=== PATIENT | male | born 1945 | race Caucasian/White ===

== ENCOUNTER 2018-09-12 10:39 | Emergency (ER) | payer MEDICARE, OTHER, SELFPAY ==
[2018-09-12 10:40] VITALS: BP 161/94; PULSE 96; RESP 18; TEMP 36.6; O2SAT 98; BMI 32.3
--- NOTE | 2018-09-12 11:14 | ED.VIS.GEN ---
History of Present Illness Chief Complaint: Lower Extremity Injury Informant: Patient, Significant Other Onset: Days - Atraumatic medial right ankle pain, swelling and redness that started September 09. Context: Sudden Onset Timing: Continuous Quality: Pain Location: Medial right ankle Current Severity: Mild Maximum Severity: Severe Worsened by: Movement, weightbearing and touch Relieved by: Nothing Associated Symptoms: No associated symptoms Narrative: Patient is an elderly male with history of hypertension who presents with atraumatic medial right ankle pain with swelling and redness that was first noted Saturday. He denies history of gout or pseudogout. He denies fever, chills or night sweats. Patient denies history of peripheral arterial disease or symptoms of claudication. Prior similar symptoms: No Recent Illness/Hospitalization: No - Past Medical History (1) History of hypertension Status: Acute Past Medical History - Allergies and Home Meds Allergies/Adverse Reactions: Allergies Penicillins Allergy (Verified 09/12/18 10:42) Rash Primary Care Physician: [facility] ,Out of [Primary Care Provider] - Prior records reviewed: Yes Surgical History: noncontributory Lives: Spouse/ Significant Other Smoking Status: Never smoker Alcohol: Rare Review of Systems General: Denies: Chills, Fever, Malaise, Sweats, Weight loss Gastrointestinal: Denies: Nausea, Vomiting Genitourinary: Denies: Dysuria, Hematuria, Frequency Musculoskeletal: Reports: Swelling, Extremity Pain. Denies: Myalgias, Arthralgias, Neck pain, Back pain Skin: Reports: Rash. Denies: Abscess, Abrasions, Wounds Endocrine: Denies: Polyuria, Polydipsia Hematologic: Denies: Easy bruising, Easy bleeding Physical Exam Vital Signs/Narrative: Vital Signs Temp Pulse Resp BP Pulse Ox 09/12/18 10:40 98 F 96 18 161/94 H 98 Inital Vital Signs reviewed: Yes General: Well nourished, Well developed, Obese, No Acute Distress Head: Normocephalic, Atraumatic Eyes: Perrl, EOMI. Negative for: Pale conjunctiva, Scleral icterus, - ENT: Moist mucous membranes, No rhinorrhea, TM's clear Neck: Supple, Nontender, No lymphadenopathy, No JVD, - Cardiovascular: Regular rate, Regular rhythm, No murmurs Respiratory: No distress Back: Nontender, Normal Inspection Extremities: No edema, Tenderness, - - Swelling of the foot and especially medial ankle. DP pulses palpable. Difficult to palpate PT pulse because of tenderness and swelling. There is no lymphangitis there is no popliteal or inguinal lymphadenopathy. There is no joint effusion. Able to plantar and dorsiflex without pain.. Negative for: Nontender Diagnostic/Tx/Re-eval Chest X-Ray - ED: Read by ED Physician, Read by Radiologist, - - Three-view x-ray was obtained which reveals a calcaneal spur. There is no acute findings noted. Impressions Ankle X-Ray 09/12/18 11:26 IMPRESSION: Calcaneal spur. Electronically Signed: Gadiel Metzmyranda, at 11:45 EDT , Service support , 09/12/18 11:26 Ankle min 3 Views [RAD] Stat Laboratory Results 09/12/18 09/12/18 11:05 11:05 WBC 11.2 H RBC 4.80 Hgb 15.2 Hct 43.3 MCV 90.2 MCH 31.7 MCHC 35.1 RDW 13.5 RDW Differential 44.4 H Plt Count 180 MPV 11.3 Immature Gran % (Auto) 0.500 Neut % (Auto) 61.3 Lymph % (Auto) 23.6 Bryan % (Auto) 10.0 Eos % (Auto) 4.1 Baso % (Auto) 0.5 Absolute Neuts (auto) 6.9 Absolute Lymphs (auto) 2.64 Total Counted Not Reportable ESR 10 Sodium 140 Potassium 4.2 Chloride 103 Carbon Dioxide 27.0 Anion Gap 10 BUN 20 H Creatinine 1.13 Estim Creat Clear Calc 62.81 Est GFR (MDRD) Af Amer 82 Est GFR (MDRD) Non-Af 68 BUN/Creatinine Ratio 17.7 Glucose 133 H Calcium 9.2 C-React Prot Ext Range 13.90 H - Medical Decision Making With atraumatic pain erythema warmth concern for infection. Doubt pyogenic or crystal induced arthritis since there is no effusion and abnormalities noted medially. Area of tenderness is over the deltoid ligament. With no history of trauma doubt sprain. X-rays were obtained to determine if there is a foreign body or any abnormality of the osseous structure to suggest infection i.e. osteomyelitis. With erythema approximately 5 cm in diameter fullness tenderness this may represent inflammatory infectious process. Since white count is slightly elevated and inflammatory markers are elevated will treat with clindamycin because of penicillin allergy and placed on NSAID. ED Disposition - Plan for ED Patient: Disposition: Home or Assisted Living Diagnosis: Acute right ankle pain Instructions: ED Acute Pain [facility] Prescriptions: Clindamycin HCl 300 mg PO 4X/DAY #28 cap Ibuprofen 600 mg PO 4X/DAY #20 tab Referrals: [facility] Doctor,Out of [Primary Care Provider] - 3-5 Days Additional Instructions: The exact cause of your pain and symptoms is unknown. Because your white count is elevated with warmth and redness to the inner side of your ankle you were placed on antibiotics. He also placed on anti-inflammatory medication to help with discomfort and inflammation.
[2018-09-12 11:16] LABS: Erythrocyte Sedimentation Rate 10 mm/hr (0-20)
[2018-09-12 11:19] LABS: Absolute Lymphocyte Count 2.64 X10^3/ul (0.83-4.51); Absolute Neutrophil Count 6.9 X10^3/uL (2.0-7.7); Basophil# 0.06 X10^3/uL; Basophil% 0.5 % (0-1); Eosinophil# 0.46 X10^3/uL; Eosinophils% 4.1 % (0-5); Hematocrit 43.3 % (40-54); Hemoglobin 15.2 g/dl (13.0-16.5); Lymphocyte # 2.64 X10^3/ul (4.0); Lymphocyte % 23.6 % (19-41); Mean Corp Hgb Conc 35.1 g/gl (32-36); Mean Corpuscular Hgb 31.7 pg (27.0-32.0); Mean Corpuscular Volume 90.2 fL (80-94); Mean Platelet Vol. 11.3 fl (6.2-12.0); Monocyte# 1.12 X10^3/uL; Neutrophil # 6.85 X10^3/uL (2.7-7.7); Neutrophil % 61.3 % (47-70); Platelet Count 180 K/mm3 (150-450); RBC Distribution Width CV 13.5 % (11.6-14.6); RBC Distribution Width SD 44.4 fl (35.1-43.9); White Blood Count 11.2 K/mm3 (4.4-11.0)
[2018-09-12] MEDS: Ketorolac 15 MG/ML Vial IV (11:20)
[2018-09-12 11:22] LABS: POSITIVE COUNT NO; POSITIVE DIFFERENTIAL NO; POSITIVE MORPHOLOGY NO
--- NOTE | 2018-09-12 11:26 | RAD_ITS ---
STUDY: X-RAY - RIGHT ANKLE REASON FOR EXAM: Male, 72 years old. Pain. No known injury. TECHNIQUE: 3 view(s) of the ankle. COMPARISON: None. FINDINGS: Normal visualized distal tibia and fibula. Normal medial and lateral malleoli. Normal tibiotalar articulation and ankle mortise. A spur is seen at the insertion of the Achilles tendon. The visualized subtalar, talonavicular, calcaneocuboid and tarsal articulations are normal. The soft tissue structures are unremarkable. RAD/Ankle min 3 Views IMPRESSION: Calcaneal spur. Electronically Signed: Gadiel Schilling, at 11:45 EDT , Service support ,
[2018-09-12 12:27] LABS: Anion Gap 10 (5-15); BUN 20 mg/dL (7-18); BUN/Creat Ratio 17.7 RATIO (10-20); Calcium,Total 9.2 mg/dL (8.5-10.1); Chloride 103 mmol/L (98-107); Creatinine, Serum 1.13 mg/dL (0.70-1.30); EST Glomerular Filtration Rate 68 mL/min (>60); Est Glom Filt Rate - Afr Amer 82 mL/min (>60); Estimated Creatinine Clearance 62.81 ml/min; Glucose 133 mg/dL (74-106); Potassium 4.2 mmol/L (3.5-5.1); Sodium Level 140 mmol/L (136-145)
[2018-09-12 12:31] VITALS: BP 157/78; PULSE 73; RESP 16; TEMP 36.8; O2SAT 93
[2018-09-12] MEDS: Clindamycin HCl 150 MG Capsule 300 MG PO (14:46)
[2018-09-12] MEDS: Ibuprofen 600 MG Tablet PO (14:46)
== END 2018-09-12 14:49 | disposition home or self-care (01) ==
PROVIDERS: Emergency Provider Emergency Medicine
DX: M25.571 Pain in right ankle and joints of right foot (principal); M77.31 Calcaneal spur, right foot; I10 Essential (primary) hypertension; Z79.82 Long term (current) use of aspirin; Z79.899 Other long term (current) drug therapy; Z88.0 Allergy status to penicillin
CPT/HCPCS: 73610; 80048; 85025; 85652; 86140; 96374; 99284; A4216

== ENCOUNTER 2021-12-08 11:44 | Emergency (ER) | payer MEDICARE, SELFPAY ==
[2021-12-08 11:46] VITALS: BP 144/71; PULSE 80; RESP 14; TEMP 36.6; O2SAT 97; BMI 30.1
--- NOTE | 2021-12-08 12:16 | RAD_ITS ---
STUDY: X-RAY - LEFT HUMERUS REASON FOR EXAM: Male, 76 years old. Injury/Pain TECHNIQUE: 3 view(s) of the humerus. COMPARISON: None. FINDINGS: Normal visualized humerus. There is no demonstrated fracture or osseous destructive process. There is no demonstrated soft tissue abnormality. RAD/Humerus min 2 Views IMPRESSION: Normal x-ray examination of the humerus. Electronically Signed: Gadiel Schilling MD at 12:33 EDT ,
--- NOTE | 2021-12-08 12:25 | EDS_ITS ---
HPI History of Present Illness Chief Complaint: Upper Extremity Injury Informant: patient Narrative Narrative: Patient is a 76-year-old male with history of hypertension presenting with left shoulder pain after moving boxes. Patient states he was moving heavy boxes and he thinks he was reaching out with his arm and externally rotating when all of a sudden he had pain in his arm. This was about 2 hours prior to arrival. Has no associated numbness or tingling. Pain is over the lateral aspect of his mid upper arm. It is worse when he tries to flex his arm. Better when he relaxes it or does not move it. No other pain or injuries. [facility] Medical History GERD (gastroesophageal reflux disease) Hypertension Kidney stones Home Medications amlodipine 5 mg tablet 5 mg PO DAILY 09/12/18 [History Last Taken Unknown] aspirin 81 mg chewable tablet 81 mg PO DAILY@0800 09/12/18 [History Last Taken Unknown] atorvastatin 20 mg tablet 20 mg PO DAILY 09/12/18 [History Last Taken Unknown] cholecalciferol (vitamin D3) 125 mcg (5,000 unit) tablet 5,000 unit PO DAILY 09/12/18 [History Last Taken Unknown] clindamycin HCl 300 mg capsule 300 mg PO 4X/DAY #28 caps 09/12/18 [Rx Last Taken Unknown] coenzyme Q10 100 mg capsule (Co Q-10) 100 mg PO DAILY 09/12/18 [History Last Taken Unknown] esomeprazole magnesium 20 mg capsule,delayed release (Nexium) 20 mg PO DAILY 09/12/18 [History Last Taken Unknown] ibuprofen 600 mg tablet 600 mg PO 4X/DAY #20 tabs 09/12/18 [Rx Last Taken Un known] losartan 50 mg-hydrochlorothiazide 12.5 mg tablet 2 ea PO DAILY 09/12/18 [History Last Taken Unknown] magnesium oxide 400 mg PO DAILY 09/12/18 [History Last Taken Unknown] malic acid (bulk) 222 mg PO DAILY 09/12/18 [History Last Taken Unknown] omega-3 fatty acids-fish oil 684 mg-1,200 mg capsule,delayed release (One-Per-Day Emma-3) 1 ea PO DAILY 09/12/18 [History Last Taken Unknown] vitamin B complex 1 ea PO DAILY 09/12/18 [History Last Taken Unknown] Allergy/AdvReac Type Severity Reaction Status Date / Time Penicillins Allergy Rash Verified 09/12/18 10:42 Surgical History History of carotid endarterectomy History of laminectomy Social History Smoking Status: Never smoker ROS ROS ED Constitutional Constitutional ED: Denies chills or fever(s) Eyes Eyes: Denies change in vision ENT ENT ED: Denies rhinorrhea or sore throat Cardiovascular Cardiovascular: Denies chest pain Respiratory/Chest Respiratory/Chest: Denies cough Gastrointestinal Gastrointestinal: Denies nausea or vomiting Musculoskeletal Musculoskeletal: Reports other Details: left upper arm pain ; Denies back pain Integumentary Denies Abrasions or rash Neurologic Neurologic: Denies paresthesias or weakness Hematologic/Lymphatic Hematologic/Lymphatic: Denies easy bleeding or easy bruising EXAM Physical Exam Const Vital Signs: 12/08/21 11:46 Temperature 97.8 F Temperature Source Temporal Pulse Rate 80 Respiratory Rate 14 Blood Pressure 144/71 H Blood Pressure Mean 95 Pulse Ox 97 Oxygen Delivery Method Room Air Positive well nourished and well developed General Appearance ED: well developed and NAD HEENT Reports moist mucous membranes Eyes PERRL and EOMs intact bilaterally Neck full ROM and supple General: Negative for tenderness Chest Wall inspection of chest normal and palpation of chest normal Resp normal respiratory effort and clear to auscultation bilaterally Cardio regular rate, regular rhythm and no murmurs Extremity full ROM Extremity Narrative: Preserved range of motion with passive movement. Patient has pain with attempts to flex his left elbow. Normal shoulder with no deformity. Patient does have a bulge of muscle of the lateral mid humerus consistent with a muscle tear. Pain does worsen when he tries extend the elbow and abduct the shoulder and better with flexion of the elbow. Normal movement of the forearm, wrist and fingers. Neuro oriented x3, moves all extremities, no focal motor deficits and no sensory deficits noted Skin Lesions: no lesions Rashes: no rashes MDM MDM MDM Narrative Medical decision making narrative: Patient is a 76-year-old male presenting with sudden onset of pain and swelling of his left upper arm. Physical exam consistent with left tricep tendon rupture. Patient declined pain medication in the ER. We will continue ice and take [id number] ibuprofen at home as needed. Given referral for orthopedics. He is neurovascular intact no other injuries. X-ray obtained interpreted by myself as well as radiology does not show any acute fracture. Clinically do not suspect a dislocation. Patient discharged home in stable condition. Declines a sling for comfort. Discharge Plan Triage Chief Complaint: Upper Extremity Injury ED Provider: Haily Walsh Dx/Rx/DC Orders Clinical Impression: Triceps tendon rupture, Arm pain, left Instructions: ED Muscle Strain, Extremity Prescriptions: No Action atorvastatin 20 MG tablet 20 mg PO DAILY amlodipine 5 MG tablet 5 mg PO DAILY aspirin 81 MG Tab.Chew 81 mg PO DAILY@0800 vitamin B complex 1 EACH tablet 1 ea PO DAILY losartan-hydrochlorothiazide 1 EACH tablet 2 ea PO DAILY malic acid (bulk) 500 GM Powder 222 mg PO DAILY esomeprazole magnesium [Nexium] 20 MG capsule 20 mg PO DAILY coenzyme Q10 [Co Q-10] 100 MG capsule 100 mg PO DAILY omega-3 fatty acids-fish oil [One-Per-Day Emma-3] 1 EACH Capsule. 1 ea PO DAILY cholecalciferol (vitamin D3) 5,000 UNIT tablet 5,000 unit PO DAILY magnesium oxide 400 MG capsule 400 mg PO DAILY clindamycin HCl 300 MG capsule 300 mg PO 4X/DAY Qty: 28 0RF ibuprofen 600 MG tablet 600 mg PO 4X/DAY Qty: 20 0RF Primary Care Provider: Care Physician,No Primary Referrals: Adrian Carrillo DO [Med Staff - Active Staff] - 3-5 Days Care Physician,No Primary [Primary Care Provider] - Activity Restrictions/Additional Instructions: Alternate ibuprofen and Tylenol for pain control. Is okay to continue moving the arm. I suspect you have at least a partial rupture of one of the muscles in your arm, likely the tricep. Please follow-up with orthopedics within the next week. Disposition Disposition: Home, Self Care
== END 2021-12-08 12:53 | disposition home or self-care (01) ==
PROVIDERS: Emergency Provider Emergency Medicine; Visit Provider Emergency Medicine
DX: S46.312A Strain of muscle, fascia and tendon of triceps, left arm, initial encounter (principal); X58.XXXA Exposure to other specified factors, initial encounter
CPT/HCPCS: 73060; 99282

== ENCOUNTER 2022-11-13 22:59 | Emergency (ER) | payer OTHER, SELFPAY ==
[2022-11-13 23:01] VITALS: BP 169/68; PULSE 84; RESP 16; TEMP 36.7; O2SAT 97; BMI 30.8
[2022-11-13 23:09] VITALS: BMI 30.8
[2022-11-13 23:10] VITALS: BP 147/82; PULSE 79; RESP 16; O2SAT 95
--- NOTE | 2022-11-13 23:22 | CT_ITS ---
We are attempting to reach an attending provider to discuss findings. An addendum with communication details will be sent when the communication is complete. STUDY: CTA HEAD AND NECK WITH AND WITHOUT CONTRAST REASON FOR EXAM: Male, 77 years old. TIA RADIATION DOSAGE (If Supplied By Facility): CTDIvol = ( 27.01 ) mGy, DLP = ( 1568.51 ) mGycm TECHNIQUE: CT angiography was performed with a multi-detector CT scanner. Data acquisition was obtained from the skull base through the vertex following intravenous administration of IV 100mL Isovue-370. MIP images were reconstructed from the axial data set. Post-processing of the angiographic images was performed, with multiplanar reformation and 3D reconstruction. Individualized dose optimization techniques were used for this CT. COMPARISON: No relevant priors. FINDINGS: Patient right petrous carotid artery. Occluded left cavernous carotid artery partially reconstituted supraclinoid portion with patent left side and one likely supplied by the posterior communicating artery.. Normal right common carotid artery which is partially calcified without stenosis. Normal right A1 segments of the anterior cerebral artery. There is a visualized left A1 which is lesser in caliber than the right. Normal intact anterior communicating artery (ACOM). Normal bilateral A2 segments of the anterior cerebral arteries. Normal right M1 and M2 segments of the middle cerebral arteries, with a normal M1 bifurcation. This is noting a somewhat diminutive appearance of the vessels on the right. Normal left M1 and M2 segments of the middle cerebral arteries, with a normal M1 bifurcation. Normal right posterior communicating artery (PCOM). Normal left posterior communicating artery (PCOM). Normal bilateral vertebral arteries. Normal basilar artery with a normal basilar bifurcation. The visualized bilateral superior cerebellar (SCA) arteries are normal. Normal bilateral P1, P2 and visualized P3 segments of the posterior cerebral arteries. There is no demonstrated aneurysm of the mo[place] of [place]. On the noncontrasted portion of this study there is visualized mild atrophy. There is visualized subtle low-attenuation within the periventricular white matter suggesting prior small vessel ischemic change. There is subtle low attenuation within the left-sided external capsule ingesting age indeterminate ischemic change.. There is no visualized midline shift, or hemorrhage. AORTIC ARCH: There is partial calcification of the visualized aorta. There is a common takeoff of the left common carotid from the innominate. There is calcification of the takeoff of the right side subclavian with moderate plaque formation. There is partial calcification of the take off of the left subclavian without stenosis. RIGHT CAROTID ARTERIES: Within the distal right common carotid artery there is a visualized focus of soft plaque or mural thrombus and a strand-like takeoff of the external carotid artery and the superficial branch of the right external carotid artery. There is moderate narrowing of the visualized external carotid artery. At the level of this mural thrombus there is focal narrowing of the vessel of at least 50%. There is mild distention at the level of the bifurcation. The right-sided internal carotid artery is otherwise patent. Peripheral soft plaque or mural thrombus suggested at the level of the right internal carotid artery which appears to at least partially extend along the right internal carotid artery without visualized appearance of a double lumen. The vessel remains patent to the petrous.. Normal visualized cervical portion of the right internal carotid artery. There is moderate atherosclerotic plaque formation of the origin of the right external carotid artery with an estimated stenosis of 50-69% stenosis. LEFT CAROTID ARTERIES: There is also a suggestion of narrowing of the left side of the common carotid artery possible small focus of mural thrombus surrounding the left common carotid artery and/or soft plaque. There is also narrowing of the left-sided external carotid artery at its takeoff but not to the degree as on the right side. There is visualized occlusion of the left internal carotid artery at the level of the bifurcation. There is also a filling defect within the left side internal jugular vein at the level of the jugular foramen. The left internal carotid artery is occluded at the left carotid bulb. Occluded left internal carotid (ICA) artery. Occluded left internal carotid artery. Patient origin of the left external carotid artery (ECA). VERTEBRAL ARTERIES: Normal bilateral vertebral arteries. The visualized dental cavities in the right mandibular molars. There is visualized degenerative change within the cervical spine. There is visualized sphenoid sinus mucosal thickening mild ethmoid and maxillary sinus mucosal thickening. CT/CTA Head AND Neck W/ Contrast IMPRESSION: Abnormal study. 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 Although slightly diminutive, The left MCA is patent. . There is a subtle focus of low attenuation within the left-sided basal ganglia external capsule which may represent evidence of recent or age indeterminate ischemic change. Recommend consideration for follow-up MRI. On both sides of the common carotid arteries there is visualized soft plaque or mural thrombus suggesting age indeterminate, dissection with mural thrombus extending along the confines of the common carotid arteries. There is at least 50% narrowing of the distal right carotid artery proximal to the bifurcation and a narrowed appearance of the right external carotid artery. The right internal carotid artery appears to be patent without hemodynamic stenosis. There is a small focus of filling defect within the left distal internal jugular vein suggesting a small thrombus just proximal to the left jugular foramen. Atherosclerotic disease of the aorta. Anatomic common takeoff of the bilateral carotid arteries from the innominate. Electronically Signed: Silvana Castro MD at 0:53 EDT ,
--- NOTE | 2022-11-13 23:22 | EKG12_ITS ---
Test Reason : NEURO Blood Pressure : / mmHG Vent. Rate : 076 BPM Atrial Rate : 076 BPM P-R Int : 212 ms QRS Dur : 084 ms QT Int : 402 ms P-R-T Axes : 066 016 031 degrees QTc Int : 452 ms Sinus rhythm with 1st degree A-V block Otherwise normal ECG Confirmed by RAMESH SAVAGE, SHANNON ([id number]), editor & co founder SIMON RIGGS ([id number]) on 11/19/2022 9:12:45 AM Referred By: Confirmed By:TAMIA CHANDLER MD
--- NOTE | 2022-11-13 23:22 | RAD_ITS ---
STUDY: X-RAY CHEST REASON FOR EXAM: Male, 77 years old. TIA TECHNIQUE: 2 AP portable views of the chest. COMPARISON: None. FINDINGS: The lungs are clear and expanded. There is no demonstrated pleural abnormality. Normal size heart. Normal mediastinum and rachelle. Normal visualized pulmonary arteries. There is atherosclerotic calcification of the aortic arch with tortuosity. There are diffuse degenerative changes of the visualized thoracic spine. Normal visualized ribs, clavicles, and shoulders. There is no demonstrated abnormality of the visualized soft tissue structures of the upper abdomen. RAD/Chest 1 View (Portable) IMPRESSION: . No demonstrated acute cardiopulmonary process. Electronically Signed: Silvana Castro MD at 23:44 EDT ,
[2022-11-13 23:30] VITALS: BP 129/77
[2022-11-13 23:34] LABS: Absolute Neutrophil Count 5.9 X10^3/uL (2.0-7.7); Basophil# 0.11 X10^3/uL; Basophil% 0.9 % (0-1); Eosinophil# 0.41 X10^3/uL; Eosinophils% 3.5 % (0-5); Hemoglobin 14.3 g/dL (13.0-16.5); Lymphocyte % 33.8 % (19-41); Mean Corpuscular Hgb 31.3 pg (27.0-32.0); Mean Corpuscular Volume 91.9 fL (80-94); Mean Platelet Vol. 11.6 fl (6.2-12.0); Monocyte# 1.36 X10^3/uL; Monocyte% 11.5 % (0-10); NRBC Flagged by Analyzer 0 % (0-5); Neutrophil # 5.93 X10^3/uL (2.7-7.7); Platelet Count 213 K/mm3 (150-450); RBC Distribution Width SD 43.6 fl (35.1-43.9); Red Blood Count 4.57 M/mm3 (4.6-6.2); White Blood Count 11.8 K/mm3 (4.4-11.0)
[2022-11-13 23:52] VITALS: PULSE 81; O2SAT 96
[2022-11-13] MEDS: 0.9% Normal Saline 1,000 ML 999 ML IV (23:52)
[2022-11-13 23:59] LABS: Anion Gap 7 (5-15); BUN 39 mg/dL (7-18); BUN/Creat Ratio 19.3 RATIO (10-20); Calcium,Total 9.2 mg/dL (8.5-10.1); Chloride 103 mmol/L (98-107); Creatinine, Serum 2.02 mg/dL (0.70-1.30); EST Glomerular Filtration Rate 34 mL/min (>60); Est Glom Filt Rate - Afr Amer 42 mL/min (>60); Estimated Creatinine Clearance 32.63 ml/min; Glucose 125 mg/dL (74-106); Potassium 3.5 mmol/L (3.5-5.1); Sodium Level 135 mmol/L (136-145)
[2022-11-14] VITALS (17 sets, daily range): BP systolic 129–155; BP diastolic 69–119; PULSE 69–87; RESP 12–22; TEMP 36.8; O2SAT 72–98
--- NOTE | 2022-11-14 00:32 | EDS_ITS ---
HPI History of Present Illness Chief Complaint: Neuro S/Sx Informant: patient, family and EMS Narrative Narrative: Patient is a 77-year-old male with past medical history of hypertension hyperlipidemia [id number] diabetes and previous carotid endarterec gillian bilaterally performed in 2009 in 2014. According to daughter patient was watching TV around 1015 this evening when she went out and he had slurred speech with facial droop and difficulty reading. She states that symptoms lasted for approximately 5 minutes and then resolve spontaneously. A few minutes later however they returned and were similar nature and lasted for another 5 to 10 minutes and then spontaneously resolved. With concern patient was having acute stroke EMS was called. EMS reports they arrived patient was awake and alert without any symptoms and blood sugar was normal. However with concern for TIA he was brought in for evaluation [facility] Medical History (Updated 11/14/22 @ 00:[address] Jyoti Herrera MD) Carotid disease, bilateral Diabetes GERD (gastroesophageal reflux disease) Hyperlipidemia Hypertension Kidney stones Home Medications amlodipine 5 mg tablet 10 mg PO DAILY 09/12/18 [History Last Taken Unknown] aspirin 81 mg chewable tablet 81 mg PO DAILY@0800 09/12/18 [History Last Taken Unknown] atorvastatin 20 mg tablet 80 mg PO DAILY 09/12/18 [History Last Taken Unknown] cholecalciferol (vitamin D3) 125 mcg (5,000 unit) tablet 5,000 unit PO DAILY 09/12/18 [History Last Taken Unknown] coenzyme Q10 100 mg capsule (Co Q-10) 100 mg PO DAILY 09/12/18 [History Last Taken Unknown] esomeprazole magnesium 20 mg capsule,delayed release (Nexium) 20 mg PO DAILY 09/12/18 [History Last Taken Unknown] losartan 50 mg-hydrochlorothiazide 12.5 mg tablet 2 ea PO DAILY 09/12/18 [History Last Taken Unknown] magnesium oxide 400 mg PO DAILY 09/12/18 [History Last Taken Unknown] malic acid (bulk) 222 mg PO DAILY 09/12/18 [History Last Taken Unknown] omega-3 fatty acids-fish oil 684 mg-1,200 mg capsule,delayed release (One-Per-Day [place]-3) 1 ea PO DAILY 09/12/18 [History Last Taken Unknown] vitamin B complex 1 ea PO DAILY 09/12/18 [History Last Taken Unknown] hydrochlorothiazide 25 mg tablet 25 mg PO QODAY 11/13/22 [History Last Taken Unknown] metformin 500 mg tablet 500 mg PO BID 11/13/22 [History Last Taken Unknown] Allergy/AdvReac Type Severity Reaction Status Date / Time Penicillins Allergy Rash Verified 09/12/18 10:42 Family History (Updated 11/14/22 @ 00:[address] Jyoti Herrera MD) Mother Ovarian cancer Father Cerebral hemorrhage following injury Grandfather CAD (coronary artery disease) Myocardial infarction Heart disease Lung cancer Grandmother Hypertension Surgical History (Updated 11/14/22 @ 00:[address] Jyoti Herrera MD) History of carotid endarterectomy History of laminectomy Social History (Updated 11/14/22 @ 00:[address] Jyoti Herrera MD) household members: family Smoking Status: Former smoker how long ago did patient quit smoking: Smoked age [age], smoked up to 1 ppd in service x 4 years. alcohol intake: never substance use type: does not use ROS ROS ED Constitutional Constitutional ED: Denies chills or fever(s) Eyes Eyes: Denies change in vision ENT ENT ED: Denies sore throat Cardiovascular Cardiovascular: Denies chest pain, palpitations or racing heartbeat Respiratory/Chest Respiratory/Chest: Denies cough or dyspnea Gastrointestinal Gastrointestinal: Denies abdominal pain, diarrhea, nausea or vomiting Genitourinary Genitourinary ED: Denies dysuria Musculoskeletal Musculoskeletal: Denies myalgias Integumentary Denies rash Neurologic Neurologic: Denies headache(s) Hematologic/Lymphatic Hematologic/Lymphatic: Denies easy bleeding or easy bruising EXAM Physical Exam Const Vital Signs: 11/13/22 23:01 11/13/22 23:10 11/14/22 00:44 Temperature 98.1 F 98.2 F Temperature Source Oral Temporal Pulse Rate 84 79 72 Respiratory Rate 16 16 22 H Blood Pressure 169/68 H 147/82 H 129/77 H Blood Pressure Mean 101 103 94 Pulse Ox 97 95 72 Oxygen Delivery Method Room Air Room Air Room Air 11/13/22 23:30 11/13/22 23:52 11/14/22 00:00 Temperature Temperature Source Pulse Rate 81 72 Respiratory Rate 13 Blood Pressure 129/77 H Blood Pressure Mean 91 Pulse Ox 96 97 Oxygen Delivery Method 11/14/22 00:10 11/14/22 00:20 11/14/22 00:30 Temperature Temperature Source Pulse Rate 74 74 72 Respiratory Rate 16 18 21 H Blood Pressure Blood Pressure Mean Pulse Ox 96 97 95 Oxygen Delivery Method 11/14/22 00:40 Temperature Temperature Source Pulse Rate 72 Respiratory Rate 20 H Blood Pressure 129/77 H Blood Pressure Mean 94 Pulse Ox 97 Oxygen Delivery Method Positive well nourished and well developed General Appearance ED: well developed HEENT HEENT Narrative: Normocephalic atraumatic Eyes PERRL and EOMs intact bilaterally Neck supple Neck Narrative: No nuchal rigidity or meningeal signs noted Resp normal respiratory effort and clear to auscultation bilaterally Cardio regular rate and regular rhythm Rate: other Other Details: Radial pulses are plus 2 out of 4 bilaterally are equal and symmetric GI normal to inspection, nondistended, normoactive bowel sounds, non-tender, non- distended and no masses GI Narrative: No voluntary guarding or rigidity no pulsatile mass or fluid wave Auscultation: normoactive bowel sounds Palpation: soft Extremity normal to inspection Neuro oriented x3 and CN's II-XII intact bilaterally Neuro Narrative: Cranial nerves II through XII are grossly intact there are no focal neurologic deficits. No pronator drift no dysmetria no truncal ataxia. NIH stroke scale score of 0 Sensorium / Orientation: alert Psych mental status grossly normal Skin no rashes or lesions noted MDM MDM MDM Narrative Medical decision making narrative: Patient presented to the ER awake and alert with NIH stroke scale score of 0. However with daughter reporting he had slurred speech facial droop and difficulty with word finding that his symptoms do fit stroke/TIA. He also has multiple risk factors for it. Therefore a stroke work-up was performed. EKG was sinus rhythm chest x-ray revealed no acute findings and blood work revealed no clinically significant changes. His CTA however showed changes to his carotids which indicated patient was high risk for a stuttering stroke. The case was discussed with medicine on-call and they feel that based on the severity of his carotid obstructions with questionable dissection he would be better served at a higher level of care. Secondary to this the case was discussed with medicine Dr. Reyes at [facility]. He agrees to accept the patient at this time. However he does recommend that other facilities to be checked into as there is a long wait for bed assignment. Therefore [facility] and all the [facility] facilities were contacted and there are no beds available. Therefore we contacted [facility] once again informing them of this and they recommend ER to ER admission. Therefore patient will be transferred to the ER so he can receive further work-up by the specialist at the [facility]. This plan of care was discussed with patient and family and both are agreeable to it. Patient has remained awake and alert with stroke scale score of 0 for his entire ER stay. History & Record Review Discussion w/independent historian: EMS personnel, Patient and Family Lab Data Attestation: I reviewed the patient's lab results. Labs: Laboratory Results - last 24 hr 11/13/22 11/13/22 23:03 23:28 WBC 11.8 H RBC 4.57 L Hgb 14.3 Hct 42.0 MCV 91.9 MCH 31.3 MCHC 34.0 RDW Std Deviation 43.6 RDW Coeff of Aracely 13.0 Plt Count 213 MPV 11.6 Immature Gran % (Auto) 0.300 Neut % (Auto) 50.0 Lymph % (Auto) 33.8 [place] % (Auto) 11.5 H Eos % (Auto) 3.5 Baso % (Auto) 0.9 Absolute Neuts (auto) 5.9 Absolute Lymphs (auto) 4.00 Nucleated RBC % 0 PT 12.9 INR 1.0 APTT 29.1 Sodium 135 L Potassium 3.5 Chloride 103 Carbon Dioxide 25.0 Anion Gap 7 BUN 39 H Creatinine 2.02 H Estim Creat Clear Calc 32.63 Est GFR (MDRD) Af Amer 42 L Est GFR (MDRD) Non-Af 34 L BUN/Creatinine Ratio 19.3 Glucose 125 H Calcium 9.2 Magnesium 2.0 Radiography Diagnostic Testing: Clinical Impression(s) from Imaging Studies Chest X-Ray 11/13/22 23:22 IMPRESSION: . No demonstrated acute cardiopulmonary process. Electronically Signed: Silvana Castro MD at 23:44 EDT , Head/Neck CTA 11/13/22 23:22 IMPRESSION: Abnormal study. 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 Although slightly diminutive, The left MCA is patent. . There is a subtle focus of low attenuation within the left-sided basal ganglia external capsule which may represent evidence of recent or age indeterminate ischemic change. Recommend consideration for follow-up MRI. On both sides of the common carotid arteries there is visualized soft plaque or mural thrombus suggesting age indeterminate, dissection with mural thrombus extending along the confines of the common carotid arteries. There is at least 50% narrowing of the distal right carotid artery proximal to the bifurcation and a narrowed appearance of the right external carotid artery. The right internal carotid artery appears to be patent without hemodynamic stenosis. There is a small focus of filling defect within the left distal internal jugular vein suggesting a small thrombus just proximal to the left jugular foramen. Atherosclerotic disease of the aorta. Anatomic common takeoff of the bilateral carotid arteries from the innominate. Electronically Signed: Silvana Castro MD at 0:53 EDT Reading Location ID and State: [facility] / [place] Tel , Service support , ADDENDUM: 11/14/22 0101 IMPRESSION: Abnormal study. 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 Although slightly diminutive, The left MCA is patent. . There is a subtle focus of low attenuation within the left-sided basal ganglia external capsule which may represent evidence of recent or age indeterminate ischemic change. Recommend consideration for follow-up MRI. On both sides of the common carotid arteries there is visualized soft plaque or mural thrombus suggesting age indeterminate, dissection with mural thrombus extending along the confines of the common carotid arteries. There is at least 50% narrowing of the distal right carotid artery proximal to the bifurcation and a narrowed appearance of the right external carotid artery. The right internal carotid artery appears to be patent without hemodynamic stenosis. There is a small focus of filling defect within the left distal internal jugular vein suggesting a small thrombus just proximal to the left jugular foramen. Atherosclerotic disease of the aorta. Anatomic common takeoff of the bilateral carotid arteries from the innominate. N.B. : The above Results were Read Back by Silvana aCstro MD to Didi Karimi DO, and understanding confirmed on 11/14/2022 00:54:06 (ET). Electronically Signed: Silvana Castro MD at 0:53 EDT , Chest x-ray as interpreted by the emergency medicine physician reveals no acute infiltrate pneumothorax or pleural effusion Management Discussion w/another healthcare provider: Hospitalist and Accuracy Expert Discharge Plan Triage Chief Complaint: Neuro S/Sx ED Provider: Chito Karimi Dx/Rx/DC Orders Clinical Impression: TIA (transient ischemic attack), Hyperlipidemia, Hypertension Primary Care Provider: Kaushal Saldivar Disposition Disposition: Acute Care Hospital Discharge Location: [facility]
[2022-11-14 00:34] LABS: Prothrombin Time (Protime)PT. 12.9 SECONDS (11.7-14.9)
[2022-11-14 00:35] LABS: Partial Thromboplast Time 29.1 Seconds (24.1-36.2)
--- NOTE | 2022-11-14 00:44 | HP.PCM.HOS_ITS ---
HPI - General General Date of Admission: 11/14/22 Date of Service: 11/14/22 Chief Complaint: Expressive aphasia, transient. HPI Narrative The patient is a 77 y/o M w/ PMHx: Carotid disease s/p BL CEA, GERD, HTN, HLD, Diabetes mellitus type II, Former tobacco use who presents to the [facility] ED on 11/14/22 with history of onset at ~ 10:15 pm the evening prior episode of expressive aphasia, nonsense words, inability to express himself and daughter concerned he could not see the TV however given his aphasia unclear if he could just no express alone which lasted ~ 5 minutes and then resolved however quickly again recurred lasting again ~ 5 minutes and resolving but given these events prompted ED evaluation. Patient does report taking a daily aspirin and did so on day of presentation. In the ED upon initial evaluation NIH stroke scale of 0 and upon repeat evaluation per hospitalist remained as such. In the included T98.1, heart rate 84, BP initially 169/60 with most recent repeat 129/77, respiratory rate 16, 97% on room air, CBC with WBC 11.8, hemoglobin 14.3, platelet 213 without marked shift, unremarkable coags, BMP with sodium 135, BUN/creatinine 39/2.02, glucose 125, chest x-ray with no acute cardiopulmonary finding, EKG was sinus rhythm with nonspecific findings with no acute evidence of ischemia, CTA head and neck is just obtained and awaiting radiology read upon requested evaluation of patient. In the ED patient ministered 1 L normal saline. [facility] Medical History (Updated 11/14/22 @ 00:[address] Jyoti Herrera MD) Carotid disease, bilateral Diabetes GERD (gastroesophageal reflux disease) Hyperlipidemia Hypertension Kidney stones Home Medications amlodipine 5 mg tablet 10 mg PO DAILY 09/12/18 [History Last Taken Unknown] aspirin 81 mg chewable tablet 81 mg PO DAILY@0800 09/12/18 [History Last Taken Unknown] atorvastatin 20 mg tablet 80 mg PO DAILY 09/12/18 [History Last Taken Unknown] cholecalciferol (vitamin D3) 125 mcg (5,000 unit) tablet 5,000 unit PO DAILY 09/12/18 [History Last Taken Unknown] coenzyme Q10 100 mg capsule (Co Q-10) 100 mg PO DAILY 09/12/18 [History Last Taken Unknown] esomeprazole magnesium 20 mg capsule,delayed release (Nexium) 20 mg PO DAILY 09/12/18 [History Last Taken Unknown] losartan 50 mg-hydrochlorothiazide 12.5 mg tablet 2 ea PO DAILY 09/12/18 [History Last Taken Unknown] magnesium oxide 400 mg PO DAILY 09/12/18 [History Last Taken Unknown] malic acid (bulk) 222 mg PO DAILY 09/12/18 [History Last Taken Unknown] omega-3 fatty acids-fish oil 684 mg-1,200 mg capsule,delayed release (One-Per-Day [place]-3) 1 ea PO DAILY 09/12/18 [History Last Taken Unknown] vitamin B complex 1 ea PO DAILY 09/12/18 [History Last Taken Unknown] hydrochlorothiazide 25 mg tablet 25 mg PO QODAY 11/13/22 [History Last Taken Unknown] metformin 500 mg tablet 500 mg PO BID 11/13/22 [History Last Taken Unknown] Allergy/AdvReac Type Severity Reaction Status Date / Time Penicillins Allergy Rash Verified 09/12/18 10:42 Family History (Updated 11/14/22 @ 00:[address] Jyoti Herrera MD) Mother Ovarian cancer Father Cerebral hemorrhage following injury Grandfather CAD (coronary artery disease) Myocardial infarction Heart disease Lung cancer Grandmother Hypertension Surgical History (Updated 11/14/22 @ 00:[address] Jyoti Herrera MD) History of carotid endarterectomy History of laminectomy Social History (Updated 11/14/22 @ 00:[address] Jyoti Herrera MD) household members: family Smoking Status: Former smoker how long ago did patient quit smoking: Smoked age [age], smoked up to 1 ppd in service x 4 years. alcohol intake: never substance use type: does not use ROS ROS Narrative Admission Review of Systems: CONSTITUTIONAL: No weight loss, fever, chills, + weakness or fatigue. HEENT: + Reported difficulty with seeing the TV but again this was during an episode of expressive aphasia thus unclear if true vision loss occurred. Eyes: No double vision or yellow sclerae. Ears, Nose, Throat: No hearing loss, sneezing, congestion, runny nose or sore throat. SKIN: No rash or itching, lesions, wounds. CARDIOVASCULAR: No chest pain, chest pressure or chest discomfort, palpitations, edema, orthopnea, syncopal events. RESPIRATORY: No shortness of breath, cough or sputum, wheezing, hemoptysis. GASTROINTESTINAL: No anorexia, nausea, vomiting or diarrhea, abdominal pain, melena, BRBPR. GENITOURINARY: No dysuria, frequency, urgency or retention. NEUROLOGICAL: + Expressive aphasia. No headache, dizziness, syncope, paralysis, ataxia, numbness or tingling in the extremities, focal weakness, change in bowel or bladder control, seizure. MUSCULOSKELETAL: No muscle, back pain, joint pain or stiffness. HEMATOLOGIC: No anemia, bleeding or bruising. LYMPHATICS: No enlarged nodes. No history of splenectomy. PSYCHIATRIC: No history of depression or anxiety. ENDOCRINOLOGIC: No reports of sweating, cold or heat intolerance. No polyuria or polydipsia. ALLERGIES: No history of asthma, hives, eczema or rhinitis. Vital Signs Vital Signs Vital Signs: 11/13/22 23:01 11/13/22 23:10 Temperature 98.1 F Temperature Source Oral Pulse Rate 84 79 Respiratory Rate 16 16 Blood Pressure 169/68 H 147/82 H Blood Pressure Mean 101 103 Pulse Ox 97 95 Oxygen Delivery Method Room Air Room Air Weight Weight: 214 lb 15.211 oz Body Mass Index (BMI) 30.8 Physical Exam Narrative Physical Examination: General: Awake, alert, oriented x 3 and cooperative, seated upright in the ED bed in no apparent distress. Skin: Normal color, normal turgor, no icterus, no cyanosis. HEENT: AT/NC, EOMI, PERRLA, MMM, no carotid bruits or JVD noted. Lungs: CTA bilaterally, moderate effort, mild decrease BL bases, no rales, ronchi or wheezing. Heart: Regular rate and rhythm; no gallop, rub audible. Abdomen: Soft, NTTP, ND, normal BS, no HSM. Extremities: No cyanosis, clubbing, or edema. Neurological: Patient awake, alert, oriented as noted, cognitive function intact; pupils equally reactive to light and accommodation, cranial nerves grossly normal, moving all 4 extremities, no focal deficits, strength preserved, finger-nose and [id number] appropriate, Babinski unremarkable, no evidence of any expressive aphasia. Psychiatric: Affect appears normal, no acute evidence of depressive or anxiety feelings. Results Lab / Micro Data 11/13/22 23:03 11/13/22 23:03 Labs: Laboratory Results - last 24 hr 11/13/22 23:03: WBC 11.8 H, RBC 4.57 L, Hgb 14.3, Hct 42.0, MCV 91.9, MCH 31.3, MCHC 34.0, RDW Std Deviation 43.6, RDW Coeff of Aracely 13.0, Plt Count 213, MPV 11.6, Immature Gran % (Auto) 0.300, Neut % (Auto) 50.0, Lymph % (Auto) 33.8, [place] % (Auto) 11.5 H, Eos % (Auto) 3.5, Baso % (Auto) 0.9, Absolute Neuts (auto) 5.9, Absolute Lymphs (auto) 4.00, Nucleated RBC % 0, PT 12.9, INR 1.0, APTT 29.1, Sodium 135 L, Potassium 3.5, Chloride 103, Carbon Dioxide 25.0, Anion Gap 7, BUN 39 H, Creatinine 2.02 H, Estim Creat Clear Calc 32.63, Est GFR (MDRD) Af Amer 42 L, Est GFR (MDRD) Non-Af 34 L, BUN/Creatinine Ratio 19.3, Glucose 125 H, Calcium 9.2 Radiology Impression Chest X-Ray 11/13/22 23:22 IMPRESSION: . No demonstrated acute cardiopulmonary process. Electronically Signed: Silvana Castro MD at 23:44 EDT Reading Location ID and State: [facility] / [place] Tel , Service support , Assessment & Plan Assessment/Plan (1) TIA (transient ischemic attack): PLAN: Plan The patient is a 77 y/o M w/ PMHx: Carotid disease s/p BL CEA, GERD, HTN, HLD, Diabetes mellitus type II, Former tobacco use who presents to the [facility] ED on 11/14/22 with history of onset at ~ 10:15 pm the evening prior episode of expressive aphasia, nonsense words, inability to express himself and daughter concerned he could not see the TV however given his aphasia unclear if he could just no express alone which lasted ~ 5 minutes and then resolved however quickly again recurred lasting again ~ 5 minutes and resolving but given these events prompted ED evaluation. #1. Expressive aphasia concerning for TIA/stuttering CVA: If the CTA head and neck are not marked appearing with need for tertiary facility/patient appropriate for [facility], will admit to PCU, will obtain MRI Brain, ECHO, PT/OT/Speech/Nutrition evaluation per protocol. Will allow permissive HTN, maintain on asa/add plavix, continue already in place high-dose statin w/ AM FLP, fall precautions. Mag, TSH, FLP, HgbA1c requested. Maintain on fall and aspiration precautions. Once work-up obtained low threshold to obtain Neurology consultation. #2. Acute kidney injury versus advancing CKD unclear stage: Admission BUN/Cr 39/2.02, prior baseline creatinine noted to be 1.13 but this was 09/12/2018 thus certainly could have altered function since then. Will hydrate, hold nephrotoxic medications and repeat chemistry in AM. If no improvement would plan FeNa and renal US assessment. #3. Diabetes mellitus type II: Hold oral home regimen, hemoglobin A1c requested as noted above, nutrition consulted for education and teaching, ADA diet, accu checks w/ ISS. #4. Carotid disease: Status post bilateral CEA, will continue aspirin, Plavix addition as noted, statin therapy, temporary permissive hypertension is noted. #5. Hypertension: We will maintain permissive hypertension's given presentation, parent agents per stroke protocol. #6. Hyperlipidemia: Continue home statin regimen. AM FLP. #7. GERD: We will have as needed Mylanta if necessary and continue home PPI. #8. Former tobacco use: Encourage continued tobacco cessation. #9. DVT prophylaxis: Lovenox. Charges/Coding Visit Charges Inpatient E&M: 71797 Init Hosp L3
--- NOTE | 2022-11-14 01:37 | ED.RN ---
[facility] called for transfer at this time
--- NOTE | 2022-11-14 01:51 | ED.RN ---
[facility] accepted wit listed at this time
--- NOTE | 2022-11-14 01:52 | ED.RN ---
[facility] called no beds, pt would need to be wait listed
--- NOTE | 2022-11-14 01:58 | ED.RN ---
[facility] called all hospitals are on wait list at this time
[2022-11-14] MEDS: Aspirin 325 MG Tablet PO (02:44)
[2022-11-14] MEDS: Clopidogrel Bisulfate 75 MG Tablet PO (02:44)
== END 2022-11-14 04:33 | disposition short-term general hospital (02) ==
LOC: ED 11-14 01:19 → PCU 11-14 02:51
PROVIDERS: Family Medicine; Emergency Provider Emergency Medicine; PCP Family Medicine; Visit Provider Emergency Medicine
DX: G45.9 Transient cerebral ischemic attack, unspecified (principal); E11.9 Type 2 diabetes mellitus without complications; I10 Essential (primary) hypertension; E78.5 Hyperlipidemia, unspecified; Z79.82 Long term (current) use of aspirin; Z79.84 Long term (current) use of oral hypoglycemic drugs; Z79.899 Other long term (current) drug therapy; Z87.891 Personal history of nicotine dependence; Z82.3 Family history of stroke
CPT/HCPCS: 70496; 70498; 71045; 80048; 83735; 85025; 85610; 85730; 93005; 96360; 99285; J7030; Q9967

== ENCOUNTER → 2023-04-09 | Outpatient (CLI) | payer MEDICARE, OTHER, SELFPAY ==
--- NOTE | 2023-04-09 13:31 | MRI_ITS ---
STUDY: MRI LUMBAR SPINE WITHOUT CONTRAST REASON FOR EXAM: Male, 77 years old. RADICULOPATHY TECHNIQUE: Standardized fat and water weighted pulse sequences were obtained in the sagittal and axial planes. COMPARISON: None FINDINGS: T12-L1: Normal endplates. Normal disc height, hydration and morphology. Normal bilateral facet joints. Normal central canal and bilateral lateral recesses. Normal bilateral intervertebral neural foramina. Normal lumbar lordosis. There is no substantial scoliosis. Normal conus medullaris that terminates at T12-L1 L1-2: Normal endplates. Normal disc height, desiccation and normal morphology. Normal bilateral facet joints. Normal central canal and bilateral lateral recesses. Normal bilateral intervertebral neural foramina. L2-3: Postop change status post bilateral laminectomy . Anterior endplate spurring.. Normal disc height, desiccation mild annular bulge. Minor facet arthropathy. Normal central canal and bilateral lateral recesses. Moderate bilateral neural foraminal encroachment exaggerated by shortened pedicles L3-4: Status post bilateral laminectomy. Anterior endplate spurring.. Normal disc height, desiccation and minimal annular bulge.. Normal bilateral facet joints. Normal central canal and bilateral lateral recesses. Moderate bilateral neural foraminal encroachment exaggerated by shortened pedicles MRI/Spine Lumbar (Routine) IMPRESSION: No evidence for acute fracture or other significant bony pathology. Status post bilateral laminectomy at L2-3 and L3-4. Multilevel spinal stenosis secondary to bulging annulus facet arthropathy and shortened pedicles Electronically Signed: Kaushal Gibbs MD at 22:31 EST ,
== END | disposition home or self-care (01) ==
PROVIDERS: PCP Family Medicine
DX: M48.062 Spinal stenosis, lumbar region with neurogenic claudication (principal); M54.16 Radiculopathy, lumbar region
CPT/HCPCS: 72148

== ENCOUNTER → 2023-04-24 | Outpatient (CLI) | payer MEDICARE, OTHER, SELFPAY ==
--- NOTE | 2023-04-24 11:20 | RAD_ITS ---
STUDY: X-RAY - LUMBAR SPINE REASON FOR EXAM: Male, 77 years old. Neurogenic claudication. TECHNIQUE: 5 view(s) of the lumbar spine were obtained. COMPARISON: None FINDINGS: Osteopenia. Normal lumbar lordosis. No substantial scoliosis. Normal alignment of the vertebral bodies. Diffuse lower thoracic and lumbosacral facet sclerosis. Diffuse intervertebral disc space narrowing with osteophyte formation most marked in the lower lumbar spine. Vascular calcification. RAD/L/S Spine Min 4 Views IMPRESSION: Osteopenia with diffuse moderate lower thoracic and lumbosacral spondylosis. Electronically Signed: Cornelius Yates MD at 15:51 EST ,
--- OUTSIDE RECORDS SUMMARY | 2023-04-24 11:39 | XMS RPT_ITS | CCD ---
Author Name Unknown Address [address] [place] [address] Organization [facility] Care Team Providers Care Supervisor Wet Room Name Role Phone Sarah Krishnamurthy DO Unavailable [phone] Isabelle Carrion MD Primary Care Provider ISABELLE CARRION Referring Unavailable ISABELLE CARRION Primary Care Unavailable ISABELLE CARRION Referring Unavailable ISABELLE CARRION Primary Care Unavailable ISABELLE CARRION Referring Unavailable ISABELLE CARRION Primary Care Unavailable Sarah Krishnamurthy DO Unavailable Isabelle Carrion MD Primary Care Provider SARAH CLAY DO Attending Unavailable REYNA CARRION Primary Care Unavailable SARAH CLAY DO Attending Unavailable REYNA CARRION Primary Care Unavailable DHARA FIGUEROA, SENTHIL Attending Jessee FIGUEROA, SENTHIL Referring REYNA Tay Primary Care Unavailable Sarah Krishnamurthy DO Unavailable [phone] BERNA MARION Referring Unava ilREYAN Naylor Primary Care Unavailable MICHELLE RODRIGUEZ Attending Unavailable ABDIAS DECKER Attending Unavailable SYSTEM, PROVIDER NOT IN Referring UnavailREYNA Garrison Primary Care Unavailable CONSULT, NEUROLOGY-STROKE ALERT Consulting Unavailable Reyna Carrion MD Primary Care Provider [phone] Unavailable Primary Care Provider Unavailabl e Isabelle Carrion Primary Care Provider SWAPNIL ARNETT Attending Unavailable ISABELLE CARRION Primary Care Unavailable ROSS LIM Attending Unavailable ISABELLE CARRION Primary Care Unavailable ISABELLE CARRION Referring Unavailable ISABELLE CARRION Primary Care Unavailable ISABELLE CARRION Attending Unavailable ISABELLE CARRION Primary Care Unavailable ISABELLE CARRION Attending Unavailable Allergies Allergy Classification Reported Allergen(s) Allergy Type Date of Onset Reaction(s) Facility (3 sources) Penicillins; Translations: [PENICILLINS] Drug Intolerance [facility] Work Phone: (14 sources) Penicillins Drug Intolerance 9 [facility] Work Phone: (1 source) Penicillins Propensity to adverse reactions to drug 3 [facility] (1 source) Benzathine penicillin - chemical Propensity to adverse reactions 3 [facility] Medications Current Medications Medication Drug Class(es) Dates Sig (Normalized) Sig (Original) amLODIPine 10 mg oral tablet (18 sources) Dihydropyridine Calcium Channel Susan Start: 11-30-2021 take 1 tablet by mouth once daily amLODIPine 10 MG tablet Take 1 tablet by mouth daily. 0 11/30/2021 Active Completed/Discontinued Medications Medication Drug Class(es) Dates Sig (Normalized) Sig (Original) esomeprazole 40 mg delayed release oral capsule (16 sources) Proton Pump Inhibitor Start: 03-05-2017 take 1 capsule by mouth once daily esomeprazole (NEXIUM) 40 mg capsule Take 1 capsule by mouth once daily. 90 capsule 3 03/05/2017 Active Problems Active Problems Problem Classification Problem Date Documented Date Episodic/Chronic Anxiety disorders (16 sources) Posttraumatic stress disorder; Translations: [Post-traumatic stress disorder, unspecified] 06-05-2018 Chronic Blindness and vision defects (2 sources) Other visual disturbances; Translations: [Other visual disturbances] Onset: 11-14-2022 Episodic Cardiac dysrhythmias (4 sources) Multiple premature ventricular complexes; Translations: [Ventricular premature depolarization] Onset: 11-14-2022 11-26-2022 Chronic Chronic kidney disease (1 source) Chronic kidney disease stage 3A ; Translations: [Chronic renal failure (CRF), stage 3a (HCC)] 11-26-2022 Chronic Diabetes mellitus with complications (1 source) Diabetes mellitus; Translations: [Type 2 diabetes mellitus with hyperglycemia] Onset: 11-14-2022 11-14-2022 Chronic Diabetes mellitus without complication (20 sources) Type 2 diabetes mellitus; Translations: [Type 2 diabetes mellitus without complications] Onset: 02-02-2021 02-02-2021 Chronic Disorders of lipid metabolism (18 sources) Hyperlipidemia; Translations: [Other hyperlipidemia] Onset: 03-04-2015 10-17-2017 Chronic Esophageal disorders (16 sources) Gastroesophageal reflux disease; Translations: [Gastro-esophageal reflux disease without esophagitis] Onset: 03-04-2015 03-04-2015 Chronic Essential hypertension (18 sources) Essential hypertension; Translations: [Essential (primary) hypertension] Onset: 03-04-2015 10-17-2017 Chronic Occlusion or stenosis of precerebral arteries (20 sources) Carotid artery stenosis; Translations: [Occlusion and stenosis of unspecified carotid artery] Onset: 04-28-2019 04-28-2019 Chronic Osteoarthritis (4 sources) Osteoarthritis of right hip joint; Translations: [Unilateral primary osteoarthritis, right hip] Onset: 11-30-2021 Chronic Other aftercare (1 source) Post-discharge follow-up; Translations: [Encounter for follow-up examination after completed treatment for conditions other than malignant neoplasm] 02-06-2023 Episodic Other aftercare (1 source) Patient encounter status; Translations: [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 (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) use of antithrombotics/antipl atelets] 02-06-2023 Episodic Other and ill-defined heart disease (2 sources) Other ill-defined heart diseases; Translations: [Other ill-defined heart diseases] Onset: 11-14-2022 Chronic Other and unspecified benign neoplasm (15 sources) Tubular adenoma of colon; Translations: [Benign neoplasm of colon, unspecified] 10-21-2018 Episodic Other nervous system disorders (1 source) Paresthesia of right lower limb; Translations: [Paresthesia of skin] Episodic Other nervous system disorders (2 sources) Unspecified speech disturbances; Translations: [Unspecified speech disturbances] Onset: 11-14-2022 Episodic Other nutritional; endocrine; and metabolic disorders (4 sources) Obese class I; Translations: [Obesity, unspecified] Onset: 11-26-2022 11-26-2022 Chronic Other skin disorders (2 sources) Folliculitis; Translations: [Follicular disorder, unspecified] 11-26-2022 Episodic Spondylosis; intervertebral disc disorders; other back problems (16 sources) Degeneration of lumbar intervertebral disc; Translations: [Other intervertebral disc degeneration, lumbar region] 10-17-2017 Chronic Spondylosis; intervertebral disc disorders; other back problems (3 sources) Spinal stenosis of lumbar region; Translations: [Spinal stenosis, lumbar region with neurogenic claudication] Onset: 04-02-2023 04-02-2023 Episodic Transient cerebral ischemia (4 sources) Transient cerebral ischemia; Translations: [Transient cerebral ischemic attack, unspecified] Onset: 11-14-2022 11-26-2022 Chronic Past or Other Problems Problem Classification Problem Date Documented Da te Episodic/Chronic Other acquired deformities (15 sources) Spondylolisthesi s; Translations: [Spondylolisthes is, site unspecified] Onset: 03-04-2015 03-04-2015 Episodic Results Test Name Value Interpretation Reference Range Facil ity Vital Signs Date Time Vital Sign Value Performing Clinician Faci lity 04-02-2023 13:09-0500 Body height 177.8 cm Swapnil Arnett MD Work Phone: [facility] [place] [employer] 04-02-2023 13:09-0500 Body mass index (BMI) [Ratio] 32.14 kg/m2 Swapnil Arnett MD Work Phone: [facility] [place] [employer] 04-02-2023 13:09-0500 Body weight 101.61 kg Swapnil Arnett MD Work Phone: [facility] [place] [employer] 04-02-2023 13:09-0500 Diastolic blood pressure 66 mm[Hg] Swapnil Arnett MD Work Phone: [facility] [place] [employer] 04-02-2023 13:09-0500 Heart rate 83 /min Swapnil Arnett MD Work Phone: [facility] [place] [employer] 04-02-2023 13:09-0500 Systolic blood pressure 113 mm[Hg] Swapnil Arnett MD Work Phone: [facility] [place] [employer] 01-09-2023 09:57-0400 Body height 177.8 cm Michelle Rodriguez APRN-SOAP MAKER Work Phone: [facility] 01-09-2023 09:57-0400 Body mass index (BMI) [Ratio] 31.78 kg/m2 Michelle Rodriguez OPHTHALMIC MEDICAL TECHNOLOGIST-SOAP MAKER Work Phone: [facility] 01-09-2023 09:57-0400 Body temperature 98.6 [degF] Michelle Rodriguez OPHTHALMIC MEDICAL TECHNOLOGIST-SOAP MAKER Work Phone: [facility] 01-09-2023 09:57-0400 Body weight 100.47 kg Michelle Izquierdor OPHTHALMIC MEDICAL TECHNOLOGIST-SOAP MAKER Work Phone: [facility] 01-09-2023 09:57-0400 Diastolic blood pressure 73 mm[Hg] Michellebo Izquierdor OPHTHALMIC MEDICAL TECHNOLOGIST-SOAP MAKER Work Phone: [facility] 01-09-2023 09:57-0400 Heart rate 82 /min Michelle Izquierdor OPHTHALMIC MEDICAL TECHNOLOGIST-SOAP MAKER Work Phone: [facility] 01-09-2023 09:57-0400 Respiratory rate 14 /min Michelle Izquierdor OPHTHALMIC MEDICAL TECHNOLOGIST-SOAP MAKER Work Phone: [facility] 01-09-2023 09:57-0400 SaO2% (BldA) [Mass fraction] 97 % Michelle Rodriguez OPHTHALMIC MEDICAL TECHNOLOGIST-SOAP MAKER Work Phone: [facility] 01-09-2023 09:57-0400 Systolic blood pressure 158 mm[Hg] Michelle Izquierdoshmuel OPHTHALMIC MEDICAL TECHNOLOGIST-SOAP MAKER Work Phone: [facility] 11-26-2022 10:04-0400 Diastolic blood pressure 66 mm[Hg] Isabelle Carrion MD Work Phone: [facility] 11-26-2022 10:04-0400 Systolic blood pressure 116 mm[Hg] Isabelle Carrion MD Work Phone: [facility] 11-26-2022 08:00-0400 Body height 177.8 cm Isabelle Carrion MD Work Phone: [facility] 11-26-2022 08:00-0400 Body weight 96.16 kg Isabelle Carrion MD Work Phone: [facility] 11-26-2022 08:00-0400 Heart rate 75 /min Isabelle Carrion MD Work Phone: [facility] 11-26-2022 08:00-0400 SaO2% (BldA) [Mass fraction] 97 % Isabelle Carrion MD Work Phone: [facility] 06-04-2022 08:58-0500 Body height 177.8 cm Isabelle Carrion MD Work Phone: [facility] 06-04-2022 08:58-0500 Body weight 96.62 kg Isabelle Carrion MD Work Phone: [facility] 06-04-2022 08:58-0500 Diastolic blood pressure 67 mm[Hg] Isabelle Carrion MD Work Phone: [facility] 06-04-2022 08:58-0500 Heart rate 70 /min Isabelle Carrion MD Work Phone: [facility] 06-04-2022 08:58-0500 SaO2% (BldA) [Mass fraction] 96 % Isabelle Carrion MD Work Phone: [facility] 06-04-2022 08:58-0500 Systolic blood pressure 136 mm[Hg] Isabelle Carrion MD Work Phone: [facility] 11-30-2021 08:10-0400 Body height 177.8 cm Isabelle Carrion MD Work Phone: [facility] 11-30-2021 08:10-0400 Body weight 98.43 kg Isabelle Carrion MD Work Phone: [facility] 11-30-2021 08:10-0400 Diastolic blood pressure 74 mm[Hg] Isabelle Carrion MD Work Phone: [facility] 11-30-2021 08:10-0400 Heart rate 79 /min Isabelle Carrion MD Work Phone: [facility] 11-30-2021 08:10-0400 Systolic blood pressure 142 mm[Hg] Isabelle Carrion MD Work Phone: [facility] Encounters Encounter Date Encounter Type Care Provider Facility Start: 04-02-2023 End: 04-02-2023 ambulatory SWAPNIL ARNETT [facility] Start: 04-02-2023 End: 04-02-2023 Office outpatient new 45 minutes Swapnil Arnett MD Work Phone: [facility] Procedures Date Procedure Procedure Detail Performing Clinician Start: 11-30-2021 Radex hips bilateral with pelvis minimum 5 views Isabelle Carrion MD Work Phone: Start: 11-30-2021 Adult depression scr eening assessment Isabelle Carrion MD Work Phone: Start: 07-04-2021 Colonoscopy Isabelle hall MD Work Phone: Start: 12-02-2018 Adult depression scr eening assessment Isabelle Carrion MD Work Phone: Start: 07-03-2018 Colonoscopy Isabelle hall MD Work Phone: Plan of Treatment Date Care Activity Detail Author Start: 10-18-2027 DTaP/Tdap/Td Vaccines (2 - Td or Tdap) DTaP/Tdap/Td Vaccines (2 - Td or Tdap) [facility] Start: 10-18-2027 Tetanus vaccination TETANUS [facility] Start: 10-18-2027 Urine microalbumin profile DTAP,TDAP,TD (2 - Td or Tdap) [facility] Start: 07-04-2026 Colonoscopy COLONOSCOPY [facility] Start: 07-04-2026 COLORECTAL CANCER SCREENING COLORECTAL CANCER SCREENING [facility] Start: 11-27-2023 ANNUAL PCP TEAM CHRONIC DISEASE VISIT ANNUAL PCP TEAM CHRONIC DISEASE VISIT [facility] Start: 11-27-2023 BP CONTROLLED (<130/80) BP CONTROLLED (<130/80) [facility] in Start: 11-15-2023 Lipid panel LIPIDS [facility] Start: 07-04-2023 Colonoscopy COLONOSCOPY [facility] Start: 07-04-2023 COLORECTAL CANCER SCREENING COLORECTAL CANCER SCREENING [facility] Start: 06-04-2023 ANNUAL PCP TEAM CHRONIC DISEASE VISIT ANNUAL PCP TEAM CHRONIC DISEASE VISIT [facility] Start: 05-28-2023 Hepatitis C antibody, confirmatory test DILATED RETINAL EXAM [facility] Start: 05-25-2023 Hepatitis B screening URINE ALBUMIN:CREATININE RATIO [facility] Start: 05-17-2023 Hemoglobin A1c measurement HBA1C TEST [facility] Start: 05-17-2023 Hemoglobin A1c/Hemoglobin.total in Blood HBA1C [facility] Start: 04-16-2023 End: 04-02-2024 MR Lumbar spine WO contrast MR lumbar spine wo contrast Imaging Routine Lumbar stenosis with neurogenic claudication Expected: 04/16/2023, Expires: 04/02/2024 [facility] Work Phone: Immunizations Immunization Date Immunization Notes Care Provider Fa cility 10-17-2017 tetanus toxoid, redu diana diphtheria toxoid, and acellular pertussis vaccine, adsorbed Isabelle Carrion MD Work Phone: [facility] Payers Date Payer Category Payer Unknown [id number] 2013 Private Health Insurance [facility] AARP SUPPLEMENT [id number] 2013-Present [phone] [address] [place] [address] Indemnity [id number] 2013 Unknown [id number] 2012 Medicare MEDICARE MEDICAR E A AND B [id number] 2012-Present [phone] [address] [address] [place] [address] Medicare [id number] 2012 Medicare [id number] 2008 Medicare [id number] 2008 Private Health Insurance [id number] 1945 Unknown [id number] 1945 Unknown [id number] 1945 Unknown [id number] 1945 Unknown [id number] 1945 Unknown [id number] Social History Date Type Detail Facility Start: 11-30-2021 [facility] End: 04-08-1967 History of tobacco use Current smoker [facility] Start: 02-02-2021 End: 11-26-2022 Alcohol intake Current non-drinker of alcohol (finding) [facility] Start: 10-17-2017 History SDOH Alcohol Comment rare [facility] Start: 10-21-2018 End: 11-30-2021 Tobacco Comment in 20's [facility] Start: 1945 Sex Assigned At Not on file C [facility] End: 04-08-1967 History of tobacco use Cigarette Smoker [facility] Start: 11-30-2021 End: 01-09-2023 Cigarettes smoked current (pack per day) - Reported 1 [facility] Work Phone: Start: 11-30-2021 End: 04-02-2023 Tobacco use and exposure Smokeless tobacco non-user [facility] Start: 1945 Sex Assigned At Male C [facility] Start: 11-20-2021 End: 12-21-2021 Exposure to SARS-CoV-2 (event) Not sure [facility] Start: 06-04-2022 End: 01-09-2023 Tobacco use panel [facility] Work Phone: Adult Depression Screening Assessment 0 [facility] Work Phone: Start: 01-09-2023 End: 04-02-2023 Tobacco smoking status NHIS Never smoked tobacco [facility] Start: 01-09-2023 Alcohol intake Lifetime non-d kirk (finding) [facility] Tobacco smoking stat us NHIS Tobacco smoking consumption unknown [facility] Start: 04-02-2023 Alcohol intake Ex-drinker (finding) [facility] Clinical Notes 03-04-2015 to 04-02-2023 Swapnil Arnett MD - 04/02/2023 1:15 PM ESTTelephone Encounter - Manasa Dick MA - 02/26/2023 9:35 AM ESTTelephone Encounter - Manasa Dick MA - 02/26/2023 9:35 AM EST Note Date & Type Note Facility 04-02-2023 History of Present illness Narrative NEUROSURGERY CONSULT NOTE Patient Name: Chadwick Crenshaw Patient : 1945 PCP: Isabelle Carrion History of Present Ilness: 77 y.o. presents with low back pain and right hip pain. States he has difficulty ambulating due to these symptoms. States he could not walk the distance of his football scan. He states he gets cramping in his legs and they fatigue easily. His gait is unsteady. He has difficulty standing up straight. He denies difficulty using his hands other than pain in his wrists. Denies neck pain. He had a TIA earlier this year. He was put on plavix for this in November. He discontinued the plavix on his own as he was developing pains in his arms after starting it. He states he did not have these pains before starting plavix. He had the TIA secondary to carotid stenosis. He has had previous surgery for this. He states his left carotid is 100% blocked and the other is 70% blocked. Chief Complaint Patient presents with New Patient Patient had a laminectomy in 2014. He is experiencing back and right leg pain, especially when standing. Past Medical History: Past Medical History: Diagnosis Date Diabetes 1.5, managed as type 2 (HCC) Hypertension Past Surgical History: History reviewed. No pertinent surgical history. Home Medications: Prior to Admission medications Medication Sig Start Date End Date Taking? Authorizing Provider amLODIPine-atorvastatin (Caduet) 10-10 MG tablet Take 1 tablet by mouth daily. Yes Historical Provider, atorvastatin (Lipitor) 80 MG tablet Take 80 mg by mouth daily. Yes Historical Provider, b complex vitamins capsule Take 1 capsule by mouth daily. Yes Historical Provider, cholecalciferol (Vitamin D-3) 1.25 MG (72863 UT) capsule Take 50,000 Units by mouth 1 (one) time per week. Yes Historical Provider, clopidogrel (Plavix) 75 MG tablet Take by mouth daily. Yes Historical Provider, hydroCHLOROthiazide (HYDRODiuril) 25 MG tablet Take 25 mg by mouth daily. Yes Historical Provider, magnesium oxide (Mag-Ox) 400 mg tablet 400 mg daily. Yes Historical Provider, metFORMIN (Glucophage) 500 MG tablet Take by mouth. Yes Historical Provider, omega-3 acid ethyl esters (Lovaza) 1 g capsule Take 1 g by mouth 2 times daily. Yes Historical Provider, omeprazole (PriLOSEC) [address] capsule Take 20 mg by mouth every morning (before breakfast). Do not crush or chew. Yes Historical Provider, Allergies: Penicillin g benzathine Social History: TOBACCO: reports that he has never smoked. He has never used smokeless tobacco. ETOH: reports that he does not currently use alcohol. RECREATIONAL DRUG USE: Social History Substance and Sexual Activity Drug Use Never Family History: No family history on file. Review of Systems Constitutional: Negative for chills and fever. HENT: Negative for congestion, rhinorrhea and sore throat. Eyes: Negative for photophobia and visual disturbance. Respiratory: Negative for cough and shortness of breath. Cardiovascular: Negative for chest pain and palpitations. Gastrointestinal: Negative for abdominal pain, nausea and vomiting. Genitourinary: Negative for decreased urine volume and difficulty urinating. Musculoskeletal: Positive for back pain and gait problem. Negative for neck pain. Skin: Negative for rash and wound. Neurological: Positive for weakness and numbness. Negative for dizziness, seizures, speech difficulty and headaches. Psychiatric/Behavioral: Negative for behavioral problems and confusion. Physical Examination: Vitals: 04/02/23 1309 BP: 113/66 Pulse: 83 Physical Exam Vitals reviewed. Constitutional: Appearance: Normal appearance. HENT: Head: Normocephalic and atraumatic. Nose: Nose normal. Mouth/Throat: Pharynx: Oropharynx is clear. Eyes: Extraocular Movements: Extraocular movements intact. Conjunctiva/sclera: Conjunctivae normal. Cardiovascular: Rate and Rhythm: Normal rate and regular rhythm. Pulses: Normal pulses. Pulmonary: Effort: Pulmonary effort is normal. No respiratory distress. Abdominal: General: There is no distension. Palpations: Abdomen is soft. Tenderness: There is no abdominal tenderness. Musculoskeletal: General: No tenderness. Normal range of motion. Cervical back: Normal range of motion and neck supple. No rigidity. Skin: General: Skin is warm and dry. Neurological: Mental Status: He is alert and oriented to person, place, and time. Cranial Nerves: No cranial nerve deficit. Sensory: No sensory deficit. Motor: Weakness present. Gait: Gait abnormal. Deep Tendon Reflexes: Reflexes abnormal. Comments: DTRs absent in BUE and BLE Unable to walk on toes and heels Strength 3/5 in bilateral ankle plantar and dorsiflexion Psychiatric: Mood and Affect: Mood normal. Behavior: Behavior normal. Neurologic Exam Mental Status Oriented to person, place, and time. Gait Unsteady, kyphotic in thoracolumbar spine Results Labs: Last 24hrs No results found for this or any previous visit (from the past 24 hour(s)). Radiology Personal review: No imaging ASSESSMENT / PLAN : He is having severe low back pain with radiculopathy claudication and weakness in his legs with difficulty ambulating even very short distances. He had a TIA earlier this year. He has history of bilateral carotid endarterectomies and is noted per the patient to have complete occlusion of 1 carotid and high-grade stenosis of the other. He was placed on aspirin and Plavix but chose to stop his Plavix on his own. I have encouraged him to see his physician or call his physician JEROD because he is at risk to have a stroke. He understands this. He feels he was not tolerating the Plavix. I have suggested to him that this medication could be changed to a different anticoagulant. With respect to his lumbar spine we discussed potential treatment options including conservative versus surgical options. He has undergone a surgery performed by me many years ago. He likely has considerable neural compression. He may have some component of peripheral vascular disease contributing to his leg symptoms as well. I recommend MRI of his lumbar spine as well as x-rays. He will then follow-up for further discussion of his treatment options. He does understand signs and symptoms that would suggest deterioration. He understands all of the above Diagnosis Plan 1. Lumbar stenosis with neurogenic claudication MR lumbar spine wo contrast XR lumbar spine 4-5 view documented in this encounter [facility] 03-13-2023 Note HNO ID: [id number] Author: Ross Lim MD Service: ? Author Type: Physician Type: Progress Notes Filed: 03/13/2023 9:34 AM Note Text: Cardiology consultation at the request of Dr Carrion. A copy of this consultation note will be provided to the requesting physician by way of shared Medical record or letter to requesting physician via [place] mail. Chief Complaint: Patient presents with: Consult: Premature Ventricular Contraction History of Present Illness: Umberto Crenshaw is a 77 year old male with history of essential hypertension, carotid artery disease s/p left endarterectomy in 2014 and right carotid endarterectomy in 2015, TIA has come to reestablish with a piping design specialist for PVCs. Patient was admitted to [facility] in November 2022 with homonymous hemianopia suspicious for TIA. Follow-up with his primary care physician who noticed PVC on his EKG and asked him to see a piping design specialist. He denies chest pain, shortness of breath, orthopnea, cough, edema, palpitations, PND, lightheadedness or syncope. PAST MEDICAL HISTORY Diagnosis Date Calcium nephrolithiasis Carotid arterial disease (HCC) stenosis - endarterectomy RAND L DDD (degenerative disc disease), lumbar GERD (gastroesophageal reflux disease) 03/04/2015 HTN (hypertension) Hyperlipidemia 03/04/2015 PTSD (post-traumatic stress disorder) [place] managing Spondylolisthesis 03/04/2015 TIA (transient ischemic attack) 11/13/2022 Tubular adenoma of colon 2018 PAST SURGICAL HISTORY Procedure Laterality Date CAROTID ENDARTERECTOMY Left 2014 Dr. Mcgarry CAROTID ENDARTERECTOMY Right 10/25/2015 Dr. Bonilla COLONOSCOPY 2011 2016, 2018 MILD SPINE DECOMPRESSION 03/11/2015 L2-L5, Dr. Arnett PAST SURGICAL HISTORY OF ~2010 Left Carotid Endarterectomy FAMILY HISTORY Problem Relation Age of Onset Cancer Mother Uterine Colon Cancer Mother Cancer Maternal Grandfather Lung Heart Paternal Grandfather Social History Tobacco Use Smoking status: Former Packs/day: 1.00 Years: 5.00 Additional pack years: 0.00 Total pack years: 5.00 Types: Cigarettes Quit date: 04/08/1967 Years since quittin.9 Smokeless tobacco: Never Tobacco comments: in Vaping Use Vaping Use: Never used Substance Use Topics Alcohol use: No Comment: rare Drug use: No Current Outpatient Medications Medication Sig clopidogrel (PLAVIX) 75 mg tablet Take 1 tablet by mouth once daily. mupirocin (BACTROBAN) 2 % ointment Apply to affected area three times daily. metFORMIN (GLUCOPHAGE) 500 mg tablet Take 1 tablet by mouth twice daily with meals. atorvastatin (LIPITOR) 80 mg tablet Take 1 tablet by mouth daily at bedtime. For cholesterol. amLODIPine (NORVASC) 10 mg tablet Take 1 tablet by mouth once daily. hydroCHLOROthiazide (HYDRODIURIL, ESIDRIX) 25 mg tablet Take 1 tablet by mouth once daily. losartan (COZAAR) 100 mg tablet TAKE 1 TABLET BY MOUTH EVERY DAY cholecalciferol (VITAMIN D3) 5,000 unit tab Take 5,000 Units by mouth once daily. vitamin B complex (B COMPLEX-100 ORAL) Take by mouth. [id number]-[id number] oil-vit D3 [phone] co-dx-pm-unit cap Take by mouth. esomeprazole (NEXIUM) 40 mg capsule Take 1 capsule by mouth once daily. (Patient taking differently: Take 20 mg by mouth once daily.) MAGNESIUM ORAL Take 400 mg by mouth once daily. MALIC ACID ORAL Take 222 mg by mouth once daily. coenzyme Q10 (COENZYME Q-10) 100 mg cap capsule Take 100 mg by mouth once daily. aspirin 81 mg chewable tablet Take 81 mg by mouth. sildenafil, antihypertensive, (REVATIO) 20 mg tablet Take as directed No current facility-administered medications for this visit. ALLERGIES Allergen Reactions Penicillins Rash Review of Systems: General: No weight loss, malaise, fevers, chills, or night sweats HEENT: Negative for epistaxis Neck: Negative for pain and significant neck swelling Respiratory: Negative for cough, shortness of breath at rest or on exertion, wheezing Cardiac: Negative history of chest pain on exertion, dyspnea on exertion, orthopnea, paroxysmal nocturnal dyspnea, lower extremity edema, presyncope, syncope, or palpitations Gastrointestinal: Negative history of abdominal pain, nausea, vomiting, constipation, diarrhea, melena, or hematochezia Urinary: Negative history of dysuria, hematuria, or frequency Peripheral vascular: No claudication Musculoskeletal: Negative for joint aches/pain, neck pain, or back pain Neurologic: Negative history of dizziness/lightheadedness, vertigo, numbness/tingling of hands or feet Hematologic: Negative for easy bruising or easy bleeding. Endocrine: Negative history of obesity Skin: Negative history of rash and itching Other: The rest of the review of systems is unremarkable and negative or non-contributory Physical Examination: BP 138/76 Pulse 85 Ht 177.8 cm (5' 10 ) Wt 102.1 kg (225 lb) SpO2 96% BMI 32.28 kg/m? BMI 32.28 kg/(m2) G (more content not included)... [facility] 02-26-2023 Telephone encounter Note Called and spoke with the patient and scheduled him an appointment with Dr. Arnett on 04/02/23 at 1:15 pm. Patient verbalized an understanding to the appointment date, time and location. [facility] 02-26-2023 Miscellaneous Notes Called and spoke with the patient and scheduled him an appointment with Dr. Arnett on 04/02/23 at 1:15 pm. Patient verbalized an understanding to the appointment date, time and location. Name of Caller: Chadwick Contact Reason for Appointment: Pt states he would like to get a ppt he had a procedure done in 2015 he states. Office Name: Neurosurgery documented in this encounter [facility] 02-25-2023 Note Name of Caller: Chadwick Contact Reason for Appointment: Pt states he would like to get a ppt he had a procedure done in 2014 he states. Office Name: Neurosurgery [facility] 02-25-2023 Telephone encounter Note Name of Caller: Chadwick Contact Reason for Appointment: Pt states he would like to get a ppt he had a procedure done in 2014 he states. Office Name: Neurosurgery [facility] 01-09-2023 History of Present illness Narrative [facility] Department of Neurology Section of Cerebrovascular Disease and Neurocritical Care Hospital Follow Up IDENTIFYING PATIENT INFORMATION: Umberto Crenshaw MR# [id number] 01/09/2023 CHIEF COMPLAINT: Follow up after hospitalization HISTORY OF PRESENT ILLNESS: The patient Umberto Crenshaw is a 77 y.o. male has a past medical history of Essential hypertension, benign and Hyperlipidemia. severe carotid stenosis s/p b/l CEA (L 2014, R 2015), lumbar spine laminectomy (2014). Umberto Crenshaw for follow-up after recent hospitalization. For details, please refer to the CDU summary 11/15/22. In summary, the patient presented to [facility] as an OSH transfer after CTA revealed concern for carotid obstruction and possible dissection. Presented with transient R homonymous hemianopia and aphasia. Per chart review, on 11/13 at approximately 10:00 p.m., patient began experiencing dysarthria and blurry vision. EMS called. By the time pt entered ambulance, symptoms beginning to resolve. Symptoms lasted approximately 15 minutes. A CTH was performed, notable for carotid occlusion and possible dissection. Pt transferred to [facility] for further workup and surgical evaluation. Repeat CT head and MRI obtained. 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 Patient was diagnosed with a TIA in the setting of carotid atherosclerosis. Plan was to complete 21 days of DAPT and ASA 81mg monotherapy thereafter. Discharged on atorvastatin 80mg daily for secondary stroke risk reduction. PAST MEDICALHISTORY: Past Medical History: Diagnosis Date Essential hypertension, benign Hyperlipidemia PAST SURGICAL HISTORY: No past surgical history on file. CURRENT MEDICATIONS: Current Outpatient Medications Medication Sig Dispense Refill amLODIPine 10 MG tablet Take 1 tablet by mouth daily. amLODIPine 5 MG tablet Take 2 tablets by mouth daily. aspirin 81 MG Chew Tab chewable tablet Chew 1 tablet daily. aspirin 81 MG Chew Tab chewable tablet Chew 1 tablet daily. 30 tablet 0 Atorvastatin 40 MG tablet Take 2 tablets by mouth daily. atorvastatin 80 MG tablet Take 1 tablet by mouth. cholecalciferol 50 MCG (2000 UT) capsule Take 5,000 Units by mouth daily. Clopidogrel 75 MG tablet Take for 21 days with baby aspirin then stop plavix and continue baby aspirin 81 mg daily. 21 tablet 0 esomeprazole 20 MG Pack Take 1 packet by mouth every morning before breakfast. HYDROCHLOROTHIAZIDE PO Take 25 mg by mouth daily. losartan 100 MG tablet Take 1 tablet by mouth daily. losartan-hydrochlorothiazide 50-12.5 MG tablet Take 1 tablet by mouth daily. magnesium oxide 400 MG tablet Take 1 tablet by mouth daily. metFORMIN 500 MG tablet Take 1 tablet by mouth 2 times daily with meals. metFORMIN 500 MG tablet Take 1 tablet by mouth 2 times daily. No current facility-administered medications for this visit. ALLERGIES: Allergies Allergen Reactions Penicillins Rash SOCIAL HISTORY: Social History Tobacco Use Smoking status: Never Smokeless tobacco: Never Psycho-Social History: He reports that he has never smoked. He has never used smokeless tobacco. No history on file for alcohol use and drug use. FAMILY HISTORY: No family history of early strokes PAIN ASSESSMENT (Patient reports Pain): none FALL ASSESSMENT: none MEDICATION COMPLIANCE: Takes medication as prescribed without missed doses RECENT HOSPITALIZATION: none HOME HEALTH NEEDS: none FUNCTIONAL ASSESSMENT (Able to perform all ADLs): Performs all ADL's independently REVIEW OF SYSTEMS: No history of fever, chills, sweats, weight loss, fatigue, vision loss, double vision,visual scintillations, blurring, hearing loss, tinnitus, voice change, speech problems, chest pain, dyspnea, palpitations, cough, swallowing difficulties, nausea, vomiting, diarrhea, constipation, hematuria, dysuria, frequency, joint pain, joint swelling, rash, easy bruising, bleeding, memory loss, dizzy, LOC, focal motor weakness, sensory loss, numbness, tingling, twitches, seizures, balance problems, gait problems, coordination difficulties, depression, fatigue, or insomnia. Positive Review of Systems: tremors PHYSICAL EXAM: Vitals: 01/09/23 0957 BP: 158/73 Pulse: 82 Resp: 14 Temp: 98.6 degrees F (37 degrees C) TempSrc: Temporal SpO2: 97% Weight: 100.5 kg (221 lb 8 oz) Height: 1.778 m (5' 10 ) Neurological examination: General: The patient appears nutritionally appropriate, well-groomed, and appears comfortable in no acute distress. Mental Status: The patient s mental status was normal including orientation, memory, attention span, concentration, and fund of knowledge. Language was intact. Cranial nerves: Visual briones full, pupils were equal and reactive to light, and extra-ocular motion was intact. Face motion and sensation were symmetric. Hearing was symmetric to bilateral finger rub. Palate was symmetric. Bilateral shoulder shrug was intact. Tongue was midline with normal movement. There was no dysarthria. Motor: Normal strength and tone in all four extremities. No pronator drift. Bilateral fast finger movements were symmetric. Sensation: Intact light touch bilaterally, no extinction. Coordination: Slight bilateral upper extremity tremor at rest Gait: Gait was narrow-based and steady. NIH STROKE SCALE 1a. Level of consciousness: 0 1b. Level of consciousness questions: 0 1c. Level of consciousness commands: 0 2. Best Gaze: 0 3. Visual: 0 4. Facial Palsy: 0 5a. Motor left arm: 0 5b. Motor right arm: 0 6a. Motor left le 6b. Motor right le 7. Limb Ataxia: 0 8. Sensory: 0 9. Best Language: 0 10. Dysarthria: 0 11. Extinction and Inattention: 0 TOTAL: 0 Modified [facility]: 0 DATA: HgBA1c: Lab Results Component Value Date HGBA1C 6.9 (H) 11/14/2022 Lipid panel: Lab Results Component Value Date CHOLESTEROL 128 11/14/2022 TRIG 93 11/14/2022 HDL 43 11/14/2022 LDLCALC 66 11/14/2022 RADIOLOGY REVIEW: I have reviewed radiology image(s) and report(s) of: ECHOCARDIOGRAM Left Ventricle: Chamber size is normal. Normal wall thickness. Normal global systolic function. Regional wall motion is normal. Ejection fraction is normal (65 - 70%). Diastolic function is consistent with impaired relaxation (grade I). Right Ventricle: Chamber size is normal. Systolic function is normal. Left Atrium: Chamber size is normal. Aortic Valve: Trileaflet valve. Leaflet calcification. Cusp sclerosis visualized. Leaflet mobility is normal. No regurgitation. No stenosis. Mean gradient: 4 mmHg. Dimensionless Index by VTI: 0.75. Valve area continuity VMAX: 3.13 cm2. Mitral Valve: Normal appearing leaflets. Leaflet mobility is normal. No regurgitation. No valve stenosis. Tricuspid Valve: Normal leaflets. Leaflet mobility is normal. Trace regurgitation. No stenosis. Poor tricuspid regurgitation jet may not accurately reflect right ventricular systolic pressure. Pericardium: Appears normal. No pericardial effusion. ASSESSMENT: The patient is a 77 y.o. male with a history of has a past medical history of Essential hypertension, benign and Hyperlipidemia. who presents to outpatient stroke clinic for follow-up after recent hospitalization. Patient in clinic today to discuss mechanism, etiology, pharmacological management, and ongoing stroke prevention. Status post hospitalization on 11/14/22 for transient R homonymous hemianopia and aphasia likely representing a TIA in the setting of LICA occlusion. Reviewed pertinent medication related to stroke prevention. Patient was discharged on 21 days of DAPT (ASA and plavix) and ASA monotherapy thereafter. Currently taking ASA 81mg daily lifelong without missed doses. Neurological examination is nonfocal. NIHS 0, mRS 0. Evidence of bilateral upper extremity fine resting tremor (present prior to stroke). Discussed risk factors associated with atherosclerosis. Blood pressure elevated in clinic (158/73). SBP at home 130-140's. Will continue to check and record blood pressures and discuss with PCP if blood pressures are consistently elevated >140s. Patient attending [facility] twice a week to help combat sedentary lifestyle. Last Hgba1c 6.9. Plan to follow up with PCP for surveillance and management for goal Hgba1c <7. Discussed natural history, prognosis, and treatment of stroke as well as recovery issues. For secondary stroke prevention, the patient should continue daily anti-platelet medication and vascular risk factor modification. Addressed the following issues: Essential HTN goal SBP <140 in setting of stroke. PLAN: ? Anti-platelet medication: continue ASA 81mg daily ? Physical therapy/Speech therapy/Rehabilitation ? To reduce the risk of future ischemic stroke, the patient needs continued vascular risk factor modification. The following are the recommended guidelines*: ? LDL Goal: < 70 mg/dL ? Smoking Cessation ? Diabetes management: Goal <7 ? Blood pressure control: should achieve <140/80 mmHg. BP management should aim to achieve long term care administrator control in a reasonable amount of time, taking into consideration the individual patient's requirements and characteristics. ? Weight Management: Goal for BMI is 18.5-24.9 kg/m2. ? Alcohol: No more than 2 drinks/day for men or 1 drink/day for non- women. ? Promote lifestyle modification: weight control, physical activity, moderation of alcohol intake, moderate sodium intake. ? Follow-up with Neurovascular [facility] ADDITIONAL RECOMMENDATIONS: Will defer any further evaluation that may be warranted to patients primary care physician. Thank you for allowing me to participate in the care of Umberto Crenshaw. If you have any questions or concerns please contact me. CAROLINA Lara 01/09/2023 10:13 AM I spent about 30 minutes today with patient, reviewing history, and hospital records, MRs, CTs, labs, examining patient, discussing impressions, answering questions and charting. *References: (1) Teagan et al, Stroke 2011, 42:227-276; (2) Long et al, Stroke 2006, 2571-2469; (3) Anthony et al, Stroke 2006; 37: 577-617; (4) ChoPadmini reagan. MARIA DEL ROSARIO 2003, [phone]; (5) Long, et al, Circulation 2001, 103-163; (6) Medina et al, Stroke 1999, 7628-0730;(7) ATP III. See also http:///nhlbi.nih.gov/guidelines/c holesterol/index.htm documented in this encounter [facility] 11-26-2022 Miscellaneous Notes I assume the two that were sent today in office visit to [facility] [employer]. Which medications need re-sent? Mariam Begum APRN.CNP Pts medications need to go to [facility] documented in this encounter [facility] 11-26-2022 Note HNO ID: [id number] Author: Isabelle Carrion MD Service: ? Author Type: Physician Type: Progress Notes Filed: 11/26/2022 10:06 AM Note Text: CHIEF COMPLAINT Patient presents with: F/U 6 Month HISTORY OF PRESENT ILLNESS Umberto Crenshaw is a 77 year old male who presents here today for 6 month follow up. I last saw this patient on 06/04/2022. - Today, patient is feeling well. - Patient states that he has a wound on his toe, first noticed about 3 weeks ago. - Recently seen in the ED on 11/13/2022 and 11/14/2022 - Was endorsing blurred vision - Daughter notes that his speech was garbled - Sight and speech was improved by the time ambulance services arrived. - Under CAT scan, MRI and chest xray. - Currently on Aspirin 81 and was started on Plavix - Has not followed with piping design specialist since 2018. - Recently seen by vascular on 08/29/2022 Hypertension - Currently managed on amlodipine 10 mg tablet once daily, hydrochlorothiazide 25 mg tablet once daily and losartan 100 mg tablet. - Systolic blood pressure elevated upon arrival to office at 145, improved on repeat at 116. - States that systolic blood pressure is usually 135-140 Diabetes - Currently managed on Metformin 500 mg tablet BID with meals - A1C is 6.9% as of 11/14/2022 - Monitors BG at home, states that his sugars have been doing well. Health Maintenance Due for Abdominal Aortic Aneurysm Screening Due for BP Controlled (<130/80) Due for Advanced Directive Discussion Labs reviewed. Past medical history, appointments, medications, allergies reviewed. REVIEW OF SYSTEMS General: Feels well, no weight changes, fevers or chills. HEENT: No sinus congestion, earache, sore throat. Cardiac: No chest pain, palpitations Resp: No cough, wheeze, shortness of breath GI: No reflux symptoms, food intolerance, bowel changes. : No urinary frequency, dysuria. MS: No pain or joint complaints. Skin: +folliculitis of the toe PAST MEDICAL HISTORY PAST MEDICAL HISTORY Diagnosis Date Calcium nephrolithiasis Carotid arterial disease (HCC) stenosis - endarterectomy RAND L DDD (degenerative disc disease), lumbar GERD (gastroesophageal reflux disease) 03/04/2015 HTN (hypertension) Hyperlipidemia 03/04/2015 PTSD (post-traumatic stress disorder) [place] Spondylolisthesis 03/04/2015 Tubular adenoma of colon 2018 PHYSICAL EXAMINATION BP 145/65 Pulse 75 Ht 177.8 cm (5' 10 ) Wt 96.2 kg (212 lb) SpO2 97% BMI 30.42 kg/m? Repeat BP: 116/66 General: Alert, well developed, well nourished, no distress, pleasant and cooperative. Obese. Heart: Regular rate and rhythm. Normal S1 and S2. No murmurs, rubs, or gallops. Lungs: Clear to auscultation bilaterally. No respiratory distress. No wheezes, rales, or rhonchi. Abdomen: Soft, non-tender, no distention. Extremities: Feet/ankles without edema, posterior tibial pulses full and symmetrical. Skin: pubic area just R of midline about 1 cm area of erythema. Data Reviewed 11/14/2022 Reconciled Outside Data WBC Count 3.73 - 10.10 K/uL 9.90 RBC Count 4.38 - 5.83 M/uL 4.61 Hemoglobin 13.4 - 16.8 g/dL 14.4 Hematocrit 39.6 - 48.8 % 41.3 Mean Cell Volume 79.0 - 94.5 fL 89.6 Mean Cell Hgb 26.1 - 33.3 pg 31.2 Mean Cell Hgb Conc 31.9 - 36.5 g/dL 34.9 RBC Distribution 10.9 - 14.3 % 12.9 Platelet Count 146 - 337 K/uL 202 Mean Platelet Volume 8.7 - 12.3 fL 10.9 DIFF STATUS Electronic Differential Segs + Bands Auto % 50.2 Immature Grans % % 0.3 Lymphocyte % Auto % 34.3 Monocyte % Auto % 10.1 Eosinophil % Auto % 4.0 Basophil % Auto % 1.1 Nucleated RBC <=0.2 /100 WBC 0.0 Segs + Bands,Absolute Auto 1.57 - 6.19 K/uL 4.96 Immature Grans Absolute <=0.07 K/uL <0.04 Abs Lymph Auto 0.83 - 3.57 K/uL 3.40 Abs [place] Auto 0.24 - 0.93 K/uL 1.00 High Abs Eos Auto 0.00 - 0.48 K/uL 0.40 Abs Baso Auto 0.00 - 0.09 K/uL 0.11 High Cholesterol <200 mg/dL 128 Comment: [<200 mg/dL: Desirable] [200-239 mg/dL: Borderline High] [>239 mg/dL: High] Triglycerides <150 mg/dL 93 Comment: [<150 mg/dL: Desirable] [150-199 mg/dL: Borderline] [200-499 mg/dL: High] [>500 mg/dL: Very High] HDL Cholesterol >=40 mg/dL 43 Comment: [<40 mg/dL: Low (High Risk)] [>59 mg/dL: High (Low Risk)] Calculated LDL Cholesterol 0 - 99 mg/dL 66 Comment: [<100 mg/dL: Optimal] [100-129 mg/dL: Near Optimal] [130-159 mg/dL: Borderline High] [160-189 mg/dL: High] [>189 mg/dL: Very High] Total Cholesterol/HDL Ratio <4.5 3.0 Non HDL Cholesterol <130 mg/dL 85 Hemoglobin A1C HPLC 4.7 - 5.6 % 6.9 High Estimated Average Glucose mg/dL 151 Albumin 3.5 - 5.0 g/dL 4.4 Bilirubin Direct <0.3 mg/dL 0.1 Bilirubin Total <1.5 mg/dL 0.6 ALP 32 - 126 U/L 66 ALT 10 - 52 U/L 28 AST 10 - 39 U/L 41 High Total Protein 6.4 - 8.3 g/dL 7.6 11/22/2022 External Imaging- CT Scan Impression: Abnormal Study. (more content not included)... [facility] 11-26-2022 History of Present illness Narrative CHIEF COMPLAINT Patient presents with: F/U 6 Month HISTORY OF PRESENT ILLNESS Umberto Crenshaw is a 77 year old male who presents here today for 6 month follow up. I last saw this patient on 06/04/2022. - Today, patient is feeling well. - Patient states that he has a wound on his toe, first noticed about 3 weeks ago. - Recently seen in the ED on 11/13/2022 and 11/14/2022 - Was endorsing blurred vision - Daughter notes that his speech was garbled - Sight and speech was improved by the time ambulance services arrived. - Under CAT scan, MRI and chest xray. - Currently on Aspirin 81 and was started on Plavix - Has not followed with piping design specialist since 2018. - Recently seen by vascular on 08/29/2022 Hypertension - Currently managed on amlodipine 10 mg tablet once daily, hydrochlorothiazide 25 mg tablet once daily and losartan 100 mg tablet. - Systolic blood pressure elevated upon arrival to office at 145, improved on repeat at 116. - States that systolic blood pressure is usually 135-140 Diabetes - Currently managed on Metformin 500 mg tablet BID with meals - A1C is 6.9% as of 11/14/2022 - Monitors BG at home, states that his sugars have been doing well. Health Maintenance Due for Abdominal Aortic Aneurysm Screening Due for BP Controlled (<130/80) Due for Advanced Directive Discussion Labs reviewed. Past medical history, appointments, medications, allergies reviewed. REVIEW OF SYSTEMS General: Feels well, no weight changes, fevers or chills. HEENT: No sinus congestion, earache, sore throat. Cardiac: No chest pain, palpitations Resp: No cough, wheeze, shortness of breath GI: No reflux symptoms, food intolerance, bowel changes. : No urinary frequency, dysuria. MS: No pain or joint complaints. Skin: +folliculitis of the toe PAST MEDICAL HISTORY PAST MEDICAL HISTORY Diagnosis Date Calcium nephrolithiasis Carotid arterial disease (HCC) stenosis - endarterectomy R& L DDD (degenerative disc disease), lumbar GERD (gastroesophageal reflux disease) 03/04/2015 HTN (hypertension) Hyperlipidemia 03/04/2015 PTSD (post-traumatic stress disorder) [place] managing Spondylolisthesis 03/04/2015 Tubular adenoma of colon 2018 PHYSICAL EXAMINATION BP 145/65 Pulse 75 Ht 177.8 cm (5' 10 ) Wt 96.2 kg (212 lb) SpO2 97% BMI 30.42 kg/m Repeat BP: 116/66 General: Alert, well developed, well nourished, no distress, pleasant and cooperative. Obese. Heart: Regular rate and rhythm. Normal S1 and S2. No murmurs, rubs, or gallops. Lungs: Clear to auscultation bilaterally. No respiratory distress. No wheezes, rales, or rhonchi. Abdomen: Soft, non-tender, no distention. Extremities: Feet/ankles without edema, posterior tibial pulses full and symmetrical. Skin: pubic area just R of midline about 1 cm area of erythema. Data Reviewed 11/14/2022 Reconciled Outside Data WBC Count 3.73 - 10.10 K/uL 9.90 RBC Count 4.38 - 5.83 M/uL 4.61 Hemoglobin 13.4 - 16.8 g/dL 14.4 Hematocrit 39.6 - 48.8 % 41.3 Mean Cell Volume 79.0 - 94.5 fL 89.6 Mean Cell Hgb 26.1 - 33.3 pg 31.2 Mean Cell Hgb Conc 31.9 - 36.5 g/dL 34.9 RBC Distribution 10.9 - 14.3 % 12.9 Platelet Count 146 - 337 K/uL 202 Mean Platelet Volume 8.7 - 12.3 fL 10.9 DIFF STATUS Electronic Differential Segs + Bands Auto % 50.2 Immature Grans % % 0.3 Lymphocyte % Auto % 34.3 Monocyte % Auto % 10.1 Eosinophil % Auto % 4.0 Basophil % Auto % 1.1 Nucleated RBC <=0.2 /100 WBC 0.0 Segs + Bands,Absolute Auto 1.57 - 6.19 K/uL 4.96 Immature Grans Absolute <=0.07 K/uL <0.04 Abs Lymph Auto 0.83 - 3.57 K/uL 3.40 Abs [place] Auto 0.24 - 0.93 K/uL 1.00 High Abs Eos Auto 0.00 - 0.48 K/uL 0.40 Abs Baso Auto 0.00 - 0.09 K/uL 0.11 High Cholesterol <200 mg/dL 128 Comment: [<200 mg/dL: Desirable] [200-239 mg/dL: Borderline High] [>239 mg/dL: High] Triglycerides <150 mg/dL 93 Comment: [<150 mg/dL: Desirable] [150-199 mg/dL: Borderline] [200-499 mg/dL: High] [>500 mg/dL: Very High] HDL Cholesterol >=40 mg/dL 43 Comment: [<40 mg/dL: Low (High Risk)] [>59 mg/dL: High (Low Risk)] Calculated LDL Cholesterol 0 - 99 mg/dL 66 Comment: [<100 mg/dL: Optimal] [100-129 mg/dL: Near Optimal] [130-159 mg/dL: Borderline High] [160-189 mg/dL: High] [>189 mg/dL: Very High] Total Cholesterol/HDL Ratio <4.5 3.0 Non HDL Cholesterol <130 mg/dL 85 Hemoglobin A1C HPLC 4.7 - 5.6 % 6.9 High Estimated Average Glucose mg/dL 151 Albumin 3.5 - 5.0 g/dL 4.4 Bilirubin Direct <0.3 mg/dL 0.1 Bilirubin Total <1.5 mg/dL 0.6 ALP 32 - 126 U/L 66 ALT 10 - 52 U/L 28 AST 10 - 39 U/L 41 High Total Protein 6.4 - 8.3 g/dL 7.6 11/22/2022 External Imaging- CT Scan Impression: Abnormal Study. 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 Although slightly diminutive, the left MCA is patent. There is a subtle focus of low attenuation within the left sided basal ganglia external capsule which may represent evidence of recent or age indeterminate ischemic change. Recommend consideration for follow up MRI. On both sides of the common carotid arteries there is a visualized soft plaque or mural thrombus suggesting age indeterminate, dissection with mural thrombus extending along the confines of the common carotid arteries. There is at least 50% narrowing of the distal right carotid artery proximal to the bifurcation and a narrowed appearance of the right external carotid. Assessment/Plan (E11.9) Type 2 diabetes mellitus well controlled (HCC) (primary encounter diagnosis) Comment: Adequately controlled. A1C is 6.9% as of 11/14/2022. Plan: Continue current regimen. Continue to monitor BG at home. (I10) Essential hypertension Comment: Systolic blood pressure elevated upon arrival to office, improved on repeat. Plan: Continue current regimen Continue to monitor blood pressure at home. (G45.9) TIA (transient ischemic attack) (I65.22) Stenosis of left carotid artery (I49.3) PVC (premature ventricular contraction) Comment: Recently seen in the ED on 11/13/2022 and 11/14/2022. PVC present upon physical examination. Has not been following with piping design specialist since 2018. Recently seen by vascular on 08/29/2022, recommend follow up. Plan: ECG COMPLETE for record, CONSULT TO CARDIOLOGY CONSULT TO VASCULAR SURGERY, Continue Aspirin 81 and clopidogrel (PLAVIX) 75 mg tablet daily. EKG shows occ PCV (N18.31) Chronic renal failure (CRF), stage 3a (HCC) Comment: Stable. Per labs obtained on 05/25/2022 Albumin/creatinine ratio is within normal limits. Plan: Continue to monitor (L73.9) Folliculitis Comment: pubic area. Plan: Start mupirocin (BACTROBAN) 2 % ointment (E66.9) Obesity, Class I, BMI 30-34.9 Comment: Patient is currently 212 lb with a BMI of 30.42 kg/m^2 Plan: Continue to monitor Encouraged healthy diet and regular exercise Requested Prescriptions Signed Prescriptions Disp Refills clopidogrel (PLAVIX) 75 mg tablet 90 tablet 3 Sig: Take 1 tablet by mouth once daily. mupirocin (BACTROBAN) 2 % ointment 15 g 0 Sig: Apply to affected area three times daily. RTO: 6 months Scribe Attestation: By signing my name below, IWil, attest that this documentation has been prepared under the direction and in the presence of Reyna Carrion M.D. Electronically Signed: Juanita Sosa. November 26, 2022 8:02 AM Provider Attestation: Isabelle Palacios MD, personally performed the services described in this documentation. All medical record entries made by the scribe were at my direction and in my presence. I have reviewed the chart and discharge instructions (if applicable), and agree that the record reflects my personal performance and is accurate and complete. Electronically Signed: Isabelle Carrion MD November 26, 2022 10:02 AM documented in this encounter [facility] 11-16-2022 Miscellaneous Notes Received 11/16/2022 from [facility] . Placed in provider's inbox for review. Route to [place] for scanning documented in this encounter [facility] 11-15-2022 Miscellaneous Notes Received Duplex scan, veins, Extremity; unilat/limited study from [facility]. Placed in provider's inbox for review. Route to [place] scanning. documented in this encounter [facility] 11-15-2022 Miscellaneous Notes Received 11/14/2022 from [facility]. Placed in provider's inbox for review. 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 TIA Discharge location: [facility]. documented in this encounter [facility] 11-15-2022 Miscellaneous Notes Received 11/14/2022 from [facility]. Placed in provider's inbox for review. Route to [place] for scanning documented in this encounter [facility] 11-13-2022 Note Patient Outreach (IN [facility]) UMBERTO CRENSHAW ([id number]) 1945 M Date Time Provider Department 11/13/22 ISABELLE CARRION During your visit today, we recorded the following information about you: Allergies As of Date: 11/13/2022 Noted Allergy Reaction PENICILLINS 01/20/2009 2 - Rash Date Reviewed: 06/04/2022 Reviewed by: Chao Jones - Fully Assessed Primary Visit Diagnosis:Other hyperlipidemia [E78.49] Other Visit Diagnosis:Type 2 diabetes mellitus well controlled (HCC) [E11.9] Order(s):BASIC METABOLIC PNL [SQBMP] Order #: [id number] FUTURE HGB A1C [JGCLD2N] Order #: [id number] FUTURE CBC [SQCBC] Order #: [id number] FUTURE LIPID PANEL BASIC [SQLIPB] Order #: [id number] FUTURE Prescriptions as of 11/13/2022 - metFORMIN (GLUCOPHAGE) 500 mg tablet Take 1 tablet by mouth twice daily with meals. - atorvastatin (LIPITOR) 80 mg tablet Take 1 tablet by mouth daily at bedtime. For cholesterol. - amLODIPine (NORVASC) 10 mg tablet Take 1 tablet by mouth once daily. - aspirin 81 mg chewable tablet Take 81 mg by mouth. - hydroCHLOROthiazide (HYDRODIURIL, ESIDRIX) 25 mg tablet Take 1 tablet by mouth once daily. - losartan (COZAAR) 100 mg tablet TAKE 1 TABLET BY MOUTH EVERY DAY - cholecalciferol (VITAMIN D3) 5,000 unit tab Take 5,000 Units by mouth once daily. - vitamin B complex (B COMPLEX-100 ORAL) Take by mouth. - db-9-qvl-epa-fish oil-vit D3 [phone] gc-vo-ta-unit cap Take by mouth. - sildenafil, antihypertensive, (REVATIO) 20 mg tablet Take as directed - esomeprazole (NEXIUM) 40 mg capsule Take 1 capsule by mouth once daily. - MAGNESIUM ORAL Take 400 mg by mouth once daily. - MALIC ACID ORAL Take 222 mg by mouth once daily. - coenzyme Q10 (COENZYME Q-10) 100 mg cap capsule Take 100 mg by mouth once daily. Problem List As Of Date 11/13/2022 Noted Resolved Essential hypertension [I10] 03/04/2015 Carotid arterial disease (HCC) [I77.9] 03/04/2015 04/28/2019 Spondylolisthesis [M43.10] 03/04/2015 GERD (gastroesophageal reflux disease) [K21.9] 03/04/2015 Other hyperlipidemia [E78.49] 03/04/2015 DDD (degenerative disc disease), lumbar [M51.36] PTSD (post-traumatic stress disorder) [F43.10] Tubular adenoma of colon [D12.6] Carotid artery stenosis [I65.29] 04/28/2019 Type 2 diabetes mellitus well controlled ([facility]) *02/02/2021 Encounter Status:Closed by MARIAM BEGUM on 11/13/22 [facility] 08-03-2022 Note Chief Complaint New patient - prev pt of Dr. Bonilla, here for an evaluation of carotid stenosis. states his last carotid duplex was 12/2018. History of Present Illness Patient presents to the office for continued evaluation for carotid artery stenosis, was last seen by Dr. Bonilla in 2018. Had a right Carotid endarterectomy in 2016 with him. Pt has a left carotid endarterectomy, not at [facility] and he cannot remember when that was. Pt has a Occluded left Carotid. Pt stopped following up after his in 2019 as she scheduled all his appointments, is now trying to get back to all his specialists., Patient has a history of TIA prior to endarterectomy. We discussed the natural history of carotid artery stenosis after intervention. We also discussed the signs/symptoms of CVA/TIA - paresis, paresthesias, amaurosis fugax, confusion, dysphasia, etc. We also discussed the importance of seeking immediate medical attention if the patient were to develop any of the symptoms discussed. Patient denies any symptoms consistent with CVA/TIA. Pt is a former smoker Carotid duplex from 2019 was reviewed: Occluded left carotid, 60-79% restenosis of the right, velocities are closer to 60%. Pt has a history of neurogenic claudication and sciatica, but still manages to exercise 2 days per week. Review of Systems Constitutional: NO fever, night sweats, significant weight change (increase or decrease), or exercise intolerance. Eyes: NO visual disturbances or vision changes. Ears/Nose/Throat: NO difficulty hearing, ear pain, frequent nosebleeds, sore throat, difficulty talking,or difficulty swallowing. Cardiac: NO Chest pain, palpitations, or shortness of breath with exertion. Respiratory: NO cough, wheezing, or shortness of breath. Gastrointestinal: No abdominal pain, vomiting, abnormal appetite, or diarrhea. Genitourinary NO incontinence, difficulty urinating, or hematuria. Musculoskeletal: NO arthralgia, myalgia, leg pain, or peripheral edema. Neurologic: NO loss of consciousness, weakness, dizziness, or headaches. POSITIVE: Numbness and sciatica pain lower legs Endocrine: positiveDiabetes Hematologic/Lymphatic: NO bruising or excessive bleeding Skin: Negative Wounds Vascular: Negative Claudication, NegativeRest Pain, Negative Ulceration, Negative Edema, Negative Varicose Veins Physical Exam Vitals & Measurements Systolic Blood Pressure: 164 mmHg High (08/03/22:02:00) Diastolic Blood Pressure: 78 mmHg (08/03/22:02:00) Temperature Oral (F): 97.6 degF (08/03/22:02:00) SpO2: 96 % (08/03/22:02:00) Peripheral Pulse Rate: 74 bpm (08/03/22:02:00) Mean Arterial Pressure: 107 mmHg (08/03/22:02:00) Height/Length Measured: 178 cm (08/03/22:02:00) Weight Measured: 101 kg (08/03/22::) Body Mass Index Measured: 31.88 kg/m2 (08/03/22:02:00) Weight Measured - lbs2: 223 lb (08/03/22:02:00) Height/Length Measured - in2: 70 in (08/03/22:02:) Body Mass Index Measured English2: 31.99 kg/m2 (08/03/22:02:00) BSA: 2.23 m2 (08/03/22:02:00) Ht/Wt Measurement Refused by Patient?2: No (08/03/22:02:00) Depression Screening Scores Initial Depression Screen Score: 0 (08/03/22 09:02:00) Fall Risk Assessment Is the patient ambulatory (mobile): Yes (08/03/22 09:02:00) Have you had a fall within the past: No (08/03/22:02:00) Have you had 2 or more falls in the past: No (08/03/22:02:00) Psychiatric: Appropriate mood and affect. Good judgement and insight. Constitutional: Awake, alert and oriented. No acute distress. Well developed, hydrated and nourished. Appears stated age. Neurological: The patient is awake, alert and oriented to person, place, and time with normal speech. Head: The head is normocephalic and atraumatic without tenderness, without facial droop Neck: The neck is supple without adenopathy. Trachea is midline. Positive Surgical scars Bilaterally well healed Respiratory: The chest wall is symmetric and without deformity. Nonlabored breathing Abdominal: Abdomen is soft and non-tender without distention Extremities: Upper and lower extremities are atraumatic in appearance without tenderness or deformity. No swelling or erythema. Skin: Skin in warm, dry and intact without rashes or lesions. Vascular: +2 pulses throughout, No edema or varicosities noted. Patient Instructions Schedule a carotid duplex and office follow up Assessment/Plan This Visit Diagnosis 1. Carotid stenosis, right I65.21 Ordered: AMB Ancillary Order - Carotid, 08/03/2022, Order For Future Visit AMB Office/Outpt New Pt Mod MDM / 45-59 min [id number], 08/03/2022 09:15:00 EDT, Carotid stenosis, right / Left carotid artery occlusion 2. Left carotid artery occlusion I65.22 Ordered: AMB Ancillary Order - Carotid, 08/03/2022, Order For Future Visit AMB Office/Outpt New Pt Mod MDM / 45-59 min [id number], 08/03/2022 09:15:00 EDT, Carotid stenosis, right / Left carotid artery occlusion Schedule a flores (more content not included)... [facility] 06-04-2022 Note HNO ID: [id number] Author: Isabelle Carrion MD Service: ? Author Type: Physician Type: Progress Notes Filed: 06/04/2022 10:58 AM Note Text: CHIEF COMPLAINT No chief complaint on file. HISTORY OF PRESENT ILLNESS Umberto Crenshaw is a 76 year old male who presents here today for 6 month follow-up management. I last saw this patient on 11/30/21. Past Surgeries: Patient had surgery for clogged right and left carotid arteries in 2018. Patient has not met with his piping design specialist since 2018. Hypertension: Patient has been adhering to treatment medication. Tobacco: Patient is currently not smoking tobacco. Health Maintenance Abdominal Aortic Aneurysm Screening Dilated Retinal Exam BP Controlled Influenza Shot Advance Directive Discussion Depression Assessment Labs reviewed. Past medical history, appointments, medications, allergies reviewed. REVIEW OF SYSTEMS General: Feels well, no fever, no chills, +obese. HEENT: No sinus congestion, earache, sore throat. Cardiac: No chest pain, palpitations. Resp: No cough, wheeze, shortness of breath GI: No reflux symptoms, food intolerance, bowel changes. : No urinary frequency, dysuria. MS: No pain or joint complaints. PAST MEDICAL HISTORY PAST MEDICAL HISTORY Diagnosis Date Calcium nephrolithiasis Carotid arterial disease (HCC) stenosis - endarterectomy RAND L DDD (degenerative disc disease), lumbar GERD (gastroesophageal reflux disease) 03/04/2015 HTN (hypertension) Hyperlipidemia 03/04/2015 PTSD (post-traumatic stress disorder) [place] managing Spondylolisthesis 03/04/2015 Tubular adenoma of colon 2018 PHYSICAL EXAMINATION Ht 177.8 cm (5' 10 ) BMI 30.13 kg/m? General: Alert, well developed, well nourished, no distress, pleasant and cooperative. Obese. Heart: Regular rate and rhythm. Normal S1 and S2. Patient has a heart murmur. Lungs: Clear to auscultation bilaterally. No respiratory distress. No wheezes, rales, or rhonchi. Abdomen: Soft, non-tender, no distention. Extremities: Feet/ankles without edema, posterior tibial pulses full and symmetrical. Data Reviewed Latest Reference Range AND Units 11/20/21 10:15 Sodium 136 - 144 mmol/L 138 Potassium 3.7 - 5.1 mmol/L 4.1 Chloride 97 - 105 mmol/L 102 CO2 22 - 30 mmol/L 26 BUN 9 - 24 mg/dL 22 Creatinine 0.73 - 1.22 mg/dL 1.30 (H) Glucose 74 - 99 mg/dL 102 (H) Calcium 8.5 - 10.2 mg/dL 10.1 Anion Gap 9 - 18 mmol/L 10 eGFR >=60 mL/min/1.73m? 58 (L) Cholesterol, Total <200 mg/dL 121 Triglyceride <150 mg/dL 100 Fasting Time hrs 10 HDL Cholesterol >39 mg/dL 54 LDL Cholesterol <100 mg/dL 47 VLDL Cholesterol <30 mg/dL 20 TC:HDL Ratio <5.10 2.24 LDL:HDL Ratio <2.54 0.87 Non HDL Cholesterol <130 mg/dL 67 Hemoglobin A1C 4.3 - 5.6 % 6.9 (H) Estimated Average Glucose mg/dL 151 WBC 3.70 - 11.00 k/uL 10.01 RBC 4.20 - 6.00 m/uL 4.53 Hemoglobin 13.0 - 17.0 g/dL 14.0 Hematocrit 39.0 - 51.0 % 40.5 Platelet Count 150 - 400 k/uL 192 MCV 80.0 - 100.0 fL 89.4 MCH 26.0 - 34.0 pg 30.9 MCHC 30.5 - 36.0 g/dL 34.6 MPV 9.0 - 12.7 fL 11.4 RDW-CV 11.5 - 15.0 % 12.8 Absolute nRBC <0.01 k/uL <0.01 (H): Data is abnormally high (L): Data is abnormally low Assessment/Plan (E11.9) Type 2 diabetes mellitus well controlled (HCC) (primary encounter diagnosis) Comment: Patient is adhering to current treatment. Plan: Continue metformin 500mg tablets twice a day (I10) Essential hypertension Comment: Patient is adhering to current treatment. Patient had heart murmur during physical. Plan: Continue current medication treatment. (I65.21) Stenosis of right carotid artery Comment: Patient has not seen his piping design specialist since 2018. Plan: CONSULT TO VASCULAR SURGERY Requested Prescriptions No prescriptions requested or ordered in this encounter RTO: 6 months Scribe Attestation: By signing my name below, IMohan, attest that this documentation has been prepared under the direction and in the presence of Reyna Carrion M.D. Electronically Signed: Juanita Christina. June 04, 2022 9:16 AM Provider Attestation: I, Isabelle Carrion MD, personally performed the services described in this documentation. All medical record entries made by the scribe were at my direction and in my presence. I have reviewed the chart and discharge instructions (if applicable) and agree that the record reflects my personal performance and is accurate and complete. Electronically Signed: Isabelle Carrion MD June 04, 2022 10:58 AM [facility] 06-04-2022 History of Present illness Narrative CHIEF COMPLAINT No chief complaint on file. HISTORY OF PRESENT ILLNESS Umberto Crenshaw is a 76 year old male who presents here today for 6 month follow-up management. I last saw this patient on 11/30/21. Past Surgeries: Patient had surgery for clogged right and left carotid arteries in 2018. Patient has not met with his piping design specialist since 2018. Hypertension: Patient has been adhering to treatment medication. Tobacco: Patient is currently not smoking tobacco. Health Maintenance Abdominal Aortic Aneurysm Screening Dilated Retinal Exam BP Controlled Influenza Shot Advance Directive Discussion Depression Assessment Labs reviewed. Past medical history, appointments, medications, allergies reviewed. REVIEW OF SYSTEMS General: Feels well, no fever, no chills, +obese. HEENT: No sinus congestion, earache, sore throat. Cardiac: No chest pain, palpitations. Resp: No cough, wheeze, shortness of breath GI: No reflux symptoms, food intolerance, bowel changes. : No urinary frequency, dysuria. MS: No pain or joint complaints. PAST MEDICAL HISTORY PAST MEDICAL HISTORY Diagnosis Date Calcium nephrolithiasis Carotid arterial disease (HCC) stenosis - endarterectomy R& L DDD (degenerative disc disease), lumbar GERD (gastroesophageal reflux disease) 03/04/2015 HTN (hypertension) Hyperlipidemia 03/04/2015 PTSD (post-traumatic stress disorder) [place] managing Spondylolisthesis 03/04/2015 Tubular adenoma of colon 2018 PHYSICAL EXAMINATION Ht 177.8 cm (5' 10 ) BMI 30.13 kg/m General: Alert, well developed, well nourished, no distress, pleasant and cooperative. Obese. Heart: Regular rate and rhythm. Normal S1 and S2. Patient has a heart murmur. Lungs: Clear to auscultation bilaterally. No respiratory distress. No wheezes, rales, or rhonchi. Abdomen: Soft, non-tender, no distention. Extremities: Feet/ankles without edema, posterior tibial pulses full and symmetrical. Data Reviewed Latest Reference Range & Units 11/20/21 10:15 Sodium 136 - 144 mmol/L 138 Potassium 3.7 - 5.1 mmol/L 4.1 Chloride 97 - 105 mmol/L 102 CO2 22 - 30 mmol/L 26 BUN 9 - 24 mg/dL 22 Creatinine 0.73 - 1.22 mg/dL 1.30 (H) Glucose 74 - 99 mg/dL 102 (H) Calcium 8.5 - 10.2 mg/dL 10.1 Anion Gap 9 - 18 mmol/L 10 eGFR >=60 mL/min/1.73m 58 (L) Cholesterol, Total <200 mg/dL 121 Triglyceride <150 mg/dL 100 Fasting Time hrs 10 HDL Cholesterol >39 mg/dL 54 LDL Cholesterol <100 mg/dL 47 VLDL Cholesterol <30 mg/dL 20 TC:HDL Ratio <5.10 2.24 LDL:HDL Ratio <2.54 0.87 Non HDL Cholesterol <130 mg/dL 67 Hemoglobin A1C 4.3 - 5.6 % 6.9 (H) Estimated Average Glucose mg/dL 151 WBC 3.70 - 11.00 k/uL 10.01 RBC 4.20 - 6.00 m/uL 4.53 Hemoglobin 13.0 - 17.0 g/dL 14.0 Hematocrit 39.0 - 51.0 % 40.5 Platelet Count 150 - 400 k/uL 192 MCV 80.0 - 100.0 fL 89.4 MCH 26.0 - 34.0 pg 30.9 MCHC 30.5 - 36.0 g/dL 34.6 MPV 9.0 - 12.7 fL 11.4 RDW-CV 11.5 - 15.0 % 12.8 Absolute nRBC <0.01 k/uL <0.01 (H): Data is abnormally high (L): Data is abnormally low Assessment/Plan (E11.9) Type 2 diabetes mellitus well controlled (HCC) (primary encounter diagnosis) Comment: Patient is adhering to current treatment. Plan: Continue metformin 500mg tablets twice a day (I10) Essential hypertension Comment: Patient is adhering to current treatment. Patient had heart murmur during physical. Plan: Continue current medication treatment. (I65.21) Stenosis of right carotid artery Comment: Patient has not seen his piping design specialist since 2018. Plan: CONSULT TO VASCULAR SURGERY Requested Prescriptions No prescriptions requested or ordered in this encounter RTO: 6 months Scribe Attestation: By signing my name below, Mohan Palacios, attest that this documentation has been prepared under the direction and in the presence of Reyna Carrion M.D. Electronically Signed: Juanita Christina. June 04, 2022 9:16 AM Provider Attestation: Isabelle Palacios MD, personally performed the services described in this documentation. All medical record entries made by the scribe were at my direction and in my presence. I have reviewed the chart and discharge instructions (if applicable) and agree that the record reflects my personal performance and is accurate and complete. Electronically Signed: Isabelle Carrion MD June 04, 2022 10:58 AM documented in this encounter [facility] 05-22-2022 Note Patient Outreach (IN TMMN) FLOWERUMBERTO Klein ([id number]) 1945 M Date Time Provider Department 05/22/22 ISABELLE CARRION During your visit today, we recorded the following information about you: Allergies As of Date: 05/22/2022 Noted Allergy Reaction PENICILLINS 01/20/2009 2 - Rash Date Reviewed: 01/03/2022 Reviewed by: Reyes Andersen MD - Fully Assessed Visit Diagnosis:Type 2 diabetes mellitus well controlled (HCC) [E11.9] Order(s):ALBUMIN/CREAT RATIO RND UR [SQUACR] Order #: [id number] FUTURE SCHEDULE LAB TESTING [[id number]] Order #: [id number] FUTURE HGB A1C [[id number]] Order #: [id number] FUTURE Prescriptions as of 05/25/2022 - metFORMIN (GLUCOPHAGE) 500 mg tablet Take 1 tablet by mouth twice daily with meals. - atorvastatin (LIPITOR) 80 mg tablet Take 1 tablet by mouth daily at bedtime. For cholesterol. - amLODIPine (NORVASC) 10 mg tablet Take 1 tablet by mouth once daily. - aspirin 81 mg chewable tablet Take 81 mg by mouth. - hydroCHLOROthiazide (HYDRODIURIL, ESIDRIX) 25 mg tablet Take 1 tablet by mouth once daily. - losartan (COZAAR) 100 mg tablet TAKE 1 TABLET BY MOUTH EVERY DAY - cholecalciferol (VITAMIN D3) 5,000 unit tab Take 5,000 Units by mouth once daily. - vitamin B complex (B COMPLEX-100 ORAL) Take by mouth. - jf-7-tql-epa-fish oil-vit D3 [phone] lw-cs-uk-unit cap Take by mouth. - sildenafil, antihypertensive, (REVATIO) 20 mg tablet Take as directed - esomeprazole (NEXIUM) 40 mg capsule Take 1 capsule by mouth once daily. - MAGNESIUM ORAL Take 400 mg by mouth once daily. - MALIC ACID ORAL Take 222 mg by mouth once daily. - coenzyme Q10 (COENZYME Q-10) 100 mg cap capsule Take 100 mg by mouth once daily. Problem List As Of Date 05/22/2022 Noted Resolved Essential hypertension [I10] 03/04/2015 Carotid arterial disease (HCC) [I77.9] 03/04/2015 04/28/2019 Spondylolisthesis [M43.10] 03/04/2015 GERD (gastroesophageal reflux disease) [K21.9] 03/04/2015 Other hyperlipidemia [E78.49] 03/04/2015 DDD (degenerative disc disease), lumbar [M51.36] PTSD (post-traumatic stress disorder) [F43.10] Tubular adenoma of colon [D12.6] Carotid artery stenosis [I65.29] 04/28/2019 Type 2 diabetes mellitus well controlled (HCC) *02/02/2021 Encounter Status:Closed by SwagsyLISA on 05/25/22 [facility] 05-02-2022 Note Patient Outreach (SHELLEY RICHARDS) UMBERTO CRENSHAW ([id number]) 1945 M Date Time Provider Department 05/02/22 ISABELLE CARRION During your visit today, we recorded the following information about you: Adriana Gomez LPN 05/18/2022 3:51 PM Signed Care Gap Reviewed: HBA1C Outreach Outcome/Action: Revinatehart message sent Voicemail left for patient. Adriana Gomez LPN Allergies As of Date: 05/02/2022 Noted Allergy Reaction PENICILLINS 01/20/2009 2 - Rash Date Reviewed: 01/03/2022 Reviewed by: Reyes Andersen MD - Fully Assessed Reason for Visit: PHMA/Care Gap Outreach [4205] Cmt: Follow up for diabetes and blood pressure Prescriptions as of 05/18/2022 - metFORMIN (GLUCOPHAGE) 500 mg tablet Take 1 tablet by mouth twice daily with meals. - atorvastatin (LIPITOR) 80 mg tablet Take 1 tablet by mouth daily at bedtime. For cholesterol. - amLODIPine (NORVASC) 10 mg tablet Take 1 tablet by mouth once daily. - aspirin 81 mg chewable tablet Take 81 mg by mouth. - hydroCHLOROthiazide (HYDRODIURIL, ESIDRIX) 25 mg tablet Take 1 tablet by mouth once daily. - losartan (COZAAR) 100 mg tablet TAKE 1 TABLET BY MOUTH EVERY DAY - cholecalciferol (VITAMIN D3) 5,000 unit tab Take 5,000 Units by mouth once daily. - vitamin B complex (B COMPLEX-100 ORAL) Take by mouth. - sn-5-rtr-epa-fish oil-vit D3 [phone] ua-pp-qr-unit cap Take by mouth. - sildenafil, antihypertensive, (REVATIO) 20 mg tablet Take as directed - esomeprazole (NEXIUM) 40 mg capsule Take 1 capsule by mouth once daily. - MAGNESIUM ORAL Take 400 mg by mouth once daily. - MALIC ACID ORAL Take 222 mg by mouth once daily. - coenzyme Q10 (COENZYME Q-10) 100 mg cap capsule Take 100 mg by mouth once daily. Problem List As Of Date 05/02/2022 Noted Resolved Essential hypertension [I10] 03/04/2015 Carotid arterial disease (HCC) [I77.9] 03/04/2015 04/28/2019 Spondylolisthesis [M43.10] 03/04/2015 GERD (gastroesophageal reflux disease) [K21.9] 03/04/2015 Other hyperlipidemia [E78.49] 03/04/2015 DDD (degenerative disc disease), lumbar [M51.36] PTSD (post-traumatic stress disorder) [F43.10] Tubular adenoma of colon [D12.6] Carotid artery stenosis [I65.29] 04/28/2019 Type 2 diabetes mellitus well controlled (HCC) *02/02/2021 Encounter Status:Closed by ADRIANA GOMEZ on 05/18/22 [facility] 05-02-2022 Note HNO ID: [id number] Author: Adriana Gomez LPN Service: ? Author Type: LICENSED NURSE Type: Progress Notes Filed: 05/18/2022 3:51 PM Note Text: Care Gap Reviewed: HBA1C Outreach Outcome/Action: MyChart message sent Voicemail left for patient. Adriana Gomez LPN [facility] 12-21-2021 Miscellaneous Notes Patient here for appointment to be seen for his left tricep injury. Patient is scheduled for an appointment tomorrow for left tricep injury but in patient's chart he was referred by Dr. Carrion for his hip. Is he being seen for his tricep or his hip? Left message for patient to call office. documented in this encounter [facility] 12-01-2021 Miscellaneous Notes 1st attempt, sent MC message as patient has not yet read message from doctor. Ortho consult placed. Please help schedule Isabelle Carrion MD documented in this encounter [facility] 11-30-2021 Note HNO ID: [id number] Author: RT Alfredo(R) Service: Radiology Author Type: Technologist Type: Progress Notes Filed: 11/30/2021 10:17 AM Note Text: Radiology Service Progress Note PATIENT NAME: Umberto Crenshaw DATE OF SERVICE: November 30, 2021 TIME: 10:17 AM PATIENT IDENTITY VERIFICATION COMPLETED USING TWO (2) IDENTIFIERS: Name and Date of confirmed by patient verbally. FALL SCREENING: Has the patient had 2 falls in the last year or 1 fall with injury or currently using an Ambulatory Assistive Device (Walker, Cane, Wheelchair, Crutches, etc.)? No PATIENT GENDER DATA: Male PATIENT RELEVANT IMPLANT DATA REVIEWED: Not Applicable RADIOLOGY DEPARTMENT: General X-ray: Exam(s) Completed: Pelvis X-Ray: Pelvis with Hip Bilateral and Wt. Bearing PERIPHERAL IV DATA: Not applicable SIGNED BY: RT Alfredo(R) November 30, 2021 10:17 AM [facility] 11-30-2021 History of Present illness Narrative Radiology Service Progress Note PATIENT NAME: Umberto Crenshaw DATE OF SERVICE: November 30, 2021 TIME: 10:17 AM PATIENT IDENTITY VERIFICATION COMPLETED USING TWO (2) IDENTIFIERS: Name and Date of confirmed by patient verbally. FALL SCREENING: Has the patient had 2 falls in the last year or 1 fall with injury or currently using an Ambulatory Assistive Device (Walker, Cane, Wheelchair, Crutches, etc.)? No PATIENT GENDER DATA: Male PATIENT RELEVANT IMPLANT DATA REVIEWED: Not Applicable RADIOLOGY DEPARTMENT: General X-ray: Exam(s) Completed: Pelvis X-Ray: Pelvis with Hip Bilateral and Wt. Bearing PERIPHERAL IV DATA: Not applicable SIGNED BY: RT Alfredo(Shmuel) November 30, 2021 10:17 AM documented in this encounter [facility] 11-30-2021 History of Present illness Narrative CHIEF COMPLAINT Patient presents with: Physical HISTORY OF PRESENT ILLNESS Umberto Crenshaw is a 76 year old male who presents here today for follow up management of multiple medical issues. I last saw this patient on 01/23/21. Diabetes Mellitus Patient is managed on metformin He does not know what his chart says that his average sugar is 151 because his at home readings are not near that. Patient never gets a high reading. Hypertension Patient is managed on HCTZ and Cozaar adherent to current regimen without side effects from medication. No current symptoms. Leg Pain Patient has been having bone pain in his lower leg. Patient his also having significant hip pain. His hip does not hurt when he is riding his bike but hurts when walking Health Maintenance Due for abdominal aortic aneurysm screen Due for COVID-19 vaccine Due for Pneumovax. Due for dilated retinal exam. Due for diabetic foot exam. Due for Shingrix series Due for depression screening. Due for advance directive discussion. Labs reviewed. Past medical history, appointments, medications, allergies reviewed. REVIEW OF SYSTEMS Pertinent positives/ negatives: General: Feels well, no fever, no chills, +obesity. HEENT: No sinus congestion, earache, sore throat. Cardiac: No chest pain, palpitations +elevated BP Resp: No cough, wheeze, shortness of breath GI: No reflux symptoms, food intolerance, bowel changes. : No urinary frequency, dysuria. MS: +leg pain +hip pain PAST MEDICAL HISTORY PAST MEDICAL HISTORY Diagnosis Date Calcium nephrolithiasis Carotid arterial disease (HCC) stenosis - endarterectomy R& L DDD (degenerative disc disease), lumbar GERD (gastroesophageal reflux disease) 03/04/2015 HTN (hypertension) Hyperlipidemia 03/04/2015 PTSD (post-traumatic stress disorder) [place] managing Spondylolisthesis 03/04/2015 Tubular adenoma of colon 2018 PHYSICAL EXAMINATION BP 142/74 Pulse 79 Ht 177.8 cm (5' 10 ) Wt 98.4 kg (217 lb) BMI 31.14 kg/m Repeat BP: 130/60 General: Alert, well developed, well nourished, no distress, pleasant and cooperative. Obese. Heart: Regular rate and rhythm. Normal S1 and S2. No murmurs, rubs, or gallops. Lungs: Clear to auscultation bilaterally. No respiratory distress. No wheezes, rales, or rhonchi. Abdomen: Soft, non-tender, no distention. Extremities: Feet/ankles without edema, posterior tibial pulses full and symmetrical. Feet:Shoes and socks removed, Are you having foot pain no, normal distal pulses, and sensitive to 10 gm monofilament, calluses Data Reviewed Latest Reference Range & Units 01/25/21 11:10 11/20/21 10:15 Sodium 136 - 144 mmol/L 139 138 Potassium 3.7 - 5.1 mmol/L 4.0 4.1 Chloride 97 - 105 mmol/L 102 102 CO2 22 - 30 mmol/L 24 26 BUN 9 - 24 mg/dL 19 22 Creatinine 0.73 - 1.22 mg/dL 1.16 1.30 (H) Glucose 74 - 99 mg/dL 111 (H) 102 (H) Protein, Total 6.3 - 8.0 g/dL 6.8 Calcium 8.5 - 10.2 mg/dL 9.6 10.1 Albumin 3.9 - 4.9 g/dL 4.3 Bilirubin, Total 0.2 - 1.3 mg/dL 0.5 Alkaline Phosphatase 38 - 113 U/L 63 ALT 10 - 54 U/L 28 AST 14 - 40 U/L 38 Anion Gap 9 - 18 mmol/L 13 10 eGFR- >60 eGFR-All Other Races . >60 eGFR >=60 mL/min/1.73m 58 (L) Cholesterol, Total <200 mg/dL 143 121 Triglyceride <150 mg/dL 79 100 Fasting Time hrs 12 10 HDL Cholesterol >39 mg/dL 58 54 LDL Cholesterol <100 mg/dL 69 47 VLDL Cholesterol <30 mg/dL 16 20 TC:HDL Ratio <5.10 2.47 2.24 LDL:HDL Ratio <2.54 1.19 0.87 Non HDL Cholesterol <130 mg/dL 85 67 Hematocrit 39.0 - 51.0 % 40.5 Hemoglobin A1C 4.3 - 5.6 % 6.3 (H) 6.9 (H) Estimated Average Glucose mg/dL 134 151 WBC 3.70 - 11.00 k/uL 10.01 RBC 4.20 - 6.00 m/uL 4.53 Hemoglobin 13.0 - 17.0 g/dL 14.0 Platelet Count 150 - 400 k/uL 192 MCV 80.0 - 100.0 fL 89.4 MCH 26.0 - 34.0 pg 30.9 MCHC 30.5 - 36.0 g/dL 34.6 MPV 9.0 - 12.7 fL 11.4 RDW-CV 11.5 - 15.0 % 12.8 Absolute nRBC <0.01 k/uL <0.01 (H): Data is abnormally high (L): Data is abnormally low Assessment/Plan (E11.9) Type 2 diabetes mellitus well controlled (HCC) (primary encounter diagnosis) Comment: Discrepancy of at home sugars and chart sugars Plan: continue to monitor closely (F43.10) PTSD (post-traumatic stress disorder) Comment: well controlled Plan: continue on current regimen (I10) Essential hypertension (I65.21) Stenosis of right carotid artery Comment: blood pressure elevated on arrival and improved on repeat Plan: continue on current regimen (E78.49) Other hyperlipidemia Comment: well controlled Plan: continue on current regimen (K21.9) Gastroesophageal reflux disease without esophagitis Comment: well controlled Plan: continue on current regimen (R20.2) Paresthesia of right leg (M16.11) Primary osteoarthritis of right hip (M51.36) DDD (degenerative disc disease), lumbar Comment: leg numbness likely due to nerve issues. Plan: XR HIP BILATERAL 5V PEL/AP/LAT EACH HIP Requested Prescriptions Signed Prescriptions Disp Refills metFORMIN (GLUCOPHAGE) 500 mg tablet Sig: Take 1 tablet by mouth twice daily with meals. atorvastatin (LIPITOR) 80 mg tablet Sig: Take 1 tablet by mouth daily at bedtime. For cholesterol. amLODIPine (NORVASC) 10 mg tablet Sig: Take 1 tablet by mouth once daily. RTO: 6 months Scribe Attestation: By signing my name below, ICarol, attest that this documentation has been prepared under the direction and in the presence of Reyna Carrion M.D. Electronically Signed: Juanita Francis. November 30, 2021 7:46 AM Provider Attestation: IIsabelle MD, personally performed the services described in this documentation. All medical record entries made by the scribe were at my direction and in my presence. I have reviewed the chart and discharge instructions (if applicable) and agree that the record reflects my personal performance and is accurate and complete. Electronically Signed: Isabelle Carrion MD November 30, 2021 10:33 AM documented in this encounter [facility] 10-25-2021 History of Present illness Narrative Pt scheduled. Care Gap Reviewed: Follow-up appointment Phone call placed to patient. Pt identified by name and : YES, via phone Outreach Outcome/Action: Spoke to patient or caregiver: Patient will return the call or ask for return call If patient deferred or declined to schedule appointment, please indicate the reason(s): Other Chao Jones Spoke with pt, he would like a follow up appt scheduled with PCP for next month . Please assist with scheduling. documented in this encounter [facility] 07-24-2021 Miscellaneous Notes Received 08/23/2021 from [facility]. Placed in provider's inbox for review. Route to [place] for scanning EGD 07/04/2021 Diagnosis Hiatal Hernia with reflux esophagitis rule out walsh's esophagus Rule out winsome esophagitis Multiple 5 mm to 8 mm gastric polyps removed Gastric and duodenal erosions Gi soft diet small meals Take omeprazole 40 mg bid Colonoscopy Total colonoscopy up the the cecum negative for neoplasm small 5 mm polyp proximal ascending colon removed Diverticulosis involving the sigmoid and descending colon Inflamed internal hemorrhoids Metamucil or Citrucel. Repeat in three years Biopsy results A. Duodenum Duodenal mucosa with no significant histopathologic change no evidence of celiac disease is noted B Stomach Mild chronic inatvie gastritis h pylori is negative C.. Gastric polys Benign fundic gland polyps D. Esophagus squamogastric mucosa with chronic inflammation no metaplasia identified E. Ascending colon polyp Polypoid fragments of colonic mucosa with no significant histopathologic change Dr Richelle Martinez . documented in this encounter [facility] documented as of this encounter (statuses as of 07/24/2021) [facility] History of Past illness Narrative* Problem Noted Date Resolved Date Carotid arterial disease 03/04/2015 020 documented as of this encounter (statuses as of 10/25/2021) [facility] History of Past illness Narrative* Problem Noted Date Resolved Date Carotid arterial disease 03/04/2015 020 documented as of this encounter (statuses as of 11/30/2021) [facility] History of Past illness Narrative* Problem Noted Date Resolved Date Carotid arterial disease 03/04/2015 020 documented as of this encounter (statuses as of 12/01/2021) [facility] History of Past illness Narrative* Problem Noted Date Resolved Date Carotid arterial disease 03/04/2015 020 documented as of this encounter (statuses as of 12/01/2021) [facility] History of Past illness Narrative* Problem Noted Date Resolved Date Carotid arterial disease 03/04/2015 020 documented as of this encounter (statuses as of 12/21/2021) [address] History of Past illness Narrative* Problem Noted Date Resolved Date Carotid arterial disease 03/04/2015 020 documented as of this encounter (statuses as of 05/25/2022) [address] History of Past illness Narrative* Problem Noted Date Resolved Date Carotid arterial disease 03/04/2015 020 documented as of this encounter (statuses as of 06/04/2022) [address] History of Past illness Narrative* Problem Noted Date Diagnosed Date Resolved Date Carotid arterial disease 03/04/2015 documented as of this encounter (statuses as of 11/14/2022) [address] History of Past illness Narrative* Problem Noted Date Diagnosed Date Resolved Date Carotid arterial disease 03/04/2015 documented as of this encounter (statuses as of 11/15/2022) [address] History of Past illness Narrative* Problem Noted Date Diagnosed Date Resolved Date Carotid arterial disease 03/04/2015 documented as of this encounter (statuses as of 11/17/2022) [address] History of Past illness Narrative* Problem Noted Date Diagnosed Date Resolved Date Carotid arterial disease 03/04/2015 documented as of this encounter (statuses as of 11/26/2022) [address] History of Past illness Narrative* Problem Noted Date Diagnosed Date Resolved Date Carotid arterial disease 03/04/2015 documented as of this encounter (statuses as of 11/27/2022) [facility] Type 2 diabetes mellitus well controlled (HCC)- Primary PTSD (post-traumatic stress disorder) Posttraumatic stress disorder Essential hypertension Unspecified essential hypertension Stenosis of right carotid artery Occlusion and stenosis of carotid artery without mention of cerebral infarction DDD (degenerative disc disease), lumbar Degeneration of lumbar or lumbosacral intervertebral disc Other hyperlipidemia Gastroesophageal reflux disease without esophagitis Esophageal reflux Paresthesia of right leg Disturbance of skin sensation Primary osteoarthritis of right hip Primary localized osteoarthrosis, pelvic region and thigh [facility] Primary osteoarthritis of right hip Primary localized osteoarthrosis, pelvic region and thigh [facility] Diagnosis Osteoarthritis of right hip, unspecified osteoarthritis type- Primary documented in this encounter [facility] note* Diagnosis Type 2 diabetes mellitus well controlled (HCC) documented in this encounter [facility] note* Diagnosis Type 2 diabetes mellitus well controlled (HCC)- Primary Essential hypertension Unspecified essential hypertension Stenosis of right carotid artery Occlusion and stenosis of carotid artery without mention of cerebral infarction documented in this encounter [facility] note* Diagnosis Other hyperlipidemia- Primary Type 2 diabetes mellitus well controlled (HCC) [facility]* Diagnosis Type 2 diabetes mellitus well controlled (HCC)- Primary Essential hypertension Unspecified essential hypertension TIA (transient ischemic attack) Unspecified transient cerebral ischemia Stenosis of left carotid artery Occlusion and stenosis of carotid artery without mention of cerebral infarction PVC (premature ventricular contraction) Other premature beats Chronic renal failure (CRF), stage 3a (HCC) Folliculitis Other specified disease of hair and hair follicles Obesity, Class I, BMI 30-34.9 Obesity, unspecified [facility]* Diagnosis TIA (transient ischemic attack) Unspecified transient cerebral ischemia Stenosis of left carotid artery Occlusion and stenosis of carotid artery without mention of cerebral infarction Folliculitis Other specified disease of hair and hair follicles documented in this encounter 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 [facility] Diagnosis Lumbar stenosis with neurogenic claudication- Primary documented in this encounter [facility] for referral (narrative)* Diagnostic Procedure Only (Routine) - Closed Specialty Diagnoses / Procedures Referred By Contac t Referred To Contact XR IMAGING Diagnoses Primary osteoarthritis of right hip Procedures XR HIP BILATERAL 5V PEL/AP/LAT EACH HIP RADEX HIPS BILATERAL WITH PELVIS MINIMUM 5 VIEWS Isabelle Carrion MD [address] [place] [address] Xr Imaging Referral ID Status Reason Start Date Expiration Date V isits Requested Visits Authorized [id number] Closed Auto-Generate d Referral 11/30/2021 12/30/2022 1 1 [facility] for referral (narrative)* Diagnostic Procedure Only (Routine) - Closed Specialty Diagnoses / Procedures Referred By Contac t Referred To Contact XR IMAGING Diagnoses Primary osteoarthritis of right hip Procedures XR HIP BILATERAL 5V PEL/AP/LAT EACH HIP RADEX HIPS BILATERAL WITH PELVIS MINIMUM 5 VIEWS Isabelle Carrion MD [address] [place] [address] Xr Imaging Referral ID Status Reason Start Date Expiration Date V isits Requested Visits Authorized [id number] Closed Auto-Generate d Referral 11/30/2021 12/30/2022 1 1 [facility] for visit Narrative* Diagnostic Procedure Only (Routine) - Closed Specialty Diagnoses / Procedures Referred By Contac t Referred To Contact XR IMAGING Diagnoses Primary osteoarthritis of right hip Procedures XR HIP BILATERAL 5V PEL/AP/LAT EACH HIP RADEX HIPS BILATERAL WITH PELVIS MINIMUM 5 VIEWS Isabelle Carrion MD [address] [place] [address] Xr Imaging Referral ID Status Reason Start Date Expiration Date V isits Requested Visits Authorized [id number] Closed Auto-Generate d Referral 11/30/2021 12/30/2022 1 1 [facility] Summary Purpose Family History No Family History Records FoundNo Family History Records FoundNo Family History Records FoundNo Family History Records FoundNo Family History Records FoundNo Family History Records FoundNo Family History Records Found Advance Directives No Advanced Directives Records FoundDocuments on File Type Date Recorded Patient Legal Internship Expl anation Advance Directive(s) 01/11/2017 10:03 AM Reason for Referral Specialty Diagnoses / Procedures Referred By Contac t Referred To Contact Orthopedics Diagnoses Osteoarthritis of right hip, unspecified osteoarthritis type Procedures CONSULT TO ORTHOPAEDICS OFFICE/OUTPATIENT [facility] 60-74 MINUTES Isabelle Carrion MD [address] [place] [address] Referral ID Status Reason Start Date Expiration Date Visits Requested Visits Authorized [id number] Authorized PCP Requested Referral 12/01/2021 12/01/2022 1 1 Specialty Diagnoses / Procedures Referred By Contac t Referred To Contact Vascular Surgery Diagnoses Stenosis of right carotid artery Procedures CONSULT TO VASCULAR SURGERY Isabelle Carrion MD [address] [place] [address] Cameron Bonillaand Nay [address] [place] [id number] Referral ID Status Reason Start Date Expiration Date Visits Requested Visits Authorized [id number] Ref Not Required PCP Requested Referral 06/04/2022 06/04/2023 1 1 Specialty Diagnoses / Procedures Referred By Contac t Referred To Contact Cardiology Diagnoses PVC (premature ventricular contraction) Procedures CONSULT TO CARDIOLOGY OFFICE/OUTPATIENT [facility] 60-74 MINUTES Isabelle Carrion MD [address] [place] [address] Referral ID Status Reason Start Date Expiration Date Visits Requested Visits Authorized [id number] Authorized PCP Requested Referral 11/26/2022 11/26/2023 1 1 Specialty Diagnoses / Procedures Referred By Contac t Referred [facility] Diagnoses PVC (premature ventricular contraction) Procedures ECG COMPLETE ECG ROUTINE ECG W/LEAST 12 LDS W/I&R Isabelle Carrion MD [address] [place] [address] [facility] [address] [place] [id number] Referral ID Status Reason Start Date Expiration Date Visits Requested Visits Authorized [id number] Pending Review Auto-Generat ed Referral 11/26/2022 11/26/2023 1 1 Specialty Diagnoses / Procedures Referred By Contac t Referred To Contact Vascular Surgery Diagnoses TIA (transient ischemic attack) Stenosis of left carotid artery Procedures CONSULT TO VASCULAR SURGERY OFFICE/OUTPATIENT [facility] 60-74 MINUTES Isabelle Carrion MD [address] [place] [address] Referral ID Status Reason Start Date Expiration Date Visits Requested Visits Authorized [id number] Authorized PCP Requested Referral 11/26/2022 11/26/2023 1 1 Specialty Diagnoses / Procedures Referred By Contac t Referred To Contact Radiology Diagnoses Lumbar stenosis with neurogenic claudication Procedures MR lumbar spine wo contrast Bety Parra PA-C [address] [place] [address] Referral ID Status Reason Start Date Expiration Date V isits Requested Visits Authorized [id number] Pending Review 04/02/2023 04/01/2024 1 1 Additional Source Comments (unrecognized sect ion and content) No Status Records FoundNo Status Records FoundNo Status Records FoundNo Status Records FoundNo Status Records FoundNo Status Records FoundNo Status Records Found INFORMATION SOURCE (unrecogn ized section and content) DATE CREATED AUTHOR AUTHOR'S ORGANIZ ATION 05/27/2022 [facility] DATE CREATED AUTHOR AUTHOR'S ORGANIZ ATION 08/09/2022 [facility] DATE CREATED AUTHOR AUTHOR'S ORGANIZ ATION 08/14/2022 [facility] DATE CREATED AUTHOR AUTHOR'S ORGANIZ ATION 01/14/2023 [facility] DATE CREATED AUTHOR AUTHOR'S ORGANIZ ATION 04/04/2023 [facility] DATE CREATED AUTHOR AUTHOR'S ORGANIZ ATION 04/13/2023 [facility] Source Comments (unrecognize d section and content) In the event this informatio n is protected by the Federal Confidentiality of Alcohol and Drug Abuse Patient Records regulations: The Federal rules restrict any use of the information to criminally investigate or prosecute any alcohol or drug abuse [facility] event this information is protected by the Federal Confidentiality of Alcohol and Drug Abuse Patient Records regulations: The Federal rules restrict any use of the information to criminally investigate or prosecute any alcohol or drug abuse [facility] the event this information is protected by the Federal Confidentiality of Alcohol and Drug Abuse Patient Records regulations: The Federal rules restrict any use of the information to criminally investigate or prosecute any alcohol or drug abuse patient.[facility] the event this information is protected by the Federal Confidentiality of Alcohol and Drug Abuse Patient Records regulations: The Federal rules restrict any use of the information to criminally investigate or prosecute any alcohol or drug abuse patient.[facility] the event this information is protected by the Federal Confidentiality of Alcohol and Drug Abuse Patient Records regulations: The Federal rules restrict any use of the information to criminally investigate or prosecute any alcohol or drug abuse patient.[facility] the event this information is protected by the Federal Confidentiality of Alcohol and Drug Abuse Patient Records regulations: The Federal rules restrict any use of the information to criminally investigate or prosecute any alcohol or drug abuse patient.[facility] the event this information is protected by the Federal Confidentiality of Alcohol and Drug Abuse Patient Records regulations: The Federal rules restrict any use of the information to criminally investigate or prosecute any alcohol or drug abuse patient.[facility]bleIn the event this information is protected by the Federal Confidentiality of Alcohol and Drug Abuse Patient Records regulations: The Federal rules restrict any use of the information to criminally investigate or prosecute any alcohol or drug abuse patient.[facility] PrebleIn the event this information is protected by the Federal Confidentiality of Alcohol and Drug Abuse Patient Records regulations: The Federal rules restrict any use of the information to criminally investigate or prosecute any alcohol or drug abuse patient.[facility]bleIn the event this information is protected by the Federal Confidentiality of Alcohol and Drug Abuse Patient Records regulations: The Federal rules restrict any use of the information to criminally investigate or prosecute any alcohol or drug abuse patient.[facility]bleIn the event this information is protected by the Federal Confidentiality of Alcohol and Drug Abuse Patient Records regulations: The Federal rules restrict any use of the information to criminally investigate or prosecute any alcohol or drug abuse patient.[facility]bleIn the event this information is protected by the Federal Confidentiality of Alcohol and Drug Abuse Patient Records regulations: The Federal rules restrict any use of the information to criminally investigate or prosecute any alcohol or drug abuse patient.[facility]bleIn the event this information is protected by the Federal Confidentiality of Alcohol and Drug Abuse Patient Records regulations: The Federal rules restrict any use of the information to criminally investigate or prosecute any alcohol or drug abuse patient.[facility]bleIn the event this information is protected by the Federal Confidentiality of Alcohol and Drug Abuse Patient Records regulations: The Federal rules restrict any use of the information to criminally investigate or prosecute any alcohol or drug abuse patient.[facility]bleIn the event this information is protected by the Federal Confidentiality of Alcohol and Drug Abuse Patient Records regulations: The Federal rules restrict any use of the information to criminally investigate or prosecute any alcohol or drug abuse patient.[facility] Reason for Visit (unrecogniz ed section and content) Reason Comments Physical Reason Comments Chart prep Reason Comments 6 Month Exam Reason Comments Received Outside Medical Records [facility] CTA Head and Neck w/ Contrast 11/13/2022 Reason Comments Received Outside Medical Records [facility] Emergency Department Summary 11/14/2022 Slurred speech,, facial droop difficulty reading Reason Comments Received Outside Medical Records [facility] 11/14/22 Reason Comments Received Outside Medical Records [facility] Department of Emergency Medicine 11/14/2022 Possible Carotid obstruction or dissection Reason Comments F/U 6 Month Reason Comments Medication Problem Reason Comments Follow-up Stroke Specialty Diagnoses / Procedures Referred By Carito klein Referred To Contact Neurology Diagnoses Difficulty with speech Berna Marion, OPHTHALMIC MEDICAL TECHNOLOGIST-SOAP MAKER [address] [place] [address] Referral ID Status Reason Start Date Expiration Date V isits Requested Visits Authorized [id number] New Request 11/14/2022 12/09/2023 1 1 Reason Onset Date Comments Appointment Request 02/25/2023 Reason Comments New Patient Patient had a luis ctomy in 2014. He is experiencing back and right leg pain, especially when standing. Care Teams (unrecognized sec tion and content) Supervisor Wet Room Relationship Specialty Start Date End Date Isabelle Carrion MD [address] [place], [place] [id number] PCP - General Family Practice 02/02/21 Sarah Krishnamurthy, DO Primary Staff Physician Cardiology 06/24/18 Supervisor Wet Room Relationship Specialty Start Date End Date Isabelle Carrion MD [address] [place], [place] [phone] PCP - General Family Practice 02/02/21 Sarah Krishnamurthy DO Primary Staff Physician Cardiology 06/24/18 Supervisor Wet Room Relationship Specialty Start Date End Date Isabelle Carrion MD [address] [place], [place] [phone] PCP - General Family Practice 02/02/21 Sarah Krishnamurthy DO Primary Staff Physician Cardiology 06/24/18 Supervisor Wet Room Relationship Specialty Start Date End Date Isabelle Carrion MD [address] [place], [place] [id number] PCP - General Family Practice 02/02/21 Sarah Krishnamurthy DO Primary Staff Physician Cardiology 06/24/18 Supervisor Wet Room Relationship Specialty Start Date End Date Isabelle Carrion MD [address] [place], [place] [address] [phone] PCP - General Family Medicine 02/02/21 Sarah Krishnamurthy DO Primary Staff Physician Cardiology 06/24/18 Supervisor Wet Room Relationship Specialty Start Date End Date Isabelle Carrion MD [address] [place], [place] [id number] PCP - General Family Medicine 02/02/21 Sarah Krishnamurthy DO Primary Staff Physician Cardiology 06/24/18 Supervisor Wet Room Relationship Specialty Start Date End Date Isabelle Carrion MD [address] [place], [place] [phone] PCP - General Family Medicine 02/02/21 Sarah Krishnamurthy DO Primary Staff Physician Cardiology 06/24/18 Supervisor Wet Room Relationship Specialty Start Date End Date Isabelle Carrion MD [address] [place], [place] [id number] PCP - General Family Medicine 02/02/21 Sarah Krishnamurthy DO Primary Staff Physician Cardiology 06/24/18 Supervisor Wet Room Relationship Specialty Start Date End Date Isabelle Carrion MD [address] [place] [address] PCP - General Family Medicine 02/02/21 Sarah Krishnamurthy DO Primary Staff Physician Cardiology 06/24/18 Supervisor Wet Room Relationship Specialty Start Date End Date Isabelle Carrion MD [address] [place], [place] [address] PCP - General Family Medicine 02/02/21 Sarah Krishnamurthy DO Primary Staff Physician Cardiology 06/24/18 Supervisor Wet Room Relationship Specialty Start Date End Date Reyna Carrion MD [address] [place], [place] [id number] PCP - General Family Medicine 11/14/22 Supervisor Wet Room Relationship Specialty Start Date End Date Isabelle Carrion [address] [facility] [address] [place] [address] PCP - General Family Medicine 04/02/23 FOR RECORDS PERTAINING TO PATIENTS WHO ARE OR HAVE BEEN ENROLLED IN A CHEMICAL DEPENDENCY/SUBSTANCEABUSE PROGRAM, SOME INFORMATION MAY BE OMITTED. This clinical summary was aggregated from multiple sources. Caution should be exercised in using it in the provision of clinical care. This summary normalizes information from multiple sources, and as a consequence, information in this document may materially change the coding, format and clinical context of patient data. In addition, data may be omitted in some cases. CLINICAL DECISIONS SHOULD BE BASED ON THE PRIMARY CLINICAL RECORDS. [facility]. provides no warranty or guarantee of the accuracy or completeness of information in this document.
== END | disposition home or self-care (01) ==
PROVIDERS: PCP Family Medicine
DX: I10 Essential (primary) hypertension (principal)
CPT/HCPCS: 72110

== ENCOUNTER → 2023-05-16 | Outpatient (CLI) | payer MEDICARE, OTHER, SELFPAY ==
--- NOTE | 2023-05-16 07:02 | CT_ITS ---
CT BILATERAL LOWER EXTREMITY WITH 3-D IMAGING CLINICAL INDICATION: Templating for right CHELSEA. TECHNIQUE: Axial CT images of the bilateral lower extremities (including pelvis, bilateral hips, and bilateral knees) was performed without IV contrast material. Coronal and sagittal reformats were provided. RADIATION DOSAGE (If Supplied By Facility): CTDIvol = ( 14.07 ) mGy, DLP = ( 784.12 ) mGycm COMPARISON: No relevant prior comparison study available. 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 There is mild degenerative arthrosis of the left hip joint. There is mild tricompartment degenerative arthrosis of the knees bilaterally, with mild joint space narrowing and marginal osteophyte formation. There is slight lateral patellar subluxation bilaterally. Osseous structures are intact without evidence of fracture or dislocation. No lytic or blastic osseous masses. Soft Tissues: There is chondrocalcinosis of the medial and lateral menisci of the bilateral knees. There are atherosclerotic calcifications. The deep soft tissue structures are unremarkable. The superficial soft tissues are unremarkable without evidence of edema, hematoma, or foreign body. 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 Slight lateral patellar subluxation bilaterally. 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 Electronically Signed: Ravi Cortez MD at 9:31 EST ,
--- OUTSIDE RECORDS SUMMARY | 2023-05-16 07:05 | XMS RPT_ITS | CCD ---
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 Name Role Phone Sarah Krishnamurthy DO Unavailable Isabelle Carrion MD Primary Care Provider ISABELLE CARRION Referring Unavailable ISABELLE CARRION Primary Care Unavailable ISABELLE CARRION Referring Unavailable ISABELLE CARRION Primary Care Unavailable ISABELLE CARRION Referring Unavailable ISABELLE CARRION Primary Care Unavailable Sarah Krishnamurthy DO Unavailable [phone] Isabelle Carrion MD Primary Care Provider SARAH CLAY DO Attending Unavailable REYNA CARRION Primary Care Unavailable SARAH CLAY DO Attending Unavailable REYNA CARRION Primary Care Unavailable DHARA FIGUEROA, SENTHIL Attending Jessee FIGUEROA, SENTHIL Referring REYNA Tay Primary Care Unavailable Sarah Krishnamurthy DO Unavailable [phone] BERNA MARION Referring Unava ilREYNA Naylor Primary Care Unavailable MICHELLE RODRIGUEZ Attending Unavailable ABDIAS DECKER Attending Unavailable SYSTEM, PROVIDER NOT IN Referring UnavailREYNA Garrison Primary Care Unavailable CONSULT, NEUROLOGY-STROKE ALERT Consulting Unavailable Reyna Carrion MD Primary Care Provider Unavailable Primary Care Provider Unavailabl e Isabelle Carrion Primary Care Provider SWAPNIL ARNETT Attending Unavailable ISABELLE CARRION Primary Care Unavailable SWAPNIL ARNETT Attending Unavailable ISABELLE CARRION Primary Care Unavailable ROSS LIM Attending Unavailable ISABELLE CARRION Referring Unavailable ISABELLE CARRION Primary Care Unavailable ISABELLE CARRION Attending Unavailable ISABELLE CARRION Primary Care Unavailable ISABELLE CARRION Attending Unavailable ISABELLE CARRION Primary Care Unavailable Allergies Allergy Classification Reported Allergen(s) Allergy Type Date of Onset Reaction(s) Facility (3 sources) Penicillins; Translations: [PENICILLINS] Drug Intolerance 9 [facility] Work Phone: (14 sources) Penicillins Drug Intolerance 9 [facility] Work Phone: (1 source) Penicillins Propensity to adverse reactions to drug 3 [facility] (2 sources) Benzathine penicillin - chemical Propensity to adverse reactions 3 [facility] (1 source) Penicillin V Drug Allergy 4 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] 02-06-2023 Episodic [...] [Unspecified speech disturbances] Onset: 11-14-2022 Episodic Other non-traumatic joint disorders (1 source) Pain in right hip joint; Translations: [Pain in right hip] 04-30-2023 Episodic Other non-traumatic joint disorders (2 sources) Pain in right hip; Translations: [Pain in right hip] Onset: 04-30-2023 Episodic Other nutritional; endocrine; and metabolic disorders (4 sources) Obese class I; Translations: [Obesity, unspecified] Onset: 11-26-2022 11-26-2022 Chronic Other skin disorders (2 sources) Folliculitis; Translations: [Follicular disorder, unspecified] 11-26-2022 Episodic Spondylosis; intervertebral disc disorders; other back problems (16 sources) Degeneration of lumbar intervertebral disc; Translations: [Other intervertebral disc degeneration, lumbar region] 10-17-2017 Chronic Spondylosis; intervertebral disc disorders; other back problems (4 sources) Spinal stenosis of lumbar region; Translations: [Spinal stenosis, lumbar region with neurogenic claudication] Onset: 04-30-2023 04-02-2023 Episodic Transient cerebral ischemia (4 sources) [...] Vital Sign Value Performing Clinician Faci lity 04-30-2023 09:12-0500 Diastolic blood pressure 69 mm[Hg] Swapnil Arnett MD Work Phone: [facility] 04-30-2023 09:12-0500 Heart rate 85 /min Swapnil Arnett MD Work Phone: [facility] 04-30-2023 09:12-0500 Systolic blood pressure 130 mm[Hg] Swapnil Arnett MD Work Phone: [facility] 04-30-2023 08:59-0500 Body height 177.8 cm Swapnil Arnett MD Work Phone: [facility] 04-30-2023 08:59-0500 Body mass index (BMI) [Ratio] 30.85 kg/m2 Swapnil Arnett MD Work Phone: [facility] 04-30-2023 08:59-0500 Body temperature 97.2 [degF] Swapnil Arnett MD Work Phone: [facility] 04-30-2023 08:59-0500 Body weight 97.52 kg Swapnil Arnett MD Work Phone: [facility] 04-02-2023 13:09-0500 Body height 177.8 cm Swapnil Arnett MD Work Phone: [facility] 04-02-2023 13:09-0500 Body mass index (BMI) [Ratio] 32.14 kg/m2 Swapnil Arnett MD Work Phone: [facility] 04-02-2023 13:09-0500 Body weight 101.61 kg Swapnil Arnett MD Work Phone: [facility] 04-02-2023 13:09-0500 Diastolic blood pressure 66 mm[Hg] Swapnil Arnett MD Work Phone: [facility] 04-02-2023 13:09-0500 Heart rate 83 /min Swapnil Arnett MD Work Phone: [facility] 04-02-2023 13:09-0500 Systolic blood pressure 113 mm[Hg] Swapnil Arnett MD Work Phone: [facility] 01-09-2023 09:57-0400 Body height 177.8 cm Michelle Rodriguez APRN-LAN Work Phone: [facility] 01-09-2023 09:57-0400 Body mass index (BMI) [Ratio] 31.78 kg/m2 Michelle Rodriguez APRN-MANAGER FIRE Work Phone: [facility] 01-09-2023 09:57-0400 Body temperature 98.6 [degF] Michelle Rodriguez APRN-MANAGER FIRE Work Phone: [facility] 01-09-2023 09:57-0400 Body weight 100.47 kg Michelle Reneker URANIUM PROCESSING SUPERVISOR-MANAGER FIRE Work Phone: [facility] 01-09-2023 09:57-0400 Diastolic blood pressure 73 mm[Hg] Michelle Feleciar URANIUM PROCESSING SUPERVISOR-MANAGER FIRE Work Phone: [facility] 01-09-2023 09:57-0400 Heart rate 82 /min Michelle Renshrutir URANIUM PROCESSING SUPERVISOR-MANAGER FIRE Work Phone: [facility] 01-09-2023 09:57-0400 Respiratory rate 14 /min Michelle Renshrutir URANIUM PROCESSING SUPERVISOR-MANAGER FIRE Work Phone: [facility] 01-09-2023 09:57-0400 SaO2% (BldA) [Mass fraction] 97 % Michellebo Izquierdor URANIUM PROCESSING SUPERVISOR-MANAGER FIRE Work Phone: [facility] 01-09-2023 09:57-0400 Systolic blood pressure 158 mm[Hg] Michelle Izquierdor URANIUM PROCESSING SUPERVISOR-MANAGER FIRE Work Phone: [facility] 11-26-2022 10:04-0400 Diastolic blood pressure 66 mm[Hg] Isabelle Carrion MD Work Phone: [facility] 11-26-2022 10:04-0400 Systolic blood pressure 116 mm[Hg] Isabelle Carrion MD Work Phone: [facility] 11-26-2022 08:00-0400 Body height 177.8 cm Isabelle Carrion MD Work Phone: [facility] 11-26-2022 08:00-0400 Body weight 96.16 kg Isabelle Carrion MD Work Phone: [facility] 11-26-2022 08:00-0400 Heart rate 75 /min Isabelle Carrion MD Work Phone: [facility] 11-26-2022 08:00-0400 SaO2% (BldA) [Mass fraction] 97 % Isabelle Carrion MD Work Phone: [facility] 06-04-2022 08:58-0500 Body height 177.8 cm Isabelle Carrion MD Work Phone: [facility] 06-04-2022 08:58-0500 Body weight 96.62 kg Isabelle Carrion MD Work Phone: [facility] 06-04-2022 08:58-0500 Diastolic blood pressure 67 mm[Hg] Isabelle Carrion MD Work Phone: [facility] 06-04-2022 08:58-0500 Heart rate 70 /min Isabelle Carrion MD Work Phone: [facility] 06-04-2022 08:58-0500 SaO2% (BldA) [Mass fraction] 96 % Isabelle Carrion MD Work Phone: [facility] 06-04-2022 08:58-0500 Systolic blood pressure 136 mm[Hg] Isabelle Carrion MD Work Phone: [facility] 11-30-2021 08:10-0400 Body height 177.8 cm Isabelle Carrion MD Work Phone: [facility] 11-30-2021 08:10-0400 Body weight 98.43 kg Isabelle Carrion MD Work Phone: [facility] 11-30-2021 08:10-0400 Diastolic blood pressure 74 mm[Hg] Isabelle Carrion MD Work Phone: [facility] 11-30-2021 08:10-0400 Heart rate 79 /min Isabelle Carrion MD Work Phone: [facility] 11-30-2021 08:10-0400 Systolic blood pressure 142 mm[Hg] Isabelle Carrion MD Work Phone: [facility] Encounters Encounter Date Encounter Type Care Provider Facility Start: 04-30-2023 End: 04-30-2023 ambulatory SWAPNIL ARNETT [facility] Start: 04-30-2023 End: 04-30-2023 Office outpatient visit 15 minutes Swapnil Arnett MD Work Phone: [facility] Procedures Date Procedure Procedure Detail [...] DTaP/Tdap/Td Vaccines (2 - Td or Tdap) [facility] Start: 10-18-2027 Tetanus vaccination TETANUS [facility] Start: 10-18-2027 Urine microalbumin profile DTAP,TDAP,TD (2 - Td or Tdap) [facility] Start: 07-04-2026 Colonoscopy COLONOSCOPY [facility] Start: 07-04-2026 COLORECTAL CANCER SCREENING COLORECTAL CANCER SCREENING [facility] Start: 11-27-2023 ANNUAL PCP TEAM CHRONIC DISEASE VISIT ANNUAL PCP TEAM CHRONIC DISEASE VISIT [facility] Start: 11-27-2023 BP CONTROLLED (<130/80) BP CONTROLLED (<130/80) [facility] Start: 11-15-2023 Lipid panel LIPIDS [facility] Start: 07-04-2023 Colonoscopy COLONOSCOPY [facility] Start: 07-04-2023 COLORECTAL CANCER SCREENING COLORECTAL CANCER SCREENING [facility] Start: 06-04-2023 ANNUAL PCP TEAM CHRONIC DISEASE VISIT ANNUAL PCP TEAM CHRONIC DISEASE VISIT [facility] Start: 05-28-2023 Hepatitis C antibody, confirmatory test DILATED RETINAL EXAM [facility] Start: 05-25-2023 Hepatitis B screening URINE ALBUMIN:CREATININE RATIO [facility] Start: 05-17-2023 Hemoglobin A1c measurement HBA1C TEST [facility] Start: 05-17-2023 Hemoglobin A1c/Hemoglobin.total in Blood HBA1C [facility] Start: 04-16-2023 End: 04-02-2024 MR Lumbar spine WO contrast MR lumbar spine wo contrast Imaging Routine Lumbar stenosis with neurogenic claudication Expected: 04/16/2023, Expires: 04/02/2024 [facility] Work Phone: Immunizations Immunization Date Immunization Notes Care Provider Fa cility 10-17-2017 tetanus toxoid, redu diana diphtheria toxoid, and acellular pertussis vaccine, adsorbed Isabelle Carrion MD Work Phone: [facility] Payers Date Payer Category Payer Unknown [id number] 2013 Private Health Insurance [facility] A[employer] SUPPLEMENT [id number] 2013-Present [phone] [address] [place] [address] Indemnity [id number] 2013 Unknown [id number] 2012 Medicare MEDICARE MEDICAR E A AND B [id number] 2012-Present [phone] [address] [address] [place] [address] Medicare [id number] 2012 Medicare [id number] 2008 Medicare [id number] 2008 Private Health Insurance [id number] 1945 Unknown [id number] 1945 Unknown [id number] 1945 Unknown [id number] 1945 Unknown [id number] 1945 Unknown [id number] Social History Date Type Detail Facility [facility]: [facility] End: 04-08-1967 History of tobacco use Current smoker [facility] Start: 02-02-2021 End: 11-26-2022 Alcohol intake Current non-drinker of alcohol (finding) [facility] Start: 10-17-2017 History SDOH Alcohol Comment rare [facility] Start: 10-21-2018 End: 11-30-2021 Tobacco Comment in ' [facility] Start: 1945 Sex Assigned At Not on file C [facility] End: 04-08-1967 History of tobacco use Cigarette Smoker [facility] Start: 11-30-2021 End: 04-02-2023 Cigarettes smoked current (pack per day) - Reported 1 [facility] Work Phone: Start: 11-30-2021 End: 04-02-2023 Tobacco use and exposure Smokeless tobacco non-user [facility] Start: 1945 Sex Assigned At Male C [facility] Start: 11-20-2021 End: 12-21-2021 Exposure to SARS-CoV-2 (event) Not sure [facility] Start: 06-04-2022 End: 04-02-2023 Tobacco use panel [facility] Work Phone: Adult Depression Screening Assessment 0 [facility] Work Phone: Start: 01-09-2023 End: 04-02-2023 Tobacco smoking status NHIS Never smoked tobacco [facility] Start: 01-09-2023 Alcohol intake Lifetime non-d kirk (finding) [facility] Tobacco smoking stat [facility] Tobacco smoking consumption unknown [facility] Start: 04-02-2023 End: 01-23-2024 Alcohol intake Ex-drinker (finding) [facility] Clinical Notes 03-04-2015 to 04-30-2023 Swapnil Arnett MD - 04/30/2023 9:15 AM Rodolfo Arnett MD - 04/02/2023 1:15 PM ESTTelephone Encounter - Manasa DickCATALINO - 02/26/2023 9:35 AM Isabelle Cameron MD - 11/26/2022 8:01 AM EDT Note Date & Type Note Facility 04-30-2023 History of Present illness Narrative NEUROSURGERY CONSULT NOTE Patient Name: Chadwick Crenshaw Patient : 1945 PCP: Isabelle Carrion History of Present Ilness: 77 y.o. presents with follow up imaging of his lumbar spine. Continues to have right sided back pain and right hip pain. States he cannot stand for long periods of time. The rest of his history was reviewed and reverified from previous visit. Chief Complaint Patient presents with Follow-up Follow up imaging Past Medical History: Past Medical History: Diagnosis Date Diabetes 1.5, managed as type 2 (HCC) Hypertension TIA (transient ischemic attack) Past Surgical History: Past Surgical History: Procedure Laterality Date CAROTID ARTERY SURGERY (HISTORICAL) 06/18/2014 CAROTID ENDARTERECTOMY Right 10/2015 LAMINECTOMY 03/2015 Home Medications: Prior to Admission medications Medication Sig Start Date End Date Taking? Authorizing Provider amLODIPine-atorvastatin (Caduet) 10-10 MG tablet Take 1 tablet by mouth daily. Yes Historical Provider, atorvastatin (Lipitor) 80 MG tablet Take 80 mg by mouth daily. Yes Historical Provider, b complex vitamins capsule Take 1 capsule by mouth daily. Yes Historical Provider, cholecalciferol (Vitamin D-3) 1.25 MG (66054 UT) capsule Take 50,000 Units by mouth [...] or chew. Yes Historical Provider, Allergies: Penicillin v and Penicillin g benzathine Social History: TOBACCO: reports that he has never smoked. He has never used smokeless tobacco. ETOH: reports that he does not currently use alcohol. RECREATIONAL DRUG USE: Social History Substance and Sexual Activity Drug Use Never Family History: Family History Problem Relation Name Age of Onset Cancer Mother Review of Systems Constitutional: Negative for chills [...] behavioral problems and confusion. Physical Examination: Vitals: 04/30/23 0912 BP: 130/69 Pulse: 85 Temp: Physical Exam Vitals reviewed. Constitutional: Appearance: Normal [...] the past 24 hour(s)). Radiology Personal review: Recent MRI of the lumbar spine was reviewed. He has postoperative changes related to multilevel lumbar laminectomy. He has some varying degrees of foraminal stenosis mild to moderate at multiple levels. There is no high-grade stenosis. X-rays of the lumbar spine were reviewed. He has advanced degenerative changes but no instability. Alignment is reasonable. Incidental note is made of severe degenerative change involving his right hip. ASSESSMENT / PLAN : 77yo m with follow up imaging of his lumbar spine. His imaging was reviewed with him. His symptoms are not well explained by his lumbar spine pathology, and surgical decompression and fusion would likely not lead to any significant improvement in his symptoms. He does have significant arthritic changes in his right hip noted on the AP view of his lumbar xrays. I do recommend that he follow up with an orthopedic surgeon for this, and he was given a referral. We discussed conservative options at this time such as medication, therapy, and activity modification. He will follow up with me on a prn basis. I answered all his questions, and he understands signs and symptoms that would suggest deterioration. Diagnosis Plan 1. Right hip pain [facility] 2. Lumbar stenosis with neurogenic claudication documented in this encounter [facility] 04-02-2023 History of Present illness Narrative NEUROSURGERY [...] Historical Provider, cholecalciferol (Vitamin D-3) 1.25 MG (28570 UT) capsule Take 50,000 Units by mouth [...] spine 4-5 view documented in this encounter [facility] 03-13-2023 Note HNO ID: [id number] Author: Ross Lim MD Service: ? Author [...] carotid artery disease s/p left endarterectomy in 2015 and right carotid endarterectomy in 2016, TIA has come to reestablish with a sewer inspector for PVCs. Patient was admitted to [facility] in November 2022 with homonymous hemianopia suspicious for TIA. Follow-up with his primary care physician who noticed PVC on his EKG and asked him to see a sewer inspector. He denies chest pain, shortness of breath, [...] quittin.9 Smokeless tobacco: Never Tobacco comments: in 20's Vaping Use Vaping Use: Never used Substance [...] complex (B COMPLEX-100 ORAL) Take by mouth. fl-4-hgc-epa-fish oil-vit D3 [phone] rm-yw-ws-unit cap Take by mouth. esomeprazole (NEXIUM) 40 [...] G (more content not included)... [facility] 02-26-2023 Telephone encounter Note Called and spoke with the patient and scheduled him an appointment with Dr. Arnett on 04/02/23 at 1:15 pm. Patient verbalized an understanding to the appointment date, time and location. [facility] 02-26-2023 Miscellaneous Notes Called and spoke with the patient and scheduled him an appointment with Dr. Arnett on 04/02/23 at 1:15 pm. Patient verbalized an understanding to the appointment date, time and location. Name of Caller: Chadwick Contact Reason for Appointment: Pt states he would like to get a ppt he had a procedure done in 2014 he states. Office Name: Neurosurgery documented in this encounter [facility] 02-25-2023 Note Name of Caller: Chadwick Contact Reason for Appointment: Pt states he would like to get a ppt he had a procedure done in 2014 he states. Office Name: Neurosurgery [facility] 02-25-2023 Telephone encounter Note Name of Caller: Chadwikc Contact Reason for Appointment: Pt states he would like to get a ppt he had a procedure done in 2014 he states. Office Name: Neurosurgery [facility] 01-09-2023 History of Present illness Narrative [facility] Department of Neurology Section of Cerebrovascular Disease and Neurocritical Care Hospital Follow Up IDENTIFYING PATIENT INFORMATION: Umberto Crenshaw MR# [id number] 01/09/2023 CHIEF COMPLAINT: Follow up after hospitalization [...] occlusion and possible dissection. Pt transferred to [facility] for further workup and surgical evaluation. Repeat [...] Extinction and Inattention: 0 TOTAL: 0 Modified [facility]: 0 DATA: HgBA1c: Lab [...] pressures are consistently elevated >140s. Patient attending [facility] twice a week to help combat sedentary [...] mmHg. BP management should aim to achieve exterminator helper control in a reasonable amount of time, [...] any questions or concerns please contact me. Michelle Rodriguez, HERRERA-MANAGER FIRE 01/09/2023 10:13 AM I spent about 30 minutes today with patient, reviewing history, and hospital records, MRs, CTs, labs, examining patient, discussing impressions, answering questions and charting. *References: (1) Teagan et al, Stroke 2011, 42:227-276; (2) Long et al, Stroke 2006, 7418-9633; (3) Anthony et al, Stroke 2006; 37: 577-617; (4) Padmini Harris. MARIA DEL ROSARIO 2003, [phone]; (5) Ethan, et al, Circulation 2001, 103-163; (6) Medina, et al, Stroke 1999, 0029-6628;(7) ATP III. See also http:///nhlbi.nih.gov/guidelines/c holesterol/index.htm documented in this encounter [facility] 11-26-2022 Miscellaneous Notes I assume the two that were sent today in office visit to [facility]. Which medications need re-sent? Mariam Begum APRN.CNP Pts [facility] documented in this encounter [facility] 11-26-2022 Note HNO ID: [id number] Author: Isabelle Carrion MD Service: ? Author [...] on Plavix - Has not followed with sewer inspector since 2018. - Recently seen by vascular [...] Hyperlipidemia 03/04/2015 PTSD (post-traumatic stress disorder) [place] managing Spondylolisthesis 03/04/2015 Tubular adenoma of colon [...] Auto 0.83 - 3.57 K/uL 3.40 Abs Scurry Auto 0.24 - 0.93 K/uL 1.00 High [...] Study. (more content not included)... [facility] 11-26-2022 History of Present illness Narrative CHIEF [...] on Plavix - Has not followed with sewer inspector since 2018. - Recently seen by vascular [...] Auto 0.83 - 3.57 K/uL 3.40 Abs Scurry Auto 0.24 - 0.93 K/uL 1.00 High [...] (E11.9) Type 2 diabetes mellitus well controlled ([facility]) (primary encounter diagnosis) Comment: Adequately controlled. A1C [...] physical examination. Has not been following with sewer inspector since 2018. Recently seen by vascular on 08/29/2022, recommend follow up. Plan: ECG COMPLETE for record, CONSULT TO CARDIOLOGY CONSULT TO VASCULAR SURGERY, Continue Aspirin 81 and clopidogrel (PLAVIX) 75 mg tablet daily. EKG shows occ PCV (N18.31) Chronic renal failure (CRF), stage 3a ([facility]) Comment: Stable. Per labs obtained on 05/25/2022 [...] Scribe Attestation: By signing my name below, I, Wil Liz, attest that this documentation has been prepared under the direction and in the presence of Reyna Carrion M.D. Electronically Signed: Juanita Sosa. November 26, 2022 8:02 AM Provider Attestation: I, Isabelle Carrion MD, [...] AM documented in this encounter [facility] 11-16-2022 Miscellaneous Notes Received 11/16/2022 from [facility] . Placed in provider's inbox for review. Route to MA for scanning documented in this encounter [facility] 11-15-2022 Miscellaneous Notes Received Duplex scan, veins, Extremity; unilat/limited study from [facility]. Placed in provider's inbox for review. Route to MA scanning. documented in this encounter [facility] 11-15-2022 Miscellaneous Notes Received 11/14/2022 from [facility]. Placed in provider's inbox for review. 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 TIA Discharge location: [facility]. documented in this encounter [facility] 11-15-2022 Miscellaneous Notes Received 11/14/2022 from [facility]. Placed in provider's inbox for review. Route to MA for scanning documented in this encounter [facility] 11-13-2022 Note Patient Outreach (IN [facility]) UMBERTO CRENSHAW ([id number]) 1945 M Date Time Provider Department 11/13/22 [...] [E11.9] Order(s):BASIC METABOLIC PNL [SQBMP] Order #: [id number] FUTURE HGB A1C [NQOQR2L] Order #: [id number] FUTURE CBC [SQCBC] Order #: [id number] FUTURE LIPID PANEL BASIC [SQLIPB] Order #: [id number] FUTURE Prescriptions as of 11/13/2022 - metFORMIN [...] (B COMPLEX-100 ORAL) Take by mouth. - pc-7-nke-epa-fish oil-vit D3 [phone] sn-ky-ai-unit cap Take by mouth. - sildenafil, antihypertensive, [...] well controlled (HCC) *02/02/2021 Encounter Status:Closed by MARIAM BEGUM on 11/13/22 [facility] 08-03-2022 Note Chief Complaint New patient - prev pt of Dr. Bonilla, here for an evaluation of carotid stenosis. states his last carotid duplex was 12/2018. History of Present Illness Patient presents to the office for continued evaluation for carotid artery stenosis, was last seen by Dr. Bonilla in 2017. Had a right Carotid endarterectomy in 2016 with him. Pt has a left carotid endarterectomy, not at [facility] and he cannot remember when that was. [...] (F): 97.6 degF (08/03/22:02:00) SpO2: 96 % (08/03/22::00) Peripheral Pulse Rate: 74 bpm (08/03/22:02:00) Mean Arterial Pressure: 107 mmHg (08/03/22:02:00) Height/Length Measured: 178 cm (08/03/22:02:00) Weight Measured: 101 kg (08/03/22:02:00) Body Mass Index Measured: 31.88 kg/m2 (08/03/22:02:00) Weight Measured - lbs2: 223 lb (08/03/22:02:00) Height/Length Measured - in2: 70 in (08/03/22:02:00) Body Mass Index Measured English2: 31.99 kg/m2 (08/03/22:02:00) BSA: 2.23 m2 (08/03/22:02:00) Ht/Wt Measurement Refused by Patient?2: No (08/03/22:02:00) Depression Screening Scores Initial Depression Screen Score: 0 (08/03/22 09:02:00) Fall Risk Assessment Is the patient ambulatory (mobile): Yes (08/03/22 09:02:00) Have you had a fall within the past: No (08/03/22 09:02:00) Have you had 2 or more falls in the past: No (08/03/22 09:02:00) Psychiatric: Appropriate mood and affect. Good judgement [...] New Pt Mod MDM / 45-59 min 43094, 08/03/2022 09:15:00 EDT, Carotid stenosis, right / Left carotid artery occlusion 2. Left carotid artery occlusion I65.22 Ordered: AMB Ancillary Order - Carotid, 08/03/2022, Order For Future Visit AMB Office/Outpt New Pt Mod MDM / 45-59 min [id number], 08/03/2022 09:15:00 EDT, Carotid stenosis, right / Left carotid artery occlusion Schedule a flores (more content not included)... [facility] 06-04-2022 Note HNO ID: [id number] Author: Isabelle Carrion MD Service: ? Author [...] 2018. Patient has not met with his sewer inspector since 2018. Hypertension: Patient has been adhering [...] Hyperlipidemia 03/04/2015 PTSD (post-traumatic stress disorder) [place] managing Spondylolisthesis 03/04/2015 Tubular adenoma of colon [...] artery Comment: Patient has not seen his sewer inspector since 2018. Plan: CONSULT TO VASCULAR SURGERY [...] June 04, 2022 10:58 AM [facility] 06-04-2022 History of Present illness Narrative CHIEF COMPLAINT No chief complaint on file. HISTORY OF PRESENT ILLNESS Umberto Crenshaw is a 76 year old male who presents here today for 6 month follow-up management. I last saw this patient on 11/30/21. Past Surgeries: Patient had surgery for clogged right and left carotid arteries in 2018. Patient has not met with his sewer inspector since 2018. Hypertension: Patient has been adhering [...] Hyperlipidemia 03/04/2015 PTSD (post-traumatic stress disorder) [place] managing Spondylolisthesis 03/04/2015 Tubular adenoma of colon [...] artery Comment: Patient has not seen his sewer inspector since 2018. Plan: CONSULT TO VASCULAR SURGERY Requested Prescriptions No prescriptions requested or ordered in this encounter RTO: 6 months Scribe Attestation: By signing my name below, I, Mohan Gustafson, attest that this documentation has been prepared under the direction and in the presence of Reyna Carrion M.D. Electronically Signed: Juanita Christina. June 04, 2022 9:16 AM Provider Attestation: IIsabelle MD, personally performed [...] AM documented in this encounter [facility] 05-22-2022 Note Patient Outreach (IN [facility]) UMBERTO CRENSHAW ([id number]) 1945 M Date Time Provider Department 05/22/22 ISABELLE CARRION During your visit today, we recorded the following information about you: Allergies As of Date: 05/22/2022 Noted Allergy Reaction PENICILLINS 01/20/2009 2 - Rash Date Reviewed: 01/03/2022 Reviewed by: Reyes Andersen MD - Fully Assessed Visit Diagnosis:Type 2 diabetes mellitus well controlled (HCC) [E11.9] Order(s):ALBUMIN/CREAT RATIO RND UR [SQUACR] Order #: [id number] FUTURE SCHEDULE LAB TESTING [[id number]] Order #: [id number] FUTURE HGB A1C [MNTNX8C] Order #: [id number] FUTURE Prescriptions as of 05/25/2022 - metFORMIN [...] (B COMPLEX-100 ORAL) Take by mouth. - fu-7-jxk-epa-fish oil-vit D3 [id number] uv-tg-zw-unit cap Take by mouth. - sildenafil, antihypertensive, [...] well controlled (HCC) *02/02/2021 Encounter Status:Closed by LISA DAVIDSON on 05/25/22 [facility] 12-21-2021 Miscellaneous Notes Patient here for appointment to be seen for his left tricep injury. Patient is scheduled for an appointment tomorrow for left tricep injury but in patient's chart he was referred by Dr. Carrion for his hip. Is he being seen for his tricep or his hip? Left message for patient to call office. documented in this encounter [facility] 12-01-2021 Miscellaneous Notes 1st attempt, sent MC message as patient has not yet read message from doctor. Ortho consult placed. Please help schedule Isabelle Carrion MD documented in this encounter [facility] 11-30-2021 Note HNO ID: [id number] Author: RT Alfredo(R) Service: Radiology Author Type: [...] RT Alfredo(R) November 30, 2021 10:17 AM [facility] 11-30-2021 History of Present illness Narrative [...] RT Alfredo(R) November 30, 2021 10:17 AM documented in this encounter [facility] 11-30-2021 History of Present illness Narrative CHIEF [...] Hyperlipidemia 03/04/2015 PTSD (post-traumatic stress disorder) [place] managing Spondylolisthesis 03/04/2015 Tubular adenoma of colon [...] Scribe Attestation: By signing my name below, I, Carol Brunson, attest that this documentation has been prepared [...] AM documented in this encounter [facility] 10-25-2021 History of Present illness Narrative Pt [...] scheduling. documented in this encounter [facility] 07-24-2021 Miscellaneous Notes Received 08/23/2021 from [facility]. Placed in provider's inbox for review. Route to [place] for scanning EGD 07/04/2021 Diagnosis Hiatal Hernia [...] . documented in this encounter [facility] documented as of this encounter (statuses as of 07/24/2021) [facility]11-27-2015 History of Past illness Narrative* Problem Noted Date Resolved Date Carotid arterial disease 03/04/2015 020 documented as of this encounter (statuses as of 10/25/2021) [address]27-2015 History of Past illness Narrative* Problem Noted Date Resolved Date Carotid arterial disease 03/04/2015 020 documented as of this encounter (statuses as of 11/30/2021) [address]27-2015 History of Past illness Narrative* Problem Noted Date Resolved Date Carotid arterial disease 03/04/2015 020 documented as of this encounter (statuses as of 12/01/2021) [address]27-2015 History of Past illness Narrative* Problem Noted Date Resolved Date Carotid arterial disease 03/04/2015 020 documented as of this encounter (statuses as of 12/01/2021) [address]27-2015 History of Past illness Narrative* Problem Noted Date Resolved Date Carotid arterial disease 03/04/2015 020 documented as of this encounter (statuses as of 12/21/2021) [address]27-2015 History of Past illness Narrative* Problem Noted Date Resolved Date Carotid arterial disease 03/04/2015 020 documented as of this encounter (statuses as of 05/25/2022) [address]27-2015 History of Past illness Narrative* Problem Noted Date Resolved Date Carotid arterial disease 03/04/2015 020 documented as of this encounter (statuses as of 06/04/2022) [address]27-2015 History of Past illness Narrative* Problem Noted Date Diagnosed Date Resolved Date Carotid arterial disease 03/04/2015 documented as of this encounter (statuses as of 11/14/2022) [address]27-2015 History of Past illness Narrative* Problem Noted Date Diagnosed Date Resolved Date Carotid arterial disease 03/04/2015 documented as of this encounter (statuses as of 11/15/2022) [address]27-2015 History of Past illness Narrative* Problem Noted Date Diagnosed Date Resolved Date Carotid arterial disease 03/04/2015 documented as of this encounter (statuses as of 11/17/2022) [address]27-2015 History of Past illness Narrative* Problem Noted Date Diagnosed Date Resolved Date Carotid arterial disease 03/04/2015 documented as of this encounter (statuses as of 11/26/2022) [address]27-2015 History of Past illness Narrative* Problem Noted Date Diagnosed Date Resolved Date Carotid arterial disease 03/04/2015 documented as of this encounter (statuses as of 11/27/2022) [facility] Diagnosis Type 2 diabetes mellitus well [...] region and thigh [facility] Primary osteoarthritis of right hip Primary localized osteoarthrosis, pelvic region and thigh [facility] Diagnosis Osteoarthritis of right hip, unspecified osteoarthritis type- Primary [facility] Diagnosis Type 2 diabetes mellitus well controlled (HCC) [facility] Diagnosis Type 2 diabetes mellitus well controlled (HCC)- Primary Essential hypertension Unspecified essential hypertension Stenosis of right carotid artery Occlusion and stenosis of carotid artery without mention of cerebral infarction [facility] Diagnosis Other hyperlipidemia- Primary Type 2 diabetes mellitus well controlled (HCC) documented in this encounter [facility] note* Diagnosis Type 2 diabetes mellitus [...] 30-34.9 Obesity, unspecified documented in this encounter [facility] note* Diagnosis TIA (transient ischemic attack) Unspecified transient cerebral ischemia Stenosis of left carotid artery Occlusion and stenosis of carotid artery without mention of cerebral infarction Folliculitis Other specified disease of hair and hair follicles documented in this encounter [facility] note* Diagnosis Hospital discharge follow-up- Primary Other follow-up examination USP (current) use of antithrombotics/antiplatelets [facility] Diagnosis Lumbar stenosis with neurogenic claudication- Primary documented in this encounter [facility]* Diagnosis Right hip pain- Primary Pain in joint, pelvic region and thigh Lumbar stenosis with neurogenic claudication documented in this encounter [facility] for referral (narrative)* Diagnostic Procedure Only (Routine) - Closed Specialty Diagnoses / Procedures Referred By Contac t Referred To Contact XR IMAGING Diagnoses Primary osteoarthritis of right hip Procedures XR HIP BILATERAL 5V PEL/AP/LAT EACH HIP RADEX HIPS BILATERAL WITH PELVIS MINIMUM 5 VIEWS Isabelle Carrion MD [address] [address] Xr Imaging Referral ID Status Reason Start Date Expiration Date V isits Requested Visits Authorized [id number] Closed Auto-Generate d Referral 11/30/2021 12/30/2022 1 1 [facility] for referral (narrative)* Diagnostic Procedure Only (Routine) - Closed Specialty Diagnoses / Procedures Referred By Contac t Referred To Contact XR IMAGING Diagnoses Primary osteoarthritis of right hip Procedures XR HIP BILATERAL 5V PEL/AP/LAT EACH HIP RADEX HIPS BILATERAL WITH PELVIS MINIMUM 5 VIEWS Isabelle Carrion MD [address] [address] Xr Imaging Referral ID Status Reason Start Date Expiration Date V isits Requested Visits Authorized [id number] Closed Auto-Generate d Referral 11/30/2021 12/30/2022 1 1 T [facility] for referral (narrative)* Consultation (Routine) - Pending Review Specialty Diagnoses / Procedures Referred By Carito kleni Referred To Contact Orthopedic Surgery Diagnoses Right hip pain Bety Parra PA-C [address] [place] [address] Wayne Gamboa MD [address] [place] [address] Referral ID Status Reason Start Date Expiration Date Visits Requested Visits Authorized [id number] Pending Review Specialty Services Required 04/30/2023 04/29/2024 1 1 [facility] for visit Narrative* Diagnostic Procedure Only (Routine) - Closed Specialty Diagnoses / Procedures Referred By Carito klein Referred To Contact XR IMAGING Diagnoses Primary osteoarthritis of right hip Procedures XR HIP BILATERAL 5V PEL/AP/LAT EACH HIP RADEX HIPS BILATERAL WITH PELVIS MINIMUM 5 VIEWS Isabelle Carrion MD [address] [address] Xr Imaging Referral ID Status Reason Start Date Expiration Date V isits Requested Visits Authorized [id number] Closed Auto-Generate d Referral 11/30/2021 12/30/2022 1 1 [facility] Summary Purpose Family History No Family History Records FoundNo Family History Records FoundNo Family History Records FoundNo Family History Records FoundNo Family History Records FoundNo Family History Records FoundNo Family History Records Found Advance Directives No Advanced Directives Records FoundDocuments on File Type Date Recorded 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 Expl anation Advance Directive(s) 01/11/2017 10:03 AM Reason for Referral Specialty Diagnoses / Procedures Referred By Contac t Referred To Contact Orthopedics Diagnoses Osteoarthritis of right hip, unspecified osteoarthritis type Procedures CONSULT TO ORTHOPAEDICS OFFICE/OUTPATIENT [facility] 60-74 MINUTES Isabelle Carrion MD [address] [address] Referral ID Status Reason Start Date Expiration Date Visits Requested Visits Authorized [id number] Authorized PCP Requested Referral 12/01/2021 12/01/2022 1 1 Specialty Diagnoses / Procedures Referred By Contac t Referred To Contact Vascular Surgery Diagnoses Stenosis of right carotid artery Procedures CONSULT TO VASCULAR SURGERY Isabelle Carrion MD [address] [place] [address] Lincoln Bonilla [address] [place] [id number] Referral ID Status Reason Start Date Expiration Date Visits Requested Visits Authorized [id number] Ref Not Required PCP Requested Referral 06/04/2022 06/04/2023 1 1 Specialty Diagnoses / Procedures Referred By Contac t Referred To Contact Cardiology Diagnoses PVC (premature ventricular contraction) Procedures CONSULT TO CARDIOLOGY OFFICE/OUTPATIENT [facility] 60-74 MINUTES Isabelle Carrion MD [address] [place] [address] Referral ID Status Reason Start Date Expiration Date Visits Requested Visits Authorized [id number] Authorized PCP Requested Referral 11/26/2022 11/26/2023 1 1 Specialty Diagnoses / Procedures Referred By Contac t Referred To Contact [facility] Diagnoses PVC (premature ventricular contraction) Procedures ECG COMPLETE ECG ROUTINE ECG W/LEAST 12 LDS W/I&R Isabelle Carrion MD [address] [place] [address] [facility] [place] [address] [place] [address] Referral ID Status Reason Start Date Expiration Date Visits Requested Visits Authorized [id number] Pending Review Auto-Generat ed Referral 11/26/2022 11/26/2023 1 1 Specialty Diagnoses / Procedures Referred By Contac t Referred To Contact Vascular Surgery Diagnoses TIA (transient ischemic attack) Stenosis of left carotid artery Procedures CONSULT TO VASCULAR SURGERY OFFICE/OUTPATIENT [facility] MDM 60-74 MINUTES Isabelle Carrion MD [address] [place] [address] Referral ID Status Reason Start Date Expiration Date Visits Requested Visits Authorized [id number] Authorized PCP Requested Referral 11/26/2022 11/26/2023 1 1 Specialty Diagnoses / Procedures Referred By Contac t Referred To Contact Radiology Diagnoses Lumbar stenosis with neurogenic claudication Procedures MR lumbar spine wo contrast Bety Parra PA-C [address] [place] [address] Referral ID Status Reason Start Date Expiration Date V isits Requested Visits Authorized [id number] Pending Review 04/02/2023 04/01/2024 1 1 Additional Source Comments (unrecognized sect ion and content) No Status Records FoundNo Status Records FoundNo Status Records FoundNo Status Records FoundNo Status Records FoundNo Status Records FoundNo Status Records Found INFORMATION SOURCE (unrecogn ized section and content) DATE CREATED AUTHOR AUTHOR'S ORGANIZ ATION 05/27/2022 [facility] DATE CREATED AUTHOR AUTHOR'S ORGANIZ ATION 08/09/2022 [facility] DATE CREATED AUTHOR AUTHOR'S ORGANIZ ATION 08/14/2022 [facility] DATE CREATED AUTHOR AUTHOR'S ORGANIZ ATION 01/14/2023 [facility] DATE CREATED AUTHOR AUTHOR'S ORGANIZ ATION 05/01/2023 [facility] DATE CREATED AUTHOR AUTHOR'S ORGANIZ ATION 05/10/2023 [facility] Source Comments (unrecognize d section and content) In the event this informatio n is protected by the Federal Confidentiality of Alcohol and Drug Abuse Patient Records regulations: The Federal rules restrict any use of the information to criminally investigate or prosecute any alcohol or drug abuse patient.[facility] the event this information is protected by the Federal Confidentiality of Alcohol and Drug Abuse Patient Records regulations: The Federal rules restrict any use of the information to criminally investigate or prosecute any alcohol or drug abuse patient.[facility] the event this information is protected by the Federal Confidentiality of Alcohol and Drug Abuse Patient Records regulations: The Federal rules restrict any use of the information to criminally investigate or prosecute any alcohol or drug abuse patient.[facility] the event this information is protected by the Federal Confidentiality of Alcohol and Drug Abuse Patient Records regulations: The Federal rules restrict any use of the information to criminally investigate or prosecute any alcohol or drug abuse patient.[facility] the event this information is protected by the Federal Confidentiality of Alcohol and Drug Abuse Patient Records regulations: The Federal rules restrict any use of the information to criminally investigate or prosecute any alcohol or drug abuse patient.[facility] the event this information is protected by the Federal Confidentiality of Alcohol and Drug Abuse Patient Records regulations: The Federal rules restrict any use of the information to criminally investigate or prosecute any alcohol or drug abuse patient.[facility] the event this information is protected by the Federal Confidentiality of Alcohol and Drug Abuse Patient Records regulations: The Federal rules restrict any use of the information to criminally investigate or prosecute any alcohol or drug abuse patient.[facility] the event this information is protected by the Federal Confidentiality of Alcohol and Drug Abuse Patient Records regulations: The Federal rules restrict any use of the information to criminally investigate or prosecute any alcohol or drug abuse patient.[facility] the event this information is protected by the Federal Confidentiality of Alcohol and Drug Abuse Patient Records regulations: The Federal rules restrict any use of the information to criminally investigate or prosecute any alcohol or drug abuse patient.[facility] the event this information is protected by the Federal Confidentiality of Alcohol and Drug Abuse Patient Records regulations: The Federal rules restrict any use of the information to criminally investigate or prosecute any alcohol or drug abuse patient.[facility] the event this information is protected by the Federal Confidentiality of Alcohol and Drug Abuse Patient Records regulations: The Federal rules restrict any use of the information to criminally investigate or prosecute any alcohol or drug abuse patient.[facility] the event this information is protected by the Federal Confidentiality of Alcohol and Drug Abuse Patient Records regulations: The Federal rules restrict any use of the information to criminally investigate or prosecute any alcohol or drug abuse patient.[facility] the event this information is protected by the Federal Confidentiality of Alcohol and Drug Abuse Patient Records regulations: The Federal rules restrict any use of the information to criminally investigate or prosecute any alcohol or drug abuse patient.[facility] the event this information is protected by the Federal Confidentiality of Alcohol and Drug Abuse Patient Records regulations: The Federal rules restrict any use of the information to criminally investigate or prosecute any alcohol or drug abuse patient.[facility] the event this information is protected by the Federal Confidentiality of Alcohol and Drug Abuse Patient Records regulations: The Federal rules restrict any use of the information to criminally investigate or prosecute any alcohol or drug abuse patient.[facility] Reason for Visit (unrecogniz ed section and content) Reason Comments Physical Reason Comments Chart prep Reason Comments 6 Month Exam Reason Comments Received Outside Medical Records [facility] CTA Head and Neck w/ Contrast 11/13/2022 Reason Comments Received Outside Medical Records [facility] Emergency Department Summary 11/14/2022 Slurred speech,, facial droop difficulty reading Reason Comments Received Outside Medical Records [facility] 11/14/22 Reason Comments Received Outside Medical Records [facility] Department of Emergency Medicine 11/14/2022 Possible Carotid obstruction or dissection Reason Comments F/U 6 Month Reason Comments Medication Problem Reason Comments Follow-up Stroke Specialty Diagnoses / Procedures Referred By Carito klein Referred To Contact Neurology Diagnoses Difficulty with speech Berna Marion, URANIUM PROCESSING SUPERVISOR-MANAGER [employer] [address] [place] [address] Referral ID Status Reason Start Date Expiration Date V isits Requested Visits Authorized [id number] New Request 11/14/2022 12/09/2023 1 1 Reason Onset Date Comments Appointment Request 02/25/2023 Reason Comments New Patient Patient had a luis ctomy in 2014. He is experiencing back and right leg pain, especially when standing. Reason Comments Follow-up Follow up imaging Care Teams (unrecognized sec tion and content) Computer Graphic Artist Relationship Specialty Start Date End Date Isabelle Carrion MD [address] [place], [place] [id number] PCP - General Family Practice 02/02/21 Sarah Krishnamurthy DO Primary Staff Physician Cardiology 06/24/18 Computer Graphic Artist Relationship Specialty Start Date End Date Isabelle Carrion MD [address] [place], [place] [phone] PCP - General Family Practice 02/02/21 Sarah Krishnamurthy DO Primary Staff Physician Cardiology 06/24/18 Computer Graphic Artist Relationship Specialty Start Date End Date Isabelle Carrion MD [address] [place], [place] [phone] PCP - General Family Practice 02/02/21 Sarah Krishnamurthy DO Primary Staff Physician Cardiology 06/24/18 Computer Graphic Artist Relationship Specialty Start Date End Date Isabelle Carrion MD [address] [place], [place] [phone] PCP - General Family Practice 02/02/21 Sarah Krishnamurthy DO Primary Staff Physician Cardiology 06/24/18 Computer Graphic Artist Relationship Specialty Start Date End Date Isabelle Carrion MD [address] [place] [address] PCP - General Family Medicine 02/02/21 Sarah Krishnamurthy DO Primary Staff Physician Cardiology 06/24/18 Computer Graphic Artist Relationship Specialty Start Date End Date Isabelle Carrion MD [address] [place], [place] [id number] PCP - General Family Medicine 02/02/21 Sarah Krishnamurthy DO Primary Staff Physician Cardiology 06/24/18 Computer Graphic Artist Relationship Specialty Start Date End Date Isabelle Carrion MD [address] [place], [place] [id number] PCP - General Family Medicine 02/02/21 Sarah Krishnamurthy DO Primary Staff Physician Cardiology 06/24/18 Computer Graphic Artist Relationship Specialty Start Date End Date Isabelle Carrion MD [address] [place] [address] PCP - General Family Medicine 02/02/21 Sarah Krishnamurthy DO Primary Staff Physician Cardiology 06/24/18 Computer Graphic Artist Relationship Specialty Start Date End Date Isabelle Carrion MD [address] [place], [place] [id number] PCP - General Family Medicine 02/02/21 Sarah Krishnamurthy DO Primary Staff Physician Cardiology 06/24/18 Computer Graphic Artist Relationship Specialty Start Date End Date Isabelle Carrion MD [address] [place], [place] [id number] PCP - General Family Medicine 02/02/21 Sarah Krishnamurthy DO Primary Staff Physician Cardiology 06/24/18 Computer Graphic Artist Relationship Specialty Start Date End Date Reyna Carrion MD [address] [place] [address] PCP - General Family Medicine 11/14/22 Computer Graphic Artist Relationship Specialty Start Date End Date Isabelle Carrion [address] [place] [address] PCP - General Family Medicine 04/02/23 Computer Graphic Artist Relationship Specialty Start Date End Date Isabelle Carrion [address] [place] [address] PCP - General Family Medicine 04/02/23 FOR [...] BE BASED ON THE PRIMARY CLINICAL RECORDS. [facility]. provides no warranty or guarantee of the accuracy or completeness of information in this document.
== END | disposition home or self-care (01) ==
LOC: CT 07:02
PROVIDERS: PCP Family Medicine; Referring Provider Orthopaedic Surgery; Visit Provider Orthopaedic Surgery
DX: M16.11 Unilateral primary osteoarthritis, right hip (principal)
CPT/HCPCS: 73700

== ENCOUNTER 2023-07-23 05:08 | Inpatient (IN) | payer MEDICARE, OTHER, SELFPAY ==
--- NOTE | 2023-06-05 07:06 | EKG12_ITS ---
Test Reason : PREOP Blood Pressure : / mmHG Vent. Rate : 073 BPM Atrial Rate : 073 BPM P-R Int : 182 ms QRS Dur : 084 ms QT Int : 390 ms P-R-T Axes : 017 032 032 degrees QTc Int : 429 ms Normal sinus rhythm Normal ECG Confirmed by RAMESH SAVAGE, SHANNON ([id number]), features editor SIMON RIGGS ([id number]) on 06/10/2023 6:36:04 AM Referred By: JACK Confirmed By:TAMIA CHANDLER MD
[2023-06-05 08:21] LABS: Prothrombin Time (Protime)PT. 13.3 SECONDS (11.7-14.9)
[2023-06-05 08:23] LABS: Partial Thromboplast Time 30.3 Seconds (24.1-36.2)
[2023-06-06 05:52] LABS: Fructosamine 216 umol/L (0-285)
[2023-07-23] VITALS (14 sets, daily range): BP systolic 132–183; BP diastolic 54–83; PULSE 77–94; RESP 12–18; TEMP 36.1–36.9; O2SAT 95–100; BMI 39.7; BMI 30.2
[2023-07-23] MEDS: Acetaminophen 500 MG Tablet 1000 MG PO ×3 (06:10→22:33)
[2023-07-23] MEDS: Scopolamine 1mg/72hr Patch 1 PATCH TD (06:11)
[2023-07-23] MEDS: Gabapentin 600 MG Tablet PO (06:11)
[2023-07-23] MEDS: Lactated Ringers 1,000 ML 999 ML IV ×2 (06:26→10:00)
[2023-07-23] MEDS: Magnesium 2 GM for ERAS IV (06:27)
[2023-07-23] MEDS: Lactated Ringers 1,000 ML 100 ML IV ×2 (06:30→11:29)
[2023-07-23 06:42] LABS: Bedside Glucose 213 mg/dL (74-106)
[2023-07-23] MEDS: Insulin Lispro 100 UNIT/ML INSULN.PEN SC (06:45)
--- NOTE | 2023-07-23 07:16 | PCM.HP.BLA ---
History and Physical Date of Admission: 07/23/23 [facility] [address] [place] [address] OFFICE VISIT Date of Service: 05/08/23 MR#: [id number] Acct: [id number] Name: UMBERTO CRENSHAW Rep #: [id number] : 1945 Provider: Dr. Elliot Hudson DO Age/Sex: 77/M Location: [facility] Status: Signed Intake Vital Signs 11/13/2322:09 05/08/2407:06 Height 5 ft 10 in 5 ft 10 in Weight: 214 lb BMI 30.7 Intake Visit Reasons: BI LAT HIPS Is patient in pain?: Yes Pain scale (1-10): 5 Allergies Penicillins Allergy (Verified 05/08/23 08:06) Rash Medications amlodipine 5 mg tablet 10 mg PO DAILY 09/12/18 [History Confirmed 05/08/23] atorvastatin 20 mg tablet 80 mg PO DAILY 09/12/18 [History Confirmed 05/08/23] cholecalciferol (vitamin D3) 125 mcg (5,000 unit) tablet 5,000 unit PO DAILY 09/12/18 [History Confirmed 05/08/23] coenzyme Q10 100 mg capsule (Co Q-10) 100 mg PO DAILY 09/12/18 [History Confirmed 05/08/23] magnesium oxide 400 mg PO DAILY 09/12/18 [History Confirmed 05/08/23] omega-3 fatty acids-fish oil 684 mg-1,200 mg capsule,delayed release (One-Per-Day [place]-3) 1 ea PO DAILY 09/12/18 [History Confirmed 05/08/23] vitamin B complex 1 ea PO DAILY 09/12/18 [History Confirmed 05/08/23] hydrochlorothiazide 25 mg tablet 25 mg PO QODAY 11/13/22 [History Confirmed 05/08/23] metformin 500 mg tablet 500 mg PO BID 11/13/22 [History Confirmed 05/08/23] clopidogrel 75 mg tablet 75 mg PO 05/08/23 [History Confirmed 05/08/23] losartan 100 mg tablet 100 mg PO DAILY 05/08/23 [History Confirmed 05/08/23] omeprazole 20 mg capsule,delayed release 20 mg PO DAILY 05/08/23 [History Confirmed 05/08/23] [facility] Medical History (Updated 05/08/23 @ 08:33 by Shanita Avendano) Carotid disease, bilateral Diabetes GERD (gastroesophageal reflux disease) Hyperlipidemia Hypertension Kidney stones Surgical History (Updated 11/14/22 @ 00:[address] Jyoti Herrera MD) History of carotid endarterectomy History of laminectomy Family History (Updated 11/14/22 @ 00:[address] Jyoti Herrera MD) Mother Ovarian cancerFather Cerebral hemorrhage following injuryGrandfather CAD (coronary artery disease) Myocardial infarction Heart disease Lung cancerGrandmother Hypertension Social History (Updated 11/14/22 @ 00:[address] Jyoti Herrera MD) household members: family Smoking Status: Former smoker how long ago did patient quit smoking: Smoked age 14/13-22, smoked up to 1 ppd in service x 4 years. alcohol intake: never substance use type: does not use HPI BI LAT HIPS Details: This documentation accurately reflects the service provided and the decisions made by me, Dr. Elliot Hudson, DO 05/08/23 0749. Part of today?s visit was documented by Shanita Bowman ATC, acting as scribe. UMBERTO CRENSHAW is a 77 year old M here today new patient for right hip pain. Patient notes that he has had right hip pain for about a year. He denies any known injury. Patient had a lumbar laminectomy in 2014 which was helpful. He complains of pain into his groin and posterior hip. Patient denies any numbness or tingling. Patient notes that he has radiating pain from below his right knee and into his bo. Patient has increased pain with ambulation. He has had to decrease the amount of walking. He notes that sitting is helpful. Patient denies any injections or physical therapy. He works out at the gym twice a week. He went to his spine surgeon where he had xrays and an MRI of his lumbar spine. Patient denies any xrays of his hip. Patient notes that he takes ibuprofen for pain if needed. He recently lost 10 pounds which has helped decreased his pain. His pain is affecting his gait. He has trouble standing and this has significantly limited his distance of ambulation. Ortho Exam General General: Yes no acute distress Neurologic: Yes alert and Yes oriented x3 Psychologic: Yes reasonable and appropriate Right Hip Skin: Yes CDI, No Ecchymosis, No soft tissue swelling and No Erythema internal rotation @90 degree flexion: 0 degrees external rotation @90 degree extension: 25 degrees Special Tests: Yes TTP Greater Troch (mild), Yes RROM flexion pain, No hyperflexion normal and Yes C sign HIP: lumbar incision well healed, no sign of infection. pain reproduced with IR/ER. good ankle range of motion. normal sensation to light touch. 5/5 DF/PF ankle. 4/5 hip flexion with pain. Head: Normocephalic Atraumatic Chest: symmetrical rise, non-labored breathing, no audible wheeze Abdomen: no guarding, non-rigidI have examined the patient and the H&P has been reviewed. There are no clinical changes since date of exam.I have examined the patient and the H&P has been reviewed. There are no clinical changes since date of exam.I have examined the patient and the H&P has been reviewed. There are no clinical changes since date of exam. Supplemental Info 05/08/2023 x-ray right hip: Advanced hip arthrosis 04/24/2023 x-ray lumbar spine: Osteopenia with diffuse moderate lower thoracic and lumbosacral spondylosis 04/09/2023 MRI lumbar spine: No evidence for acute fracture or other significant bony pathology. Status post bilateral laminectomy at L2-3 and L3-4. Multilevel spinal stenosis secondary to bulging annulus facet arthropathy and shortened pedicles Coding Level of Care Code Off vis,new,level 3 Diagnoses Primary osteoarthritis of right hip M16.11 Osteoarthritis type: primary Assessment and Plan Assessment and Plan (1) Osteoarthritis of right hip: Status: Acute Qualifiers: Osteoarthritis type: primary Qualified Code(s): M16.11 - Unilateral primary osteoarthritis, right hip Orders: Orders HIP, UNI W/ Pelvis 2-3 Views Today M25.559 - Pain in unspecified hip Plan Educated the patient about the anatomy of the hip and etiology of his pain. Spoke with him about having severe hip osteoarthritis and his options- physical therapy, oral anti-inflammatories, total hip arthroplasty. The groin and posterior hip pain is likely from his osteoarthritis of his hip. The achiness into his bo is likely from his lumbar spine. Injections are not recommended as they are not helpful for long periods of time. He should have his kidneys monitored if he is taking oral anti-inflammatories. Spoke with him about the total hip arthroplasty procedure, recovery and risks. Risks are infection, blood clot, fracture, foot drop. He will be on a blood thinner post op and use compression stockings to minimize the risk. He will have hip precautions strict for 6 weeks and be mindful for 12 weeks. Patient will heal within about 2-2 months but it may take up to 2 years to fully heal. Patient will do formal physical therapy after surgery. He will need a CT scan of his hip for the makoplasty. Patient will also need medical clearance. A1c needs to be less than 7. Patients surgery should be done as inpatient due to his diabetes , living alone, has stairs at his house, his age and his history of carotid artery disease. He would need to be off his aspirin and Plavix for 7 days preoperatively and off his Plavix postoperatively for 3 weeks during the Eliquis. Risks, benefits and alternatives of surgery reviewed including but not limited to bleeding, infection, nerve, foot drop, artery and/or tissue damage, fracture, VTE, leg length discrepancy, dislocation, need for hip precautions, continued pain and expected post-operative course. Follow up for 2 week post op or sooner if pain, swelling, numbness or associated symptoms, or concerns develop. All questions answered. Patient in agreement of plan. 05/08/23 0933 <Electronically signed by Elliot Hudson DO> Date Elliot Hudson DO Cosigner Signature: Date (if applicable) I have examined the patient and the H&P has been reviewed. There are no clinical changes since date of exam.
--- NOTE | 2023-07-23 07:30 | FEM._PTH ---
PATIENT: UMBERTO CRENSHAW LOC: MS3 U#:[id number] AGE/SX: 77/M ROOM: VT318 RE07/23/[address]: Dr. Elliot Hudson DO : 1945 BED: 1 DIS: 07/24/2023 SPEC #: [id number] RECD: 07/23/23 13:11 STATUS: CARROLL OGDENBradford #: [id number] EDITH: 07/23/23 07:[address]: Elliot Hudson DEPT: SURGICAL PATHOLOGY RECD BY: Kala Durand ENTERED: 07/24/23 08:54 SP TYPE: FEM HEAD OTHR DR: DO Dr. Kaushal Yates MD Dr. Nicole Horn, DPM Tissues: Hip, NOS Procedures: Decalcification bone/plaque Surgery Specimen Level IV HEADER OPERATION: ERAS, right total hip replacement robotic arm assist PRE-OP DIAGNOSIS: Osteoarthritis of right hip TISSUE SUBMITTED: Bone and soft tissue of right hip MICROSCOPIC DIAGNOSIS Right hip bone and soft tissue, total hip replacement/resection: Femoral head with degenerative osteoarthritic changes. Fragments of fibrocartilaginous tissue and reactive synovial tissue with chronic inflammation. Focal changes consistent with pseudogout. ABIODUN: 07/29/2023 MICROSCOPIC DESCRIPTION Slides are reviewed. GROSS DESCRIPTION Received is one container labeled with the patient's name and designated bone and soft tissue right hip. The specimen consists of a hein femoral head with portion of femoral nec). The femoral head measures 5.5 x 5.0 x 4.5 cm and the femoral neck measures up to 1.0 cm in length. The articular surface displays prominent osteophyte formation, eburnation and bone erosion. Also present in the specimen container are multiple irregular fragments of bone reamings and pink-yellow soft tissue measuring in aggregate 10.0 x 9.0 x 2.5 cm. Soft tissue specimen predominantly consists of bone reaming. A piece of indurated tissue and fibrocartilaginous tissue is noted. Cdl Flatbed Truck Driver sections are submitted in two cassettes as follows: 1 - fibrocartilaginous tissue, 2 - femoral head after decalcification. ABIODUN/ 07/24/2023 TC: 5 CPT: 27439, 48839
[2023-07-23] MEDS: Cefazolin 2 GM in 0.9% Normal Saline (100mL Bag) 100 ML IV ×3 (07:44→22:33)
[2023-07-23] MEDS: TRANEXAMIC ACID 2,000 MG in 0.9% Normal Saline (100mL Bag) 100 ML 660 MG IV (07:55)
[2023-07-23 09:06] LABS: Bedside Glucose 129 mg/dL (74-106)
--- NOTE | 2023-07-23 10:06 | PCM.OP.BLANK ---
Operative Report Date of Procedure: 07/23/23 Preoperative diagnosis: Right hip DJD Postoperative diagnosis: Same Procedure: CT-guided Makoplasty assisted right total hip arthroplasty Implants: [place] Accolade II stem size 7, 127 degree neck angle -2.5 head neck length 56 mm Trident II acetabular shell with 30 mm cancellous screw 40mm ceramic head, 10 degree Trident X3 polyethylene insert. Anesthesia: General EBL: 175 cc Complications: None Condition: Stable to PACU Watch Train Assembler Brannon Ramirez. My physician community relations assistant was a vital part of this case. He was important in appropriate retraction during the case, and protection of soft tissues during procedure. His intimate knowledge of the case and my steps aided in safe and expedient completion of the procedure as well as appropriate position of the extremity during the case. He was also vital in assisting with closure under my direct supervision. Indication for procedure: This is a 77-year-old male who has had long-standing arthrosis of the hip who has failed conservative treatment and wished to undergo total hip arthroplasty. We did discuss operative versus nonoperative intervention including risks of bleeding, infection , nerve artery tissue damage, need for further surgery, fracture, leg length discrepancy dislocation blood clot and need for postoperative physical therapy and postoperative expectations. An informed consent was signed. Procedure: Patient was met in the preoperative holding area once again the operative extremity was identified by both patient and physician and was marked. Patient was met by anesthesia . Anesthesia was started. patient was then positioned in the lateral decubitus position on a well-padded pegboard with an axillary roll. All bony prominences were checked and padded. The patient was prepped and draped in the usual sterile fashion. A timeout was called to ensure the proper patient procedure and extremity were being contemplated. Anatomic landmarks were palpated and marked for a standard posterior lateral approach. Prior to this the ASIS was palpated and 3 fingerbreadths proximal to this 3 pins were placed at a 45 degree angle into the iliac crest with good purchase, stab incisions were made with a 15 blade into the skin prior to placement. The Makoplasty array was then secured. A 10 blade scalpel was used to make a posterior incision through the skin and subcutaneous tissue. retractors were used and electrocautery was used to maintain meticulous hemostasis and dissect full-thickness flaps until the gluteal fascia was reached. The gluteal fascia was incised in line with the gluteal fibers. The bursal tissue was then freed from the underside and a Charnley retractor was placed. The femoral trochanteric checkpoint was placed and leg length was assessed using the trochanteric checkpoint and an EKG lead that was placed on the knee prior to prepping the leg .the fat pad was then elevated off of the external rotators with electrocautery and the external rotators were dissected off of the greater trochanter including the piriformis and were tagged with #1 Ethibond for later repair. The joint capsule opened with posterior trapdoor technique. The hip was surgically dislocated. The measurement on the preoperative CT from the top of the lesser trochanter to the femoral neck cut was marked Hohmann was placed around the lesser trochanter. A neck cutting guide was used to saloni the neck with a Bovie and an oscillating saw was used complete the femoral neck cut. The femoral head was then removed and sized. We then turned our attention to the acetabulum. A Bovie was used to make a perforation in the anterior joint capsule and a Post retractor was placed this was repeated in the 6 o'clock position and a wide anna was placed there. With a long handled knife the labral and pulvinar tissue were removed. We then registered the acetabulum with the pointing array and confirmed our landmarks. Once the socket was thoroughly prepared and labral tissue and pulvinar was removed we single reamed with the robotic arm. We then used the robotic arm to position the acetabular implant and impacted it into place under robotic guidance. We then proceeded to place a posterior superior screw by drilling first measuring and inserting the screw. We then inserted a trial liner. And turned our attention back to the femur at this point a femoral elevator was used. As well as a pointed wide Hohmann around the lesser trochanter and a Hohmann to help retract the gluteus medius. A box chisel was used to remove excess lateral neck followed by a canal finder and a lateralizing reamer. This was followed by sequential broaches. Attention was made of the version within the canal based on preoperative templating. Once the final broach was seated we then trialed reduced the hip it was determined that a 127 degree neck angle with a -2.5 neck length was the appropriate size. We then checked stability with shuck testing as well as flexion and internal rotation. then proceeded with hip extension and checked leg lengths at the knees and heels as well as with the trochanteric checkpoint and knee EKG lead. At this point trials were removed. A liner was inserted to the cup. The femoral stem was inserted. We re-trialed and then proceeded to impact the femoral head onto the Jose Armando taper. We then surgically reduce the hip check stability again and leg lengths and were satisfied. Betadine rinse was allowed to sit for 5 minutes while everyone changed their gloves. Thorough irrigation was performed. Followed by closure of the external rotators with #2 FiberWire followed by closure of gluteal fascia with #1 Ethibond. 0 Vicryl fat stitches and 2-0 Vicryl subcutaneous stitches and torrie in the skin. [place] were placed in the skin pin sites over the iliac crest and dressed with a Mepilex dressing. The main incision was dressed with a Mepilex ag dressing and an abduction pillow was placed. Patient tolerated the procedure well there was no intraoperative complications all counts were correct and the patient was brought back to the PACU in stable condition
--- NOTE | 2023-07-23 10:19 | RAD_ITS ---
STUDY: X-RAY - PELVIS AND RIGHT HIP REASON FOR EXAM: Male, 77 years old. Post op in pacu TECHNIQUE: 2 views of the pelvis and hip. COMPARISON: Comparison is made with prior examination dated May 08, 2023. FINDINGS: The patient is status post right hip replacement. There is good alignment. Postoperative soft tissue changes. RAD/Hip Min 2 Views (Portable) IMPRESSION: Status post right total hip replacement. There is good alignment. Postoperative soft tissue changes. Electronically Signed: Gadiel Schilling MD at 10:34 EDT ,
[2023-07-23 10:46] LABS: Bedside Glucose 144 mg/dL (74-106)
--- NOTE | 2023-07-23 16:22 | PN.HOSP_ITS ---
Reason for Visit Reason for Visit: Diagnoses Encounter for other preprocedural examination (07/23/23) Subjective Subjective Patient with no acute events since operative intervention. He notes pain is controlled and has been up ambulating without issue. He denies any shooting pain or paresthesias to the lower extremities. Right dressing in place with no drainage. Patient denies fevers, chills, nausea, emesis, abdominal pain, chest pain or dyspnea. Objective Data Objective Data Vital Signs: Vital Signs Temp Pulse Resp BP Pulse Ox O2 Del Method O2 Flow Rate 97.7 F L 82 12 157/83 H 100 Room Air 4 07/23/23 15:11 07/23/23 15:11 07/23/23 15:11 07/23/23 15:11 07/23/23 15:11 07/23/23 15:11 07/23/23 10:45 Oxygen Flow Rate (L/min) 4 Oxygen Delivery Method Room Air Weight: 210 lb 9.6 oz Body Mass Index (BMI) 39.7 Intake & Output: Intake and Output for Last 24 Hours 07/21/23 07/22/23 07/23/23 23:59 23:59 23:59 Intake Total 3334 / 3334 Output Total 400 / 400 Balance 2934 / 2934 Lab / Micro Data Labs: Laboratory Results - last 24 hr 07/23/23 05:55: POC Glucose 213 H 07/23/23 06:55: Blood Type O POSITIVE, Antibody Screen NEGATIVE 07/23/23 08:48: POC Glucose 129 H 07/23/23 10:29: POC Glucose 144 H Micro: Microbiology 06/05/23 06:57 Swab (Method) Nasal Screen MRSA/MSSA - Final Radiography Diagnostic Testing: Radiology Impression Hip X-Ray 07/23/23 10:19 IMPRESSION: Status post right total hip replacement. There is good alignment. Postoperative soft tissue changes. Electronically Signed: Gadiel Schilling MD at 10:34 EDT , Physical Exam Narrative Physical Examination: General: Awake, alert, oriented x 3 and cooperative, seated upright in the RI bedside chair, no acute distress, pain 0 currently Skin: Normal color, normal turgor, no icterus, no cyanosis except for recent OR with right hip replacement with dressing in place, no drainage. HEENT: AT/NC, EOMI, PERRLA, MMM. Lungs: CTA bilaterally, moderate effort, mild decrease BL bases, no rales, ronchi or wheezing. Heart: Regular rate and rhythm; no gallop, rub audible. Abdomen: Soft, NTTP, ND, normal BS. Extremities: No cyanosis, no clubbing, no marked peripheral edema, status post recent right total hip replacement, dressing in place no drainage. Neurological: Patient awake, alert, oriented as noted, cognitive function intact; pupils equally reactive to light and accommodation, cranial nerves grossly normal, moving all 4 extremities including right lower extremity despite recent hip replacement, moving with ease in the room for discussion with nurse and patient, strength mildly globally decreased. Psychiatric: Affect appears normal, no acute evidence of depressive or anxiety feelings. Assessment & Plan Assessment/Plan (1) Osteoarthritis of right hip: QUALIFIERS: Osteoarthritis type: primary Qualified Code(s): M16.11 - Unilateral primary osteoarthritis, right hip PLAN: Plan The patient is a 77 y/o M w/ PMHx: Hx TIA, HTN, HLD, GERD, Diabetes mellitus type II, Former tobacco use, OA, Carotid disease s/p CEA who presents to the [facility] 07/23[facility]23 with ongoing significant right hip pain with degenerative joint disease for planned right total hip replacement. #1. Severe Osteoarthritis, right hip with degenerative joint disease: Failed conservative therapies and treatments, admitted per Dr. Leon, status post CT- guided MAKOplasty assisted right total hip arthroplasty, post-operative pain management, bowel regimen, DVT Prophylaxis, PT/OT/CM per Orthopedic surgery discretion. #2. History TIA: Continue patient hypertensive regimen, statin therapy and diabetic regimen with adjustments and alterations as noted. Add back Plavix once amenable per surgery given recent OR. #3. Carotid disease: Status post previous carotid endarterectomy, continue hypertensive regimen, statin therapy, diabetic regimen with adjustments as noted. Add back Plavix once amenable for surgery given recent OR. #4. Diabetes mellitus type II: If desired may consider holding oral home regimen, maintain on ADA diet, accu checks w/ ISS. #5. Hypertension: Continue home regimen including losartan, amlodipine, hydrochlorothiazide, PRN hydralazine. #6. Hyperlipidemia: Will continue patient on statin therapy #7. Former tobacco use: Encourage continued tobacco cessation. #8. GERD: Continue patient home omeprazole regimen. #9. DVT prophylaxis: SCDs, chemoprophylaxis per surgery discretion given recent OR. Charges/Coding Visit Charges Inpatient E&M: 02286 [facility] L[facility]
[2023-07-23] MEDS: Atorvastatin Calcium 80 MG Tablet PO (22:33)
[2023-07-23] MEDS: Senna/Docusate Sodium 1 Tablet 2 TABLET PO (22:33)
[2023-07-23 22:55] LABS: Bedside Glucose 173 mg/dL (74-106)
[2023-07-24 03:25] VITALS: BMI 30.2
[2023-07-24 03:30] VITALS: BP 143/59; PULSE 72; RESP 18; TEMP 36.8; O2SAT 100
[2023-07-24] MEDS: APIXABAN 2.5 MG TABLET (WCH) PO (06:47)
[2023-07-24] MEDS: Cefazolin 2 GM in 0.9% Normal Saline (100mL Bag) 100 ML IV (06:47)
[2023-07-24] MEDS: Acetaminophen 500 MG Tablet 1000 MG PO ×2 (06:47→13:55)
[2023-07-24 06:51] VITALS: BMI 30.2
[2023-07-24 07:10] VITALS: O2SAT 94
[2023-07-24 07:12] LABS: Bedside Glucose 132 mg/dL (74-106)
[2023-07-24 07:30] LABS: Hemoglobin 12.4 g/dL (13.0-16.5); Mean Corp Hgb Conc 34.4 g/dL (32-36); Mean Corpuscular Hgb 31.9 pg (27.0-32.0); Mean Corpuscular Volume 92.5 fL (80-94); Mean Platelet Vol. 11.8 fl (6.2-12.0); Platelet Count 193 K/mm3 (150-450); RBC Distribution Width CV 13.4 % (11.6-14.6); RBC Distribution Width SD 45.6 fl (35.1-43.9); Red Blood Count 3.89 M/mm3 (4.6-6.2)
--- NOTE | 2023-07-24 07:44 | PCM.CONS.GEN ---
Assessment & Plan Assessment/Plan (1) Onychomycosis: PLAN: Toenails were debrided in length and thickness both manually and mechanically without incident. We discussed onychomycosis and treatment including topical and oral medications. Topical medications are favored at this time and patient was educated about application as well and trying to keep the nails then. (2) Pain in toes of both feet: (3) Hammertoes of both feet: PLAN: Anatomy and biomechanics briefly reviewed. Patient has healthy feet without preulcerative lesions. (4) Tinea pedis: QUALIFIERS: Laterality: bilateral Qualified Code(s): B35.3 - Tinea pedis PLAN: Discussed findings with patient as well as etiology and treatment options. His symptoms are very mild so we did discuss topical [id number]-[id number] antifungal medications to be applied twice a day for 2 to 3 weeks. If that does not resolve the condition, prescription medication may be necessary. PLAN: Plan Foot examination performed today and all questions were answered. Patient was very pleasant. He was encouraged to seek podiatric care upon discharge as needed. Thank you for consultation. HPI Consult Data Date of Consult: 07/24/23 HPI Narrative Reason for Consultation: Thickened painful toenails HPI Narrative: UMBERTO CRENSHAW, is a 77 M who presents [facility] Medical History (Updated 07/24/23 @ 07:[address] Daphnie Booth, [place]) Arthritis Back pain Cardiology follow-up encounter Carotid disease, bilateral Diabetes Dietary restriction Former smoker Gastric reflux High cholesterol History of echocardiogram History of irregular heartbeat History of pain when walking History of stress test Hyperlipidemia Hypertension Kidney stones Shortness of breath on exertion TIA (transient ischemic attack) Wears glasses Home Medications amlodipine 5 mg tablet 10 mg PO DAILY BP 09/12/18 [History Last Taken 07/23/23 04:15] atorvastatin 20 mg tablet 80 mg PO DAILY CHOLESTEROL 09/12/18 [History Last Taken 07/22/23] cholecalciferol (vitamin D3) 125 mcg (5,000 unit) tablet 5,000 unit PO DAILY SUPPLEMENT 09/12/18 [History Last Taken 07/22/23] coenzyme Q10 100 mg capsule (Co Q-10) 100 mg PO DAILY SUPPLEMENT 09/12/18 [History Last Taken 07/22/23] magnesium oxide 400 mg PO DAILY SUPPLEMENT 09/12/18 [History Last Taken 07/22/23] omega-3 fatty acids-fish oil 684 mg-1,200 mg capsule,delayed release (One-Per-Day [place]-3) 1 ea PO DAILY SUPPLEMENT 09/12/18 [History Last Taken 07/22/23] vitamin B complex 1 ea PO DAILY SUPPLEMENT 09/12/18 [History Last Taken 07/22/23] hydrochlorothiazide 25 mg tablet 25 mg PO DAILY BP 11/13/22 [History Last Taken 07/22/23] metformin 500 mg tablet 500 mg PO DAILY DIABETIC 11/13/22 [History Last Taken 07/22/23] clopidogrel 75 mg tablet 75 mg PO DAILY BLODD THINNER 05/08/23 [History Last Taken 07/16/23] losartan 100 mg tablet 100 mg PO DAILY BP 05/08/23 [History Last Taken 07/23/23 04:15] omeprazole 20 mg capsule,delayed release 20 mg PO DAILY GERD 05/08/23 [History Last Taken 07/23/23 04:15] Allergy/AdvReac Type Severity Reaction Status Date / Time Penicillins Allergy Rash Verified 07/23/23 06:01 Family History (Updated 11/14/22 @ 00:[address] Jyoti Herrera MD) Mother Ovarian cancer Father Cerebral hemorrhage following injury Grandfather CAD (coronary artery disease) Myocardial infarction Heart disease Lung cancer Grandmother Hypertension Surgical History (Updated 11/14/22 @ 00:[address] Jyoti Herrera MD) History of carotid endarterectomy History of laminectomy Social History (Updated 11/14/22 @ 00:[address] Jyoti Herrera MD) household members: family Smoking Status: Former smoker how long ago did patient quit smoking: Smoked age 14[birth year]24, smoked up to 1 ppd in service x 4 years. alcohol intake: never substance use type: does not use Physical Exam Narrative Patient states that he has very painful toenails and he is unable to trim them due to the significant hip pain. He states that he had a total hip replacement yesterday and he states that he really has not been having much pain at all. Const alert, oriented x3, no apparent distress and healthy appearing General Appearance: cooperative, comfortable and well kempt Extremity normal capillary refill and no calf tenderness Peripheral Pulses: Yes pulses 2+ throughout Right Lower Extremity: foot and digits Left Lower Extremity: foot and digits Positive for ROM (Toes are contracted 2 through 5 bilaterally and are similar reducible. They are nonpainful.) Skin Nails: yellow and thickened and other Toenails 1, 4, 5 to the right foot and 1 to the left foot are thickened, discolored, crumbly with thickness greater than 0.5 mm. Hallux nails bilaterally appear dystrophic and significantly thickened. There is no sign of abscess or paronychia. They are quite elongated. Neuro Neuro Narrative: Light touch sensation is intact bilaterally and patient is able to feel pain. He denies burning, tingling, numbness to his feet despite the type II diabetic status. Lab / Micro Data 07/24/23 07:00 07/24/23 07:00 Labs: Laboratory Results - last 24 hr 07/23/23 06:55: Blood Type O POSITIVE, Antibody Screen NEGATIVE 07/23/23 08:48: POC Glucose 129 H 07/23/23 10:29: POC Glucose 144 H 07/23/23 22:31: POC Glucose 173 H 07/24/23 06:46: POC Glucose 132 H 07/24/23 07:00: WBC 18.0 H, RBC 3.89 L, Hgb 12.4 L, Hct 36.0 L, MCV 92.5, MCH 31.9, MCHC 34.4, RDW Std Deviation 45.6 H, RDW Coeff of Aracely 13.4, Plt Count 193, MPV 11.8 Imaging Radiology Impression Hip X-Ray 07/23/23 10:19 IMPRESSION: Status post right total hip replacement. There is good alignment. Postoperative soft tissue changes. Electronically Signed: Gadiel Schilling MD at 10:34 EDT ,
[2023-07-24 07:57] LABS: Anion Gap 6 (5-15); BUN 17 mg/dL (7-18); BUN/Creat Ratio 13.7 RATIO (10-20); Calcium,Total 9.4 mg/dL (8.5-10.1); Chloride 105 mmol/L (98-107); Creatinine, Serum 1.24 mg/dL (0.70-1.30); EST Glomerular Filtration Rate 60 mL/min (>60); Est Glom Filt Rate - Afr Amer 73 mL/min (>60); Estimated Creatinine Clearance 59.71 ml/min; Glucose 130 mg/dL (74-106); Potassium 4.2 mmol/L (3.5-5.1); Sodium Level 138 mmol/L (136-145)
[2023-07-24 07:58] VITALS: BP 140/63; PULSE 68; RESP 16; TEMP 36.6; O2SAT 98
[2023-07-24] MEDS: Vitamin B Comp W-C Capsule 1 CAP PO (08:17)
[2023-07-24] MEDS: metFORMIN HCl 500 MG Tablet PO (08:17)
--- NOTE | 2023-07-24 10:52 | CASEMGMT ---
GRACIE GROSS Assessment: Face to Face with pt for initial transition planning/care coordination assessment. GRACIE GROSS introduced self and role at [facility], pt voices understanding and consents to assessment. Pt is A&O x4 and answers all questions appropriately at this time. Pt sitting up in chair in no distress. Care providers, pharmacy, and demographics verified/updated. Admitting Dx:R total hip replacement PCP:Yariel Specialists:zoe Hudson Pharmacy:[facility] Insurance:[facility], [facility] Prescription Benefit: yes LNOK:Keisha Tatum, dtr; Jazlyn Bazan, dtr Living Arrangements: Pt lives with Keisha kapadia in a mobile home with 6 steps to enter with a rail. Pt reports prior to surgery he was I in ADL's and denies concerns at home. Transportation: Pt drives self and denies concerns with transportation. Pt dtr or friends will transport him until he medically can drive again. DME:comfort height commode, standard walker, ext tub bench, lift chair, BGM with sufficient suppy of strips and lancets HHC/SNF:Denies hx of Pt states no concerns with going home at time of dc. Pt is requesting a FWW. Provided pt with a verbal local in network list of DME providers. Pt chose [employer]. Pt reports he has outpt therapy set up at [facility] on Saturday. Pt states no further concerns/needs. CM to follow. Advised pt to ask CM if any further question/concerns/needs arise, voices understanding. Pt Goal:Home with outpt therapy already set up Plan:Home with outpt therapy already set up, obtain FWW
[2023-07-24] MEDS: Losartan Potassium 100 MG Tablet PO (10:55)
[2023-07-24] MEDS: hydroCHLOROthiazide 25 MG Tablet PO (10:55)
[2023-07-24] MEDS: Magnesium Chloride 64 MG Delay Rel.Tablet 128 MG PO (10:56)
[2023-07-24] MEDS: amLODIPine 10 MG Tablet PO (10:56)
[2023-07-24] MEDS: Pantoprazole Sodium 20 MG Tablet PO (10:56)
[2023-07-24] MEDS: Senna/Docusate Sodium 1 Tablet 2 TABLET PO (10:57)
[2023-07-24 11:40] LABS: Bedside Glucose 126 mg/dL (74-106)
--- NOTE | 2023-07-24 12:54 | PN.ORTHO_ITS ---
Subjective Subjective Patient seen and examined. He is doing very well denies any chest pain shortness of breath fevers chills nausea or vomiting. He is urinating although frequently in low volume he has had a bowel movement denies any dizziness or lightheadedness he has been able to complete the stairs without difficulty with physical therapy and he wishes to be discharged home Objective Data Objective Data Vital Signs: Vital Signs Temp Pulse Resp BP Pulse Ox O2 Del Method O2 Flow Rate 97.8 F 68 16 140/63 H 98 Room Air 4 07/24/23 07:58 07/24/23 07:58 07/24/23 07:58 07/24/23 07:58 07/24/23 07:58 07/24/23 08:08 07/23/23 10:45 Oxygen Flow Rate (L/min) 4 Oxygen Delivery Method Room Air Weight: 210 lb 9.369 oz Body Mass Index (BMI) 30.2 Intake & Output: Intake and Output for Last 24 Hours 07/22/23 07/23/23 07/24/23 23:59 23:59 23:59 Intake Total 5444 / 5444 110 / 110 Output Total 400 / 400 Balance 5044 / 5044 110 / 110 Lab / Micro Data 07/24/23 07:00 07/24/23 07:00 Labs: Laboratory Results - last 24 hr 07/23/23 22:31: POC Glucose 173 H 07/24/23 06:46: POC Glucose 132 H 07/24/23 07:00: WBC 18.0 H, RBC 3.89 L, Hgb 12.4 L, Hct 36.0 L, MCV 92.5, MCH 31.9, MCHC 34.4, RDW Std Deviation 45.6 H, RDW Coeff of Aracely 13.4, Plt Count 193, MPV 11.8, Sodium 138, Potassium 4.2, Chloride 105, Carbon Dioxide 27.0, Anion G ap 6, BUN 17, Creatinine 1.24, Estim Creat Clear Calc 59.71, Est GFR (MDRD) Af Amer 73, Est GFR (MDRD) Non-Af 60, BUN/Creatinine Ratio 13.7, Glucose 130 H, Calcium 9.4 07/24/23 11:11: POC Glucose 126 H Micro: Microbiology 06/05/23 06:57 Swab (Method) Nasal Screen MRSA/MSSA - Final Physical Exam Const alert, oriented x3 and no apparent distress General Appearance: cooperative Extremity Extremity Narrative: Right hip dressing clean dry intact compartments soft neurovascular intact EHL tibialis anterior gastrocsoleus intact sensation to light touch palpable pedal pulses Assessment & Plan Assessment/Plan (1) S/P total right hip arthroplasty: PLAN: Plan Postop day #1 right total hip arthroplasty PT OT weightbearing as tolerated DVT prophylaxis Eliquis 2.5 mg twice daily for 3 weeks postop RNADY cm Discharge home outpatient physical therapy follow-up in the office 2 weeks
--- NOTE | 2023-07-24 13:00 | DCINST_ITS ---
Discharge Instructions Diet Discharge Diet: No restrictions (diabetic diet, high sugar diet increases risk of infection in the perioperative period) Dressing / Incision Call your doctor if you observe: Shortness of breath and Chest pain Additional Dressing/Incision Instructions:: Do not shower 72hrs. Begin daily showering warm water antibacterial soap postop day #3( 72hrs Post-operatively) and then daily. Leave the dressing on for 72 hours postoperatively then may remove prior to first shower and change dressing daily after this until no drainage for 2 consecutive days then may leave open to air. Follow hip precautions that were reviewed in hospital. Wear compression stockings, may remove at night. Start physical therapy as directed in hospital. Follow prescriptions instructions do not take any other pain medication or differ dosing without consulting your physician. Do not take oral NSAIDs until blood thinner has been completed , then may begin the day after completion if needed . Call Dr. Hudson's office with any concerns. Follow Up Care Please Follow Up With: Elliot Hudson DO When: 2 weeks Test Results: Test results from this visit will be discussed in further detail at your follow- up appointment, if applicable. Discharge Plan Admission Admit Date/Time: 07/23/23 05:08 Primary Reason for Your Visit: Right total hip arthroplasty Attending Provider: Elliot Hudson Primary Care Provider: Kaushal Saldivar Consulting Providers: Daphnie Booth; Crow Guajardo Discharge Orders/Prescriptions Prescriptions: New acetaminophen [acetaminophen] 500 mg tablet 1,000 mg PO Q6H PRN Qty: 100 0RF Eliquis 2.5 mg tablet 2.5 mg PO BID Qty: 42 0RF oxycodone 5 mg tablet 5 - 10 mg PO Q4H PRN (Reason: pain) 3 Days Qty: 20 0RF Continued omeprazole 20 mg capsule,delayed release(DR/EC) 20 mg PO DAILY losartan 100 mg tablet 100 mg PO DAILY atorvastatin 20 MG tablet 80 mg PO DAILY amlodipine 5 MG tablet 10 mg PO DAILY vitamin B complex 1 EACH tablet 1 ea PO DAILY coenzyme Q10 [Co Q-10] 100 MG capsule 100 mg PO DAILY One-Per-Day [place]-3 1 EACH capsule,delayed release(DR/EC) 1 ea PO DAILY cholecalciferol (vitamin D3) 5,000 UNIT tablet 5,000 unit PO DAILY magnesium oxide 400 MG capsule 400 mg PO DAILY hydrochlorothiazide 25 mg tablet 25 mg PO DAILY metformin 500 mg tablet 500 mg PO DAILY Held clopidogrel 75 mg tablet 75 mg PO DAILY Hold Instructions: Resume on 08/14/23. continue after copletion of blood thinner Eliquis Patient Comments: TAKE 1 TABLET BY MOUTH EVERY DAY STOP 7 DAYS PRIO TO OR Referrals / Follow Up: Kaushal Saldivar MD [Primary Care Provider] - Disposition Disposition (needs filled in before D/C Order can be placed): Home, Self Care
--- NOTE | 2023-07-24 13:19 | DS.PCM_ITS ---
Providers Date of Admission: 07/23/23 Primary Care Physician: Dr. Kaushal Saldivar MD Consultations 07/23/23 10:00 Consult: Podiatry Routine Consulting Provider: Daphnie Booth Reason for Consult: toe nails cutting into skin EMERGENT Consult: No Notified: Yes Date Notified: 07/23/23 Time Notified: 16:17 Method of Notification: office 07/23/23 10:04 Consult: Hospitalist Routine Consulting Provider: Jyoti Herrera Reason for Consult: post op medical management diabetic management EMERGENT Consult: No Notified: Yes Date Notified: 07/23/23 Time Notified: 15:37 Method of Notification: Text Reason For Visit: ERAS Right Total Hip Replacement Ro Diagnosis Discharge Diagnosis (1) S/P total right hip arthroplasty: Status: Acute Code(s): Z96.641 - Presence of right artificial hip joint Plan Postop day #1 right total hip arthroplasty PT OT weightbearing as tolerated DVT prophylaxis Eliquis 2.5 mg twice daily for 3 weeks postop [facility] Discharge home outpatient physical therapy follow-up in the office 2 weeks Medications at Discharge Home Medications amlodipine 5 mg tablet 10 mg PO DAILY BP 09/12/18 atorvastatin 20 mg tablet 80 mg PO DAILY CHOLESTEROL 09/12/18 cholecalciferol (vitamin D3) 125 mcg (5,000 unit) tablet 5,000 unit PO DAILY SUPPLEMENT 09/12/18 coenzyme Q10 100 mg capsule (Co Q-10) 100 mg PO DAILY SUPPLEMENT 09/12/18 magnesium oxide 400 mg PO DAILY SUPPLEMENT 09/12/18 omega-3 fatty acids-fish oil 684 mg-1,200 mg capsule,delayed release (One-Per-Day [place]-3) 1 ea PO DAILY SUPPLEMENT 09/12/18 vitamin B complex 1 ea PO DAILY SUPPLEMENT 09/12/18 hydrochlorothiazide 25 mg tablet 25 mg PO DAILY BP 11/13/22 metformin 500 mg tablet 500 mg PO DAILY DIABETIC 11/13/22 clopidogrel 75 mg tablet 75 mg PO DAILY BLODD THINNER 05/08/23 losartan 100 mg tablet 100 mg PO DAILY BP 05/08/23 omeprazole 20 mg capsule,delayed release 20 mg PO DAILY GERD 05/08/23 acetaminophen 500 mg tablet 1,000 mg (2 x 500 mg) PO Q6H PRN #100 tabs 07/24/23 apixaban 2.5 mg tablet (Eliquis) 2.5 mg PO BID #42 tabs 07/24/23 oxycodone 5 mg tablet 5 - 10 mg (1 - 2 x 5 mg) PO Q4H PRN pain 3 days #20 tabs 07/24/23 Hospital Course Operations total hip replacement Summary of Care Provided Hospital Course: Patient with long-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 Patient underwent left total hip arthroplasty day of admission. Patient did receive pre-and postoperative antibiotics which were discontinued within 23 hours postoperatively. Patient did receive spinal anesthesia and postoperatively her pain was controlled with both IV and p.o. pain medication. Patient did receive 2 g of tranexamic acid. Her hemoglobin and hematocrit were monitored postoperatively as well as her vital signs and she did not require any blood transfusion. Dressing will be changed daily beginning postop day #3 before shower will be removed and replaced after. Pt was started on Eliquis 2.5 mg twice daily postop day #1 for which will continue for 3 weeks post hospital discharge . Patient was seen by physical therapy was ambulating the halls well. patient will be discharged We will start outpatient physical as scheduled. will follow-up in the office in 2 weeks. No intrahospital complications. Weight / BMI Weight Weight: 210 lb 9.369 oz Body Mass Index (BMI) 30.2 ABG / Lab / Microbiology Data 07/24/23 07:00 07/24/23 07:00 Laboratory: Laboratory Results - last 24 hr 07/23/23 22:31: POC Glucose 173 H 07/24/23 06:46: POC Glucose 132 H 07/24/23 07:00: WBC 18.0 H, RBC 3.89 L, Hgb 12.4 L, Hct 36.0 L, MCV 92.5, MCH 31.9, MCHC 34.4, RDW Std Deviation 45.6 H, RDW Coeff of Aracely 13.4, Plt Count 193, MPV 11.8, Sodium 138, Potassium 4.2, Chloride 105, Carbon Dioxide 27.0, Anion Gap 6, BUN 17, Creatinine 1.24, Estim Creat Clear Calc 59.71, Est GFR (MDRD) Af Amer 73, Est GFR (MDRD) Non-Af 60, BUN/Creatinine Ratio 13.7, Glucose 130 H, Calcium 9.4 07/24/23 11:11: POC Glucose 126 H Microbiology: Microbiology 06/05/23 06:57 Swab (Method) Nasal Screen MRSA/MSSA - Final D/C Instructions Discharge Diet: No restrictions (diabetic diet, high sugar diet increases risk of infection in the perioperative period) Call your doctor if you observe: Shortness of breath and Chest pain Additional Dressing/Incision Instructions: Do not shower 72hrs. Begin daily showering warm water antibacterial soap postop day #3( 72hrs Post-operatively) and then daily. Leave the dressing on for 72 hours postoperatively then may remove prior to first shower and change dressing daily after this until no drainage for 2 consecutive days then may leave open to air. Follow hip precautions that were reviewed in hospital. Wear compression stockings, may remove at night. Start physical therapy as directed in hospital. Follow prescriptions instructions do not take any other pain medication or differ dosing without consulting your physician. Do not take oral NSAIDs until blood thinner has been completed , then may begin the day after completion if needed . Call Dr. Hudson's office with any concerns. Please Follow Up With: Elliot Hudson DO When: 2 weeks Meaningful Use Info Meaningful Use Meaningful Use Diagnoses (Choose all that apply): None applicable Ischemic Stroke Statin Dosing Therapy Reference: STATIN DOSE THERAPY REFERENCE: * Patients > 75 years receive moderate or high dose statin therapy. * Patients 75 years or YOUNGER should receive HIGH intensity statin dose unless contraindicated. You will be required to document reason for non-treatment if statin daily dose does not meet guidelines. HIGH DOSE STATIN THERAPY DAILY Atorvastatin > than or = to 40 mg Rosuvastatin > than or = to 20 mg Amlodipine + Atorvastatin > than or = to 2.5/40 mg Ezetimibe + Simvastatin 10/80 mg Simvastatin 80mg Discharge Plan Admission Admit Date/Time: 07/23/23 05:08 Primary Reason for Your Visit: Right total hip arthroplasty Attending Provider: Elliot Hudson Primary Care Provider: Kaushal Saldivar Consulting Providers: Daphnie Booth; Crow Guajardo Discharge Orders/Prescriptions Prescriptions: New acetaminophen [acetaminophen] 500 mg tablet 1,000 mg PO Q6H PRN Qty: 100 0RF Eliquis 2.5 mg tablet 2.5 mg PO BID Qty: 42 0RF oxycodone 5 mg tablet 5 - 10 mg PO Q4H PRN (Reason: pain) 3 Days Qty: 20 0RF Continued omeprazole 20 mg capsule,delayed release(DR/EC) 20 mg PO DAILY losartan 100 mg tablet 100 mg PO DAILY atorvastatin 20 MG tablet 80 mg PO DAILY amlodipine 5 MG tablet 10 mg PO DAILY vitamin B complex 1 EACH tablet 1 ea PO DAILY coenzyme Q10 [Co Q-10] 100 MG capsule 100 mg PO DAILY One-Per-Day [place]-3 1 EACH capsule,delayed release(DR/EC) 1 ea PO DAILY cholecalciferol (vitamin D3) 5,000 UNIT tablet 5,000 unit PO DAILY magnesium oxide 400 MG capsule 400 mg PO DAILY hydrochlorothiazide 25 mg tablet 25 mg PO DAILY metformin 500 mg tablet 500 mg PO DAILY Held clopidogrel 75 mg tablet 75 mg PO DAILY Hold Instructions: Resume on 08/14/23. continue after copletion of blood thinner Eliquis Patient Comments: TAKE 1 TABLET BY MOUTH EVERY DAY STOP 7 DAYS PRIO TO OR Referrals / Follow Up: Kaushal Saldivar MD [Primary Care Provider] - Disposition Disposition (needs filled in before D/C Order can be placed): Home, Self Care
--- NOTE | 2023-07-24 14:08 | CASEMGMT ---
GRACIE GROSS NOTE: Pt being discharged. Script for WW has been signed by Dr Hudson. Consignment form signed by pt and he was given original. Copy of form along w/script for WW sent to [facility] via [employer]. FWW taken from [facility] stock and given to pt. Eliquis Rx has been sent to [facility] Retail pharmacy. Call placed to Maegan. She states Eliquis free card has been applied and pt has no co-pay for this. Pt made aware. Pt denies having other discharge planning needs/concerns. Eli YOUN GRACIE CM
== END 2023-07-24 14:21 | disposition home or self-care (01) | DRG 470 ==
LOC: ACINP 05:14 → MS3 14:00
PROVIDERS: Admitting Provider Orthopaedic Surgery; PCP Family Medicine; Referring Provider Orthopaedic Surgery; Visit Provider Orthopaedic Surgery
PROC: 8E0Y0CZ Robotic Assisted Procedure of Lower Extremity, Open Approach (ICD-10-PCS; CPT 27130; principal; 2023-07-23 07:00)
DX: M16.11 Unilateral primary osteoarthritis, right hip (principal); B35.1 Tinea unguium; E11.9 Type 2 diabetes mellitus without complications; E78.00 Pure hypercholesterolemia, unspecified; B35.3 Tinea pedis; I10 Essential (primary) hypertension; K21.9 Gastro-esophageal reflux disease without esophagitis; M20.41 Other hammer toe(s) (acquired), right foot; M20.42 Other hammer toe(s) (acquired), left foot; Z79.02 Long term (current) use of antithrombotics/antiplatelets; Z79.84 Long term (current) use of oral hypoglycemic drugs; Z79.899 Other long term (current) drug therapy; Z86.73 Personal history of transient ischemic attack (TIA), and cerebral infarction without residual deficits; Z87.891 Personal history of nicotine dependence
CPT/HCPCS: 36415; 73502; 80048; 82962; 82985; 85027; 85610; 85730; 86850; 86900; 86901; 87081; 88305; 88311; 93005; 94668; 97162; 97166; 97530; 99252; C1713; C1776; J7120; G0463; J2405

== ENCOUNTER 2023-07-25 07:06 | Emergency (ER) | payer MEDICARE, OTHER, SELFPAY ==
[2023-07-25 07:07] VITALS: BP 141/60; PULSE 103; RESP 18; TEMP 36.3; O2SAT 97; BMI 30.1
--- NOTE | 2023-07-25 07:22 | EDS_ITS ---
HPI History of Present Illness Chief Complaint: Complaint Informant: patient and family Narrative Narrative: 77-year-old male presenting to the emergency room chief complaint of difficulty urinating. Patient is status elective post right hip arthroplasty postop day 2. Patient states that he was having difficulty urinating in the hospital prior to discharge. He states he declined further stay. Since going home he has been taking Tylenol for pain declining not to take the oxycodone. He states he was placed on Eliquis does not take any other this morning. He notes pain in the right flank and difficulty urinating. He states that he feels full of urine. He has been able to put small amounts of urine out. He states he had a kidney stone before and this feels similar. [facility] Medical History Arthritis Back pain Cardiology follow-up encounter Carotid disease, bilateral Diabetes Dietary restriction Former smoker Gastric reflux High cholesterol History of echocardiogram History of irregular heartbeat History of pain when walking History of stress test Hyperlipidemia Hypertension Kidney stones Shortness of breath on exertion TIA (transient ischemic attack) Wears glasses Home Medications amlodipine 5 mg tablet 10 mg PO DAILY BP 09/12/18 [History Last Taken 07/23/23 04:15] atorvastatin 20 mg tablet 80 mg PO DAILY CHOLESTEROL 09/12/18 [History Last Taken 07/22/23] cholecalciferol (vitamin D3) 125 mcg (5,000 unit) tablet 5,000 unit PO DAILY SUPPLEMENT 09/12/18 [History Last Taken 07/22/23] coenzyme Q10 100 mg capsule (Co Q-10) 100 mg PO DAILY SUPPLEMENT 09/12/18 [History Last Taken 07/22/23] magnesium oxide 400 mg PO DAILY SUPPLEMENT 09/12/18 [History Last Taken 07/22/23] omega-3 fatty acids-fish oil 684 mg-1,200 mg capsule,delayed release (One-Per-Day [place]-3) 1 ea PO DAILY SUPPLEMENT 09/12/18 [History Last Taken 07/22/23] vitamin B complex 1 ea PO DAILY SUPPLEMENT 09/12/18 [History Last Taken 07/22/23] hydrochlorothiazide 25 mg tablet 25 mg PO DAILY BP 11/13/22 [History Last Taken 07/22/23] metformin 500 mg tablet 500 mg PO DAILY DIABETIC 11/13/22 [History Last Taken 07/22/23] clopidogrel 75 mg tablet 75 mg PO DAILY BLODD THINNER 05/08/23 [History Last Taken 07/16/23] losartan 100 mg tablet 100 mg PO DAILY BP 05/08/23 [History Last Taken 07/23/23 04:15] omeprazole 20 mg capsule,delayed release 20 mg PO DAILY GERD 05/08/23 [History Last Taken 07/23/23 04:15] acetaminophen 500 mg tablet 1,000 mg (2 x 500 mg) PO Q6H PRN #100 tabs 07/24/23 [Rx Last Taken Unknown] apixaban 2.5 mg tablet (Eliquis) 2.5 mg PO BID #42 tabs 07/24/23 [Rx Last Taken Unknown] oxycodone 5 mg tablet 5 - 10 mg (1 - 2 x 5 mg) PO Q4H PRN pain 3 days #20 tabs 07/24/23 [Rx Last Taken Unknown] Allergy/AdvReac Type Severity Reaction Status Date / Time Penicillins Allergy Rash Verified 07/25/23 07:07 Family History Mother Ovarian cancer Father Cerebral hemorrhage following injury Grandfather CAD (coronary artery disease) Myocardial infarction Heart disease Lung cancer Grandmother Hypertension Surgical History History of carotid endarterectomy History of laminectomy Social History household members: family Smoking Status: Former smoker how long ago did patient quit smoking: Smoked [age], smoked up to 1 ppd in service x 4 years. alcohol intake: never substance use type: does not use ROS ROS ED Constitutional Constitutional ED: Denies chills or weight loss Eyes Eyes: Denies change in vision or diplopia ENT ENT ED: Denies ear pain, rhinorrhea or sore throat Cardiovascular Cardiovascular: Denies chest pain, orthopnea, palpitations or racing heartbeat Respiratory/Chest Respiratory/Chest: Denies cough, dyspnea or orthopnea Gastrointestinal Gastrointestinal: Reports abdominal pain and diarrhea; Denies nausea or vomiting Genitourinary Genitourinary ED: Denies dysuria, hematuria or urinary frequency Musculoskeletal Musculoskeletal: Reports other Details: right flank pain right hip pain ; Denies arthralgias or myalgias Integumentary Denies abscess or rash Neurologic Neurologic: Denies headache(s) or weakness Psychiatric Psychiatric: Denies anxiety, depression, suicidal ideation or suicidal thoughts Endocrine Endocrinology: Denies polydipsia, polyphagia or polyuria Allergic/Immunologic Allergic/Immunologic ED: Denies mouth swelling, tongue swelling or urticaria EXAM Physical Exam Const Vital Signs: 07/25/23 07:07 Temperature 97.3 F L Temperature Source Temporal Pulse Rate 103 H Respiratory Rate 18 Blood Pressure 141/60 H Blood Pressure Mean 87 Pulse Ox 97 Oxygen Delivery Method Room Air Positive well nourished and well developed General Appearance ED: well developed HEENT Reports normocephalic, head/scalp atraumatic and moist mucous membranes Eyes PERRL and EOMs intact bilaterally Neck no lymphadenopathy, supple and no JVD Resp normal respiratory effort and clear to auscultation bilaterally Cardio regular rate, regular rhythm and no murmurs GI Auscultation: normoactive bowel sounds Palpation: soft, tender RUQ and guarding Back/Spine no CVA tenderness and normal ROM Extremity normal to inspection General Extremety ED: Negative for edema General Extremity: Negative for edema Neuro oriented x3 and CN's II-XII intact bilaterally Sensorium / Orientation: alert Motor Exam: strength 5/5 throughout Psych mental status grossly normal Mood & Affect: Negative for depressed or tearful Skin no rashes or lesions noted and no wounds MDM MDM MDM Narrative Medical decision making narrative: I performed a quick bedside ultrasound which demonstrates the dome of the bladder to be 1 fingers breath below the umbilicus. No debris seen. Nicolas catheter was placed by nursing without difficulty. Greater than 1 L out. White count 14.3 hemoglobin 11.7 platelet count 178. Creatinine is 1.19. Potassium slightly low at 3.4 with a glucose of 136. Urinalysis with 0 red blood cells 0- 5 white cells 0 bacteria. Patient was offered a leg bag. He will need to follow-up with urology at the beginning of next week as today is . History & Record Review Discussion w/independent historian: Patient and Family Lab Data Labs: Laboratory Results - last 24 hr 07/25/23 07/25/23 07:25 07:40 WBC 14.3 H RBC 3.71 L Hgb 11.7 L Hct 34.1 L MCV 91.9 MCH 31.5 MCHC 34.3 RDW Std Deviation 46.2 H RDW Coeff of [place]ac[place] 13.5 Plt Count 178 MPV 11.9 Immature Gran % (Auto) 0.500 Neut % (Auto) 77.7 H Lymph % (Auto) 10.2 L [place] % (Auto) 10.8 H Eos % (Auto) 0.4 Baso % (Auto) 0.4 Absolute Neuts (auto) 11.1 H Absolute Lymphs (auto) 1.45 Nucleated RBC % 0 Sodium 135 L Potassium 3.4 L Chloride 106 Carbon Dioxide 24.0 Anion Gap 5 BUN 18 Creatinine 1.19 Estim Creat Clear Calc 62.13 Est GFR (MDRD) Af Amer 77 Est GFR (MDRD) Non-Af 63 BUN/Creatinine Ratio 15.1 Glucose 136 H Calcium 9.2 Urine Color Yellow Urine Clarity Clear Urine pH 6.0 Ur Specific [place] 1.015 Urine Protein Negative Urine Glucose (UA) Normal Urine Ketones Negative Urine Occult Blood Negative Urine Nitrite Negative Urine Bilirubin Negative Urine Urobilinogen Normal Ur Leukocyte Esterase 25 H Urine RBC 0 SEEN Urine WBC 0-5 SEEN Ur Squamous Epith Cells 0 SEEN Urine Bacteria 0 SEEN Urine Mucus 0 SEEN Discharge Plan Triage Chief Complaint: Complaint ED Provider: Wild Welch Dx/Rx/DC Orders Prescriptions: No Action omeprazole 20 mg capsule,delayed release(DR/EC) 20 mg PO DAILY clopidogrel 75 mg tablet 75 mg PO DAILY Hold Instructions: Resume on 08/14/23. continue after copletion of blood thinner Eliquis Patient Comments: TAKE 1 TABLET BY MOUTH EVERY DAY STOP 7 DAYS PRIO TO OR losartan 100 mg tablet 100 mg PO DAILY atorvastatin 20 MG tablet 80 mg PO DAILY amlodipine 5 MG tablet 10 mg PO DAILY vitamin B complex 1 EACH tablet 1 ea PO DAILY coenzyme Q10 [Co Q-10] 100 MG capsule 100 mg PO DAILY One-Per-Day [place]-3 1 EACH capsule,delayed release(DR/EC) 1 ea PO DAILY cholecalciferol (vitamin D3) 5,000 UNIT tablet 5,000 unit PO DAILY magnesium oxide 400 MG capsule 400 mg PO DAILY hydrochlorothiazide 25 mg tablet 25 mg PO DAILY metformin 500 mg tablet 500 mg PO DAILY acetaminophen [acetaminophen] 500 mg tablet 1,000 mg PO Q6H PRN Qty: 100 0RF Eliquis 2.5 mg tablet 2.5 mg PO BID Qty: 42 0RF oxycodone 5 mg tablet 5 - 10 mg PO Q4H PRN (Reason: pain) 3 Days Qty: 20 0RF Primary Care Provider: Kaushal Saldivar Referrals: Kaushal Saldivar MD [Primary Care Provider] -
[2023-07-25 07:36] LABS: Bacteria 0 SEEN /hpf (None Seen); Mucous, Urine 0 SEEN /hpf (<or=2+); Red Blood Cells-Urine 0 SEEN /hpf (0-5); Squamous Epithelial Cells - UA 0 SEEN /hpf (0-5)
[2023-07-25 07:49] LABS: Color, Urine Yellow (Yellow); Glucose, Dipstick Normal (Normal); Ketone-Dipstick Negative (Negative); Leukocyte Esterase-Dipstick 25 /ul (Negative); Nitrite-Dipstick Negative (Negative); Occult Blood-Urine Negative /ul (Negative); Protein-Dipstick Negative (Negative); Specific Gravity, Urine 1.015 (1.002-1.030); Urine Bilirubin Dipstick Negative (Negative); Urine Clarity Clear (Clear); Urine Urobilinogen Normal (Normal)
[2023-07-25 07:55] LABS: White Blood Cells 0-5 SEEN /hpf (0-5)
[2023-07-25 08:08] LABS: Anion Gap 5 (5-15); BUN 18 mg/dL (7-18); BUN/Creat Ratio 15.1 RATIO (10-20); Calcium,Total 9.2 mg/dL (8.5-10.1); Chloride 106 mmol/L (98-107); Creatinine, Serum 1.19 mg/dL (0.70-1.30); EST Glomerular Filtration Rate 63 mL/min (>60); Est Glom Filt Rate - Afr Amer 77 mL/min (>60); Estimated Creatinine Clearance 62.13 ml/min; Glucose 136 mg/dL (74-106); Potassium 3.4 mmol/L (3.5-5.1); Sodium Level 135 mmol/L (136-145)
[2023-07-25 08:21] LABS: Absolute Lymphocyte Count 1.45 X10^3/uL (0.83-4.51); Absolute Neutrophil Count 11.1 X10^3/uL (2.0-7.7); Basophil# 0.05 X10^3/uL; Basophil% 0.4 % (0-1); Eosinophil# 0.05 X10^3/uL; Eosinophils% 0.4 % (0-5); Hematocrit 34.1 % (40-54); Hemoglobin 11.7 g/dL (13.0-16.5); Lymphocyte # 1.45 X10^3/ul (0.83-4.51); Lymphocyte % 10.2 % (19-41); Mean Corp Hgb Conc 34.3 g/dL (32-36); Mean Corpuscular Hgb 31.5 pg (27.0-32.0); Mean Corpuscular Volume 91.9 fL (80-94); Mean Platelet Vol. 11.9 fl (6.2-12.0); Monocyte# 1.54 X10^3/uL; Monocyte% 10.8 % (0-10); NRBC Flagged by Analyzer 0 % (0-5); Neutrophil # 11.12 X10^3/uL (2.7-7.7); Neutrophil % 77.7 % (47-70); POSITIVE DIFFERENTIAL YES; Platelet Count 178 K/mm3 (150-450); RBC Distribution Width CV 13.5 % (11.6-14.6); RBC Distribution Width SD 46.2 fl (35.1-43.9); Red Blood Count 3.71 M/mm3 (4.6-6.2); White Blood Count 14.3 K/mm3 (4.4-11.0)
[2023-07-25 08:36] LABS: Differential Indicated SCAN CRITERIA MET
[2023-07-25 09:02] LABS: Differential Comment SCANNED
[2023-07-25 09:06] VITALS: BP 126/78; PULSE 78; RESP 16; TEMP 36.6; O2SAT 98
[2023-07-26 16:00] LABS: Pathologist Review Reviewed
== END 2023-07-25 09:30 | disposition home or self-care (01) ==
PROVIDERS: Emergency Provider Emergency Medicine; PCP Family Medicine; Visit Provider Emergency Medicine
DX: Z96.641 Presence of right artificial hip joint (principal); E11.9 Type 2 diabetes mellitus without complications; R60.9 Edema, unspecified; Z87.891 Personal history of nicotine dependence; Z86.73 Personal history of transient ischemic attack (TIA), and cerebral infarction without residual deficits
CPT/HCPCS: 51702; 80048; 81001; 85025; 99284; A4216

== ENCOUNTER 2023-07-27 12:31 | Emergency (ER) | payer MEDICARE, OTHER, SELFPAY ==
[2023-07-27 12:32] VITALS: BP 159/65; PULSE 98; RESP 16; TEMP 36.6; O2SAT 98
--- NOTE | 2023-07-27 12:43 | EDS_ITS ---
HPI History of Present Illness Chief Complaint: Nicolas C/O Informant: patient Onset/Context/Timing Onset: Today Context: Sudden Onset Timing: Intermittent Quality: Dried blood Location: Urethral meatus Worsened by: Nothing Relieved by: Nothing Narrative Narrative: Patient presents with Nicolas catheter problem that occurred today. Patient states he was on the toilet and turned to wipe when he noticed that his catheter got pulled out slightly. Patient states that it came out approximately 2 cm. Patient noted some blood at the urethral meatus. Patient denies any dysuria or hematuria. Patient states the catheter is flowing well currently, patient denies any fevers or chills. Patient denies any nausea or vomiting. [facility] Medical History Arthritis Back pain Cardiology follow-up encounter Carotid disease, bilateral Diabetes Dietary restriction Former smoker Gastric reflux High cholesterol History of echocardiogram History of irregular heartbeat History of pain when walking History of stress test Hyperlipidemia Hypertension Kidney stones Shortness of breath on exertion TIA (transient ischemic attack) Wears glasses Home Medications amlodipine 5 mg tablet 10 mg PO DAILY BP 09/12/18 [History Last Taken 07/23/23 04:15] atorvastatin 20 mg tablet 80 mg PO DAILY CHOLESTEROL 09/12/18 [History Last Taken 07/22/23] cholecalciferol (vitamin D3) 125 mcg (5,000 unit) tablet 5,000 unit PO DAILY SUPPLEMENT 09/12/18 [History Last Taken 07/22/23] coenzyme Q10 100 mg capsule (Co Q-10) 100 mg PO DAILY SUPPLEMENT 09/12/18 [History Last Taken 07/22/23] magnesium oxide 400 mg PO DAILY SUPPLEMENT 09/12/18 [History Last Taken 07/22/23] omega-3 fatty acids-fish oil 684 mg-1,200 mg capsule,delayed release (One-Per-Day [place]-3) 1 ea PO DAILY SUPPLEMENT 09/12/18 [History Last Taken 07/22/23] vitamin B complex 1 ea PO DAILY SUPPLEMENT 09/12/18 [History Last Taken 07/22/23] hydrochlorothiazide 25 mg tablet 25 mg PO DAILY BP 11/13/22 [History Last Taken 07/22/23] metformin 500 mg tablet 500 mg PO DAILY DIABETIC 11/13/22 [History Last Taken 07/22/23] clopidogrel 75 mg tablet 75 mg PO DAILY BLODD THINNER 05/08/23 [History Last Taken 07/16/23] losartan 100 mg tablet 100 mg PO DAILY BP 05/08/23 [History Last Taken 07/23/23 04:15] omeprazole 20 mg capsule,delayed release 20 mg PO DAILY GERD 05/08/23 [History Last Taken 07/23/23 04:15] acetaminophen 500 mg tablet 1,000 mg (2 x 500 mg) PO Q6H PRN #100 tabs 07/24/23 [Rx Last Taken Unknown] apixaban 2.5 mg tablet (Eliquis) 2.5 mg PO BID #42 tabs 07/24/23 [Rx Last Taken Unknown] oxycodone 5 mg tablet 5 - 10 mg (1 - 2 x 5 mg) PO Q4H PRN pain 3 days #20 tabs 07/24/23 [Rx Last Taken Unknown] Allergy/AdvReac Type Severity Reaction Status Date / Time Penicillins Allergy Rash Verified 07/27/23 12:34 Family History Mother Ovarian cancer Father Cerebral hemorrhage following injury Grandfather CAD (coronary artery disease) Myocardial infarction Heart disease Lung cancer Grandmother Hypertension Surgical History History of carotid endarterectomy History of laminectomy Social History household members: family Smoking Status: Former smoker how long ago did patient quit smoking: Smoked age [age], smoked up to 1 ppd in service x 4 years. alcohol intake: never substance use type: does not use ROS ROS ED Constitutional Constitutional ED: Denies chills or fever(s) Eyes Eyes: Denies blurry vision or change in vision ENT ENT ED: Denies rhinorrhea or sore throat Cardiovascular Cardiovascular: Denies chest pain or palpitations Respiratory/Chest Respiratory/Chest: Denies cough or dyspnea Gastrointestinal Gastrointestinal: Denies nausea or vomiting Genitourinary Genitourinary ED: Denies dysuria or hematuria Musculoskeletal Musculoskeletal: Denies back pain or neck pain Integumentary Denies abscess or rash Neurologic Neurologic: Denies headache(s) or weakness Allergic/Immunologic Allergic/Immunologic ED: Denies mouth swelling or urticaria EXAM Physical Exam Const Vital Signs: 07/27/23 12:32 Temperature 97.8 F Temperature Source Temporal Pulse Rate 98 Respiratory Rate 16 Blood Pressure 159/65 H Blood Pressure Mean 96 Pulse Ox 98 Oxygen Delivery Method Room Air Positive well nourished and well developed General Appearance ED: well developed HEENT Reports moist mucous membranes Neck supple and no JVD GI non-tender and non-distended Palpation: soft Narrative: There is some dried blood on the Nicolas catheter at the urethral meatus. There is no erythema. There is no discharge or drainage noted. There is yellow urine noted in the Nicolas catheter bag and tube. There is no blood in the urine. Neuro oriented x3, CN's II-XII intact bilaterally and no sensory deficits noted Motor Exam: strength 5/5 throughout Psych mental status grossly normal MDM MDM MDM Narrative Medical decision making narrative: Urinalysis will be obtained to assess for hematuria and urinary tract infection. Lab Data Attestation: I reviewed the patient's lab results. Lab results narrative: Urinalysis was reviewed. Occult blood was 150. Leukocyte esterase was 100. There were 5-10 red blood cells and 5-10 white blood cells. There is no bacteria noted. Labs: Laboratory Results - last 24 hr 07/27/23 12:05 Urine Color Yellow Urine Clarity Clear Urine pH 7.0 Ur Specific [place] 1.005 Urine Protein 30 H Urine Glucose (UA) Normal Urine Ketones Negative Urine Occult Blood 150 H Urine Nitrite Negative Urine Bilirubin Negative Urine Urobilinogen Normal Ur Leukocyte Esterase 100 H Urine RBC 5-10 SEEN Urine WBC 5-10 SEEN Ur Squamous Epith Cells 0 SEEN Urine Bacteria 0 SEEN Urine Mucus 1+ Treatment and Re-Evaluation :: Patient was advised of his findings. Patient was instructed to follow-up with his primary care physician in 5 to 7 days. Patient was instructed to return if worse in any way. Patient understood and was agreeable with the plan. All questions were answered. Discharge Plan Triage Chief Complaint: Nicolas C/O ED Provider: Crow Piedra Dx/Rx/DC Orders Clinical Impression: Nicolas catheter problem, S/P total right hip arthroplasty Instructions: ED Nicolas Catheter, Care Prescriptions: No Action omeprazole 20 mg capsule,delayed release(DR/EC) 20 mg PO DAILY clopidogrel 75 mg tablet 75 mg PO DAILY Hold Instructions: Resume on 08/14/23. continue after copletion of blood thinner Eliquis Patient Comments: TAKE 1 TABLET BY MOUTH EVERY DAY STOP 7 DAYS PRIO TO OR losartan 100 mg tablet 100 mg PO DAILY atorvastatin 20 MG tablet 80 mg PO DAILY amlodipine 5 MG tablet 10 mg PO DAILY vitamin B complex 1 EACH tablet 1 ea PO DAILY coenzyme Q10 [Co Q-10] 100 MG capsule 100 mg PO DAILY One-Per-Day [place]-3 1 EACH capsule,delayed release(DR/EC) 1 ea PO DAILY cholecalciferol (vitamin D3) 5,000 UNIT tablet 5,000 unit PO DAILY magnesium oxide 400 MG capsule 400 mg PO DAILY hydrochlorothiazide 25 mg tablet 25 mg PO DAILY metformin 500 mg tablet 500 mg PO DAILY acetaminophen [acetaminophen] 500 mg tablet 1,000 mg PO Q6H PRN Qty: 100 0RF Eliquis 2.5 mg tablet 2.5 mg PO BID Qty: 42 0RF oxycodone 5 mg tablet 5 - 10 mg PO Q4H PRN (Reason: pain) 3 Days Qty: 20 0RF Primary Care Provider: Kaushal Saldivar Referrals: Elliot Hudson DO [Med Staff - Active Staff] - [facility] [place] appointment Kaushal Saldivar MD [Primary Care Provider] - 5-7 Days Disposition Disposition: Home, Self Care
[2023-07-27 13:09] LABS: Bacteria 0 SEEN /hpf (None Seen); Squamous Epithelial Cells - UA 0 SEEN /hpf (0-5)
[2023-07-27 13:28] LABS: Color, Urine Yellow (Yellow); Glucose, Dipstick Normal (Normal); Ketone-Dipstick Negative (Negative); Leukocyte Esterase-Dipstick 100 /ul (Negative); Nitrite-Dipstick Negative (Negative); Occult Blood-Urine 150 /ul (Negative); Protein-Dipstick 30 mg/dl (Negative); Specific Gravity, Urine 1.005 (1.002-1.030); Urine Bilirubin Dipstick Negative (Negative); Urine Clarity Clear (Clear); Urine Urobilinogen Normal (Normal)
[2023-07-27 14:13] LABS: Mucous, Urine 1+ /hpf (<or=2+); Red Blood Cells-Urine 5-10 SEEN /hpf (0-5); White Blood Cells 5-10 SEEN /hpf (0-5)
[2023-07-27 14:25] VITALS: BP 150/72; PULSE 90; RESP 18; TEMP 36.6; O2SAT 98
== END 2023-07-27 14:32 | disposition home or self-care (01) ==
PROVIDERS: Emergency Provider Emergency Medicine; PCP Family Medicine; Visit Provider Emergency Medicine
DX: T83.89XA Other specified complication of genitourinary prosthetic devices, implants and grafts, initial encounter (principal); E11.9 Type 2 diabetes mellitus without complications; Z96.641 Presence of right artificial hip joint; Z87.891 Personal history of nicotine dependence; Z86.73 Personal history of transient ischemic attack (TIA), and cerebral infarction without residual deficits; X58.XXXA Exposure to other specified factors, initial encounter
CPT/HCPCS: 81001; 99282

== ENCOUNTER 2023-07-29 19:07 | Emergency (ER) | payer MEDICARE, OTHER, SELFPAY ==
[2023-07-29 19:08] VITALS: BP 178/68; PULSE 93; RESP 16; TEMP 36.4; O2SAT 99; BMI 30.9
--- NOTE | 2023-07-29 19:47 | US_ITS ---
INDICATION: RT THIGH AND KNEE SWELLING S/P HIP SX EXAMINATION: Ultrasound US Venous Duplex RLE Unilat / Limited TECHNIQUE: Dozier scale, pulse wave, and color flow Doppler imaging was performed of the lower extremity venous system. The bilateral greater saphenous, common femoral, femoral, and popliteal veins were interrogated. COMPARISON: FINDINGS: There is normal compression, augmentation, and signal throughout the visualized deep lower extremity veins. No mass or fluid collection. US/Venous Duplex Imag/Limited/Uni IMPRESSION: No sonographic evidence of deep venous thrombosis. Electronically Signed: Escobar Saldana DO at 20:42 EDT Reading Location ID and State: [facility] / [place] Tel [phone], Service support ,
--- NOTE | 2023-07-29 20:41 | EDS_ITS ---
<Statement entered by Rea Cabrera MD - 07/29/23 23:38> I have personally performed a face to face assessment of the patient and have reviewed the ELIZA Note. Patient presents secondary to right lower extremity edema. Patient had a right hip replacement done [address] Hudson. He has been back in the ER secondary to urinary tension, but states his postop course for his hip is actually going well. He has started physical therapy. He noted today increased swelling around his knee and onto his leg and was concerned about possible blood clot. He is on apixaban. Patient sitting upright in bed no acute distress. Head and neck examination unremarkable. Heart is regular rate and rhythm. Lung sounds are clear. Right lower extremity examination reveals compression hose to be in place. Mild edema noted around the right knee. Good distal pulses. Right lower extremity venous ultrasound is obtained and reveals no evidence of DVT. Patient reassured with these findings. He is instructed on appropriate leg elevation when sitting at rest. Patient to follow-up with Dr. Hudson as scheduled. HPI History of Present Illness Chief Complaint: Lower Extremity Injury Narrative Narrative: Patient is a 77-year-old male with history of hypertension, hyperlipidemia, patient had a right hip replacement 7 days ago by . Patient states that he noticed some swelling to the right knee, right leg today, this is abnormal, and he is here for evaluation. They spoke to a family friend who states that this could be a blood clot. [facility] Medical History Arthritis Back pain Cardiology follow-up encounter Carotid disease, bilateral Diabetes Dietary restriction Former smoker Gastric reflux High cholesterol History of echocardiogram History of irregular heartbeat History of pain when walking History of stress test Hyperlipidemia Hypertension Kidney stones Shortness of breath on exertion TIA (transient ischemic attack) Wears glasses Home Medications amlodipine 5 mg tablet 10 mg PO DAILY BP 09/12/18 [History Last Taken 07/23/23 04:15] atorvastatin 20 mg tablet 80 mg PO DAILY CHOLESTEROL 09/12/18 [History Last Taken 07/22/23] cholecalciferol (vitamin D3) 125 mcg (5,000 unit) tablet 5,000 unit PO DAILY SUPPLEMENT 09/12/18 [History Last Taken 07/22/23] coenzyme Q10 100 mg capsule (Co Q-10) 100 mg PO DAILY SUPPLEMENT 09/12/18 [History Last Taken 07/22/23] magnesium oxide 400 mg PO DAILY SUPPLEMENT 09/12/18 [History Last Taken 07/22/23] omega-3 fatty acids-fish oil 684 mg-1,200 mg capsule,delayed release (One-Per-Day [place]-3) 1 ea PO DAILY SUPPLEMENT 09/12/18 [History Last Taken 07/22/23] vitamin B complex 1 ea PO DAILY SUPPLEMENT 09/12/18 [History Last Taken 07/22/23] hydrochlorothiazide 25 mg tablet 25 mg PO DAILY BP 11/13/22 [History Last Taken 07/22/23] metformin 500 mg tablet 500 mg PO DAILY DIABETIC 11/13/22 [History Last Taken 07/22/23] clopidogrel 75 mg tablet 75 mg PO DAILY BLODD THINNER 05/08/23 [History Last Taken 07/16/23] losartan 100 mg tablet 100 mg PO DAILY BP 05/08/23 [History Last Taken 07/23/23 04:15] omeprazole 20 mg capsule,delayed release 20 mg PO DAILY GERD 05/08/23 [History Last Taken 07/23/23 04:15] acetaminophen 500 mg tablet 1,000 mg (2 x 500 mg) PO Q6H PRN #100 tabs 07/24/23 [Rx Last Taken Unknown] apixaban 2.5 mg tablet (Eliquis) 2.5 mg PO BID #42 tabs 07/24/23 [Rx Last Taken Unknown] oxycodone 5 mg tablet 5 - 10 mg (1 - 2 x 5 mg) PO Q4H PRN pain 3 days #20 tabs 07/24/23 [Rx Last Taken Unknown] Allergy/AdvReac Type Severity Reaction Status Date / Time Penicillins Allergy Rash Verified 07/29/23 19:07 Family History Mother Ovarian cancer Father Cerebral hemorrhage following injury Grandfather CAD (coronary artery disease) Myocardial infarction Heart disease Lung cancer Grandmother Hypertension Surgical History History of carotid endarterectomy History of laminectomy Social History household members: family Smoking Status: Former smoker how long ago did patient quit smoking: Smoked age 14/13[birth year]24, smoked up to 1 ppd in service x 4 years. alcohol intake: never substance use type: does not use ROS ROS ED ROS Narrative Constitutional: Negative for fever, chills, weight loss, weakness Eyes: Negative for vision loss, vision change, double vision ENT: Negative for any sore throat, ear pain, congestion Cardiovascular: Negative for any chest pain, tightness, palpitations Respiratory: Negative for any cough, sputum production, hemoptysis, dyspnea, dyspnea on exertion, orthopnea Gastrointestinal: Negative for any abdominal pain, nausea, vomiting, diarrhea, constipation, blood in stool, blood in vomit : Negative for any urinary frequency, dysuria, retention, blood in urine Muscle skeletal: Negative for any neck pain, back pain. Positive right lower leg swelling Neurological: Negative for any headache, syncope, dizziness Skin: Negative for any rashes, itching, abrasions, lacerations Psychiatric: Negative for any depression, anxiety, stress, suicidal ideation, homicidal ideation Hematologic: Negative for any excessive bruising, easy bleeding EXAM Physical Exam Narrative Exam Narrative: Vital signs reviewed. HEET: Head normocephalic atraumatic, TMs clear bilaterally. Posterior pharynx is clear, moist mucous membranes. Nares clear bilaterally. Neck: Supple with no lymphadenopathy or tenderness. No signs of meningismus. Cardiac: Regular rate and rhythm no murmurs gallops or rubs, equal peripheral pulses bilaterally. Respiratory: Lungs clear to auscultation bilaterally. No chest tenderness. Abdomen: Soft, nontender, nondistended. No abdominal bruit or pulsatile masses. No hepatosplenomegaly Extremities: Patient does have swelling to the right knee, I do not appreciate any redness, not appreciate any cellulitis. Patient incision site was covered however there is no swelling, erythema, patient has good range of motion for this time after surgery. +2 pedal pulse. No signs of gross trauma or deformity. Active full range of motion of all extremities. Neuro: Cranial nerves II through XII intact, no focal neurological deficits. Skin: Clean dry and intact with no rash, purpura, petechiae, vesicles or pustules. Backs/flank: No CVA tenderness, no midline spinal tenderness, no deformity. Psych: Normal mood and affect. No SI, HI or acute psychosis. Const Vital Signs: 07/29/23 19:08 Temperature 97.6 F L Temperature Source Temporal Pulse Rate 93 Respiratory Rate 16 Blood Pressure 178/68 H Blood Pressure Mean 104 Pulse Ox 99 MDM [facility] Treatment and Re-Evaluation :: Differential diagnosis includes however is not limited to: DVT, septic arthritis, postsurgical infection, dependent edema Patient appears generally well, patient appears nontoxic, vital signs are stable. Patient presents the emergency department for concern of DVT to the right lower extremity post hip replacement 1 week ago. There is no evidence to suspect any infectious process, there is no evidence of cellulitis, no evidence of any septic joint. Patient looks generally well. Patient did receive a DVT study of the right lower extremity, this was negative. At this time, patient structured to ice and elevate, is continuing his PT. He is instructed return for any worsening symptoms. He is on Eliquis, this does lower his chance for any blood clot. He is happy the plan of care, given strict return precautions, stable for discharge. Discharge Plan Triage Chief Complaint: Lower Extremity Injury ED Midlevel Provider: Colten Saunders ED Provider: Rea Cabrera Dx/Rx/DC Orders Clinical Impression: Status post hip replacement, Dependent edema Instructions: Hip Precautions, Hip Replace Resuming Activity, ED Lymphedema Prescriptions: No Action omeprazole 20 mg capsule,delayed release(DR/EC) 20 mg PO DAILY clopidogrel 75 mg tablet 75 mg PO DAILY Hold Instructions: Resume on 08/14/23. continue after copletion of blood thinner Eliquis Patient Comments: TAKE 1 TABLET BY MOUTH EVERY DAY STOP 7 DAYS PRIO TO OR losartan 100 mg tablet 100 mg PO DAILY atorvastatin 20 MG tablet 80 mg PO DAILY amlodipine 5 MG tablet 10 mg PO DAILY vitamin B complex 1 EACH tablet 1 ea PO DAILY coenzyme Q10 [Co Q-10] 100 MG capsule 100 mg PO DAILY One-Per-Day [place]-3 1 EACH capsule,delayed release(DR/EC) 1 ea PO DAILY
[2023-07-29 20:59] VITALS: BP 140/87; PULSE 82; RESP 22; TEMP 36.1; O2SAT 95
== END 2023-07-29 20:59 | disposition home or self-care (01) ==
PROVIDERS: Emergency Provider Emergency Medicine; PCP Family Medicine; Visit Provider Emergency Medicine
DX: R60.0 Localized edema (principal); E11.9 Type 2 diabetes mellitus without complications; I10 Essential (primary) hypertension; E78.00 Pure hypercholesterolemia, unspecified; Z96.641 Presence of right artificial hip joint; Z79.02 Long term (current) use of antithrombotics/antiplatelets; Z79.84 Long term (current) use of oral hypoglycemic drugs; Z79.899 Other long term (current) drug therapy; Z86.73 Personal history of transient ischemic attack (TIA), and cerebral infarction without residual deficits; Z87.891 Personal history of nicotine dependence
CPT/HCPCS: 93971; 99282

== ENCOUNTER 2023-08-30 10:00 | Outpatient (RCR) | payer MEDICARE, OTHER, SELFPAY ==
--- NOTE | 2023-07-29 09:58 | HP.PTEVAL ---
Patient's Visit Information Visit Information Visit Information: UMBERTO CRENSHAW is a 77 year old M referred to Physical Therapy by Dr. Elliot Hudson DO with a diagnosis of R CHELSEA, DOS:07/24/23. Date of Evaluation: 07/26/23 Physical Therapist: Moisés Torres DPT Visit Plan Frequency: 2x /Week Duration: 4 Weeks Plan: 1) start with active ROM, manual to IT band, quads, HS 2) gait progression initially with FWW progressing as tolerated 3) quad, glute, hip flexor activitation Ice for pain control IE HEP; supine heel slides 2x10, standing marching 2x10, standing hip abduction 2x10, standing hip ext 2x10. Pt. educated to focus on importance of walking. Subjective Subjective: Pt. is here today for his initial evaluation with diagnosis of R CHELSEA DOS 07/24/23. Pt. arrives using FWW. Pt. reports overall pain is better now than what it was pre surgery. The only issues thus far is he had to have a urinary catheter placed yesterday. He reports feeling better. Pt. educated on precautions, he reports understanding. Pt. to remove bandage today. He was a little hesitant to do so, I offered to do it for him. Possibly next visit. 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 Plans to return to this when he is better. Pt. has a few step to enter his home, 3 steps with 1 HR. He is able to get in and out of bed without issues. Pt. is hopeful to get back to all walking without limitations. He enjoys recreational walking. Pain R hip: Pain Intensity (Out of 10): 3 Pain Intensity Range: 1 and 5 Objective Objective: POSTURE: Pt. has slight fwrd flexed posture, slight wt. shift to L side. Pt. is able to stand well with FWW, but does use it to off load. PALPATION: negative homans signs. Pt. has tenderness through R IT band and quad. Incision covered for 1 more day, but no signs of infection. NEURO: normal throughout. ROM: PROM: R hip: flexion 80deg, abd 30deg, IR/ER not tested. MMT: Pt. unable to complete a SLR; ankle 5/5 throughout; knee: ext 4+/5, flexion 4/5. GAIT: pt. ambulates well with FWW. Decreased R step length, slightly better than step to pattern. Mild increase in symptoms with hip flexion. STAIRS: step to pattern noted. use of BHR. Balance/Special Test Scores TUG Test Time Seconds: 40.1 30 Second Chair Rise Test Seconds: 8 Goals Goal 1:: LTG: Pt. to to be with I with HEP. Goal Time Frame: 4-6 Weeks Goal 2:: STG: Pt. to have normalized gait pattern with least restrictive device without increase in R hip pain. Goal Time Frame: 2-4 Weeks Goal 3:: LTG: pt. to have normalized gait pattern without AD. Goal Time Frame: 4-6 Weeks Goal 4:: LTG: Pt. to complete TUG with less than 10seconds without AD. Goal Time Frame: 4-6 Weeks Goal 5:: LTG: Pt. to complete 6 MWT with distance of greater than 1000' Goal Time Frame: 4-6 Weeks Goal 6:: LTG: Pt. to complete 30 sec sit to stand test with greater than 12 reps without use of UEs. Goal Time Frame: 4-6 Weeks Rehabilitation Potential Physical Therapy Diagnosis: Pt. has signs and symptoms consistent with R CHELSEA. DOS 07/24/23. Pt. has marked hypomobility, increased pain, difficulty walking and marked weakness. Pt. would benefit from PT to address the above limitations progressing back to all activities without issues. Rehabilitation Potential: Excellent Anticipated Interventions Patient/Client Instruction: Educate patient on: Condition, Plan of Care, Risk Factors and Benefits of Fitness Program For the Purpose of:: To improve health and function, To foster healthy habits, To improve decision making, To facilitate caregiver knowledge, To improve self management, To prevent re-injury and To improve ability to perform tasks related to life management Therapeutic Exercise to Include: Strength training, Power training, Body mechanics, Flexibilty training, Gait and locomotor training and Passive ROM For the Purpose of:: To decrease pain, To increase ROM, To improve nutrient delivery to tissue, To increase oxygenation perfusion, To improve muscle performance and motor function, To improve ability to perform ADL's, To increase tolerance to activity/condition/position, To improve gait and locomotor functions, To decrease soft tissue restriction and To increase flexibility/ROM Text: Thank you for the opportunity to evaluate your patient. For Medicare and Medicare HMO plans, please review the plan of care and approve it. It will need to be FAXED BACK to us at [phone] for Medicare purposes. For Medicare only, by signing this I certify the plan of care. Please let me know if there are questions or concerns regarding this plan of care. Physician Signature: Date:
== END 2023-08-30 19:00 | disposition home or self-care (01) ==
LOC: PT 10:00
PROVIDERS: PCP Family Medicine; Referring Provider Orthopaedic Surgery; Visit Provider Orthopaedic Surgery
DX: M16.11 Unilateral primary osteoarthritis, right hip (principal); Z96.641 Presence of right artificial hip joint
CPT/HCPCS: 97110; 97161; 97530

== ENCOUNTER 2024-02-01 14:02 | Emergency (ER) | payer MEDICARE, OTHER, SELFPAY ==
[2024-02-01 14:03] VITALS: BP 151/76; PULSE 112; RESP 18; TEMP 36.6; O2SAT 96; BMI 28.3
--- NOTE | 2024-02-01 14:12 | RAD_ITS ---
STUDY: X-RAY - RIGHT HAND, ATTENTION FIRST FINGER REASON FOR EXAM: Male, 78 years old. Finger injury TECHNIQUE: 3 view(s) of the finger were obtained. COMPARISON: None. FINDINGS: Normal metacarpal head. There is mild degenerative arthrosis of the metacarpophalangeal joint. There is spurring of the proximal and distal phalanges. There is moderate degenerative arthrosis of the interphalangeal joint. There is no acute fracture. There is soft tissue swelling and injury. RAD/Finger(s) Min 2 Views IMPRESSION: Degenerative joint disease, as described above. Electronically Signed: Reyes Gagnon MD at 15:37 EDT ,
--- OUTSIDE RECORDS SUMMARY | 2024-02-01 14:27 | XMS RPT_ITS | CCD ---
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 Name Role Phone Sarah Krishnamurthy DO Unavailable Isabelle Carrion MD Primary Care Provider ISABELLE CARRION Referring Unavailable ISABELLE CARRION Primary Care Unavailable ISABELLE CARRION Referring Unavailable ISABELLE CARRION Primary Care Unavailable ISABELLE CARRION Referring Unavailable ISABELLE CARRION Primary Care Unavailable Sarah Krishnamurthy DO Unavailable [phone] Isabelle Carrion MD Primary Care Provider SARAH CLAY DO Attending Unavailable KAUSHAL CARRION Primary Care Unavailable SARAH CLAY DO Attending Unavailable KAUSHAL CARRION Primary Care Unavailable SENTHIL BARTLETT Attending SENTHIL Mccoy Referring KAUSHAL Tay Primary Care Unavailable Sarah Krishnamurthy DO Unavailable [phone] DEON MARION Referring Unava ilKAUSHAL Naylor Primary Care Unavailable MICHELLE DENIS Attending Unavailable ABDIAS DECKER Attending Unavailable SYSTEM, PROVIDER NOT IN Referring Unavaila KAUSHAL Shearer Primary Care Unavailable CONSULT, NEUROLOGY-STROKE ALERT Consulting Unavailable Kaushal Carrion MD Primary Care Provider Unavailable Primary Care Provider UnavailIsabelle Parker Primary Care Provider SHYAM ARNETT Attending Unavailable ISABELLE CARRION Primary Care Unavailable SHYAM ARNETT Attending Unavailable ISABELLE CARRION Primary Care Unavailable Isabelle Carrion MD Primary Care Provider [phone] ISABELLE CARRION Attending Unavailable ISABELLE CARRION Primary Care Unavailable SELF Referring Unavailable RIZWAN ROSS Nay Attending Unavailable ISABELLE CARRION Primary Care Unavailable ISABELLE CARRION Referring Unavailable ISABELLE CARRION Attending Unavailable ISABELLE CARRION Primary Care Unavailable ISABELLE CARRION Primary Care Unavailable ISABELLE CARRION Referring Unavailable Allergies Allergy Classification Reported Allergen(s) Allergy Type Date of Onset Reaction(s) Facility (3 sources) Penicillins; Translations: [PENICILLINS] Drug Intolerance [address] [facility] Work Phone: (20 sources) Penicillins Drug Intolerance [address] [facility] Work Phone: (1 source) Penicillins Propensity to adverse reactions to drug 3 [facility] (2 sources) Benzathine penicillin - chemical Propensity to adverse reactions 3 [facility] (1 source) Penicillin V Drug Allergy 4 [facility] Medications Current Medications Medication Drug Class(es) Dates Sig (Normalized) Sig (Original) amLODIPine 10 mg oral tablet (20 sources) Dihydropyridine Calcium Channel Susan Start: 11-30-2021 take 1 tablet by mouth once daily amLODIPine (NORVASC) 10 mg tablet Take 1 tablet by mouth once daily. 11/30/2021 Active Start: 10-28-2019 End: 11-30-2021 take 2 tablets by mouth once daily amLODIPine (NORVASC) 5 mg tablet TAKE 2 TABLETS BY MOUTH DAILY 180 tablet 3 10/28/2019 11/30/2021 Discontinued Comment on above: TAKE 2 TABLETS BY MO UTH DAILY Take 1 tablet by shay th once daily. amLODIPine 10 mg / atorvastatin 10 mg oral tablet (2 sources) Dihydropyridine Calcium Channel Susan, HMG-CoA Reductase Inhibitor take 1 tablet by mouth once daily amLODIPine-atorvas tatin (Caduet) 10-10 MG tablet Take 1 tablet by mouth daily. 0 Active aspirin 81 mg chewable tablet (20 sources) Platelet Aggregation Inhibitor, Nonsteroidal Anti-inflammatory Drug Start: 2018 aspirin 81 mg chewable tablet Take 81 mg by mouth. 09/12/2018 Active Comment on above: Take 81 mg by mouth. atorvastatin 80 mg oral tablet (20 sources) HMG-CoA Reductase Inhibitor Start: 2021 take 1 tablet by mouth once daily at bedtime for hyperlipidemia atorvastatin (LIPITOR) 80 mg tablet Take 1 tablet by mouth daily at bedtime. For cholesterol. 11/30/2021 Active Start: 08-03-2019 End: 11-30-2021 take 1 tablet by mouth once daily atorvastatin (LIPITOR) 40 mg tablet Take 1 tablet by mouth once daily. 90 tablet 1 08/03/2019 11/30/2021 Discontinued take 2 tablets by mo uth once daily Atorvastatin 40 MG tablet Take 2 tablets by mouth daily. 0 Active Comment on above: Take 1 tablet by shay th once daily. Take 1 tablet by shay th daily at bedtime. For cholesterol. b complex vitamins capsule (2 sources) take 1 capsule by mouth once daily b complex vitamins capsule Take 1 capsule by mouth daily. 0 Active cholecalciferol 0.125 mg oral tablet (20 sources) Vitamin D take 1 tablet by mouth once daily cholecalciferol (VITAMIN D3) 5,000 unit tab Take 5,000 Units by mouth once daily. Active take 1 capsule by mouth every we ek cholecalciferol (Vitamin D-3) 1.25 MG (00608 UT) capsule Take 50,000 Units by mouth 1 (one) time per week. 0 Active take 1 capsule by mouth once juan ly cholecalciferol 50 MCG (2000 UT) capsule Take 5,000 Units by mouth daily. 0 Active Comment on above: Take 5,000 Units by mouth once daily. clopidogrel 75 mg oral tablet (19 sources) P2Y12 Platelet Inhibitor Start: 3 End: 3 take 1 tablet by mouth once daily clopidogrel (PLAVIX) 75 mg tablet Indications: TIA (transient ischemic attack) , Stenosis of left carotid artery Take 1 tablet by mouth once daily. 90 tablet 3 11/26/2022 Active Comment on above: Take 1 tablet by shay th once daily. esomeprazole 40 mg delayed release oral capsule (20 sources) Proton Pump Inhibitor Start: 7 take 1 capsule by mouth once daily esomeprazole (NEXIUM) 40 mg capsule Take 1 capsule by mouth once daily. 90 capsule 3 03/05/2017 Active take 1 dose by mouth once daily before breakfast esomeprazole 20 MG Pack Take 1 packet by mouth every morning before breakfast. 0 Active Comment on above: Take 1 capsule by mo [facility] once daily. hydroCHLOROthiazide 25 mg oral tablet (20 sources) Thiazide Diuretic Start: 2020 take 1 tablet by mouth once daily hydroCHLOROthiazide (HYDRODIURIL, ESIDRIX) 25 mg tablet Take 1 tablet by mouth once daily. 90 tablet 1 12/21/2020 Active Comment on above: Take 1 tablet by shay once daily. hydroCHLOROthiazide 12.5 mg / losartan potassium 50 mg oral tablet (1 source) Thiazide Diuretic, Angiotensin 2 Receptor Susan take 1 tablet by mouth once daily losartan-hydrochlorothiaz donny 50-12.5 MG tablet Take 1 tablet by mouth daily. 0 Active losartan potassium 100 mg oral tablet (20 sources) Angiotensin 2 Receptor Susan Start: 2020 take 1 tablet by mouth once daily losartan (COZAAR) 100 mg tablet TAKE 1 TABLET BY MOUTH EVERY DAY 30 tablet 10/26/2020 Active losartan (Cozaar ) 50 MG tablet Take 100 mg by mouth. 0 Active Comment on above: TAKE 1 TABLET BY SHAY EVERY DAY Magnesium (20 sources) take 400 mg by mouth once daily MAGNESIUM ORAL Take 400 mg by mouth once daily. Active take 400 mg by mouth once daily MAGNESIUM ORAL Take 400 mg by mouth once daily. 0 Active Comment on above: Take 400 mg by mouth once daily. Magnesium Oxide (3 sources) magnesium oxide (Mag-Ox) 400 mg tablet 400 mg daily. 0 Active take 1 tablet by mouth once saúl y magnesium oxide 400 MG tablet Take 1 tablet by mouth daily. 0 Active malic acid (20 sources) take 222 mg by mouth once daily MALIC ACID ORAL Take 222 mg by mouth once daily. Active take 222 mg by mouth once daily MALIC ACID ORAL Take 222 mg by mouth once daily. 0 Active Comment on above: Take 222 mg by mouth once daily. metFORMIN hydrochloride 500 mg oral tablet (20 sources) Biguanide Start: take 1 tablet by mouth twice daily at mealtime metFORMIN (GLUCOPHAGE) 500 mg tablet Take 1 tablet by mouth twice daily with meals. 11/30/2021 Active End: 11-30-2021 take 1 tablet by mouth once daily at breakfast metFORMIN (GLUCOPHAGE) 500 mg tablet Take 500 mg by mouth daily with breakfast. 0 11/30/2021 Discontinued Comment on above: Take 500 mg by mouth daily with breakfast. Take 1 tablet by shay twice daily with meals. mupirocin 0.02 mg/mg topical ointment (15 sources) RNA Synthetase Inhibitor Antibacterial Start: 11-26-2022 mupirocin (BACTROBAN) 2 % ointment Indications: Folliculitis Apply to affected area three times daily. 30 g 11/26/2022 Active Start: 11-26-2022 End: 11-26-2022 mupirocin (BACTROBAN) 2 % oi ntment Indications: Folliculitis Apply to affected area three times daily. 15 g 0 11/26/2022 11/26/2022 Discontinued Comment on above: Apply to affected ar ea three times daily. pu-6-fwg-epa-fish oil-vit D3 [phone] so-zg-li-unit cap (20 sources) gh-5-ert-epa-fis h oil-vit D3 [phone] hl-rr-at-unit cap Take by mouth. Active vd-5-ghh-epa-fis h oil-vit D3 [phone] ab-jp-lp-unit cap Take by mouth. 0 Active Comment on above: Take by mouth. omega-3 acid ethyl esters (long term) 1000 mg oral capsule (2 sources) omega-3 acid ethyl esters (Lovaza) 1 g capsule Take 1 g by mouth 2 times daily. 0 Active omeprazole 20 mg delayed release oral capsule (2 sources) Proton Pump Inhibitor take 1 capsule by mouth once daily before breakfast omeprazole (PriLOSEC) [address] capsule Take 20 mg by mouth every morning (before breakfast). Do not crush or chew. 0 Active sildenafil 20 mg oral tablet (20 sources) Phosphodiesterase 5 Inhibitor Start: 018 sildenafil, antihypertensive, (REVATIO) 20 mg tablet Take as directed 30 tablet 1 10/17/2017 Active Comment on above: Take as directed tamsulosin hydrochloride 0.4 mg oral capsule (1 source) alpha-Adrenergic Susan Start: 024 take 1 capsule by mouth once daily at bedtime tamsulosin (FLOMAX) 0.4 mg Take 1 capsule by mouth daily at bedtime. 11/26/2023 Active ubidecarenone 100 mg oral capsule (20 sources) coenzyme Q10 (COENZYME Q-10) 100 mg cap capsule Take 100 mg by mouth once daily. Active take 1 capsule by mouth once juan ly coenzyme Q-10 50 MG capsule Take 50 mg by mouth daily. 0 Active Comment on above: Take 100 mg by mouth once daily. Vitamin B Complex (20 sources) vitamin B comple x (B COMPLEX-100 ORAL) Take by mouth. Active vitamin B comple x (B COMPLEX-100 ORAL) Take by mouth. 0 Active Comment on above: Take by mouth. Problems Active Problems Problem Classification Problem Date Documented Date Episodic/Chronic Anxiety disorders (20 sources) Posttraumatic stress disorder; Translations: [Post-traumatic stress [...] (HCC)] 11-26-2022 Chronic Diabetes mellitus with complications (5 sources) Diabetes mellitus; Translations: [Type 2 diabetes mellitus with hyperglycemia] Onset: 11-14-2022 11-14-2022 Chronic Diabetes mellitus without complication (20 sources) Type 2 diabetes mellitus; Translations: [Type 2 diabetes mellitus without complications] Onset: 02-02-2021 02-02-2021 Chronic Disorders of lipid metabolism (20 sources) Hyperlipidemia; Translations: [Other hyperlipidemia] Onset: 03-04-2015 10-17-2017 Chronic Esophageal disorders (20 sources) Gastroesophageal reflux disease; Translations: [Gastro-esophageal reflux disease without esophagitis] Onset: 03-04-2015 03-04-2015 Chronic Essential hypertension (20 sources) Essential hypertension; Translations: [Essential (primary) hypertension] Onset: 03-04-2015 10-17-2017 Chronic Hyperplasia of prostate (1 source) Benign prostatic hypertrophy with outflow obstruction; Translations: [Benign prostatic hyperplasia with lower urinary tract symptoms] 11-26-2023 Chronic Occlusion or stenosis of precerebral arteries [...] than malignant neoplasm] 02-06-2023 Episodic Other aftercare (2 sources) Patient encounter status; 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] 02-06-2023 Episodic Other and ill-defined heart disease (2 sources) Other ill-defined heart diseases; Translations: [Other ill-defined heart diseases] Onset: 11-14-2022 Chronic Other and unspecified benign neoplasm (20 sources) Tubular adenoma of colon; Translations: [Benign neoplasm of colon, unspecified] 10-21-2018 Episodic Other connective tissue disease (1 source) History of repair of hip joint; Translations: [Presence of right artificial hip joint] 11-26-2023 Chronic Other nervous system disorders (1 source) Paresthesia [...] Episodic Other nutritional; endocrine; and metabolic disorders (16 sources) Obese class I; Translations: [Obesity, unspecified] Onset: 11-26-2022 11-26-2022 Chronic Other skin disorders (2 sources) Folliculitis; Translations: [Follicular disorder, unspecified] 11-26-2022 Episodic Spondylosis; intervertebral disc disorders; other back problems (20 sources) Degeneration of lumbar intervertebral disc; Translations: [...] Documented Da te Episodic/Chronic Other acquired deformities (20 sources) Spondylolisthesis ; Translations: [Spondylolisthesi s, site unspecified] Onset: 03-04-2015 03-04-2015 Episodic Other circulatory disease (6 sources) Disorder of carotid artery; Translations: [Disorder of arteries and arterioles, unspecified] Onset: 03-04-2015 Resolved: 04-28-2019 04-28-2019 Chronic Results Test Name Value Interpretation Reference Range Facility CNOVon 11-26-2023 CNOV Office Visit (FPWADS ) UMBERTO TATUM ([id number]) 1945 M Date Time Provider Department 11/26/23 8:00 AM ISABELLE CARRION FPMAURICE During your visit today, we recorded the following information about you: Pulse Blood pressure Weight Height 73/minute 109/54 91 kg 1.778 m Isabelle Carrion MD 11/26/2023 10:18 AM Signed Umberto Klein Rc is a 78 year old male here for a Medicare wellness visit. - S/p right hip replacement in July with Dr. Hudson at [facility] - Notes having difficulty urinating while in the hospital, started on tamsulosin Diabetes - Currently managed on metformin 500 mg tablet BID - Adherent to regimen - A1c is 6.3%, improved from 6.7% Medicare Health Risk Assessment General Health Good Exercise: Minutes/Day Exercise: Days/Week Alcohol: Daily Use No, rarely drinks Alcohol: Drinks/Day Alcohol: 6 or more drinks Never Feel off balance No Concerns: Teeth/Dentures No Concerns: Sexual function No Troubled by feelings No Frequency: Eating healthy diet Every day ADLs requiring help None Safety precautions in home/vehicle Yes Smoke, vape, chews tobacco Former smoker, quit in 1967 Difficulty hearing No Difficulty seeing No Current Providers Specialists: I have reviewed specialist-related care of the patient in the medical record. Medical/Family history review Reviewed and updated problem list, medical/surgical/family /social history, medications, and allergies. Opioid use review Opioid Medications (last 90 days) No data to display Depression screening 11/26/23 - 12/02/2018 11/30/2021 06/04/2022 06/03/2023 Depression Screening PHQ-2 Score 0 0 0 0 Depression screening tool completed and reviewed. Based on score and interview, patient is not at risk for depression. Screening tool discussed with patient, and I recommended no further intervention at this time. Cognitive screening Cognitive screening reviewed and No further action needed (score 3-5). Functional Observation Was the patient's timed Up AND Go test unsteady or ? 12 seconds? No Advance Care Planning Patient did not wish or was not able to name a surrogate decision maker or provide an advance care plan Measurements BP 109/54 Pulse 73 Ht 177.8 cm (5' 10 ) Wt 91 kg (200 lb 9.9 oz) SpO2 95% BMI 28.79 kg/m? General: Alert, well developed, well nourished, no distress, pleasant and cooperative. HEENT: No adenopathy or thyromegaly Heart: Regular rate and rhythm. Normal S1 and S2. No murmurs, rubs, or gallops. Lungs: Clear to auscultation bilaterally. No respiratory distress. No wheezes, rales, or rhonchi. Abdomen: Soft, non-tender, no distention Extremities: Feet/ankles without edema, posterior tibial pulses full and symmetrical Skin: he has some excoriations on his legs. No suspicious lesions Assessment/Plan Medicare annual wellness visit, subsequent (Z00.00) - Fall avoidance information provided - Personalized prevention plan provided (Z00.00) Medicare annual wellness visit, subsequent (primary encounter diagnosis) Comment: 78 year old here for annual wellness Plan: As below (Z13.31) Screening for depression Comment: Per health maintenance Plan: DEPRESSION SCREENING (N40.1, N13.8) BPH with urinary obstruction Comment: Difficulty urinating, improved since starting tamsulosin Plan: Continue current regimen (E11.9) Type 2 diabetes mellitus well controlled ([facility]) Comment: Well controlled. A1c Improved from 6.7 to 6.3 Plan: Continue current regimen Med update Requested Prescriptions Signed Prescriptions Disp Refills tamsulosin (FLOMAX) 0.4 mg Sig: Take 1 capsule by mouth daily at bedtime. Scribe Attestation: By signing my name below, IWil, attest that this documentation has been prepared under the direction and in the presence of Kaushal Carrion M.D. Electronically Signed: Juanita Sosa. November 26, 2023 8:10 AM Provider Attestation: Isabelle Palacios MD, personally performed the services described in this documentation. All medical record entries made by the scribe were at my direction and in my telephonic presence. I have reviewed the chart and discharge instructions (if applicable), and agree that the record reflects my personal performance and is accurate and complete. Electronically Signed: Isabelle Carrion MD November 26, 2023 10:10 AM Isabelle Carrion MD 11/26/2023 8:24 AM Signed Screening schedule The following prevention plan is recommended: Pneumococcal Vaccine: 65+(1 of 2 - PCV) Never done Depression Screening Never done Shingrix Vaccine(1 of 2) Never done RSV Vaccine(1 - 1-dose 60+ series) Never done Covid-19 Vaccine(2022- season) Never done Advance Directive Discussion Never done Dilated Retinal Exam due on 05/28/2023 WHAT YOU CAN DO TO PREVENT FALLS Many falls can be prevented. By making some changes, you can (more content not included)... Normal [facility] ALBUMIN/CREATININE RATIO, UR INEon 11-19-2023 Albumin DL <= 20 mg/L (U) [Mass/Vol] mg/dL Normal [facility] Comment on above: Order Comment: Speci men Type: URINE SPECIMENOrdering Facility: [facility] Address: [address] [place] [address] Performed By: #### U ACR ####[facility] LABCLIA [id number] [place] [address] [place] Albumin/Creatinine (U) [Mass ratio] <10 Normal <30 [facility] Comment on above: Order Comment: Speci men Type: URINE SPECIMENOrdering Facility: [facility] Address: [address] [place] [address] Result Comment: Adul t Male and Female Nephrotic Criteria: <30 mg/g is considered normal to mildly increased 30-300 mg/g is considered moderately increased >300 mg/g is considered severely increased KDIGO. (2013). KDIGO 2012 Clinical Practice Guideline for the Evaluation and Management of Chronic Kidney Disease. Official Journal of the International Society of Nephrology, 3(1), 1-150. Performed By: #### U ACR ####[facility] LABCLIA [id number] [place] [address] [place] Creatinine (U) [Mass/Vol] 122.1 mg/dL Normal 20.0-300.0 [facility] Comment on above: Order Comment: Speci men Type: URINE SPECIMENOrdering Facility: [facility] Address: [address] [place] [address] Performed By: #### U ACR ####[facility] LABIA [id number] [place] [address] [place] Basic metabolic 2000 panelon 11-19-2023 Anion gap [Moles/Vol] 10 mmol/L Normal 8-15 [facility] Comment on above: Order Comment: Speci men Type: BLOOD SPECIMENOrdering Facility: [facility] Address: [address] [place] [address] Performed By: #### 2 4321-2 ####[facility] MILLTOWNCLIA [id number] [place] [address] [place] Calcium [Mass/Vol] 10.1 mg/dL Normal 8.5-10.2 [facility] Comment on above: Order Comment: Speci men Type: BLOOD SPECIMENOrdering Facility: [facility] Address: [address] [place] [address] Performed By: #### 2 4321-2 ####[facility] MILLTOWNCLIA [id number] [place] [address] [place] Chloride [Moles/Vol] 104 mmol/L Normal 98-107 [facility] Comment on above: Order Comment: Speci men Type: BLOOD SPECIMENOrdering Facility: [facility] Address: [address] [place] [address] Performed By: #### 2 4321-2 ####[facility] [id number] [place] [address] [place] CO2 [Moles/Vol] 26 mmol/L Normal 22-30 [facility] Comment on above: Order Comment: Speci men Type: BLOOD SPECIMENOrdering Facility: [facility] Address: [address] [place] [address] Performed By: #### 2 4321-2 ####[facility] [id number] [place] [address] [place] Creatinine [Mass/Vol] 0.96 mg/dL Normal 0.73-1.22 [facility] Comment on above: Order Comment: Speci men Type: BLOOD SPECIMENOrdering Facility: [facility] Address: [address] [place] [address] Performed By: #### 2 4321-2 ####[facility] [id number] [address] Creatinine and Glomerular filtration rate.predicted panel (S/P/Bld) 82 mL/min/1.73m??? Normal >=60 [facility] Comment on above: Order Comment: Speci men Type: BLOOD SPECIMENOrdering Facility: [facility] Address: [address] [place] [address] Result Comment: Lalitha mated Glomerular Filtration Rate (eGFR) is calculated using the 2020 CKD-EPI creatinine equation. This equation utilizes serum creatinine, sex, and age as parameters. The creatinine assay has traceable calibration to isotope dilution-mass spectrometry. Refer to KDIGO guidelines for clinical interpretation. In patients with unstable renal function, e.g. those with acute kidney injury, the eGFR may not accurately reflect actual GFR. Performed By: #### 2 4321-2 ####[facility] HOS[facility]ITALWNCLIA [id number] [place] [address] [place] Glucose [Mass/Vol] 91 mg/dL Normal 74-99 [facility] Comment on above: Order Comment: Speci men Type: BLOOD SPECIMENOrdering Facility: [facility] Address: [address] [place] [address] Result Comment: The [place] Diabetes Association (ADA) provides guidance for cutoff values for fasting glucose and random glucose. The ADA defines fasting as no caloric intake for at least 8 hours. Fasting plasma glucose results between 100 to 125 mg/dL indicate increased risk for diabetes (prediabetes). Fasting plasma glucose results greater than or equal to 126 mg/dL meet the criteria for diagnosis of diabetes. In the absence of unequivocal hyperglycemia, results should be confirmed by repeat testing. In a patient with classic symptoms of hyperglycemia or hyperglycemic crisis, random plasma glucose results greater than or equal to 200 mg/dL meet the criteria for diagnosis of diabetes. Reference: Standards of Medical Care in Diabetes 2016, [place] Diabetes Association. Diabetes Care. 2016.39(Suppl 1). Performed By: #### 2 4321-2 ####[facility] [id number] [place] [address] [place] Potassium [Moles/Vol] 3.4 mmol/L Low 3.7-5.1 [facility] Comment on above: Order Comment: Speci men Type: BLOOD SPECIMENOrdering Facility: [facility] Address: [address] [place], [place] [id number] Performed By: #### 2 4321-2 ####[facility] [id number] [place] [address] [place] Sodium [Moles/Vol] 140 mmol/L Normal 136-144 [facility] Comment on above: Order Comment: Speci men Type: BLOOD SPECIMENOrdering Facility: [facility] Address: [address] [place], [place] [address] Performed By: #### 2 4321-2 ####[facility]ITALNCLIA [id number] [place] [address] [place] Urea nitrogen [Mass/Vol] 19 mg/dL Normal 9-24 [facility] Comment on above: Order Comment: Tia kyle Type: BLOOD SPECIMENOrdering Facility: [facility] Address: [address] [place] [address] Performed By: #### 2 4321-2 ####[facility] [id number] [place] [address] [place] HbA1c (Bld)on 11-19-2023 Average glucose Estimated from glycated hemoglobin (Bld) [Mass/Vol] 134 mg/dL Normal [facility] Comment on above: Order Comment: Tia kyle Type: BLOOD SPECIMENOrdering Facility: [facility] Address: [address] [place] [address] Result Comment: eAG: (Estimated average glucose) is a calculated value from HgbA1c and is technical service representative of the average blood glucose level in the last 2-3 month period. Performed By: #### 5 5454-3 ####[facility] LABCLIA [id number] [place] [address] [place] HbA1c (Bld) [Mass fraction] 6.3 % High 4.3-5.6 [facility] Comment on above: Order Comment: Tia kyle Type: BLOOD SPECIMENOrdering Facility: [facility] Address: [address] [place] [address] Result Comment: Amer ican Diabetes Association guidelines indicate that patients with HgbA1c in the range 5.7-6.4% are at increased risk for development of diabetes, and intervention by lifestyle modification may be beneficial. HgbA1c greater or equal to 6.5% is considered diagnostic of diabetes. Performed By: #### 5 5454-3 ####[facility]CLIA [id number] [place] [id number] [place] Lipid 1996 panelon 4 Cholesterol [Mass/Vol] 118 mg/dL Normal <200 [facility] Comment on above: Order Comment: Speci men Type: BLOOD SPECIMENOrdering Facility: [facility] Address: [address] [place] [address] Result Comment: <200 mg/dL, Desirable 200-239 mg/dL, Borderline high >239 mg/dL, High Performed By: #### 2 4331-1 ####[facility]CLIA [id number] [address] [id number] [place] [address] [place] Cholesterol in HDL [Mass/Vol] 50 mg/dL Normal >39 [facility] Comment on above: Order Comment: Speci men Type: BLOOD SPECIMENOrdering Facility: [facility] Address: [address] [place] [address] Result Comment: 40-5 9 mg/dL, Acceptable >59 mg/dL, High: Negative risk factor for coronary heart disease <40 mg/dL, Low: Positive risk factor for coronary heart disease Performed By: #### 2 4331-1 ####[facility]CLIA [id number] [address] [id number] [place] [address] [place] Cholesterol in LDL [Mass/Vol] 55 mg/dL Normal <100 [facility] Comment on above: Order Comment: Speci men Type: BLOOD SPECIMENOrdering Facility: [facility] Address: [address] [place], [place] [address] Result Comment: <100 mg/dL, Optimal 100-129 mg/dL, Near optimal/above optimal 130-159 mg/dL, Borderline high 160-189 mg/dL, High >189 mg/dL, Very high Secondary prevention optimal LDL Cholesterol levels are recommended to be < 70 mg/dL Performed By: #### 2 4331-1 ####[facility]CLIA [id number] [place] [address] [id number] [place] [address] [place] Cholesterol in LDL/Cholesterol in HDL [Mass ratio] 1.10 {ratio} Normal <2.54 [facility] Comment on above: Order Comment: Speci men Type: BLOOD SPECIMENOrdering Facility: [facility] Address: [address] [place] [address] Result Comment: Earl machuca: 1. National Cholesterol Education Program ATP III Guideline At-A-Glance Quick Desk Reference: National Heart, Lung, and Blood [place]. National Institutes of Health. 2001: NIH Publication No. 01-3305. 2. An International Atherosclerosis Society position paper: global recommendations for the management of dyslipidemia: executive summary, Atherosclerosis. 2014: 232(2):410-413. Performed By: #### 2 4331-1 ####[facility]CLIA [id number] [address] [id number] [place] [address] [place] Cholesterol in VLDL [Mass/Vol] 13 mg/dL Normal <30 [facility] Comment on above: Order Comment: Speci men Type: BLOOD SPECIMENOrdering Facility: [facility] Address: [address] [place] [address] Performed By: #### 2 4331-1 ####[facility]CLIA [id number] [address] [id number] [place] [address] [place] Cholesterol non HDL [Mass/Vol] 68 mg/dL Normal <130 [facility] Comment on above: Order Comment: Speci men Type: BLOOD SPECIMENOrdering Facility: [facility] Address: [address] [place] [address] Result Comment: <130 mg/dL, Optimal 130-159 mg/dL, Near optimal/above optimal 160-189 mg/dL, Borderline high 190-219 mg/dL, High >219 mg/dL, Very high Secondary prevention optimal non HDL Cholesterol levels are recommended to be <100 mg/dL Performed By: #### 2 4331-1 ####[facility]CLIA [id number] [address] [id number] [place] [address] [place] [facility] Cholesterol.total/Ch olesterol in HDL [Mass ratio] 2.36 {ratio} Normal <5.10 [facility] Comment on above: Order Comment: Speci men Type: BLOOD SPECIMENOrdering Facility: [facility] Address: [address] [place] [address] Performed By: #### 2 4331-1 ####[facility]CLIA [id number] [address] [id number] [address] [place] FASTING TIME 11 hrs Normal [facility] Comment on above: Order Comment: Speci men Type: BLOOD SPECIMENOrdering Facility: [facility] Address: [address] [place] [address] Performed By: #### 2 4331-1 ####[facility]CLIA [id number] [address] [id number] [place] [address] [place] Triglyceride [Mass/Vol] 67 mg/dL Normal <150 [facility] Comment on above: Order Comment: Speci men Type: BLOOD SPECIMENOrdering Facility: [facility] Address: [address] [place] [address] Result Comment: <150 mg/dL, Normal 150-199 mg/dL, Borderline high 200-499 mg/dL, High >499 mg/dL, Very high Performed By: #### 2 4331-1 ####[facility] LABCLIA [id number] [address] [address] [place] [facility] [id number] [place] [id number] [place] [address] [place] Bhaskar 09-05-2023 [facility] Telephone (BALBIR) UMBERTO TATUM ([id number]) 1945 M Date Time Provider Department 09/05/23 ISABELLE CARRION During your visit today, we recorded the following information about you: Chao Chi LPN 09/05/2023 3:36 PM Signed Received visit summary from [facility]. Placed in provider's inbox for review. Route to [place] scanning Allergies As of Date: 09/05/2023 Noted Allergy Reaction PENICILLINS 01/20/2009 2 - Rash Date Reviewed: 06/03/2023 Reviewed by: Chao Chi LPN - Fully Assessed Reason for Visit: Received Outside Medical Records [[id number]] Cmt: [facility] Prescriptions as of 09/05/2023 - clopidogrel (PLAVIX) 75 mg tablet Take 1 tablet by mouth once daily. - mupirocin (BACTROBAN) 2 % ointment Apply to affected area three times daily. - metFORMIN (GLUCOPHAGE) 500 mg tablet Take [...] (B COMPLEX-100 ORAL) Take by mouth. - wv-2-dmm-epa-fish oil-vit D3 [phone] co-pg-nm-unit cap Take by mouth. - sildenafil, antihypertensive, [...] once daily. Problem List As Of Date 09/05/2023 Noted Resolved Essential hypertension [I10] 03/04/2015 Carotid arterial disease (HCC) [I77.9] 03/04/2015 04/28/2019 Spondylolisthesis [M43.10] 03/04/2015 GERD (gastroesophageal reflux disease) [K21.9] 03/04/2015 Other hyperlipidemia [E78.49] 03/04/2015 DDD (degenerative disc disease), lumbar [M51.36] PTSD (post-traumatic stress disorder) [F43.10] Tubular adenoma of colon [D12.6] Carotid artery stenosis [I65.29] 04/28/2019 Type 2 diabetes mellitus well controlled ([facility]) *02/02/2021 Obesity, Class I, BMI 30-34.9 [E66.9] 11/26/2022 Type 2 diabetes mellitus with hyperglycemia, wi*06/03/2023 Encounter Status:Closed by CHAO CHI on 09/05/23 [facility] Bhaskar 07-30-2023 [facility] Telephone (FPWADS) UMBERTO TATUM ([id number]) 1945 M Date Time Provider Department 07/30/23 ISABELLE CARRION During your visit today, we recorded the following information about you: Adriana Atkins LPN 07/30/2023 12:48 PM Signed Received 07/30/2023 from [facility]. Placed in provider's inbox for review. Route to [place] for scanning. Zuri Garcia MA 07/31/2023 4:08 PM Signed Sent to scanning Allergies As of Date: 07/30/2023 Noted Allergy Reaction PENICILLINS 01/20/2009 2 - Rash Date Reviewed: 06/03/2023 Reviewed by: Chao Chi LPN - Fully Assessed Reason for Visit: Received Outside Medical Records [3570] Cmt: [facility] ER Summary 07/29/2023 Right lower extrem edema Prescriptions as of 07/31/2023 - clopidogrel (PLAVIX) 75 mg tablet Take 1 tablet by mouth once daily. - mupirocin (BACTROBAN) 2 % ointment Apply to affected area three times daily. - metFORMIN (GLUCOPHAGE) 500 mg tablet Take [...] (B COMPLEX-100 ORAL) Take by mouth. - ec-0-nzy-epa-fish oil-vit D3 [phone] ov-qv-kb-unit cap Take by mouth. - sildenafil, antihypertensive, [...] once daily. Problem List As Of Date 07/30/2023 Noted Resolved Essential hypertension [I10] 03/04/2015 Carotid arterial disease (HCC) [I77.9] 03/04/2015 04/28/2019 Spondylolisthesis [M43.10] 03/04/2015 GERD (gastroesophageal reflux disease) [K21.9] 03/04/2015 Other hyperlipidemia [E78.49] 03/04/2015 DDD (degenerative disc disease), lumbar [M51.36] PTSD (post-traumatic stress disorder) [F43.10] Tubular adenoma of colon [D12.6] Carotid artery stenosis [I65.29] 04/28/2019 Type 2 diabetes mellitus well controlled ([facility]) *02/02/2021 Obesity, Class I, BMI 30-34.9 [E66.9] 11/26/2022 Type 2 diabetes mellitus with hyperglycemia, wi*06/03/2023 Encounter Status:Closed by ADRIANA ATKINS on 07/30/23 [facility] Bhaskar 07-29-2023 [facility] Telephone (BALBIR) UMBERTO TATUM ([id number]) 1945 M Date Time Provider Department 07/29/23 ISABELLE CARRION During your visit today, we recorded the following information about you: Chao Chi LPN 07/29/2023 11:25 AM Signed Received PT orders from [facility]. Placed in provider's inbox for review. Route to [place] fax Allergies As of Date: 07/29/2023 Noted Allergy Reaction PENICILLINS 01/20/2009 2 - Rash Date Reviewed: 06/03/2023 Reviewed by: Chao Chi LPN - Fully Assessed Reason for Visit: Orders [681] Cmt: [facility] PT Prescriptions as of 07/29/2023 - clopidogrel (PLAVIX) 75 mg tablet Take 1 tablet by mouth once daily. - mupirocin (BACTROBAN) 2 % ointment Apply to affected area three times daily. - metFORMIN (GLUCOPHAGE) 500 mg tablet Take [...] (B COMPLEX-100 ORAL) Take by mouth. - qd-6-bdi-epa-fish oil-vit D3 [phone] zb-cu-rw-unit cap Take by mouth. - sildenafil, antihypertensive, [...] once daily. Problem List As Of Date 07/29/2023 Noted Resolved Essential hypertension [I10] 03/04/2015 Carotid arterial disease (HCC) [I77.9] 03/04/2015 04/28/2019 Spondylolisthesis [M43.10] 03/04/2015 GERD (gastroesophageal reflux disease) [K21.9] 03/04/2015 Other hyperlipidemia [E78.49] 03/04/2015 DDD (degenerative disc disease), lumbar [M51.36] PTSD (post-traumatic stress disorder) [F43.10] Tubular adenoma of colon [D12.6] Carotid artery stenosis [I65.29] 04/28/2019 Type 2 diabetes mellitus well controlled (HCC) *02/02/2021 Obesity, Class I, BMI 30-34.9 [E66.9] 11/26/2022 Type 2 diabetes mellitus with hyperglycemia, wi*06/03/2023 Encounter Status:Closed by CONFER, CHERALYN on 07/29/23 [facility] Telephone (FPWADS) UMBERTO TATUM ([id number]) 1945 M Date Time Provider Department 07/29/23 ISABELLE CARRION During your visit today, we recorded the following information about you: Chao Chi LPN 07/29/2023 3:33 PM Signed Received ED summary from [facility] for mcconnell c/o. Placed in provider's inbox for review. Route to [place] scanning Allergies As of Date: 07/29/2023 Noted Allergy Reaction PENICILLINS 01/20/2009 2 - Rash Date Reviewed: 06/03/2023 Reviewed by: Chao Chi LPN - Fully Assessed Reason for Visit: Received Outside Medical Records [4696] Cmt: [facility] ED 07/27/23 Prescriptions as of 07/29/2023 - clopidogrel (PLAVIX) 75 mg tablet Take 1 tablet by mouth once daily. - mupirocin (BACTROBAN) 2 % ointment Apply to affected area three times daily. - metFORMIN (GLUCOPHAGE) 500 mg tablet Take [...] (B COMPLEX-100 ORAL) Take by mouth. - yq-6-vjk-epa-fish oil-vit D3 [phone] ao-ge-jr-unit cap Take by mouth. - sildenafil, antihypertensive, [...] once daily. Problem List As Of Date 07/29/2023 Noted Resolved Essential hypertension [I10] 03/04/2015 Carotid arterial disease (HCC) [I77.9] 03/04/2015 04/28/2019 Spondylolisthesis [M43.10] 03/04/2015 GERD (gastroesophageal reflux disease) [K21.9] 03/04/2015 Other hyperlipidemia [E78.49] 03/04/2015 DDD (degenerative disc disease), lumbar [M51.36] PTSD (post-traumatic stress disorder) [F43.10] Tubular adenoma of colon [D12.6] Carotid artery stenosis [I65.29] 04/28/2019 Type 2 diabetes mellitus well controlled (HCC) *02/02/2021 Obesity, Class I, BMI 30-34.9 [E66.9] 11/26/2022 Type 2 diabetes mellitus with hyperglycemia, wi*06/03/2023 Encounter Status:Closed by CHAO CHI on 07/29/23 [facility] Bhaskar 07-25-[address] [facility] Telephone (BALBIR) UMBERTO TATUM ([id number]) 1945 M Date Time Provider Department 07/25/23 ISABELLE CARRION During your visit today, we recorded the following information about you: Chao Chi LPN 07/25/2023 4:16 PM Signed Received ED summary for complaint from [facility]. Placed in provider's inbox for review. Route to [place] scanning Allergies As of Date: 07/25/2023 Noted Allergy Reaction PENICILLINS 01/20/2009 2 - Rash Date Reviewed: 06/03/2023 Reviewed by: Chao Chi LPN - Fully Assessed Reason for Visit: Received Outside Medical Records [3576] Cmt: [facility] ED Prescriptions as of 07/25/2023 - clopidogrel (PLAVIX) 75 mg tablet Take 1 tablet by mouth once daily. - mupirocin (BACTROBAN) 2 % ointment Apply to affected area three times daily. - metFORMIN (GLUCOPHAGE) 500 mg tablet Take [...] (B COMPLEX-100 ORAL) Take by mouth. - hx-7-tgw-epa-fish oil-vit D3 [phone] bo-wt-ss-unit cap Take by mouth. - sildenafil, antihypertensive, [...] once daily. Problem List As Of Date 07/25/2023 Noted Resolved Essential hypertension [I10] 03/04/2015 Carotid arterial disease (HCC) [I77.9] 03/04/2015 04/28/2019 Spondylolisthesis [M43.10] 03/04/2015 GERD (gastroesophageal reflux disease) [K21.9] 03/04/2015 Other hyperlipidemia [E78.49] 03/04/2015 DDD (degenerative disc disease), lumbar [M51.36] PTSD (post-traumatic stress disorder) [F43.10] Tubular adenoma of colon [D12.6] Carotid artery stenosis [I65.29] 04/28/2019 Type 2 diabetes mellitus well controlled ([facility]) *02/02/2021 Obesity, Class I, BMI 30-34.9 [E66.9] 11/26/2022 Type 2 diabetes mellitus with hyperglycemia, wi*06/03/2023 Encounter Status:Closed by CHAO CHI on 07/25/23 [facility] Bhaskar 07-23-[address] [facility] Telephone (FPWAHEATHER) UMBERTO TATUM ([id number]) 1945 M Date Time Provider Department 07/23/23 ISABELLE CARRION During your visit today, we recorded the following information about you: Chao Chi LPN 07/23/2023 2:58 PM Signed Received H and P exam from [facility]. Placed in provider's inbox for review. Route to [place] scanning Allergies As of Date: 07/23/2023 Noted Allergy Reaction PENICILLINS 01/20/2009 2 - Rash Date Reviewed: 06/03/2023 Reviewed by: Chao Chi LPN - Fully Assessed Reason for Visit: Received Outside Medical Records [5031] Cmt: [facility] 07/23/23 Prescriptions as of 07/23/2023 - clopidogrel (PLAVIX) 75 mg tablet Take 1 tablet by mouth once daily. - mupirocin (BACTROBAN) 2 % ointment Apply to affected area three times daily. - metFORMIN (GLUCOPHAGE) 500 mg tablet Take [...] (B COMPLEX-100 ORAL) Take by mouth. - cj-2-eau-epa-fish oil-vit D3 [phone] et-vg-no-unit cap Take by mouth. - sildenafil, antihypertensive, [...] once daily. Problem List As Of Date 07/23/2023 Noted Resolved Essential hypertension [I10] 03/04/2015 Carotid arterial disease (HCC) [I77.9] 03/04/2015 04/28/2019 Spondylolisthesis [M43.10] 03/04/2015 GERD (gastroesophageal reflux disease) [K21.9] 03/04/2015 Other hyperlipidemia [E78.49] 03/04/2015 DDD (degenerative disc disease), lumbar [M51.36] PTSD (post-traumatic stress disorder) [F43.10] Tubular adenoma of colon [D12.6] Carotid artery stenosis [I65.29] 04/28/2019 Type 2 diabetes mellitus well controlled ([facility]) *02/02/2021 Obesity, Class I, BMI 30-34.9 [E66.9] 11/26/2022 Type 2 diabetes mellitus with hyperglycemia, wi*06/03/2023 Encounter Status:Closed by CHAO CHI on 07/23/23 [facility] Bhaskar 06-13-2023 [facility] Telephone (FPWADS) UMBERTO TATUM ([id number]) 1945 M Date Time Provider Department 06/13/23 ISABELLE CARRION During your visit today, we recorded the following information about you: Chao Chi LPN 06/13/2023 4:02 PM Signed Received lab results, EKG, and imaging from [facility]. Placed in provider's inbox for review. Route to [place] scanning Labs entered into pt chart Allergies As of Date: 06/13/2023 Noted Allergy Reaction PENICILLINS 01/20/2009 2 - Rash Date Reviewed: 06/03/2023 Reviewed by: Chao Chi LPN - Fully Assessed Reason for Visit: Outside Lab Results [753] Cmt: Labs, imaging, EKG- [facility] Order(s):CBC + DIFF [SQCBCDIF] Order #: [id number] CMP (EXTERNAL) [[id number]] Order #: [id number] LIPID PANEL BASIC [SQLIPB] Order #: [id number] CYANOCOBALAMIN VITAMIN B-12 [15703] Order #: [id number] HBA1C (OUTSIDE) [[id number]] Order #: [id number] Prescriptions as of 06/13/2023 - clopidogrel (PLAVIX) 75 mg tablet Take 1 tablet by mouth once daily. - mupirocin (BACTROBAN) 2 % ointment Apply to affected area three times daily. - metFORMIN (GLUCOPHAGE) 500 mg tablet Take [...] (B COMPLEX-100 ORAL) Take by mouth. - vd-6-bxt-epa-fish oil-vit D3 [phone] aj-os-hs-unit cap Take by mouth. - sildenafil, antihypertensive, [...] once daily. Problem List As Of Date 06/13/2023 Noted Resolved Essential hypertension [I10] 03/04/2015 Carotid arterial disease (HCC) [I77.9] 03/04/2015 04/28/2019 Spondylolisthesis [M43.10] 03/04/2015 GERD (gastroesophageal reflux disease) [K21.9] 03/04/2015 Other hyperlipidemia [E78.49] 03/04/2015 DDD (degenerative disc disease), lumbar [M51.36] PTSD (post-traumatic stress disorder) [F43.10] Tubular adenoma of colon [D12.6] Carotid artery stenosis [I65.29] 04/28/2019 Type 2 diabetes mellitus well controlled (HCC) *02/02/2021 Obesity, Class I, BMI 30-34.9 [E66.9] 11/26/2022 Type 2 diabetes mellitus with hyperglycemia, wi*06/03/2023 Encounter Status:Closed by CHAO CHI on 06/13/23 [facility] Bhaskar 06-11-2023 [facility] Telephone (BALBIR) UMBERTO TATUM ([id number]) 1945 M Date Time Provider Department 06/11/23 ISABELLE CARRION During your visit today, we recorded the following information about you: Chao Chi LPN 06/11/2023 2:50 PM Signed Received EKG report from [facility]. Placed in provider's inbox for review. Route to [place] scanning. Allergies As of Date: 06/11/2023 Noted Allergy Reaction PENICILLINS 01/20/2009 2 - Rash Date Reviewed: 06/03/2023 Reviewed by: Chao Chi LPN - Fully Assessed Reason for Visit: Received Outside Medical Records [[id number]] Cmt: EKG [facility] 06/05/23 Prescriptions as of 06/11/2023 - clopidogrel (PLAVIX) 75 mg tablet Take 1 tablet by mouth once daily. - mupirocin (BACTROBAN) 2 % ointment Apply to affected area three times daily. - metFORMIN (GLUCOPHAGE) 500 mg tablet Take [...] (B COMPLEX-100 ORAL) Take by mouth. - xq-3-lvz-epa-fish oil-vit D3 [phone] ap-tj-qf-unit cap Take by mouth. - sildenafil, antihypertensive, [...] once daily. Problem List As Of Date 06/11/2023 Noted Resolved Essential hypertension [I10] 03/04/2015 Carotid arterial disease (HCC) [I77.9] 03/04/2015 04/28/2019 Spondylolisthesis [M43.10] 03/04/2015 GERD (gastroesophageal reflux disease) [K21.9] 03/04/2015 Other hyperlipidemia [E78.49] 03/04/2015 DDD (degenerative disc disease), lumbar [M51.36] PTSD (post-traumatic stress disorder) [F43.10] Tubular adenoma of colon [D12.6] Carotid artery stenosis [I65.29] 04/28/2019 Type 2 diabetes mellitus well controlled ([facility]) *02/02/2021 Obesity, Class I, BMI 30-34.9 [E66.9] 11/26/2022 Type 2 diabetes mellitus with hyperglycemia, wi*06/03/2023 Encounter Status:Closed by CHAO CHI on 06/11/23 [facility]OV[facility] 06-03-2023 CNOV Office Visit (FPWADS ) UMBERTO TATUM ([id number]) 1945 M Date Time Provider Department 06/03/23 8:00 AM ISABELLE CARRION During your visit today, we recorded the following information about you: Pulse Blood pressure Weight Height 79/minute 112/64 93 kg 1.778 m Isabelle Carrion MD 06/03/2023 11:46 AM Signed CHIEF COMPLAINT Patient presents with: 6 Month Exam HISTORY OF PRESENT ILLNESS Umberto Tatum is a 77 year old male who presents here today for 6 month follow up. I last saw this patient on 11/26/2022. Diabetes - Currently managed on metformin 500 mg tablet - Adherent to regimen, tolerating well - A1c is 6.7% as of 05/30/2023 Hypertension - Currently managed on amlodipine 10 mg tablet, hydrochlorothiazide 25 mg tablet and losartan 100 mg tablet once daily - Adherent to regimen - BP elevated upon arrival to office at 134/75, improved on repeat at 112/64 Health Maintenance Due for Covid-19 Vaccine Due for Pneumococcal Vaccine: 65+ (1 of 2- PCV) Due for Shingrix Vaccine (1 of 2) Due for RSV Vaccine (1- 1 dose 60+ series) Due for Diabetic Foot Exam Due for Influenza Vaccine Due for Advanced Directive Discussion Labs reviewed. [...] Hyperlipidemia 03/04/2015 PTSD (post-traumatic stress disorder) [place] managing Spondylolisthesis 03/04/2015 TIA (transient ischemic attack) 11/13/2022 Tubular adenoma of colon 2018 PHYSICAL EXAMINATION BP 134/75 Pulse 79 Ht 177.8 cm (5' 10 ) Wt 93 kg (205 lb 0.4 oz) SpO2 98% BMI 29.42 kg/m? Repeat BP: 112/64 General: Alert, well developed, well nourished, no distress, pleasant and cooperative. Obese. Heart: Regular rate and rhythm. Normal S1 and S2. No murmurs, rubs, or gallops. Lungs: Clear to auscultation bilaterally. No respiratory distress. No wheezes, rales, or rhonchi. Abdomen: Soft, non-tender, no distention. Extremities: Feet/ankles without edema, posterior tibial pulses full and symmetrical. Feet:Shoes and socks removed, normal distal pulses, sensitive to 10 gm monofilament, and thickening nails, callus and flaking feet. (He notes he has a hard time bending his hip to tend to his feet. Data Reviewed [facility] Cholesterol is well controlled Cholesterol 114 Cholesterol in LDL 51 Cholesterol in HDL 44 Triglyceride 79 A1c is 6.7 Liver enzymes slightly elevated at 34 Assessment/Plan (I10) Essential hypertension (primary encounter diagnosis) Comment: bp well controlled. Plan: continue regime (L60.8) Nail deformity Comment: noted. Plan: suggest podiatry follow up (E11.65) Type 2 diabetes mellitus with hyperglycemia, without long-term current use of insulin (HCC) (E11.9) Type 2 diabetes mellitus well controlled (HCC) [facility]. (N18.31) Chronic renal failure (CRF), stage 3a (HCC) Comment: stable Plan: lab reviewed. R hip osteoarthritis. Follow up with ortho for THR RTO: 6 months or sooner as needed Scribe Attestation: By signing my name below, I, Wil Liz, attest that this documentation has been prepared under the direction and in the presence of Kaushal Carrion M.D. Electronically Signed: Juanita Sosa. June 03, 2023 8:11 AM Provider Attestation: I, Isabelle Carrion MD, personally performed the services described in this documentation. All medical record entries made by the scribe were at my direction and in my presence. I have reviewed the chart and discharge instructions (if applicable), and agree that the record reflects my personal performance and is accurate and complete. Electronically Signed: Isabelle Carrion MD June 03, 2023 11:07 AM Allergies As of Date: 06/03/2023 Noted Allergy Reaction PENICILLINS 01/20/2009 2 - Rash Date Reviewed: 06/03/2023 Reviewed by: Chao Chi LPN - Fully Assessed Reason for Visit: 6 Month Exam [189] Primary Visit Diagnosis:Essential hypertension [I10] Other Visit Diagnoses:Nail deformity [L60.8] Type 2 diabetes mellitus with hyperglycemia, without long-term current use of insulin (HCC) [E11.65] Type 2 diabetes mellitus well controlled (HCC) [E11.9] Chronic renal failure (CRF), stage 3 (more content not included)... Normal [facility] CBC W Auto Differential pane l (Bld)on 05-24-2023 Basophils (Bld) [#/Vol] 0.1 10*3/uL [facility] Basophils/100 WBC (Bld) 1.1 % [facility] CD59 deficient monocytes/100 cells (Bld) 8.2 Abnormal 4 - 8 [facility] CD59 deficient monocytes/100 cells (Bld) 0.7 [facility] EOSINOPHILS,ABSOLUTE 0.3 [facility] Eosinophils/100 WBC (Bld) 3.1 % Abnormal 0 - 3 % [facility] Erythrocyte distribution width (RBC) [Ratio] 13.7 % 11.5 - 14.5 % [facility] Hematocrit (Bld) [Volume fraction] 40.4 % 40 - 52 % [facility] Hemoglobin (Bld) [Mass/Vol] 13.9 g/dL 12 - 16 g/dL [facility] LYMPHOCYTES 2.5 [facility] Lymphocytes/100 WBC (Bld) 31.3 % [facility] MCH (RBC) [Entitic mass] 31.7 pG 27 - 34 pG [facility] MCHC 34.5 % 32 - 36 % [facility] MCV (RBC) [Entitic vol] 92 fL 80 - 100 fL [facility] NEUTROPHILS (ABSOLUTE) 4.5 [facility] Neutrophils/100 WBC (Bld) 56 % [facility] Nucleated RBC (Bld) [#/Vol] 0.1 10*3/uL [facility] Platelet mean volume (Bld) [Entitic vol] 10 % 7.3 - 11.1 % [facility] Platelets (Bld) [#/Vol] 190 10*3/uL 150 - 379 k/uL [facility] RBC (Bld) [#/Vol] 4.38 10*6/uL Abnormal 4.5 - 6.0 M/uL [facility] WBC (Bld) [#/Vol] 8 10*3/uL 4.0 - 11.0 K/uL [facility] CMP (EXTERNAL)on 05-24-2023 Albumin [Mass/Vol] 4.1 g/dL 3.2 - 4.6 gm/dL [facility] Alk Phos Total 75 U/L 45 - 117 U/L [facility] ALT [Catalytic activity/Vol] 32 U/L 12 - 78 U/L [facility] Anion gap [Moles/Vol] 11 mmol/L 9 - 18 mmol/L [facility] AST [Catalytic activity/Vol] 35 U/L 8 - 37 U/L [facility] Bili Total 0.8 mg/dL 0.2 - 1 mg/dL [facility] Bilirubin.direct [Mass/Vol] 0.3 mg/dL 0.0 - 0.3 mg/dL [facility] Calcium [Mass/Vol] 10 mg/dL 8.5 - 10. 1 mg/dL [facility] Chloride [Moles/Vol] 106 mmol/L 98 - 10 7 MEQ/L [facility] CO2 [Moles/Vol] 26 mmol/L 21 - 32 MEQ/L [facility] Creatinine [Mass/Vol] 1.2 mg/dL 0.6 - 1.3 MG/DL [facility] GFR AFR AMER [facility] GFR/1.73 sq M.predicted among non-blacks MDRD (S/P/Bld) [Vol rate/Area] 63 mL/min/{1.73_m2} [facility] Glucose [Mass/Vol] 103 mg/dL 74 - 106 MG/DL [facility] Magnesium [Mass/Vol] 1.5 mg/dL Abnormal 1.7 - 2 .3 mg/dL [facility] PHOSPHATE SERUM - INTL 2.7 [facility] Potassium [Moles/Vol] 4.2 mmol/L 3.5 - 5.1 mmol/L [facility] Protein [Mass/Vol] 7.3 g/dL 6.4 - 8.2 gm/dL [facility] Sodium [Moles/Vol] 139 mmol/L 136 - 145 mmol/L [facility] Urate [Mass/Vol] 6.5 mg/dL 3.4 - 7.0 mg/dL [facility] Urea nitrogen [Mass/Vol] 14 mg/dL 7 - 18 MG/DL [facility] CYANOCOBALAMIN VITAMIN B-12o n 05-24-2023 Cobalamin (Vitamin B12) [Mass/Vol] 920 pg/mL 232 - 1,245 pg/mL [facility] HBA1C (OUTSIDE)on 05-24-2023 HbA1c (Bld) [Mass fraction] 6.7 % Abnormal 3.6 - 5.7 [facility] Lipid 1996 panelon Cholesterol [Mass/Vol] 114 mg/dL 199 mg/dL [facility] Cholesterol in HDL [Mass/Vol] 44 mg/dL Abnormal 46 - 1,000 MG/DL [facility] Cholesterol in LDL [Mass/Vol] 51 mg/dL Abnormal 60 - 129 MG/DL [facility] Triglyceride [Mass/Vol] 79 mg/dL 30 - 150 MG/DL [facility] CNPNon 05-16-2023 CNPN Telephone ([facility]) UMBERTO TATUM ([id number]) 1945 M Date Time Provider Department 05/16/23 ISABELLE CARRION During your visit today, we recorded the following information about you: Adriana Atkins LPN 05/16/2023 10:55 AM Signed Received 05/16/2023 from [facility]. Placed in provider's inbox for review. Route to [place] for scanning. Allergies As of Date: 05/16/2023 Noted Allergy Reaction PENICILLINS 01/20/2009 2 - Rash Date Reviewed: 03/13/2023 Reviewed by: Ross Lim MD - Fully Assessed Reason for Visit: Received Outside Medical Records [[id number]] Cmt: [facility] CT bilateral lower extremity with 3-D imaging 05/16/2023 Prescriptions as of 05/16/2023 - clopidogrel (PLAVIX) 75 mg tablet Take 1 tablet by mouth once daily. - mupirocin (BACTROBAN) 2 % ointment Apply to affected area three times daily. - metFORMIN (GLUCOPHAGE) 500 mg tablet Take [...] (B COMPLEX-100 ORAL) Take by mouth. - tb-0-lvx-epa-fish oil-vit D3 [phone] vm-pu-bv-unit cap Take by mouth. - sildenafil, antihypertensive, [...] once daily. Problem List As Of Date 05/16/2023 Noted Resolved Essential hypertension [I10] 03/04/2015 Carotid arterial disease (HCC) [I77.9] 03/04/2015 04/28/2019 Spondylolisthesis [M43.10] 03/04/2015 GERD (gastroesophageal reflux disease) [K21.9] 03/04/2015 Other hyperlipidemia [E78.49] 03/04/2015 DDD (degenerative disc disease), lumbar [M51.36] PTSD (post-traumatic stress disorder) [F43.10] Tubular adenoma of colon [D12.6] Carotid artery stenosis [I65.29] 04/28/2019 Type 2 diabetes mellitus well controlled ([facility]) *02/02/2021 Obesity, Class I, BMI 30-34.9 [E66.9] 11/26/2022 Encounter Status:Closed by ADRIANA ATKINS on 05/16/23 [facility] 05-09-2023 CNPN Telephone ([facility]) UMBERTO TATUM ([id number]) 1945 M Date Time Provider Department 05/09/23 ISABELLE CARRION During your visit today, we recorded the following information about you: Adriana Atkins LPN 05/09/2023 2:49 PM Signed Received 05/09/2023 from [facility]. Placed in provider's inbox for review. Route to [place] for faxing Appointment scheduled 06/03/2023 R total hip arthroplasty Anticoagulation recommendations prior to surgery and post Off Plavix for 7 days? After surgery can patient be on Eliguis for 3 weeks. Chao Chi LPN 06/07/2023 3:24 PM Signed Fax sent Allergies As of Date: 05/09/2023 Noted Allergy Reaction PENICILLINS 01/20/2009 2 - Rash Date Reviewed: 03/13/2023 Reviewed by: Ross Lim MD - Fully Assessed Reason for Visit: Received Outside Medical Records [[id number]] Cmt: [facility] Medical Clearance for surgery 06/18/2023 Prescriptions as of 06/07/2023 - clopidogrel (PLAVIX) 75 mg tablet Take 1 tablet by mouth once daily. - mupirocin (BACTROBAN) 2 % ointment Apply to affected area three times daily. - metFORMIN (GLUCOPHAGE) 500 mg tablet Take [...] (B COMPLEX-100 ORAL) Take by mouth. - iv-5-cbh-epa-fish oil-vit D3 [phone] fc-wb-mv-unit cap Take by mouth. - sildenafil, antihypertensive, [...] once daily. Problem List As Of Date 05/09/2023 Noted Resolved Essential hypertension [I10] 03/04/2015 Carotid arterial disease (HCC) [I77.9] 03/04/2015 04/28/2019 Spondylolisthesis [M43.10] 03/04/2015 GERD (gastroesophageal reflux disease) [K21.9] 03/04/2015 Other hyperlipidemia [E78.49] 03/04/2015 DDD (degenerative disc disease), lumbar [M51.36] PTSD (post-traumatic stress disorder) [F43.10] Tubular adenoma of colon [D12.6] Carotid artery stenosis [I65.29] 04/28/2019 Type 2 diabetes mellitus well controlled (HCC) *02/02/2021 Obesity, Class I, BMI 30-34.9 [E66.9] 11/26/2022 Encounter Status:Closed by ADRIANA ATKINS on 05/23/23 [facility] 05-08-2023 CNPN Telephone ([facility]) UMBERTO TATUM ([id number]) 1945 M Date Time Provider Department 05/08/23 ISABELLE CARRION During your visit today, we recorded the following information about you: Chao Chi LPN 05/08/2023 4:16 PM Signed Received visit summary from [facility]. Placed in provider's inbox for review. Route to [place] scanning Allergies As of Date: 05/08/2023 Noted Allergy Reaction PENICILLINS 01/20/2009 2 - Rash Date Reviewed: 03/13/2023 Reviewed by: Ross Lim MD - Fully Assessed Reason for Visit: Received Outside Medical Records [[id number]] Cmt: [facility] 05/08/22 Prescriptions as of 05/08/2023 - clopidogrel (PLAVIX) 75 mg tablet Take 1 tablet by mouth once daily. - mupirocin (BACTROBAN) 2 % ointment Apply to affected area three times daily. - metFORMIN (GLUCOPHAGE) 500 mg tablet Take [...] (B COMPLEX-100 ORAL) Take by mouth. - jf-7-nwa-epa-fish oil-vit D3 [phone] wk-rw-rm-unit cap Take by mouth. - sildenafil, antihypertensive, [...] once daily. Problem List As Of Date 05/08/2023 Noted Resolved Essential hypertension [I10] 03/04/2015 Carotid arterial disease (HCC) [I77.9] 03/04/2015 04/28/2019 Spondylolisthesis [M43.10] 03/04/2015 GERD (gastroesophageal reflux disease) [K21.9] 03/04/2015 Other hyperlipidemia [E78.49] 03/04/2015 DDD (degenerative disc disease), lumbar [M51.36] PTSD (post-traumatic stress disorder) [F43.10] Tubular adenoma of colon [D12.6] Carotid artery stenosis [I65.29] 04/28/2019 Type 2 diabetes mellitus well controlled (HCC) *02/02/2021 Obesity, Class I, BMI 30-34.9 [E66.9] 11/26/2022 Encounter Status:Closed by CHAO CHI on 05/08/23 Normal [facility] Office Visiton 04-30-2023 Follow-up visit [id number] Chadwick Tatum 1945 M Date Provider Department Center 04/30/2023 [id number] ARNETT [facility] None Family History Problem Relation Age of Onset Cancer Mother Family Status - Relation Status Age at Mother Father Level of Service:90671 HI OFFICE/OUTPATIENT ESTABLISHED LOW MDM 20 MIN Reason for Visit and Comments: Follow-up [810106] - Follow up imaging [facility] Progress Noteon 04-30-2023 Progress Note NEUROSURGERY CONSULT NOTE Patient Name: Chadwick Tatum Patient : 1945 PCP: Isabelle Carrion History [...] Historical Provider, cholecalciferol (Vitamin D-3) 1.25 MG (12324 UT) capsule Take 50,000 Units by mouth [...] is no high-grade stenosis. X-rays of the l (more content not included)... Normal [facility] 04-25-2023 [facility] Telephone ([facility]) RCUMBERTO Klein ([id number]) 1945 M Date Time Provider Department 04/25/23 ISABELLE CARRION During your visit today, we recorded the following information about you: Adriana Atkins LPN 04/25/2023 10:51 AM Signed Received 04/25/2023 from [facility]. Placed in provider's inbox for review. Route to [place] for scanning Allergies As of Date: 04/25/2023 Noted Allergy Reaction PENICILLINS 01/20/2009 2 - Rash Date Reviewed: 03/13/2023 Reviewed by: Ross Lim MD - Fully Assessed Reason for Visit: Received Outside Medical Records [[id number]] Cmt: [facility] X Ray lumbar spine 04/24/2023 Prescriptions as of 04/25/2023 - clopidogrel (PLAVIX) 75 mg tablet Take 1 tablet by mouth once daily. - mupirocin (BACTROBAN) 2 % ointment Apply to affected area three times daily. - metFORMIN (GLUCOPHAGE) 500 mg tablet Take [...] (B COMPLEX-100 ORAL) Take by mouth. - tb-9-vud-epa-fish oil-vit D3 [phone] jp-if-bt-unit cap Take by mouth. - sildenafil, antihypertensive, [...] once daily. Problem List As Of Date 04/25/2023 Noted Resolved Essential hypertension [I10] 03/04/2015 Carotid arterial disease (HCC) [I77.9] 03/04/2015 04/28/2019 Spondylolisthesis [M43.10] 03/04/2015 GERD (gastroesophageal reflux disease) [K21.9] 03/04/2015 Other hyperlipidemia [E78.49] 03/04/2015 DDD (degenerative disc disease), lumbar [M51.36] PTSD (post-traumatic stress disorder) [F43.10] Tubular adenoma of colon [D12.6] Carotid artery stenosis [I65.29] 04/28/2019 Type 2 diabetes mellitus well controlled (HCC) *02/02/2021 Obesity, Class I, BMI 30-34.9 [E66.9] 11/26/2022 Encounter Status:Closed by ADRIANA ATKINS on 04/25/23 [facility] 04-11-2023 [facility] Telephone ([facility]) UMBERTO TATUM ([id number]) 1945 M Date Time Provider Department 04/11/23 ISABELLE CARRION During your visit today, we recorded the following information about you: Adriana Atkins LPN 04/11/2023 4:03 PM Signed Received 04/10/2023 from [facility]. Placed in provider's inbox for review. Route to [place] for scanning. Allergies As of Date: 04/11/2023 Noted Allergy Reaction PENICILLINS 01/20/2009 2 - Rash Date Reviewed: 03/13/2023 Reviewed by: Ross Lim MD - Fully Assessed Reason for Visit: Received Outside Medical Records [[id number]] Cmt: [facility] MRI without contrast 04/09/2023 Prescriptions as of 04/11/2023 - clopidogrel (PLAVIX) 75 mg tablet Take 1 tablet by mouth once daily. - mupirocin (BACTROBAN) 2 % ointment Apply to affected area three times daily. - metFORMIN (GLUCOPHAGE) 500 mg tablet Take [...] (B COMPLEX-100 ORAL) Take by mouth. - yw-6-ver-epa-fish oil-vit D3 [phone] vs-qn-va-unit cap Take by mouth. - sildenafil, antihypertensive, [...] once daily. Problem List As Of Date 04/11/2023 Noted Resolved Essential hypertension [I10] 03/04/2015 Carotid arterial disease (HCC) [I77.9] 03/04/2015 04/28/2019 Spondylolisthesis [M43.10] 03/04/2015 GERD (gastroesophageal reflux disease) [K21.9] 03/04/2015 Other hyperlipidemia [E78.49] 03/04/2015 DDD (degenerative disc disease), lumbar [M51.36] PTSD (post-traumatic stress disorder) [F43.10] Tubular adenoma of colon [D12.6] Carotid artery stenosis [I65.29] 04/28/2019 Type 2 diabetes mellitus well controlled (HCC) *02/02/2021 Obesity, Class I, BMI 30-34.9 [E66.9] 11/26/2022 Encounter Status:Closed by ADRIANA ATKINS on 04/11/23 [facility] Office Visiton 04-02-2023 Follow-up visit [id number] Chadwick Tatum 1945 M Date Provider Department Center 04/02/2023 [id number] ARNETT [facility] None No family history on file Level of Service:47932 HI OFFICE/OUTPATIENT NEW MODERATE MDM 45-59 MINUTES Reason for Visit and Comments: New Patient [542] - Patient had a laminectomy in 2014. He is experiencing back and right leg pain, especially when standing. [facility] Progress Noteon 04-02-2023 Progress Note NEUROSURGERY CONSULT NOTE Patient Name: Chadwick Tatum Patient : 1945 PCP: Isabelle Carrion History [...] Historical Provider, cholecalciferol (Vitamin D-3) 1.25 MG (96998 UT) capsule Take 50,000 Units by mouth [...] to person, place, and time. Gait Unsteady, kyph (more content not included)... Normal [facility] CNOVon 03-13-2023 [facility] Office Visit (CARDWW ) UMBERTO TATUM ([id number]) 1945 M Date Time Provider Department 03/13/23 9:00 AM ROSS LIM During your visit today, we recorded the following information about you: Pulse Blood pressure Weight Height 85/minute 138/76 102.1 kg 1.778 m Ross Lim MD 03/13/2023 9:34 AM Signed Cardiology consultation at the request of Dr Carrion. A copy of this consultation note will be provided to the requesting physician by way of shared Medical record or letter to requesting physician via [place] mail. Chief Complaint: Patient presents with: Consult: Premature Ventricular Contraction History of Present Illness: Umberto Tatum is a 77 year old male with history of essential hypertension, carotid artery disease s/p left endarterectomy in 2014 and right carotid endarterectomy in 2015, TIA has come to reestablish with a outside plant cable engineer for PVCs. Patient was admitted to [facility] in November 2022 with homonymous hemianopia suspicious for TIA. Follow-up with his primary care physician who noticed PVC on his EKG and asked him to see a outside plant cable engineer. He denies chest pain, shortness of breath, [...] complex (B COMPLEX-100 ORAL) Take by mouth. db-8-gag-epa-fish oil-vit D3 [phone] pj-zd-pg-unit cap Take by mouth. esomeprazole (NEXIUM) 40 [...] or back pain Neurologic: Negative history of dizziness/lightheadedne ss, vertigo, numbness/tingling of hands or feet Hematologic: Negative for easy bruising or easy bleeding. Endocrine: Negative history of obesity Skin: Negative history of hilario (more content not included)... Normal [facility] [id number] 12-06-2023 ECG01 Ventricular Rate : 8 6 BPM Atrial Rate : 86 BPM P-R Interval : 204 ms QRS Duration : 84 ms Q-T Interval : 376 ms QTC Calculation(Bazett) : 449 ms Calculated P [place] Plane : 75 degrees Calculated R [place] Plane : 39 degrees Calculated T [place] Plane : 36 degrees SINUS RHYTHM WITH OCCASIONAL PREMATURE VENTRICULAR COMPLEXES OTHERWISE NORMAL ECG WHEN COMPARED WITH ECG OF 26-NOV-2022 07:40, NO SIGNIFICANT CHANGE WAS FOUND Confirmed by MD LIM VINAY ([id number]) on 03/13/2023 4:50:02 PM NAME : UMBERTO TATUM PID : [id number] : 1945 Gender : Male Race : ORD : Procedure Date : Mar 13 2023 09:01:34 Edit Date : Mar 13 2023 16:50:03 Diagnosis: SINUS RHYTHM WITH OCCASIONAL PREMATURE VENTRICULAR COMPLEXES OTHERWISE NORMAL ECG WHEN COMPARED WITH ECG OF 26-NOV-2022 07:40, NO SIGNIFICANT CHANGE WAS FOUND Confirmed by MD LIM VINAY ([id number]) on 03/13/2023 4:50:02 PM Test Reason : Location : [facility] : [facility] Overread By : MD LIM VINAY Edited By : MD LIM VINAY Referred By : ISABELLE CARRION Acquired by : Odin Levine [facility] 36on 02-26-2023 36 Called and spoke wit h the patient and scheduled him an appointment with Dr. Arnett on 04/02/23 at 1:15 pm. Patient verbalized an understanding to the appointment date, time and location. Normal [facility] ECHOCARDIOGRAMon 11-15-2022 Echocardiography ? Left Ventricle: Chamber size is normal. Normal wall thickness. Normal global systolic function. Regional wall motion is normal. Ejection fraction is normal (65 - 70%). Diastolic function is consistent with impaired relaxation (grade I). ? Right Ventricle: Chamber size is normal. Systolic function is normal. ? Left Atrium: Chamber size is normal. ? Aortic Valve: Trileaflet valve. Leaflet calcification. Cusp sclerosis visualized. Leaflet mobility is normal. No regurgitation. No stenosis. Mean gradient: 4 mmHg. Dimensionless Index by VTI: 0.75. Valve area continuity VMAX: 3.13 cm2. ? Mitral Valve: Normal appearing leaflets. Leaflet mobility is normal. No regurgitation. No valve stenosis. ? Tricuspid Valve: Normal leaflets. Leaflet mobility is normal. Trace regurgitation. No stenosis. Poor tricuspid regurgitation jet may not accurately reflect right ventricular systolic pressure. ? Pericardium: Appears normal. No pericardial effusion. Table formatting from the original result was not included. Images from the original result were not included. Facility [facility] Patient Information Patient Name Umberto Tatum Legal Sex Male Indication for Exam Priority: STAT Dx: Blurred vision [H53.8 (ICD-10-CM)]; Difficulty with speech [R47.9 (ICD-10-CM)]; Atrial fibrillation, unspecified type [I48.91 (ICD-10-CM)] Order Question Reason for Exam Stroke workup Interpretation Summary ? Left Ventricle: Chamber size is normal. Normal wall thickness. Normal global systolic function. Regional wall motion is normal. Ejection fraction is normal (65 - 70%). Diastolic function is consistent with impaired relaxation (grade I). ? Right Ventricle: Chamber size is normal. Systolic function is normal. ? Left Atrium: Chamber size is normal. ? Aortic Valve: Trileaflet valve. Leaflet calcification. Cusp sclerosis visualized. Leaflet mobility is normal. No regurgitation. No stenosis. Mean gradient: 4 mmHg. Dimensionless Index by VTI: 0.75. Valve area continuity VMAX: 3.13 cm2. ? Mitral Valve: Normal appearing leaflets. Leaflet mobility is normal. No regurgitation. No valve stenosis. ? Tricuspid Valve: Normal leaflets. Leaflet mobility is normal. Trace regurgitation. No stenosis. Poor tricuspid regurgitation jet may not accurately reflect right ventricular systolic pressure. ? Pericardium: Appears normal. No pericardial effusion. Findings Left Ventricle Chamber size is normal. Normal wall thickness. Normal global systolic function. Regional wall motion is normal. Ejection fraction is normal (65 - 70%). Diastolic function is consistent with impaired relaxation (grade I). Right Ventricle Chamber size is normal. Systolic function is normal. Left Atrium Chamber size is normal. Right Atrium Chamber size is normal. Septum The atrial septum is normal. Mitral Valve Normal appearing leaflets. Leaflet mobility is normal. No regurgitation. No valve stenosis. Aortic Valve Trileaflet valve. Leaflet calcification. Cusp sclerosis visualized. Leaflet mobility is normal. No regurgitation. No stenosis. Mean gradient: 4 mmHg. Dimensionless Index by VTI: 0.75. Valve area continuity VMAX: 3.13 cm2. Tricuspid Valve Normal leaflets. Leaflet mobility is normal. Trace regurgitation. No stenosis. Poor tricuspid regurgitation jet may not accurately reflect right ventricular systolic pressure. Pulmonic Valve Normal structure. No regurgitation. No stenosis. Aorta No dilation to extent seen. SOV: 3.10 cm. STJ: 3.21 cm. Ascendin.86 cm. Pericardium Appears normal. No pericardial effusion. IVC/SVC The inferior vena cava structure has a diameter <21 mm and decreases >50% during inspiration. Reading Providers Reading Role Read Date Blanca Diez MD [facility] [place], Test [employer] 11/15/2022 Left Heart Measurements LV - Systole LVIDD 3.93 cm IVS 0.77 cm LVIDS 2.93 cm PW 0.74 cm LV RWT 0.38 LV Mass Index 38.7 g/m2 LV EDV BP 82 mL LV ESV BP 26 mL BP EF 68 % LV stroke volume BP (ml) 56 mL LV stroke volume index BP 25.81 mL/m2 LV - Diastole MV pk E antony 0.86 m/s MV pk A antony 0.87 m/s E/A ratio 0.99 e' septal pk antony 0.08 m/s e' lateral pk antony 0.12 m/s Avg e' pk antony 0.1 m/s E/e' septal ratio 10.45 E/e' lateral ratio 6.97 Avg E/e' ratio 8.71 LV - HCM AV LVOT peak gradient 3 mmHg Left Atrium LA ESV SP 4CH (MOD) 59 mL LA ESV SP 2CH (MOD) 69 mL LA ESV BP (MOD) index 29 mL/m2 Right Heart Measurements RV - 2D RV basal diam 4.34 cm RV mid diam 3.06 cm RV long diam 7.03 cm RV Area diastolic 22.4 cm2 RV Area systolic 18.7 cm2 RV Fractional area change 16.5 % RV - Doppler TAPSE 2.59 cm RV S' 13.18 cm/s Right Atrium RA vol index 4CH (MOD) 11.06 mL/m2 EST RAP 3 mmHg RA area 4CH (MOD) 12.38 cm2 Great Vessels Aorti (more content not included)... Abnormal [facility] CBC AND ELECTRONIC DIFFon Basophils (Bld) [#/Vol] 0.11 10*3/uL High 0.00-0.09 [facility] Comment on above: Performed By: #### A MÓNICA, [id number] #### [facility] (DEFAULT) [address] [place] [address] [id number] Basophils/100 WBC (Bld) 1.1 % Normal [facility] [place] Comment on above: Performed By: #### Padmini SALES, [id number] #### [facility] (DEFAULT) [address] [place] [address] 68201 DIFF STATUS Electronic Differential Normal [facility] Comment on above: Performed By: #### A MÓNICA, [id number] #### [facility] (DEFAULT) [address] [place] [address] 66589 Eosinophils (Bld) [#/Vol] 0.40 10*3/uL Normal 0.00-0.48 [facility] Comment on above: Performed By: #### Padmini SALES, [id number] #### [facility] (DEFAULT) [address] [address] Eosinophils/100 WBC (Bld) 4.0 % Normal [facility] Comment on above: Performed By: #### Padmini SALES, [id number] #### [facility] (DEFAULT) [address] [place] [address] 58237 Hematocrit (Bld) [Volume fraction] 41.3 % Normal 39.6-48.8 [facility] Comment on above: Performed By: #### Padmini SALES, [id number] #### [facility] (DEFAULT) [address] [place] [address] 04734 Hemoglobin (Bld) [Mass/Vol] 14.4 g/dL Normal 13.4-16.8 [facility] Comment on above: Performed By: #### Padmini SALES, [id number] #### [facility] (DEFAULT) [address] [address] Immature Grans % 0.3 % Normal [facility] Comment on above: Performed By: #### Padmini SALES, [id number] #### [facility] (DEFAULT) [address] [place] [address] 58747 Immature Grans Absolute < Normal <=0.07 [facility] Comment on above: Performed By: #### A 1CB, [id number] #### [facility] (DEFAULT) [address] [place] [address] 76761 Lymphocytes (Bld) [#/Vol] 3.40 10*3/uL Normal 0.83-3.57 [facility] Comment on above: Performed By: #### A 1CB, [id number] #### [facility] (DEFAULT) [address] [place] [address] 22341 Lymphocytes/100 WBC (Bld) 34.3 % Normal [facility] Comment on above: Performed By: #### A 1CB, [id number] #### [facility] (DEFAULT) [address] [place] [address] 14217 MCV (RBC) [Entitic vol] 89.6 fL Normal 79.0-94.5 [facility] Comment on above: Performed By: #### Padmini 1CB, [id number] #### [facility] (DEFAULT) [address] [address] Mean Cell Hgb 31.2 pg Normal 26.1-33.3 [facility] Comment on above: Performed By: #### A 1CB, [id number] #### [facility] (DEFAULT) [address] [address] Mean Cell Hgb Conc 34.9 g/dL Normal 31.9-36.5 [facility] Comment on above: Performed By: #### A 1CB, [id number] #### [facility] (DEFAULT) [address] [place] [address] 95247 Monocytes (Bld) [#/Vol] 1.00 10*3/uL High 0.24-0.93 [facility] Comment on above: Performed By: #### A 1CB, [id number] #### [facility] (DEFAULT) [address] [address] Monocytes/100 WBC (Bld) 10.1 % Normal [facility] Comment on above: Performed By: #### Padmini SALES, [id number] #### [facility] (DEFAULT) [address] [place] [address] 33645 Nucleated RBC 0.0 /100 WBC Normal <=0.2 [facility] Comment on above: Performed By: #### Padmini KirklandB, [id number] #### [facility] (DEFAULT) [address] [place] [address] 83665 Platelet mean volume (Bld) [Entitic vol] 10.9 fL Normal 8.7-12.3 [facility] Comment on above: Performed By: #### Padmini SALES, [id number] #### [facility] (DEFAULT) [address] [place] [address] 14009 Platelets (Bld) [#/Vol] 202 10*3/uL Normal 146-337 [facility] Comment on above: Performed By: #### Padmini KirklandB, [id number] #### [facility] (DEFAULT) [address] [place] [address] 94590 RBC (Bld) [#/Vol] 4.61 10*6/uL Normal 4.38-5.83 [facility] Comment on above: Performed By: #### Padmini 1CB, [id number] #### [facility] (DEFAULT) [address] [place] [address] 44304 RBC Distribution 12.9 % Normal 10.9-14.3 [facility] Comment on above: Performed By: #### Padmini 1CB, [id number] #### [facility] (DEFAULT) [address] [place] [address] 58211 Segs + Bands Auto 50.2 % Normal [facility] Comment on above: Performed By: #### Padmini 1CB, [id number] #### [facility] (DEFAULT) [address] [place] [address] 52085 Segs + Bands,Absolute Auto 4.96 K/uL Normal 1.57-6.19 [facility] Comment on above: Performed By: #### A 1CB, [id number] #### [facility] (DEFAULT) [address] [place] [address] 36075 WBC (Bld) [#/Vol] 9.90 10*3/uL Normal 3.73-10.10 [facility] Comment on above: Performed By: #### A 1CB, [id number] #### [facility] (DEFAULT) [address] [address] CHM 7 - EDon 11-14-2022 Anion gap [Moles/Vol] 11 mmol/L Normal 7-17 [facility] Comment on above: Performed By: #### C 7ED #### [facility] (DEFAULT) [address] [place] [address] 26480 Chloride [Moles/Vol] 103 mmol/L Normal 98-108 [facility] Comment on above: Performed By: #### C 7ED #### [facility] (DEFAULT) [address] [place] [address] 12055 CO2 [Moles/Vol] 27 mmol/L Normal 21-31 [facility] Comment on above: Performed By: #### C 7ED #### [facility] (DEFAULT) [address] [address] Creatinine [Mass/Vol] 1.46 mg/dL High 0.70-1.30 [facility] Comment on above: Performed By: #### C 7ED #### [facility] (DEFAULT) [address] [address] GFR/1.73 sq M.predicted among non-blacks MDRD (S/P/Bld) [Vol rate/Area] 50 mL/min/{1.73_m2} Low >=60 [facility] Comment on above: Result Comment: Repo rted eGFR is based on the CKD-EPI 2020 equation using creatinine, age, and sex. Performed By: #### C 7ED #### [facility] (DEFAULT) [address] [place] [address] 62433 Glucose [Mass/Vol] 177 mg/dL High 70-99 [facility] Comment on above: Performed By: #### Mikey 7ED #### [facility] (DEFAULT) [address] [place] [address] 70669 Osmolality [Osmolality] 298 mosm/kg Normal 278-305 [facility] Comment on above: Performed By: #### Mikey 7ED #### [facility] (DEFAULT) [address] [place] [address] 33909 Potassium [Moles/Vol] 3.8 mmol/L Normal 3.5-5.0 [facility] Comment on above: Performed By: #### Mikey SantosD #### [facility] (DEFAULT) [address] [place] [address] 55541 Sodium [Moles/Vol] 137 mmol/L Normal 135-145 [facility] Comment on above: Performed By: #### Mikey DAVIS #### [facility] (DEFAULT) [address] [place] [address] 23957 Urea nitrogen [Mass/Vol] 31 mg/dL High 7-25 [facility] Comment on above: Performed By: #### Mikey SantosD #### [facility] (DEFAULT) [address] [place] [address] 05395 Urea nitrogen/Creatinine [Mass ratio] 21 mg/mg Normal [facility] Comment on above: Performed By: #### Mikey SantosD #### [facility] (DEFAULT) [address] [place] [address] 20736 Anion gap [Moles/Vol] 13 mmol/L Normal 7-17 [facility] Comment on above: Performed By: #### Mikey SantosD, HFP #### [facility] (DEFAULT) [address] [place] [address] 31526 Chloride [Moles/Vol] 103 mmol/L Normal 98-108 [facility] Comment on above: Performed By: #### Mikey DAVIS, HFP #### [facility] (DEFAULT) [address] [place] [address] 53559 CO2 [Moles/Vol] 24 mmol/L Normal 21-31 [facility] Comment on above: Performed By: ###Marely DAVIS, HFP #### [facility] (DEFAULT) [address] [place] [address] 27404 Creatinine [Mass/Vol] 1.57 mg/dL High 0.70-1.30 [facility] Comment on above: Performed By: #### Mikey DAVIS, HFP #### [facility] (DEFAULT) [address] [place] [address] 84613 GFR/1.73 sq M.predicted among non-blacks MDRD (S/P/Bld) [Vol rate/Area] 46 mL/min/{1.73_m2} Low >=60 [facility] Comment on above: Result Comment: Repo rted eGFR is based on the CKD-EPI 2020 equation using creatinine, age, and sex. Performed By: ###Marely DAVIS, HFP #### [facility] (DEFAULT) [address] [place] [address] 05554 Glucose [Mass/Vol] 123 mg/dL High 70-99 [facility] Comment on above: Performed By: ###Marely DAVIS, HFP #### [facility] (DEFAULT) [address] [place] [address] 55666 Osmolality [Osmolality] 293 mosm/kg Normal 278-305 [facility] Comment on above: Performed By: ###Marely DAVIS, HFP #### [facility] (DEFAULT) [address] [place] [address] 89207 Potassium [Moles/Vol] 3.7 mmol/L Normal 3.5-5.0 [facility] Comment on above: Performed By: ###Marely DAVIS, HFP #### [facility] (DEFAULT) [address] [place] [address] 30614 Sodium [Moles/Vol] 136 mmol/L Normal 135-145 [facility] Comment on above: Performed By: ###Marely DAVIS, HFP #### [facility] (DEFAULT) [address] [place] [address] Urea nitrogen [Mass/Vol] 32 mg/dL High 7-25 [facility] Comment on above: Performed By: #### Mikey DAVIS, HFP #### [facility] (DEFAULT) [address] [place] [address] Urea nitrogen/Creatinine [Mass ratio] 20 mg/mg Normal [facility] Comment on above: Performed By: #### Mikey DAVIS, HFP #### [facility] (DEFAULT) [address] [place] [address] HEAD WITHOUT CONTRASTon 0 11-14-2022 CT HEAD WITHOUT CONTRAST EXAM: CT HEAD WITHOUT CONTRAST, 11/14/2022 10:50 AM COMPARISON: None. CLINICAL INDICATIONS: 77 years Male Transient ischemic attack (TIA); RELEVANT CLINICAL HISTORY: TECHNIQUE: A series of transaxial computerized tomographic images are obtained from base of skull to vertex without intravenous contrast. Axial whole-head and thin section posterior fossa slices are provided. Reformats: Sagittal and coronal. FINDINGS: Mucosal thickening within the ethmoid air cells and right sphenoid cellule. The visualized paranasal sinuses and mastoid air cells are otherwise well aerated. No acute osseous abnormality is seen. Atherosclerotic vascular calcifications are present at the skull base. No intracranial hemorrhage or mass effect. Patchy white matter hypoattenuation is present. The cerebral and cerebellar hemispheres and brainstem are otherwise normal in morphology and attenuation. The third, fourth and lateral ventricles are normal in size and configuration given patients age. IMPRESSION: No acute intracranial hemorrhage or mass effect. If clinical concern for acute ischemia would recommend MR. Patchy white matter hypoattenuation is nonspecific however given patient's age would most commonly be secondary to chronic small vessel ischemic disease. Normal [facility] HEMOGLOBIN A1Con 11-14-2022 Glucose [Mass/Vol] 151 mg/dL Normal [facility] Comment on above: Performed By: #### A 1CB, [id number] #### [facility] (DEFAULT) [address] [place] [address] 33639 Hemoglobin A1C HPLC 6.9 % High 4.7-5.6 [facility] Comment on above: Performed By: #### Padmini 1CSang, [id number] #### [facility] (DEFAULT) [address] [place] [address] 43755 HEPATIC FUNCTION PANELon Albumin [Mass/Vol] 4.4 g/dL Normal 3.5-5.0 [facility] Comment on above: Performed By: #### Mikey DAVIS, HFP #### [facility] (DEFAULT) [address] [place] [address] 58697 ALP [Catalytic activity/Vol] 66 U/L Normal 32-126 [facility] Comment on above: Performed By: #### Mikey DAVIS, HFP #### [facility] (DEFAULT) [address] [place] [address] 84452 ALT [Catalytic activity/Vol] 28 U/L Normal 10-52 [facility] Comment on above: Performed By: #### Mikey DAVIS, HFP #### [facility] (DEFAULT) [address] [place] [address] 28919 AST [Catalytic activity/Vol] 41 U/L High 10-39 [facility] Comment on above: Performed By: #### Mikey DAVIS, HFP #### [facility] (DEFAULT) [address] [place] [address] 06886 Bilirubin [Mass/Vol] 0.6 mg/dL Normal <1.5 [facility] Comment on above: Performed By: #### Mikey DAVIS, HFP #### [facility] (DEFAULT) [address] [place] [address] 58578 Bilirubin.indirect [Mass/Vol] 0.1 mg/dL Normal <0.3 [facility] Comment on above: Performed By: #### Mikey DAVIS, HFP #### [facility] (DEFAULT) [address] [place] [address] 53015 Protein [Mass/Vol] 7.6 g/dL Normal 6.4-8.3 [facility] Comment on above: Performed By: #### C 7ED, HFP #### [facility] (DEFAULT) [address] [place] [address] 49931 LIPID PANEL W CALCULATED LDL on 11-14-2022 Calculated LDL Cholesterol 66 mg/dL Normal 0-99 [facility] Comment on above: Result Comment: [<10 0 mg/dL: Optimal] [100-129 mg/dL: Near Optimal] [130-159 mg/dL: Borderline High] [160-189 mg/dL: High] [>189 mg/dL: Very High] Performed By: #### H ODESSA #### [facility] (DEFAULT) [address] [place] [address] 38588 Cholesterol [Mass/Vol] 128 mg/dL Normal <200 [facility] Comment on above: Result Comment: [<20 0 mg/dL: Desirable] [200-239 mg/dL: Borderline High] [>239 mg/dL: High] Performed By: #### H ODESSA #### [facility] (DEFAULT) [address] [place] [address] 00368 Cholesterol in HDL [Mass/Vol] 43 mg/dL Normal >=40 [facility] Comment on above: Result Comment: [<40 mg/dL: Low (High Risk)] [>59 mg/dL: High (Low Risk)] Performed By: #### H ODESSA #### [facility] (DEFAULT) [address] [place] [address] 85992 Non HDL Cholesterol 85 mg/dL Normal <130 [facility] Comment on above: Performed By: #### H ODESSA #### [facility] (DEFAULT) [address] [place] [address] 98114 Total Cholesterol/HDL Ratio 3.0 Normal <4.5 [facility] Comment on above: Performed By: #### H ODESSA #### [facility] (DEFAULT) [address] [place] [address] 24092 Triglyceride [Mass/Vol] 93 mg/dL Normal <150 [facility] Comment on above: Result Comment: [<15 0 mg/dL: Desirable] [150-199 mg/dL: Borderline] [200-499 mg/dL: High] [>500 mg/dL: Very High] Performed By: #### H ODESSA #### [facility] (DEFAULT) [address] [place] [address] 9[address]27 MRI BRAIN WITHOUT CONTRASTon 11-14-2022 MRI BRAIN WITHOUT CONTRAST EXAM: MRI BRAIN WITHOUT CONTRAST, 11/14/2022 14:39 PM CLINICAL INDICATIONS: Transient ischemic attack (TIA). Age: 77 years Gender: Male COMPARISON: CT head November 14, 2022 at 10:46 AM. Outside CTA brain and neck November 13, 2022. TECHNIQUE: A series of multisequence, multiplanar images of the brain are obtained without intravenous gadolinium-based contrast using standard protocol. FINDINGS: Intracranial: Scattered foci of T2 prolongation in the periventricular and deep white matter are nonspecific but compatible with chronic microvascular changes. No evidence of edema, mass effect, or mass lesion. No evidence of hemorrhage. No diffusion restriction or other evidence of acute infarct is identified. Abnormal left ICA flow void, corresponding to absent intraluminal opacification on the prior outside CTA. Sellar and parasellar structures are unremarkable on this unenhanced study. No abnormal epidural or subdural collection. Ventricles and sulci are mildly prominent, compatible with parenchymal volume loss. Skull and Extracranial: Minimal mucosal thickening is present in several paranasal sinuses. Mild opacification of the bilateral mastoid air cells. Skull and extracranial structures are otherwise unremarkable. IMPRESSION: No acute infarct or mass effect. Abnormal left ICA flow void, corresponding to absent intraluminal opacification on the prior outside CTA. Normal [facility] PROTIME-INRon 11-14-2022 INR Coag (PPP) [Relative time] 1.0 {INR} Normal 0.9-1.1 [facility] Comment on above: Performed By: #### P TI #### [facility] (DEFAULT) [address] [place] [address] PT Coag (PPP) [Time] 12.8 s Normal 11.9-14.2 [facility] Comment on above: Performed By: #### P TI #### [facility] (DEFAULT) [address] [place] [address] Comprehensive Intake - Texto n 08-03-2022 Comprehensive Intake - Text Comprehensive Intake Entered On: 08/03/2022 9:04 EDT Performed On: 08/03/2022 9:02 EDT by Michelle Vegas RN Summary Chief Complaint : New patient - prev pt of Dr. Bonilla, here for an evaluation of carotid stenosis. states his last carotid duplex was 12/2018. Advance Directive : Yes Bladder Control Issues? : No Urine Leakage? : No Presence or absence of urinary incontinence assessed : Yes CPT-II Medication list doc'd in medical record : Yes Influenza immunization administered or previously received : No Pneumococcal vaccine administered or previously received : No Michelle Vegas RN - 08/03/2022 9:02 EDT Measurements Ht/Wt Measurement Refused by Patient? : No Weight Measured : 101 kg(Converted to: 222 lb 11 oz, 222.667 lb) Height/Length Measured : 178 cm(Converted to: 5 ft 10 in, 70.08 in) Body Mass Index Measured : 31.88 kg/m2 Body Mass Index documented : Yes Weight Measured - lbs : 223 lb(Converted to: 223 lb 0 oz, 101 kg) Height/Length Measured - in : 70 in(Converted to: 5 ft 10 in, 178 cm) Body Mass Index Measured Scottish : 31.99 kg/m2 BSA Scottish : 2.23 m2 Michelle Vegas RN - 08/03/2022 9:02 EDT Vitals Require BP : Yes Systolic Blood Pressure : 164 mmHg (HI) Diastolic Blood Pressure : 78 mmHg Mean Arterial Pressure : 107 mmHg Pulse Rate : 74 bpm Last Systolic BP : greater than or equal to 140 mmHg Last Diastolic BP : less than 80 mmHg Temperature Oral (F) : 97.6 degF(Converted to: 36 degC) SpO2 : 96 % Pain Present : No actual or suspected pain Pain : 0 Pain severity quantified : No pain present Michelle Vegas RN - 08/03/2022 9:02 EDT Infection Screening - Ambulatory Exposure AND/OR close contact with a person under investigation or laboratory-confirmed COVID-19 individual within 14 days of symptom onset AND/OR any of the following: : No Do you live/work in a high risk situation (congregated living, hemodialysis, infusion clinic, custodial, assisted living, usp, homeless retirement, etc.)? : No Michelle Vgeas RN - 08/03/2022 9:02 EDT Depression Screening Is patient currently : None of the Below Feeling Down, Depressed, Hopeless : Not at all Little Interest - Pleasure in Activities : Not at all Initial Depression Screen Score : 0 Depression Screening Score 0 : No Michelle Vegas RN - 08/03/2022 9:02 EDT Social History Social History (As Of: 08/03/2022 09:04:48 EDT) Alcohol: Denies Alcohol Use (Last Updated: 09/22/2012 12:25:23 EDT by Nia Mendoza RN ) Tobacco: Never (less than 100 in lifetime) Tobacco Use:. Cigarettes Comments: 12/23/2017 10:40 - Deena Burris MA: former smoker (Last Updated: 08/03/2022 09:03:25 EDT by Michelle Vegas RN) Substance Abuse: Denies Substance Abuse (Last Updated: 09/22/2012 12:25:34 EDT by Nia Mendoza RN ) Home/Environment: Lives with Spouse. Home equipment: None. Home monitoring equipment: None. Special/Community resources: None. Home Barriers: External Stairs. (Last Updated: 09/22/2012 12:26:13 EDT by Nia Mendoza RN) Falls Risk Assessment Is the patient ambulatory (mobile) : Yes Have you had 2 or more falls in the past year : No Have you had a fall within the past year that has caused an injury : No Patient screen for fall risk : no falls in last year OR 1 fall with no injury in last year Michelle Vegas RN - 08/03/2022 9:02 EDT Normal [facility] ALBUMIN/CREAT RATIO RNJohn URoana 05-25-2022 Albumin DL <= 20 mg/L (U) [Mass/Vol] mg/dL Normal [facility] Comment on above: Order Comment: Speci men Type: URINE SPECIMEN Ordering Facility: [facility] Address: [address] [place], [place] [address] [address] Performed By: #### U ACR #### [facility] CLIA [id number] [address] [place] [address] [place] Albumin/Creatinine (U) [Mass ratio] <10 Normal <30 [facility] Comment on above: Order Comment: Speci men Type: URINE SPECIMEN Ordering Facility: [facility] Address: [address] [place] [address] Result Comment: Adul t Male and Female Nephrotic Criteria: <30 mg/g is considered normal to mildly increased 30-300 mg/g is considered moderately increased >300 mg/g is considered severely increased KDIGO. (2013). KDIGO 2012 Clinical Practice Guideline for the Evaluation and Management of Chronic Kidney Disease. Official Journal of the International Society of Nephrology, 3(1), 1-150. Performed By: #### U ACR #### [facility] CLIA [id number] [address] [place] [address] [place] Creatinine (U) [Mass/Vol] 122.9 mg/dL Normal 20.0-300.0 [facility] Comment on above: Order Comment: Speci men Type: URINE SPECIMEN Ordering Facility: [facility] Address: [address] [place] [address] Performed By: #### U ACR #### [facility] CLIA [id number] [address] [place] [address] [place] HbA1c (Bld)on 05-25-2022 Average glucose Estimated from glycated hemoglobin (Bld) [Mass/Vol] 148 mg/dL Normal [facility] Comment on above: Order Comment: Speci men Type: BLOOD SPECIMEN Ordering Facility: [facility] Address: [address] [place] [address] Result Comment: eAG: (Estimated average glucose) is a calculated value from HgbA1c and is technical service representative of the average blood glucose level in the last 2-3 month period. Performed By: #### 5 [id number] #### [facility] CLIA [id number] [address] [place] [address] [place] HbA1c (Bld) [Mass fraction] 6.8 % High 4.3-5.6 [facility] Comment on above: Order Comment: Speci men Type: BLOOD SPECIMEN Ordering Facility: [facility] Address: [address] [place] [address] Result Comment: Ronnie ican Diabetes Association guidelines indicate that patients with HgbA1c in the range 5.7-6.4% are at increased risk for development of diabetes, and intervention by lifestyle modification may be beneficial. HgbA1c greater or equal to 6.5% is considered diagnostic of diabetes. Performed By: #### 5 5454-3 #### [facility] CLIA [id number] [address] [facility] DESK [id number] [place] [address] No Panel Informationon 11-30 [facility] XR HIP ARCHIE 5V PEL+ AP/LAT EA HIPon 11-30-2021 XR HIP ARCHIE 5V PEL+ AP/LAT EA HIP * * *Final Report* * * DATE OF EXAM: Nov 30 2021 10:16AM MDX 5353 - XR HIP ARCHIE 5V PEL+ AP/LAT EA HIP / PROCEDURE REASON: M16.11-Primary osteoarthritis of right hip * * * * Physician Interpretation * * * * PROCEDURE: Pelvis and bilateral hips INDICATION: Primary osteoarthritis of right hip .ARTHRITIS TECHNIQUE: XR HIP ARCHIE 5V PEL+ AP/LAT EA HIP COMPARISON: 10/21/2018 FINDINGS: Severe superolateral right hip joint space narrowing with subchondral sclerosis and spur formation in the acetabulum. Femoral collar spur formation as well. Left hip joint space is maintained. Minimal marginal spurring in the left hip. Mild bilateral chondrocalcinosis. Degenerative and postoperative changes in the lower lumbar spine. Sacroiliac joints and symphysis pubis are maintained. IMPRESSION: Advanced right and minimal left hip osteoarthrosis, showing no significant interval change Shutdown Coordinator: PSCB Transcribe Date/Time: Nov 30 2021 12:10P Dictated by : DOMINGUEZ LYONS MD This examination was interpreted and the report reviewed and electronically signed by: DOMINGUEZ LYONS MD on Nov 30 2021 12:12PM EST [id number] Normal [facility] Basic metabolic 2000 panelon 11-20-2021 Anion gap [Moles/Vol] 10 mmol/L Normal 9-18 [facility] Comment on above: Order Comment: Speci men Type: BLOOD SPECIMEN Ordering Facility: [facility] Address: [address] Performed By: #### 2 4331-1, 56064-8 #### [facility] CLIA [id number] [address] [place] [address] [place] Calcium [Mass/Vol] 10.1 mg/dL Normal 8.5-10.2 [facility] Comment on above: Order Comment: Speci men Type: BLOOD SPECIMEN Ordering Facility: [facility] Address: [address] Performed By: #### 2 4331-1, 47688-2 #### [facility] CLIA [id number] [address] [place] [address] [place] Chloride [Moles/Vol] 102 mmol/L Normal 97-105 [facility] Comment on above: Order Comment: Speci men Type: BLOOD SPECIMEN Ordering Facility: [facility] Address: [address] Performed By: #### 2 4331-1, 03274-7 #### [facility] CLIA [id number] [address] [place] [address] [place] CO2 [Moles/Vol] 26 mmol/L Normal 22-30 [facility] Comment on above: Order Comment: Speci men Type: BLOOD SPECIMEN Ordering Facility: [facility] Address: [address] Performed By: #### 2 4331-1, 21497-7 #### [facility] CLIA [id number] [address] [place] [address] [place] Creatinine [Mass/Vol] 1.30 mg/dL High 0.73-1.22 [facility] Comment on above: Order Comment: Speci men Type: BLOOD SPECIMEN Ordering Facility: [facility] Address: [address] Performed By: #### 2 4331-1, 48097-0 #### [facility] CLIA [id number] [address] [place] [address] [place] ESTIMATED GLOMERULAR FILTRATION RATE 58 mL/min/1.73m??? Low >=60 [facility] Comment on above: Order Comment: Tia kyle Type: BLOOD SPECIMEN Ordering Facility: [facility] Address: [address] [place] [address] Result Comment: Lalitha mated Glomerular Filtration Rate (eGFR) is calculated using the 2020 CKD-EPI creatinine equation. This equation utilizes serum creatinine, sex, and age as parameters. The creatinine assay has traceable calibration to isotope dilution-mass spectrometry. Refer to KDIGO guidelines for clinical interpretation. In patients with unstable renal function, e.g. those with acute kidney injury, the eGFR may not accurately reflect actual GFR. Performed By: #### 2 4331-1, 92928-9 #### [facility] CLIA [id number] [address] [place] [address] [place] Glucose [Mass/Vol] 102 mg/dL High 74-99 [facility] Comment on above: Order Comment: Tia kyle Type: BLOOD SPECIMEN Ordering Facility: [facility] Address: [address] [place] [address] Result Comment: The [place] Diabetes Association (ADA) provides guidance for cutoff values for fasting glucose and random glucose. The ADA defines fasting as no caloric intake for at least 8 hours. Fasting plasma glucose results between 100 to 125 mg/dL indicate increased risk for diabetes (prediabetes). Fasting plasma glucose results greater than or equal to 126 mg/dL meet the criteria for diagnosis of diabetes. In the absence of unequivocal hyperglycemia, results should be confirmed by repeat testing. In a patient with classic symptoms of hyperglycemia or hyperglycemic crisis, random plasma glucose results greater than or equal to 200 mg/dL meet the criteria for diagnosis of diabetes. Reference: Standards of Medical Care in Diabetes 2016, [place] Diabetes Association. Diabetes Care. 2016.39(Suppl 1). Performed By: #### 2 4331-1, 25819-7 #### [facility] CLIA [id number] [address] [place] [address] [place] Potassium [Moles/Vol] 4.1 mmol/L Normal 3.7-5.1 [facility] Comment on above: Order Comment: Speci men Type: BLOOD SPECIMEN Ordering Facility: [facility] Address: [address] [place] [address] Performed By: #### 2 4331-1, 29622-7 #### [facility] CLIA [id number] [address] [place] Sodium [Moles/Vol] 138 mmol/L Normal 136-144 [facility] Comment on above: Order Comment: Speci men Type: BLOOD SPECIMEN Ordering Facility: [facility] Address: [address] [place] [address] Performed By: #### 2 4331-1, 70777-1 #### [facility] CLIA [id number] [address] [place] Urea nitrogen [Mass/Vol] 22 mg/dL Normal 9-24 [facility] Comment on above: Order Comment: Speci men Type: BLOOD SPECIMEN Ordering Facility: [facility] Address: [address] [place] [address] Performed By: #### 2 4331-1, 44844-1 #### [facility] CLIA [id number] [address] [place] CBC panel Auto (Bld)on 11-20 Erythrocyte distribution width (RBC) [Ratio] 12.8 % Normal 11.5-15.0 [facility] Comment on above: Order Comment: Speci men Type: BLOOD SPECIMEN Ordering Facility: [facility] Address: [address] [place] [address] Performed By: #### 5 8410-2 #### [facility] CLIA [id number] [address] [place] Hematocrit (Bld) [Volume fraction] 40.5 % Normal 39.0-51.0 [facility] Comment on above: Order Comment: Speci men Type: BLOOD SPECIMEN Ordering Facility: [facility] Address: [address] [place] [address] Performed By: #### 5 8410-2 #### [facility] CLIA [id number] [address] [place] [address] [place] Hemoglobin (Bld) [Mass/Vol] 14.0 g/dL Normal 13.0-17.0 [facility] Comment on above: Order Comment: Speci men Type: BLOOD SPECIMEN Ordering Facility: [facility] Address: [address] [place] [address] Performed By: #### 5 8410-2 #### [facility] CLIA [id number] [address] STATES [facility] MCH (RBC) [Entitic mass] 30.9 pg Normal 26.0-34.0 [facility] Comment on above: Order Comment: Speci men Type: BLOOD SPECIMEN Ordering Facility: [facility] Address: [address] [place] [address] Performed By: #### 5 8410-2 #### [facility] CLIA [id number] [address] MCHC (RBC) [Mass/Vol] 34.6 g/dL Normal 30.5-36.0 [facility] Comment on above: Order Comment: Speci men Type: BLOOD SPECIMEN Ordering Facility: [facility] Address: [address] [place] [address] Performed By: #### 5 8410-2 #### [facility] CLIA [id number] [address] MCV (RBC) [Entitic vol] 89.4 fL Normal 80.0-100.0 [facility] Comment on above: Order Comment: Speci men Type: BLOOD SPECIMEN Ordering Facility: [facility] Address: [address] [place] [address] Performed By: #### 5 8410-2 #### [facility] CLIA [id number] [address] Nucleated RBC (Bld) [#/Vol] 10*3/uL Normal <0.01 [facility] Comment on above: Order Comment: Speci men Type: BLOOD SPECIMEN Ordering Facility: [facility] Address: [address] [place] [address] Performed By: #### 5 8410-2 #### [facility] CLIA [id number] [address] [place] Platelet mean volume (Bld) [Entitic vol] 11.4 fL Normal 9.0-12.7 [facility] Comment on above: Order Comment: Speci men Type: BLOOD SPECIMEN Ordering Facility: [facility] Address: [address] [place] [address] Performed By: #### 5 8410-2 #### [facility] CLIA [id number] [address] [place] [address] [place] Platelets (Bld) [#/Vol] 192 10*3/uL Normal 150-400 [facility] Comment on above: Order Comment: Speci men Type: BLOOD SPECIMEN Ordering Facility: [facility] Address: [address] [place] [address] Performed By: #### 5 8410-2 #### [facility] CLIA [id number] [address] [place] [address] [place] RBC (Bld) [#/Vol] 4.53 10*6/uL Normal 4.20-6.00 [facility] Comment on above: Order Comment: Speci men Type: BLOOD SPECIMEN Ordering Facility: [facility] Address: [address] [place] [address] Performed By: #### 5 8410-2 #### [facility] CLIA [id number] [address] [place] WBC (Bld) [#/Vol] 10.01 10*3/uL Normal 3.70-11.00 [facility] Comment on above: Order Comment: Speci men Type: BLOOD SPECIMEN Ordering Facility: [facility] Address: [address] [place] [address] Performed By: #### 5 8410-2 #### [facility] CLIA [id number] [address] HbA1c (Bld)on 11-20-2021 Average glucose Estimated from glycated hemoglobin (Bld) [Mass/Vol] 151 mg/dL Normal [facility] Comment on above: Order Comment: Speci men Type: BLOOD SPECIMEN Ordering Facility: [facility] Address: [address] [place] [phone] Result Comment: eAG: (Estimated average glucose) is a calculated value from HgbA1c and is technical service representative of the average blood glucose level in the last 2-3 month period. Performed By: #### 5 5454-3 #### [facility] CLIA [id number] [address] [place] [address] [place] HbA1c (Bld) [Mass fraction] 6.9 % High 4.3-5.6 [facility] Comment on above: Order Comment: Tia kyle Type: BLOOD SPECIMEN Ordering Facility: [facility] Address: [address] [place], [place] [address] Result Comment: [place] Diabetes Association guidelines indicate that patients with HgbA1c in the range 5.7-6.4% are at increased risk for development of diabetes, and intervention by lifestyle modification may be beneficial. HgbA1c greater or equal to 6.5% is considered diagnostic of diabetes. Performed By: #### 5 5454-3 #### [facility] CLIA [id number] [address] [place] [address] [place] Lipid 1996 panelon 2 Cholesterol [Mass/Vol] 121 mg/dL Normal <200 [facility] Comment on above: Order Comment: Tia kyle Type: BLOOD SPECIMEN Ordering Facility: [facility] Address: [address] [place], [place] [id number] Result Comment: <200 mg/dL, Desirable 200-239 mg/dL, Borderline high >239 mg/dL, High Performed By: #### 2 4331-1, 42234-5 #### [facility] CLIA [id number] [address] [place] [address] [place] Cholesterol in HDL [Mass/Vol] 54 mg/dL Normal >39 [facility] Comment on above: Order Comment: Tia kyle Type: BLOOD SPECIMEN Ordering Facility: [facility] Address: [address] [place] [phone] Result Comment: 40-5 9 mg/dL, Acceptable >59 mg/dL, High: Negative risk factor for coronary heart disease <40 mg/dL, Low: Positive risk factor for coronary heart disease Performed By: #### 2 4331-1, 56339-4 #### [facility] CLIA [id number] [address] Cholesterol in LDL [Mass/Vol] 47 mg/dL Normal <100 [facility] Comment on above: Order Comment: Tia [facility] Type: BLOOD SPECIMEN Ordering Facility: [facility] Address: [address] [place] [address] Result Comment: <100 mg/dL, Optimal 100-129 mg/dL, Near optimal/above optimal 130-159 mg/dL, Borderline high 160-189 mg/dL, High >189 mg/dL, Very high Secondary prevention optimal LDL Cholesterol levels are recommended to be < 70 mg/dL Performed By: #### 2 4331-1, 11273-6 #### [facility] CLIA [id number] [address] Cholesterol in LDL/Cholesterol in HDL [Mass ratio] 0.87 {ratio} Normal <2.54 [facility] Comment on above: Order Comment: Tia kyle Type: BLOOD SPECIMEN Ordering Facility: [facility] Address: [address] [place] [address] Result Comment: Refe rence: 1. National Cholesterol Education Program ATP III Guideline At-A-Glance Quick Desk Reference: National Heart, Lung, and Blood [place]. National Institutes of Health. 2001: NIH Publication No. 01-3305. 2. An International Atherosclerosis Society position paper: global recommendations for the management of dyslipidemia: executive summary, Atherosclerosis. 2014: 232(2):410-413. Performed By: #### 2 4331-1, 62069-6 #### [facility] CLIA [id number] [address] Cholesterol in VLDL [Mass/Vol] 20 mg/dL Normal <30 [facility] Comment on above: Order Comment: Tia anabella Type: BLOOD SPECIMEN Ordering Facility: [facility] Address: [address] [place] [address] Performed By: #### 2 4331-1, 20331-7 #### [facility] CLIA [id number] [address] [place] Cholesterol non HDL [Mass/Vol] 67 mg/dL Normal <130 [facility] Comment on above: Order Comment: Tia men Type: BLOOD SPECIMEN Ordering Facility: [facility] Address: [address] [place] [address] Result Comment: <130 mg/dL, Optimal 130-159 mg/dL, Near optimal/above optimal 160-189 mg/dL, Borderline high 190-219 mg/dL, High >219 mg/dL, Very high Secondary prevention optimal non HDL Cholesterol levels are recommended to be <100 mg/dL Performed By: #### 2 4331-1, 77124-0 #### [facility] CLIA [id number] [address] Cholesterol.total/Ch olesterol in HDL [Mass ratio] 2.24 {ratio} Normal <5.10 [facility] Comment on above: Order Comment: Tia kyle Type: BLOOD SPECIMEN Ordering Facility: [facility] Address: [address] [place] [address] Performed By: #### 2 4331-1, 38750-3 #### [facility] CLIA [id number] [address] FASTING TIME 10 hrs Normal [facility] Comment on above: Order Comment: Tia kyle Type: BLOOD SPECIMEN Ordering Facility: [facility] Address: [address] [place] [address] Performed By: #### 2 4331-1, 77657-8 #### [facility] CLIA [id number] [address] [place] Triglyceride [Mass/Vol] 100 mg/dL Normal <150 [facility] Comment on above: Order Comment: Tia anabella Type: BLOOD SPECIMEN Ordering Facility: [facility] Address: [address] [place] [address] Result Comment: <150 mg/dL, Normal 150-199 mg/dL, Borderline high 200-499 mg/dL, High >499 mg/dL, Very high Performed By: #### 2 4331-1, 02112-1 #### [facility] CLIA [id number] [address] [place] [id number] [place] OF [facility] CHEST 2 VIEWSon 01-11-2017 CHEST 2 VIEWS Performed at [facility] APPROVED BY: Daniele Barnett MD EXAMINATION: CHEST RADIOGRAPH (2 VIEW FRONTAL & LATERAL) Clinical History: The patient is a 71-year-old male with cough several days' duration.M: XC2_3Comparison: April 20, 2013 RESULT: Lines, tubes, and devices: None. Lungs and pleura: No consolidation. No lung mass. No pleural effusion. Cardiomediastinal silhouette: Normal cardiomediastinal silhouette. Other: There is a vertical scratch on the cassette on the PA view which causes a linear artifact in a vertical direction. IMPRESSION: No acute radiographic abnormality. Stable appearance to the chest as compared to April 20, 2013. Normal [facility] Throat Cultureon 01-11-2017 Throat Culture Test performed at [facility] No group A beta streptococci cultured. Normal [facility] Comment on above: Performed By: #### C THRT ####[address] [address] Throat Rapid Grp A Strepon 1 Rapid strep test see below Normal Negative [facility] Comment on above: Result Comment: Nega tive for group A Streptococcus antigen. Performed By: #### L RAPS ####[address] [address] Vital Signs Date Time Vital Sign Value Performing Clinician Jenna dee 11-26-2023 08:05-0400 Body height 177.8 cm Isabelle Carrion MD Work Phone: [facility] 11-26-2023 08:05-0400 Body mass index (BMI) [Ratio] 28.79 kg/m2 Isabelle Carrion MD Work Phone: [facility] 11-26-2023 08:05-0400 Body weight 91 kg Isabelle Carrion MD Work Phone: [facility] 11-26-2023 08:05-0400 Diastolic blood pressure 54 mm[Hg] Isabelle Carrion MD Work Phone: [facility] 11-26-2023 08:05-0400 Heart rate 73 /min Isabelle Carrion MD Work Phone: [facility] 11-26-2023 08:05-0400 SaO2% (BldA) [Mass fraction] 95 % Isabelle Carrion MD Work Phone: [facility] 11-26-2023 08:05-0400 Systolic blood pressure 109 mm[Hg] Isabelle Carrion MD Work Phone: [facility] 04-30-2023 09:12-0500 Diastolic blood pressure 69 mm[Hg] Shyam Arnett MD Work Phone: [facility] 04-30-2023 09:12-0500 Heart rate 85 /min Shyam Arnett MD Work Phone: [facility] 04-30-2023 09:12-0500 Systolic blood pressure 130 mm[Hg] Shyam Arnett MD Work Phone: [facility] 04-30-2023 08:59-0500 Body height 177.8 cm Shyam Arnett MD Work Phone: [facility] 04-30-2023 08:59-0500 Body mass index (BMI) [Ratio] 30.85 kg/m2 Shyam Arnett MD Work Phone: [facility] 04-30-2023 08:59-0500 Body temperature 97.2 [degF] Shyam Arnett MD Work Phone: [facility] 04-30-2023 08:59-0500 Body weight 97.52 kg Shyam Arnett MD Work Phone: [facility] 04-02-2023 13:09-0500 Body height 177.8 cm Shyam Arnett MD Work Phone: [facility] 04-02-2023 13:09-0500 Body mass index (BMI) [Ratio] 32.14 kg/m2 Shyam Arnett MD Work Phone: [facility] 04-02-2023 13:09-0500 Body weight 101.61 kg Shyam Arnett MD Work Phone: [facility] 04-02-2023 13:09-0500 Diastolic blood pressure 66 mm[Hg] Shyam Arnett MD Work Phone: [facility] 04-02-2023 13:09-0500 Heart rate 83 /min Shyam Arnett MD Work Phone: [facility] 04-02-2023 13:09-0500 Systolic blood pressure 113 mm[Hg] Shyam Arnett MD Work Phone: [facility] 01-09-2023 09:57-0400 Body height 177.8 cm Michelle Michael ANALYTICS DIRECTOR-DOOR TECHNICIAN Work Phone: [facility] 01-09-2023 09:57-0400 Body mass index (BMI) [Ratio] 31.78 kg/m2 Michellebo Izquierdor ANALYTICS DIRECTOR-DOOR TECHNICIAN Work Phone: [facility] 01-09-2023 09:57-0400 Body temperature 98.6 [degF] Michelle Feleciar ANALYTICS DIRECTOR-DOOR TECHNICIAN Work Phone: [facility] 01-09-2023 09:57-0400 Body weight 100.47 kg Michelle Feleciar ANALYTICS DIRECTOR-DOOR TECHNICIAN Work Phone: [facility] 01-09-2023 09:57-0400 Diastolic blood pressure 73 mm[Hg] Michellebo Denis ANALYTICS DIRECTOR-DOOR TECHNICIAN Work Phone: [facility] 01-09-2023 09:57-0400 Heart rate 82 /min Michellebo Denis ANALYTICS DIRECTOR-DOOR TECHNICIAN Work Phone: [facility] 01-09-2023 09:57-0400 Respiratory rate 14 /min Michelle Denis ANALYTICS DIRECTOR-DOOR TECHNICIAN Work Phone: [facility] 01-09-2023 09:57-0400 SaO2% (BldA) [Mass fraction] 97 % Michelle Denis ANALYTICS DIRECTOR-DOOR TECHNICIAN Work Phone: [facility] 01-09-2023 09:57-0400 Systolic blood pressure 158 mm[Hg] Michelle Denis ANALYTICS DIRECTOR-DOOR TECHNICIAN Work Phone: [facility] 11-26-2022 10:04-0400 Diastolic blood pressure 66 mm[Hg] Isabelle Carrion MD Work Phone: [facility] 11-26-2022 10:04-0400 Systolic blood pressure 116 mm[Hg] Isabelle Carrion MD Work Phone: [facility] 11-26-2022 08:00-0400 Body height 177.8 cm Isabelle Carrion MD Work Phone: [facility] 11-26-2022 08:00-0400 Body weight 96.16 kg Isabelle Carrion MD Work Phone: [facility] 11-26-2022 08:00-0400 Heart rate 75 /min Isabelle Carrion MD Work Phone: [facility] 11-26-2022 08:00-0400 SaO2% (BldA) [Mass fraction] 97 % Isabelle Carrion MD Work Phone: [facility] 06-04-2022 08:58-0500 Body height 177.8 cm Isabelle Carrion MD Work Phone: [facility] 06-04-2022 08:58-0500 Body weight 96.62 kg Isabelle Carrion MD Work Phone: [facility] 06-04-2022 08:58-0500 Diastolic blood pressure 67 mm[Hg] Isabelle Carrion MD Work Phone: [facility] 06-04-2022 08:58-0500 Heart rate 70 /min Isabelle Carrion MD Work Phone: [facility] 06-04-2022 08:58-0500 SaO2% (BldA) [Mass fraction] 96 % Isabelle Carrion MD Work Phone: [facility] 06-04-2022 08:58-0500 Systolic blood pressure 136 mm[Hg] Isabelle Carrion MD Work Phone: [facility] 11-30-2021 08:10-0400 Body height 177.8 cm Isabelle Carrion MD Work Phone: [facility] 11-30-2021 08:10-0400 Body weight 98.43 kg Isabelle Carrion MD Work Phone: [facility] 11-30-2021 08:10-0400 Diastolic blood pressure 74 mm[Hg] Isabelle Carrion MD Work Phone: [facility] 11-30-2021 08:10-0400 Heart rate 79 /min Isabelle Carrion MD Work Phone: [facility] 11-30-2021 08:10-0400 Systolic blood pressure 142 mm[Hg] Isabelle Carrion MD Work Phone: [facility] Encounters Encounter Date Encounter Type Care Provider Facility Start: 11-26-2023 End: 11-26-2023 ambulatory ISABELLE CARRION Facility:[facility] Start: 11-26-2023 End: 11-26-2023 Patient encounter procedure Isabelle Carrion MD Work Phone: [facility] Comment on above: Medicare annual well ness visit, subsequent (Primary Dx); Screening for depression; BPH with urinary obstruction; Type 2 diabetes mellitus well controlled (HCC); S/P hip replacement, right Start: 11-19-2023 End: 11-19-2023 ambulatory ISABELLE CARRION Facility:[facility] Start: 11-12-2023 ambulatory Isabelle munson MD Work Phone: Internal Medicine Main [place] Start: 09-05-2023 Telephone encounter Isabelle Carrion MD Work Phone: [facility] Comment on above: Received Outside Med [facility] Records ([facility]) Start: 07-30-2023 Telephone encounter Isabelle Carrion MD Work Phone: Family Practice Comment on above: Received Outside Med ical Records ([facility] ER Summary 07/29/2023 Right lower extrem edema) Start: 07-29-2023 Telephone encounter Isabelle Carrion MD Work Phone: Family Practice Comment on above: Orders ([facility] PT) Received Outside Med ical Records ([facility] ED 07/27/23) Start: 07-25-2023 Telephone encounter Isabelle Carrion MD Work Phone: Family Practice Comment on above: Received Outside Med ical Records ([facility] ED) Start: 07-23-2023 Telephone encounter Isabelle Carrion MD Work Phone: Family Practice Comment on above: Received Outside Med ical Records ([facility] 07/23/23) Start: 06-13-2023 Telephone encounter Isabelle Carrion MD Work Phone: Family Practice Comment on above: Outside Lab Results (Labs, imaging, EKG- [facility]) Start: 06-03-2023 End: 06-03-2023 ambulatory ISABELLE CARRION Facility:[facility] Start: 05-21-2023 ambulatory Isabelle munson MD Work Phone: Internal Medicine [facility] [place] Start: 05-16-2023 Telephone encounter Isabelle Carrion MD Work Phone: Family Practice Comment on above: Received Outside Med ical Records ([facility] CT bilateral lower extremity with 3-D imaging 05/16/2023/) Start: 05-09-2023 Telephone encounter Isabelle Carrion MD Work Phone: Family Practice Comment on above: Received Outside Med ical Records ([facility] for surgery 06/18/2023) Start: 04-30-2023 End: 04-30-2023 ambulatory SHYAM ARNETT [facility] Start: 04-30-2023 End: 04-30-2023 Office outpatient visit 15 minutes Shyam Arnett MD Work Phone: [facility] Comment on above: Right hip pain (Prim yesenia Dx); Lumbar stenosis with neurogenic claudication Start: 04-02-2023 End: 04-02-2023 ambulatory SHYAM ARNETT [facility] Start: 04-02-2023 End: 04-02-2023 Office outpatient new 45 minutes Shyam Arnett MD Work Phone: [facility] Comment on above: Lumbar stenosis with neurogenic claudication (Primary Dx) Start: 03-13-2023 End: 03-13-2023 ambulatory ROSS LIM Facility:[facility] Start: 02-25-2023 Telephone encounter Shyam bal MD Work Phone: [facility] Comment on above: Appointment Request Start: 01-09-2023 ambulatory DEON Gracie ALEXMIMAFLEX Facility:[facility] Start: 01-09-2023 End: 01-09-2023 Office outpatient visit 25 minutes Michelle Denis ANALYTICS DIRECTOR-DOOR TECHNICIAN Work Phone: [facility] Comment on above: Hospital discharge f ollow-up (Primary Dx); 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 Start: 11-26-2022 Telephone encounter Isabelle Carrion MD Work Phone: [facility] Comment on above: Medication Problem Start: 11-26-2022 End: 11-26-2022 Patient encounter procedure Isabelle Carrion MD Work Phone: [facility] Comment on above: Type 2 diabetes debby itus well controlled (HCC) (Primary Dx); Essential hypertension; TIA (transient ischemic attack); Stenosis of left carotid artery; PVC (premature ventricular contraction); Chronic renal failure (CRF), stage 3a (HCC); Folliculitis; Obesity, Class I, BMI 30-34.9 Start: 11-16-2022 Telephone encounter Isabelle Carrion MD Work Phone: [facility] Comment on above: Received Outside Med [facility] Records ([facility] Department of Emergency Medicine 11/14/2022 Possible Carotid obstruction or dissection) Start: 11-15-2022 Telephone encounter Isabelle Carrion MD Work Phone: [facility] Comment on above: Received Outside Med ical Records ([facility] CTA Head and Neck w/ Contrast 11/13/2022) Received Outside Med ical Records ([facility] Emergency Department Summary 11/14/2022 Slurred speech,, facial droop difficulty reading) Received Outside Med ical Records ([facility] 11/14/22) Start: 11-14-2022 End: 11-15-2022 ambulatory ABDIAS Buzz DECKER Facility:[facility] Start: 11-13-2022 ambulatory Isabelle munson MD Work Phone: Internal [facility] Start: 08-13-2022 ambulatory SARAH CLAY DO Facili ty:[facility] Start: 08-07-2022 End: 08-08-2022 ambulatory SENTHIL DHARA ANALYTICS DIRECTOR-DOOR TECHNICIAN Facility:[id number] Start: 08-03-2022 End: 08-04-2022 ambulatory SARAH CLAY DO Facility:[facility] Start: 06-04-2022 End: 06-04-2022 Patient encounter procedure Isabelle Carrion MD Work Phone: [facility] Comment on above: Type 2 diabetes debby itus well controlled (HCC) (Primary Dx); Essential hypertension; Stenosis of right carotid artery Start: 05-25-2022 End: 05-26-2022 ambulatory ISABELLE CARRION Facility:[facility] Start: 05-22-2022 ambulatory Isabelle munson MD Work Phone: Internal [facility] Start: 12-20-2021 Telephone encounter Reyes young MD Work Phone: Orthopaedics Comment on above: Chart prep Start: 12-01-2021 E-mail encounter fro m caregiver Isabelle Carrion MD Work Phone: [facility] Start: 12-01-2021 Patient encounter procedure Isabelle Carrion MD Work Phone: [facility] Comment on above: Ortho Consult Start: 11-30-2021 ambulatory ISABELLE Mckeon ty:[facility] Start: 11-30-2021 End: 11-30-2021 Subsequent hospital visit by physician Xr [facility] Comment on above: Primary osteoarthrit is of right hip [M16.11] Start: 11-30-2021 End: 11-30-2021 Patient encounter procedure Isabelle Carrion MD Work Phone: [facility] Comment on above: Type 2 diabetes debby itus well controlled (HCC) (Primary Dx); PTSD (post-traumatic stress disorder); Essential hypertension; Stenosis of right carotid artery; DDD (degenerative disc disease), lumbar; Other hyperlipidemia; Gastroesophageal reflux disease without esophagitis; Paresthesia of right leg; Primary osteoarthritis of right hip Start: 11-20-2021 End: 11-21-2021 ambulatory ISABELLE CARRION Facility:[facility] Start: 10-24-2021 ambulatory Isabelle munson MD Work Phone: [facility] Start: 07-24-2021 Telephone encounter Isabelle Carrion MD Work Phone: [facility] Comment on above: Received Outside [facility] Records ([facility] 07/04/2021 Operative report) Procedures Date Procedure Procedure Detail Performing Clinician Start: 11-26-2023 Adult depression scr eening assessment Isabelle Carrion MD Work Phone: Start: 05-24-2023 CBC + DIFF [facility] Provid er Start: 05-24-2023 Comprehensive metabo lic 2000 panel - Serum or Plasma [facility] Provider Start: 05-24-2023 Cyanocobalamin vitamin b-12 [facility] Start: 05-24-2023 Hemoglobin A1c/Hemoglobin.total in Blood [facility] Start: 05-24-2023 LIPID PANEL BASIC [facility] P rovider Start: 11-30-2021 Radex hips bilateral with pelvis [...] Care Activity Detail Author Start: 10-18-2027 DTaP/Tdap/Td Vaccine s (2 - Td or Tdap) DTaP/Tdap/Td Vaccines (2 - Td or Tdap) [facility] Start: 10-18-2027 Tetanus vaccination TETANUS [facility] Start: 10-18-2027 Urine microalbumin profile [facility] Start: 07-04-2026 Colonoscopy COLONOSCOPY [facility] Start: 07-04-2026 COLORECTAL CANCER SCREENING COLORECTAL CANCER SCREENING [facility] Start: 07-04-2026 Screening for malign ant neoplasm of colon [facility] Start: 11-25-2024 Annual PCP Team Licensed Embalmer Supervisor alejandro Disease Visit Annual PCP Team Chronic Disease Visit [facility] Start: 11-25-2024 BP Controlled (<130/80) BP Controlle d (<130/80) [facility] Start: 11-25-2024 Depression Screening Depression Scre ening [facility] Start: 11-18-2024 Creatinine measurement Serum Creatin ine [facility] Start: 11-18-2024 Hepatitis B screening Urine Al bumin:Creatinine Ratio [facility] Start: 11-18-2024 Hepatitis B surface antibody level LDL Cholesterol [facility] Start: 06-03-2024 Annual PCP Team Licensed Embalmer Supervisor alejandro Disease Visit Annual PCP Team Chronic Disease Visit [facility] Start: 06-03-2024 BP Controlled (<130/80) BP Controlle d (<130/80) [facility] Start: 06-03-2024 Diabetic foot examination Diabetic Foot Exam [facility] Start: 05-24-2024 Hepatitis B surface antibody level LDL Cholesterol [facility] Start: 05-21-2024 Hemoglobin A1c measurement HbA1C [facility] Start: 12-08-2023 Influenza vaccination C [facility] Start: 11-27-2023 ANNUAL PCP TEAM DISPLAY MECHANIC ALEJANDRO DISEASE VISIT ANNUAL PCP TEAM CHRONIC DISEASE VISIT [facility] Start: 11-27-2023 BP CONTROLLED (<130/80) BP CONTROLLE D (<130/80) [facility] Start: 11-26-2023 End: 11-26-2023 Patient encounter procedure 11/26/2023 8:00 AM EDT Office Visit Family Practice [address] [place] [address] [place], [place] [id number] Isabelle Carrion MD [address] [place] [address] [address] [place], [place] [id number] follow up 6 months Family Practice Comment on above: follow up 6 months Start: 11-22-2023 Hemoglobin A1c measurement HbA1C [facility] Start: 11-15-2023 Hepatitis B surface antibody level LDL Cholesterol [facility] Start: 11-15-2023 Lipid panel LIPIDS [facility] Start: 11-12-2023 End: 02-11-2024 Basic metabolic 2000 panel - Serum or Plasma BASIC METABOLIC PANEL Lab Routine Type 2 diabetes mellitus with hyperglycemia, without long-term current use of insulin (HCC) Expected: 11/12/2023, Expires: 02/11/2024 [facility] Comment on above: Expected: 11/12/2023 , Expires: 02/11/2024 Start: 11-12-2023 End: 02-11-2024 Hemoglobin A1c in Blood HEMOGLOBIN A1C Lab Routine Type 2 diabetes mellitus with hyperglycemia, without long-term current use of insulin (HCC) Expected: 11/12/2023, Expires: 02/11/2024 [facility] Comment on above: Expected: 11/12/2023 , Expires: 02/11/2024 Start: 11-12-2023 End: 02-11-2024 Lipid 1996 panel - Serum or Plasma LIPID PANEL BASIC Lab Routine Other hyperlipidemia Expected: 11/12/2023, Expires: 02/11/2024 [facility] Comment on above: Expected: 11/12/2023 , Expires: 02/11/2024 Start: 11-12-2023 End: 02-11-2024 Microalbumin/Creatinine [Mass Ratio] in Urine ALBUMIN/CREATININE RATIO, URINE Lab Routine Type 2 diabetes mellitus with hyperglycemia, without long-term current use of insulin (HCC) Expected: 11/12/2023, Expires: 02/11/2024 [facility] Work Phone: Comment on above: Expected: 11/12/2023 , Expires: 02/11/2024 Start: 07-04-2023 Colonoscopy COLONOSCOPY [facility] Start: 07-04-2023 COLORECTAL CANCER SCREENING COLORECTAL CANCER SCREENING [facility] Start: 06-04-2023 ANNUAL PCP TEAM DISPLAY MECHANIC ALEJANDRO DISEASE VISIT ANNUAL PCP TEAM CHRONIC DISEASE VISIT [facility] Start: 05-28-2023 Glaucoma screening Dilated Retinal E xam [facility] Start: 05-28-2023 Hepatitis C antibody , confirmatory test DILATED RETINAL EXAM [facility] Start: 05-25-2023 Hepatitis B screening URINE AL BUMIN:CREATININE RATIO [facility] Start: 05-21-2023 End: 08-20-2023 Basic metabolic 2000 panel - Serum or Plasma BASIC METABOLIC PNL Lab Routine Type 2 diabetes mellitus well controlled (HCC) Expected: 05/21/2023, Expires: 08/20/2023 [facility] Work Phone: Comment on above: Expected: 05/21/2023 , Expires: 08/20/2023 Start: 05-21-2023 End: 08-20-2023 CBC panel - Blood by Automated count CBC Lab Routine Type 2 diabetes mellitus well controlled (HCC) Expected: 05/21/2023, Expires: 08/20/2023 [facility] Work Phone: Comment on above: Expected: 05/21/2023 , Expires: 08/20/2023 Start: 05-21-2023 End: 08-20-2023 Hemoglobin A1c in Blood HGB A1C Lab Routine Type 2 diabetes mellitus well controlled (HCC) Expected: 05/21/2023, Expires: 08/20/2023 [facility] Work Phone: Comment on above: Expected: 05/21/2023 , Expires: 08/20/2023 Start: 05-17-2023 Hemoglobin A1c measurement [facility] Start: 05-17-2023 Hemoglobin A1c/Hemoglobin.total in Blood HBA1C [facility] Start: 04-16-2023 End: 04-02-2024 MR Lumbar spine WO contrast MR lumbar spine wo contrast Imaging Routine Lumbar stenosis with neurogenic claudication Expected: 04/16/2023, Expires: 04/02/2024 [employer] Work Phone: Comment on above: Expected: 04/16/2023 , Expires: 04/02/2024 Start: 04-16-2023 End: 04-02-2024 XR Lumbar spine Views W flexion and W extension XR lumbar spine 4-5 view Imaging Routine Lumbar stenosis with neurogenic claudication Expected: 04/16/2023, Expires: 04/02/2024 [facility] Comment on above: Expected: 04/16/2023 , Expires: 04/02/2024 Start: 04-08-2023 Advance Directive Discussion Advance Directive Discussion [facility] Start: 04-08-2023 Behavioral Health Screening Behavioral Health Screening [facility] Start: 04-08-2023 Depression Assessment Depression Ass essment [facility] Start: 04-02-2023 End: 04-02-2023 Patient encounter procedure 04/02/2023 1:15 PM EST Office Visit [facility] [address] [place] [phone] Shyam Arnett MD [address] [place] [phone] [facility] Start: 12-07-2022 Covid-19 Vaccine ( season) Covid-19 Vaccine ( season) [facility] Start: 12-07-2022 Influenza vaccination C [facility] Start: 11-30-2022 3 comp foot exam completed DIABETIC FOOT EXAM [facility] Start: 11-30-2022 Adult depression screening assessment DEPRESSION SCREENING [facility] Start: 11-30-2022 ANNUAL PCP TEAM DISPLAY MECHANIC ALEJANDRO DISEASE VISIT ANNUAL PCP TEAM CHRONIC DISEASE VISIT [facility] Start: 11-30-2022 COVID-19 VACCINE (#1) COVID-19 VACCI NE (#1) [facility] Comment on above: Postponed from 05/08 (Declined at this time) Start: 11-30-2022 Diabetic foot examination Diabetic Foot Exam [facility] Start: 11-30-2022 PNEUMOCOCCAL: 65+ (1 - PCV) PNEUMOCOCCAL: 65+ (1 - PCV) [facility] Comment on above: Postponed from 11/05 (Declined at this time) Start: 11-30-2022 SHINGRIX VACCINE (1 of 2) SHINGRIX VACCINE (1 of 2) [facility] Comment on above: Postponed from 11/05 (Declined at this time) Start: 11-22-2022 Hemoglobin A1c/Hemoglobin.total in Blood HBA1C [facility] Start: 11-20-2022 Creatinine measurement Serum Creatin ine [facility] Start: 11-20-2022 Hepatitis B surface antibody level LDL CHOLESTEROL [facility] Start: 11-13-2022 End: 01-13-2023 Basic metabolic 2000 panel - Serum or Plasma BASIC METABOLIC PNL Lab Routine Type 2 diabetes mellitus well controlled (HCC) Expected: 11/13/2022, Expires: 01/13/2023 [facility] Work Phone: Comment on above: Expected: 11/13/2022 , Expires: 01/13/2023 Start: 11-13-2022 End: 01-13-2023 CBC panel - Blood by Automated count CBC Lab Routine Type 2 diabetes mellitus well controlled (HCC) Expected: 11/13/2022, Expires: 01/13/2023 [facility] Work Phone: Comment on above: Expected: 11/13/2022 , Expires: 01/13/2023 Start: 11-13-2022 End: 01-13-2023 Hemoglobin A1c in Blood HGB A1C Lab Routine Type 2 diabetes mellitus well controlled (HCC) Expected: 11/13/2022, Expires: 01/13/2023 [facility] Work Phone: Comment on above: Expected: 11/13/2022 , Expires: 01/13/2023 Start: 11-13-2022 End: 01-13-2023 Lipid 1996 panel - Serum or Plasma LIPID PANEL BASIC Lab Routine Other hyperlipidemia Expected: 11/13/2022, Expires: 01/13/2023 [facility] Work Phone: Comment on above: Expected: 11/13/2022 , Expires: 01/13/2023 Start: 10-05-2022 Influenza vaccination INFLUENZA (#1) [facility] Comment on above: Postponed from 12/07 (Declined at this time) Start: 05-23-2022 Hemoglobin A1c/Hemoglobin.total in Blood HBA1C [facility] Start: 05-22-2022 End: 07-22-2022 ALBUMIN/CREAT RATIO RND UR ALBUMIN/CREAT RATIO RND UR Lab Routine Type 2 diabetes mellitus well controlled (HCC) Expected: 05/22/2022, Expires: 07/22/2022 [facility] Work Phone: Comment on above: Expected: 05/22/2022 , Expires: 07/22/2022 Start: 05-22-2022 End: 07-22-2022 Hemoglobin A1c in Blood HGB A1C Lab Routine Type 2 diabetes mellitus well controlled (HCC) Expected: 05/22/2022, Expires: 07/22/2022 [facility] Work Phone: Comment on above: Expected: 05/22/2022 , Expires: 07/22/2022 Start: 05-22-2022 End: 07-22-2022 SCHEDULE LAB TESTING SCHEDULE LAB TESTING Lab Routine Expected: 05/22/2022, Expires: 07/22/2022 [facility] Work Phone: Comment on above: Expected: 05/22/2022 , Expires: 07/22/2022 Start: 04-08-2022 ADVANCE DIRECTIVE DISCUSSION ADVANCE DIRECTIVE DISCUSSION [facility] Start: 04-08-2022 DEPRESSION ASSESSMENT DEPRESSION ASS ESSMENT [facility] Start: 02-02-2022 ANNUAL PCP TEAM DISPLAY MECHANIC ALEJANDRO DISEASE VISIT ANNUAL PCP TEAM CHRONIC DISEASE VISIT [facility] Start: 01-25-2022 Hepatitis B screening URINE AL BUMIN:CREATININE RATIO [facility] Start: 01-25-2022 Hepatitis B surface antibody level LDL CHOLESTEROL [facility] Start: 12-07-2021 Influenza vaccination C [facility] Start: 07-26-2021 Hemoglobin A1c/Hemoglobin.total in Blood HBA1C [facility] Start: 04-08-2021 ADVANCE DIRECTIVE DISCUSSION ADVANCE DIRECTIVE DISCUSSION [facility] Start: 12-03-2019 Adult depression screening assessment DEPRESSION SCREENING [facility] Start: 11-05-2012 Pneumococcal vaccination PNEUMOCOCCAL VACCINE SERIES (1 - PCV) [facility] Start: 11-05-2012 Pneumococcal Vaccine : 65+ Years (1 - PCV) Pneumococcal Vaccine: 65+ Years (1 - PCV) [facility] Start: 11-05-2012 Pneumococcal Vaccine : 65+ Years (1 of 1 - PCV) Pneumococcal Vaccine: 65+ Years (1 of 1 - PCV) [facility] Start: 2007 RSV Immunization age d 60 or older (1 - 1-dose 60+ series) RSV Immunization aged 60 or older (1 - 1-dose 60+ series) [facility] Start: 2007 RSV Vaccine (1 - 1-d ose 60+ series) RSV Vaccine (1 - 1-dose 60+ series) [facility] Start: 11-05-1997 Prostate specific antigen measurement PROSTATE CANCER SCREENING DISCUSSION [facility] Start: 11-05-1997 SHINGRIX VACCINE (1 of 2) SHINGRIX VACCINE (1 of 2) [facility] Start: 11-05-1997 Zoster vaccine hzv l gege for subcutaneous use ZOSTER (SHINGLES) VACCINE (1 of 2) [facility] Start: 11-05-1997 Zoster Vaccines (1 o f 2) Zoster Vaccines (1 of 2) [facility] Start: 11-05-1992 COLOGUARD (FIT-DNA) COLOGUARD (FIT-D NA) [facility] Start: 11-05-[address] COLONOGRAPHY [facility] Start: 11-05-1992 FECAL OCCULT BLOOD FECAL OCCULT BLOO D [facility] Start: 11-05-1992 Screening for malign ant neoplasm of colon [facility] Start: 11-05-1992 SIGMOIDOSCOPY SIGMOIDOSCOPY [facility] Start: 11-05-1965 BP CONTROLLED (<130/80) BP CONTROLLE D (<130/80) [facility] Start: 11-05-1965 Depression Screening Depression Scre ing [facility] Start: 11-05-1965 Hepatitis C screening Hepatitis C Sc reening [facility] Start: 1959 Depression Screening Depression Scre [facility] Start: 11-05-1957 3 comp foot exam completed DIABETIC FOOT EXAM [facility] Start: 11-05-1957 Hepatitis C antibody , confirmatory test DILATED RETINAL EXAM [facility] Start: 11-05-1953 Pneumococcal Vaccine : 65+ (1 of 2 - PCV) Pneumococcal Vaccine: 65+ (1 of 2 - PCV) [facility] Start: 11-05-1953 PNEUMOCOCCAL: 65+ (1 - PCV) PNEUMOCOCCAL: 65+ (1 - PCV) [facility] Start: 11-05-1952 COVID-19 VACCINE (1) COVID-19 VACCIN E (1) [facility] Start: 05-08-1948 COVID-19 VACCINE (#1) COVID-19 VACCI NE (#1) [facility] Start: 1947 ABDOMINAL AORTIC ANEURYSM SCREENING ABDOMINAL AORTIC ANEURYSM SCREENING [facility] Start: 1947 Diabetic foot examination DIABETIC FOOT EXAM [facility] Start: 1947 Glaucoma screening EYE EXAM [facility] Start: 1947 Hepatitis C screening HEPATITI S C VIRUS SCREENING [facility] Start: 1947 Lipid panel Lipid Panel [facility] Start: 1947 Medicare Annual Wellness (AWV) Medicare Annual Wellness (AWV) [facility] Start: 1947 Screening for malign ant neoplasm of colon [facility] Start: 1947 Urine screening for protein URINE MICROALBUMIN TEST [facility] ECG COMPLETE ECG COMPLETE ECG Routine PVC (premature ventricular contraction) Ordered: 11/26/2022 [facility] Work Phone: Comment on above: Ordered: [facility]22 [facility] Immunizations Immunization Date Immunization Notes Care Provider Fa cility 06-09-2019 influenza virus vacc ine, unspecified formulation Isabelle Carrion MD Work Phone: [facility] 10-17-2017 tetanus toxoid, redu diana diphtheria toxoid, and acellular pertussis vaccine, adsorbed Isabelle Carrion MD Work Phone: [facility] Payers Date Payer Category Payer Unknown [id number] 2013 Private Health Insurance [facility] AARP SUPPLEMENT [id number] 2013-Present [phone] [address] [place] [address] Indemnity [id number] 2013 Unknown [id number] 2012 Medicare MEDICARE MEDICAR E A AND B [id number] 2012-Present [phone] [place] [address] Medicare [id number] 2012 Medicare [id number] 2008 Medicare [id number] 2008 Private Health Insurance [id number] 1947 Unknown [id number] 1947 Unknown [id number] 1947 Unknown [id number] 1947 Unknown [id number] 1947 Unknown [id number] Social History Date Type Detail Facility Start: 11-30-2021 End: 11-26-2023 Tobacco smoking status NHIS Ex-smoker [facility] Start: 04-08-1962 End: 04-08-1967 History of tobacco use Current smoker [facility] Start: 02-02-2021 End: 11-26-2023 Alcohol intake Current non-drinker of alcohol (finding) [facility] Start: 10-17-2017 History SDOH Alcohol Comment rare [facility] Start: 10-21-2018 End: 11-30-2021 Tobacco Comment in [facility] Start: 1945 Sex Assigned At Not on file [facility] Start: 04-08-1962 End: 04-08-1967 History of tobacco use Cigarette Smoker [facility] Start: 03-13-2020 End: 11-30-2021 Cigarettes smoked current (pack per day) - Reported 1 [facility] Work Phone: Start: 11-30-2021 End: 11-26-2023 Tobacco use and exposure Smokeless tobacco non-user [facility] Start: 1945 Sex Assigned At Male C [facility] Start: 11-20-2021 End: 12-21-2021 Exposure to SARS-CoV-2 (event) Not sure [facility] Start: 03-13-2020 End: 06-04-2022 Tobacco use panel [facility] Work Phone: Adult Depression Screening Assessment 0 [facility] Work Phone: Start: 01-09-2023 End: 04-02-2023 Tobacco smoking status NHIS Never smoked tobacco [facility] Start: 01-09-2023 Alcohol intake Lifetime non-d kirk (finding) [facility] Tobacco smoking stat us MSIS Tobacco smoking consumption unknown [facility] Start: 04-02-2023 End: 04-30-2023 Alcohol intake Ex-drinker (finding) [facility] Clinical Notes 03-04-2015 to 11-26-2023 Patient InstructionsIsabelle Carrion MD - 11/26/2023 8:10 AM EDTTelephone Encounter - Chao Chi LPN - 09/05/2023 3:35 PM EDTTelephone Encounter - Adriana Atkins LPN - 07/30/2023 12:46 PM EDT Note Date & Type Note Facility 11-26-2023 Instructions Isabelle Carrion MD - 11/26/2023 8:24 AM EDT Screening schedule The following prevention plan is recommended: Pneumococcal Vaccine: 65+(1 of 2 - PCV) Never done Depression Screening Never done Shingrix Vaccine(1 of 2) Never done RSV Vaccine(1 - 1-dose 60+ series) Never done Covid-19 Vaccine( - 2022- season) Never done Advance Directive Discussion Never done Dilated Retinal Exam due on 05/28/2023 WHAT YOU CAN DO TO PREVENT FALLS Many falls can be prevented. By making some changes, you can lower your chances of falling. Four things YOU can do to prevent falls for you* and your caregiver 1. Begin a regular exercise program Exercise is one of the most important ways to lower your chances of falling. It makes you stronger and helps you feel better. Exercises that improve balance and coordination (like Adrián Chi) are the most helpful. Lack of exercise leads to weakness and increases your chances of falling. Ask your doctor or health care provider about the best type of exercise program for you. 2. Have your health care provider review your medicines Have your doctor or pharmacist review all the medicines you take, even pbck-pcj-oncdlkc medicines. As you get older, the way medicines work in your body can change. Some medicines, or combinations of medicines, can make you sleepy or dizzy and can cause you to fall. 3. Have your vision checked Have your eyes checked by an eye doctor at least once a year. You may be wearing the wrong glasses or have a condition like glaucoma or cataracts that limits your vision. Poor vision can increase your chances of falling. 4. Make your home safer About half of all falls happen at home. To make your home safer: Remove things you can trip over (like papers, books, clothes, and shoes) from stairs and places where you walk. Remove small throw rugs or use double-sided tape to keep the rugs from slipping. Keep items you use often in cabinets you can reach easily without using a step stool. Have grab bars put in next to your toilet and in the tub or shower. Use non-slip mats in the bathtub and on shower floors. Improve the lighting in your home. As you get older, you need brighter lights to see well. Hang light-weight curtains or shades to reduce glare. Have handrails and lights put in on all staircases. Wear shoes both inside and outside the house. Avoid going barefoot or wearing slippers. For more information, contact: Centers for Disease Control and Prevention www.cdc.gov/injury * This information may not apply if you have certain medical conditions. documented in this encounter [facility] 11-26-2023 Note HNO ID: [id number] Author: ISABELLE CARRION MD Service: ? Author Type: Physician Type: Progress Notes Filed: 11/26/2023 10:18 Note Text: Umberto Tatum is a 78 year old male here for a Medicare wellness visit. - S/p right hip replacement in July with Dr. Hudson at [facility] - Notes having difficulty urinating while in the hospital, started on tamsulosin Diabetes - Currently managed on metformin 500 mg tablet BID - Adherent to regimen - A1c is 6.3%, improved from 6.7% Medicare Health Risk Assessment General Health Good Exercise: Minutes/Day Exercise: Days/Week Alcohol: Daily Use No, rarely drinks Alcohol: Drinks/Day Alcohol: 6 or more drinks Never Feel off balance No Concerns: Teeth/Dentures No Concerns: Sexual function No Troubled by feelings No Frequency: Eating healthy diet Every day ADLs requiring help None Safety precautions in home/vehicle Yes Smoke, vape, chews tobacco Former smoker, quit in 1967 Difficulty hearing No Difficulty seeing No Current Providers Specialists: I have reviewed specialist-related care of the patient in the medical record. Medical/Family history review Reviewed and updated problem list, medical/surgical/family/social history, medications, and allergies. Opioid use review Opioid Medications (last 90 days) No data to display Depression screening 11/26/23 - 12/02/2018 11/30/2021 06/04/2022 06/03/2023 Depression Screening PHQ-2 Score 0 0 0 0 Depression screening tool completed and reviewed. Based on score and interview, patient is not at risk for depression. Screening tool discussed with patient, and I recommended no further intervention at this time. Cognitive screening Cognitive screening reviewed and No further action needed (score 3-5). Functional Observation Was the patient's timed Up AND Go test unsteady or ? 12 seconds? No Advance Care Planning Patient did not wish or was not able to name a surrogate decision maker or provide an advance care plan Measurements BP 109/54 Pulse 73 Ht 177.8 cm (5' 10 ) Wt 91 kg (200 lb 9.9 oz) SpO2 95% BMI 28.79 kg/m? General: Alert, well developed, well nourished, no distress, pleasant and cooperative. HEENT: No adenopathy or thyromegaly Heart: Regular rate and rhythm. Normal S1 and S2. No murmurs, rubs, or gallops. Lungs: Clear to auscultation bilaterally. No respiratory distress. No wheezes, rales, or rhonchi. Abdomen: Soft, non-tender, no distention Extremities: Feet/ankles without edema, posterior tibial pulses full and symmetrical Skin: he has some excoriations on his legs. No suspicious lesions Assessment/Plan Medicare annual wellness visit, subsequent (Z00.00) - Fall avoidance information provided - Personalized prevention plan provided (Z) Medicare annual wellness visit, subsequent (primary encounter diagnosis) Comment: 78 year old here for annual wellness Plan: As below (Z13.31) Screening for depression Comment: Per health maintenance Plan: DEPRESSION SCREENING (N40.1, N13.8) BPH with urinary obstruction Comment: Difficulty urinating, improved since starting tamsulosin Plan: Continue current regimen (E11.9) Type 2 diabetes mellitus well controlled ([facility]) Comment: Well controlled. A1c Improved from 6.7 to 6.3 Plan: Continue current regimen Med update Requested Prescriptions Signed Prescriptions Disp Refills tamsulosin (FLOMAX) 0.4 mg Sig: Take 1 capsule by mouth daily at bedtime. Scribe Attestation: By signing my name below, Wil Palacios, attest that this documentation has been prepared under the direction and in the presence of Kaushal Carrion M.D. Electronically Signed: Juanita Sosa. November 26, 2023 8:10 AM Provider Attestation: Isabelle Palacios MD, personally performed the services described in this documentation. All medical record entries made by the scribe were at my direction and in my telephonic presence. I have reviewed the chart and discharge instructions (if applicable), and agree that the record reflects my personal performance and is accurate and complete. Electronically Signed: Isabelle Carrion MD November 26, 2023 10:10 AM [facility] 11-26-2023 History of Present illness Narrative Images from the original note were not included. Umberto Tatum is a 78 year old male here for a Medicare wellness visit. - S/p right hip replacement in July with Dr. Hudson at [facility] - Notes having difficulty urinating while in the hospital, started on tamsulosin Diabetes - Currently managed on metformin 500 mg tablet BID - Adherent to regimen - A1c is 6.3%, improved from 6.7% Medicare Health Risk Assessment General Health Good Exercise: Minutes/Day Exercise: Days/Week Alcohol: Daily Use No, rarely drinks Alcohol: Drinks/Day Alcohol: 6 or more drinks Never Feel off balance No Concerns: Teeth/Dentures No Concerns: Sexual function No Troubled by feelings No Frequency: Eating healthy diet Every day ADLs requiring help None Safety precautions in home/vehicle Yes Smoke, vape, chews tobacco Former smoker, quit in 1967 Difficulty hearing No Difficulty seeing No Current Providers Specialists: I have reviewed specialist-related care of the patient in the medical record. Medical/Family history review Reviewed and updated problem list, medical/surgical/family/social history, medications, and allergies. Opioid use review Opioid Medications (last 90 days) No data to display Depression screening 11/26/23 - 12/02/2018 11/30/2021 06/04/2022 06/03/2023 Depression Screening PHQ-2 Score 0 0 0 0 Depression screening tool completed and reviewed. Based on score and interview, patient is not at risk for depression. Screening tool discussed with patient, and I recommended no further intervention at this time. Cognitive screening Cognitive screening reviewed and No further action needed (score 3-5). Functional Observation Was the patient's timed Up & Go test unsteady or ? 12 seconds? No Advance Care Planning Patient did not wish or was not able to name a surrogate decision maker or provide an advance care plan Measurements BP 109/54 Pulse 73 Ht 177.8 cm (5' 10 ) Wt 91 kg (200 lb 9.9 oz) SpO2 95% BMI 28.79 kg/m General: Alert, well developed, well nourished, no distress, pleasant and cooperative. HEENT: No adenopathy or thyromegaly Heart: Regular rate and rhythm. Normal S1 and S2. No murmurs, rubs, or gallops. Lungs: Clear to auscultation bilaterally. No respiratory distress. No wheezes, rales, or rhonchi. Abdomen: Soft, non-tender, no distention Extremities: Feet/ankles without edema, posterior tibial pulses full and symmetrical Skin: he has some excoriations on his legs. No suspicious lesions Assessment/Plan Medicare annual wellness visit, subsequent () - Fall avoidance information provided - Personalized prevention plan provided () Medicare annual wellness visit, subsequent (primary encounter diagnosis) Comment: 78 year old here for annual wellness Plan: As below (Z13.31) Screening for depression Comment: Per health maintenance Plan: DEPRESSION SCREENING (N40.1, N13.8) BPH with urinary obstruction Comment: Difficulty urinating, improved since starting tamsulosin Plan: Continue current regimen (E11.9) Type 2 diabetes mellitus well controlled ([facility]) Comment: Well controlled. A1c Improved from 6.7 to 6.3 Plan: Continue current regimen Med update Requested Prescriptions Signed Prescriptions Disp Refills tamsulosin (FLOMAX) 0.4 mg Sig: Take 1 capsule by mouth daily at bedtime. Scribe Attestation: By signing my name below, I, Wil Liz, attest that this documentation has been prepared under the direction and in the presence of Kaushal Carrion M.D. Electronically Signed: Juanita Sosa. November 26, 2023 8:10 AM Provider Attestation: I, Isabelle Carrion MD, personally performed the services described in this documentation. All medical record entries made by the scribe were at my direction and in my telephonic presence. I have reviewed the chart and discharge instructions (if applicable), and agree that the record reflects my personal performance and is accurate and complete. Electronically Signed: Isabelle Carrion MD November 26, 2023 10:10 AM documented in this encounter [facility] 11-12-2023 Note Patient Outreach (IN TMMN) UMBERTO TATUM ([id number]) 1945 M Date Time Provider Department 11/12/23 ISABELLE CARRION During your visit today, we recorded the following information about you: Allergies As of Date: 11/12/2023 Noted Allergy Reaction PENICILLINS 01/20/2009 2 - Rash Date Reviewed: 06/03/2023 Reviewed by: Chao Chi LPN - Fully Assessed Visit Diagnoses:Type 2 diabetes mellitus with hyperglycemia, without long-term current use of insulin (HCC) [E11.65] Other hyperlipidemia [E78.49] Order(s):ALBUMIN/CREATININE RATIO, URINE [SQUACR] Order #: [id number] FUTURE BASIC METABOLIC PANEL [SQBMP] Order #: [id number] FUTURE HEMOGLOBIN A1C [WSTAU4N] Order #: [id number] FUTURE LIPID PANEL BASIC [SQLIPB] Order #: [id number] FUTURE Prescriptions as of 11/15/2023 - clopidogrel (PLAVIX) 75 mg tablet Take 1 tablet by mouth once daily. - mupirocin (BACTROBAN) 2 % ointment Apply to affected area three times daily. - metFORMIN (GLUCOPHAGE) 500 mg tablet Take [...] (B COMPLEX-100 ORAL) Take by mouth. - pn-6-ekn-epa-fish oil-vit D3 [phone] kr-py-hj-unit cap Take by mouth. - sildenafil, antihypertensive, [...] once daily. Problem List As Of Date 11/12/2023 Noted Resolved Essential hypertension [I10] 03/04/2015 Carotid arterial disease (HCC) [I77.9] 03/04/2015 04/28/2019 Spondylolisthesis [M43.10] 03/04/2015 GERD (gastroesophageal reflux disease) [K21.9] 03/04/2015 Other hyperlipidemia [E78.49] 03/04/2015 DDD (degenerative disc disease), lumbar [M51.36] PTSD (post-traumatic stress disorder) [F43.10] Tubular adenoma of colon [D12.6] Carotid artery stenosis [I65.29] 04/28/2019 Type 2 diabetes mellitus well controlled (HCC) *02/02/2021 Obesity, Class I, BMI 30-34.9 [E66.9] 11/26/2022 Type 2 diabetes mellitus with hyperglycemia, wi*06/03/2023 Encounter Status:Closed by LISA DAVIDSON on 11/15/23 [facility] 09-05-2023 Telephone encounter Note Received visit summary from [facility]. Placed in provider's inbox for review. Route to [place] scanning [facility] 09-05-2023 Miscellaneous Notes Received visit summary from [facility]. Placed in provider's inbox for review. Route to [place] scanning documented in this encounter [facility] 07-30-2023 Telephone encounter Note Received 07/30/2023 from [facility]. Placed in provider's inbox for review. Route to [place] for scanning. [facility] 07-30-2023 Miscellaneous Notes Received 07/30/2023 from [facility]. Placed in provider's inbox for review. Route to [place] for scanning. documented in this encounter [facility] 07-29-2023 Telephone encounter Note Received ED summary from [facility] for mcconnell c/o. Placed in provider's inbox for review. Route to [place] scanning [facility] 07-29-2023 Miscellaneous Notes Received ED summary from [facility] for mcconnell c/o. Placed in provider's inbox for review. Route to [place] scanning documented in this encounter [facility] 07-29-2023 Telephone encounter Note Received PT orders from [facility]. Placed in provider's inbox for review. Route to [place] fax [facility] 07-29-2023 Miscellaneous Notes Received PT orders from [facility]. Placed in provider's inbox for review. Route to [place] fax documented in this encounter [facility] 07-25-2023 Miscellaneous Notes Received ED summary for complaint from [facility]. Placed in provider's inbox for review. Route to [place] scanning documented in this encounter [facility] 07-23-2023 Miscellaneous Notes Received H and P exam from [facility]. Placed in provider's inbox for review. Route to [place] scanning documented in this encounter [facility] 06-13-2023 Miscellaneous Notes Received lab results, EKG, and imaging from [facility]. Placed in provider's inbox for review. Route to [place] scanning Labs entered into pt chart documented in this encounter [facility] 06-03-2023 Note HNO ID: [id number] Author: ISABELLE CARRION MD Service: ? Author Type: Physician Type: Progress Notes Filed: 06/03/2023 11:46 Note Text: CHIEF COMPLAINT Patient presents with: 6 Month Exam HISTORY OF PRESENT ILLNESS Umberto Tatum is a 77 year old male who presents here today for 6 month follow up. I last saw this patient on 11/26/2022. Diabetes - Currently managed on metformin 500 mg tablet - Adherent to regimen, tolerating well - A1c is 6.7% as of 05/30/2023 Hypertension - Currently managed on amlodipine 10 mg tablet, hydrochlorothiazide 25 mg tablet and losartan 100 mg tablet once daily - Adherent to regimen - BP elevated upon arrival to office at 134/75, improved on repeat at 112/64 Health Maintenance Due for Covid-19 Vaccine Due for Pneumococcal Vaccine: 65+ (1 of 2- PCV) Due for Shingrix Vaccine (1 of 2) Due for RSV Vaccine (1- 1 dose 60+ series) Due for Diabetic Foot Exam Due for Influenza Vaccine Due for Advanced Directive Discussion Labs reviewed. [...] attack) 11/13/2022 Tubular adenoma of colon 2018 PHYSICAL EXAMINATION BP 134/75 Pulse 79 Ht 177.8 cm (5' 10 ) Wt 93 kg (205 lb 0.4 oz) SpO2 98% BMI 29.42 kg/m? Repeat BP: 112/64 General: Alert, well developed, well nourished, no distress, pleasant and cooperative. Obese. Heart: Regular rate and rhythm. Normal S1 and S2. No murmurs, rubs, or gallops. Lungs: Clear to auscultation bilaterally. No respiratory distress. No wheezes, rales, or rhonchi. Abdomen: Soft, non-tender, no distention. Extremities: Feet/ankles without edema, posterior tibial pulses full and symmetrical. Feet:Shoes and socks removed, normal distal pulses, sensitive to 10 gm monofilament, and thickening nails, callus and flaking feet. (He notes he has a hard time bending his hip to tend to his feet. Data Reviewed [facility] Cholesterol is well controlled Cholesterol 114 Cholesterol in LDL 51 Cholesterol in HDL 44 Triglyceride 79 A1c is 6.7 Liver enzymes slightly elevated at 34 Assessment/Plan (I10) Essential hypertension (primary encounter diagnosis) Comment: bp well controlled. Plan: continue regime (L60.8) Nail deformity Comment: noted. Plan: suggest podiatry follow up (E11.65) Type 2 diabetes mellitus with hyperglycemia, without long-term current use of insulin (HCC) (E11.9) Type 2 diabetes mellitus well controlled (HCC) Comment: [facility] Plan: maintain Rx. (N18.31) Chronic renal failure (CRF), stage 3a (HCC) Comment: stable Plan: lab reviewed. R hip osteoarthritis. Follow up with ortho for THR RTO: 6 months or sooner as needed Scribe Attestation: By signing my name below, I, Wil Liz, attest that this documentation has been prepared under the direction and in the presence of Kaushal Carrion M.D. Electronically Signed: Juanita Sosa. June 03, 2023 8:11 AM Provider Attestation: I, Isabelle Carrion MD, personally performed the services described in this documentation. All medical record entries made by the scribe were at my direction and in my presence. I have reviewed the chart and discharge instructions (if applicable), and agree that the record reflects my personal performance and is accurate and complete. Electronically Signed: Isabelle Carrion MD June 03, 2023 11:07 AM [facility] 05-21-2023 Note Patient Outreach (IN TMMN) UMBERTO TATUM ([id number]) 1945 Date Time Provider Department 05/21/23 ISABELLE CARRION During your visit today, we recorded the following information about you: Allergies As of Date: 05/21/2023 Noted Allergy Reaction PENICILLINS 01/20/2009 2 - Rash Date Reviewed: 03/13/2023 Reviewed by: Ross Lim MD - Fully Assessed Visit Diagnosis:Type 2 diabetes mellitus well controlled (HCC) [E11.9] Order(s):BASIC METABOLIC PNL [SQBMP] Order #: [id number] FUTURE HGB A1C [NORAV7C] Order #: [id number] FUTURE CBC [SQCBC] Order #: [id number] FUTURE Prescriptions as of 05/24/2023 - clopidogrel (PLAVIX) 75 mg tablet Take 1 tablet by mouth once daily. - mupirocin (BACTROBAN) 2 % ointment Apply to affected area three times daily. - metFORMIN (GLUCOPHAGE) 500 mg tablet Take [...] (B COMPLEX-100 ORAL) Take by mouth. - lm-2-eci-epa-fish oil-vit D3 [phone] ye-ix-ge-unit cap Take by mouth. - sildenafil, antihypertensive, [...] once daily. Problem List As Of Date 05/21/2023 Noted Resolved Essential hypertension [I10] 03/04/2015 Carotid arterial disease (HCC) [I77.9] 03/04/2015 04/28/2019 Spondylolisthesis [M43.10] 03/04/2015 GERD (gastroesophageal reflux disease) [K21.9] 03/04/2015 Other hyperlipidemia [E78.49] 03/04/2015 DDD (degenerative disc disease), lumbar [M51.36] PTSD (post-traumatic stress disorder) [F43.10] Tubular adenoma of colon [D12.6] Carotid artery stenosis [I65.29] 04/28/2019 Type 2 diabetes mellitus well controlled (HCC) *02/02/2021 Obesity, Class I, BMI 30-34.9 [E66.9] 11/26/2022 Encounter Status:Closed by Baoku SurgimatixUSER on 05/24/23 [facility] 05-16-2023 Miscellaneous Notes Received 05/16/2023 from [facility]. Placed in provider's inbox for review. Route to [place] for scanning. documented in this encounter [facility] 05-09-2023 Miscellaneous Notes Received 05/09/2023 from [facility]. Placed in provider's inbox for review. Route to [place] for faxing Appointment scheduled 06/03/2023 R total hip arthroplasty Anticoagulation recommendations prior to surgery and post Off Plavix for 7 days? After surgery can patient be on Eliguis for 3 weeks. documented in this encounter [facility] 04-30-2023 History of Present illness Narrative NEUROSURGERY CONSULT NOTE Patient Name: Chadwick Tatum Patient : 1945 PCP: Isabelle Carrion History [...] Historical Provider, cholecalciferol (Vitamin D-3) 1.25 MG (02320 UT) capsule Take 50,000 Units by mouth [...] deterioration. Diagnosis Plan 1. Right hip pain [facility] 2. Lumbar stenosis with neurogenic claudication documented in this encounter [facility] 04-02-2023 History of Present illness Narrative NEUROSURGERY CONSULT NOTE Patient Name: Chadwick Tatum Patient : 1945 PCP: Isabelle Carrion History [...] New Patient Patient had a laminectomy in 2015. He is experiencing back and right leg [...] Historical Provider, cholecalciferol (Vitamin D-3) 1.25 MG (85466 UT) capsule Take 50,000 Units by mouth [...] spine 4-5 view documented in this encounter [facility] 03-13-2023 Note HNO ID: [id number] Author: Ross Lim MD Service: ? Author [...] Ventricular Contraction History of Present Illness: Umberto Tatum is a 77 year old male with history of essential hypertension, carotid artery disease s/p left endarterectomy in 2014 and right carotid endarterectomy in 2015, TIA has come to reestablish with a outside plant cable engineer for PVCs. Patient was admitted to [facility] in November 2022 with homonymous hemianopia suspicious for TIA. Follow-up with his primary care physician who noticed PVC on his EKG and asked him to see a outside plant cable engineer. He denies chest pain, shortness of breath, [...] CAROTID ENDARTERECTOMY Right 10/25/2015 Dr. Bonilla COLONOSCOPY 2012 2016, 2018 MILD SPINE DECOMPRESSION 03/11/2015 L2-L5, [...] quittin.9 Smokeless tobacco: Never Tobacco comments: in 20' Vaping Use Vaping Use: Never used Substance [...] complex (B COMPLEX-100 ORAL) Take by mouth. sd-6-vfc-epa-fish oil-vit D3 [phone] yv-th-gq-unit cap Take by mouth. esomeprazole (NEXIUM) 40 [...] 32.28 kg/(m2) G (more content not included)... [facility] 02-26-2023 Telephone encounter Note Called and spoke with the patient and scheduled him an appointment with Dr. Arnett on 04/02/23 at 1:15 pm. Patient verbalized an understanding to the appointment date, time and location. [facility] 02-26-2023 Miscellaneous Notes Called and spoke [...] Office Name: Neurosurgery documented in this encounter [facility] 02-25-2023 Note Name of Caller: Chadwick Contact Reason for Appointment: Pt states he would like to get a ppt he had a procedure done in 2014 he states. Office Name: Neurosurgery [facility] 02-25-2023 Telephone encounter Note Name of Caller: Chadwick Contact Reason for Appointment: Pt states he would like to get a ppt he had a procedure done in 2014 he states. Office Name: Neurosurgery [facility] 01-09-2023 History of Present illness Narrative [facility] Department of Neurology Section of Cerebrovascular Disease and Neurocritical Care Hospital Follow Up IDENTIFYING PATIENT INFORMATION: Umberto Tatum MR# [id number] 01/09/2023 CHIEF COMPLAINT: Follow up after hospitalization HISTORY OF PRESENT ILLNESS: The patient Umberto Tatum is a 77 y.o. male has a past medical history of Essential hypertension, benign and Hyperlipidemia. severe carotid stenosis s/p b/l CEA (L 2014, R 2015), lumbar spine laminectomy (2014). Umberto Tatum for follow-up after recent hospitalization. For details, [...] occlusion and possible dissection. Pt transferred to [facility] for further workup and surgical [...] Extinction and Inattention: 0 TOTAL: 0 Modified [facility]: 0 DATA: HgBA1c: Lab [...] pressures are consistently elevated >140s. Patient attending [employer] twice a week to help combat sedentary [...] mmHg. BP management should aim to achieve long-term control in a reasonable amount of time, [...] to participate in the care of Umberto Tatum. If you have any questions or concerns please contact me. CAROLINA Lara 01/09/2023 10:13 AM I spent about 30 minutes today with patient, reviewing history, and hospital records, MRs, CTs, labs, examining patient, discussing impressions, answering questions and charting. *References: (1) Teagan et al, Stroke 2011, 42:227-276; (2) Long et al, Stroke 2006, 4842-6957; (3) Anthony et al, Stroke 2006; 37: 577-617; (4) Padmini Harris. MARIA DEL ROSARIO 2003, 289:[phone]; (5) Long, et al, Circulation 2001, 103-163; (6) Medina et al, Stroke 1999, 8912-2788;(7) ATP III. See also http:///nhlbi.nih.gov/guidelines/c holesterol/index.htm documented in this encounter [facility] 11-26-2022 Miscellaneous Notes I assume the two that were sent today in office visit to [facility] [place]. Which medications need re-sent? Elsa Burr APRN.DOOR TECHNICIAN Pts medications need to go to [facility] documented in this encounter [facility] 11-26-2022 History of Present illness Narrative CHIEF COMPLAINT Patient presents with: F/U 6 Month HISTORY OF PRESENT ILLNESS Umberto Tatum is a 77 year old male who [...] on Plavix - Has not followed with outside plant cable engineer since 2018. - Recently seen by vascular [...] Auto 0.83 - 3.57 K/uL 3.40 Abs [place] Auto 0.24 - 0.93 K/uL 1.00 High [...] (E11.9) Type 2 diabetes mellitus well controlled ([facility]) (primary encounter diagnosis) Comment: Adequately controlled. A1C [...] physical examination. Has not been following with outside plant cable engineer since 2018. Recently seen by vascular on 08/29/2022, recommend follow up. Plan: ECG COMPLETE for record, CONSULT TO CARDIOLOGY CONSULT TO VASCULAR SURGERY, Continue Aspirin 81 and clopidogrel (PLAVIX) 75 mg tablet daily. EKG shows occ PCV (N18.31) Chronic renal failure (CRF), stage 3a ([facility]) Comment: Stable. Per labs obtained on 05/25/2022 [...] the direction and in the presence of Kaushal Carrion M.D. Electronically Signed: Juanita Sosa. November [...] 2022 10:02 AM documented in this encounter [facility] 11-16-2022 Miscellaneous Notes Received 11/16/2022 [facility] . Placed in provider's inbox for review. Route to [place] for scanning documented in this encounter [facility] 11-15-2022 Miscellaneous Notes Received Duplex scan, veins, Extremity; unilat/limited study from [facility]. Placed in provider's inbox for review. Route to [place] scanning. documented in this encounter [facility] 11-15-2022 Miscellaneous Notes Received 11/14/2022 from [facility]. Placed in provider's inbox for review. 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 TIA Discharge location: [facility]. documented in this encounter [facility] 11-15-2022 Miscellaneous Notes Received 11/14/2022 from [facility]. Placed in provider's inbox for review. Route to [place] for scanning documented in this encounter [facility] 08-03-2022 Note Chief Complaint New patient - [...] has a left carotid endarterectomy, not at [facility] and he cannot remember when that was. [...] 107 mmHg (08/03/22:02:00) Height/Length Measured: 178 cm (08/03/22:02:) Weight Measured: 101 kg (08/03/22:02:00) Body Mass Index Measured: 31.88 kg/m2 (08/03/22:02:) Weight Measured - lbs2: 223 lb (08/03/22::00) Height/Length Measured - in2: 70 in (08/03/22:02:) Body Mass Index Measured English2: 31.99 kg/m2 (08/03/22:02:) BSA: 2.23 m2 (08/03/22:02:) Ht/Wt Measurement Refused by Patient?2: No (08/03/22:02:) Depression Screening Scores Initial Depression Screen Score: 0 (08/03/22:02:) Fall Risk Assessment Is the patient ambulatory (mobile): Yes (08/03/22:02:00) Have you had a fall within the past: No (08/03/22:02:) Have you had 2 or more falls in the past: No (08/03/22:02:) Psychiatric: Appropriate mood and affect. Good judgement [...] New Pt Mod MDM / 45-59 min 14224, 08/03/2022 09:15:00 EDT, Carotid stenosis, right / Left carotid artery occlusion 2. Left carotid artery occlusion I65.22 Ordered: AMB Ancillary Order - Carotid, 08/03/2022, Order For Future Visit AMB Office/Outpt New Pt Mod MDM / 45-59 min [id number], 08/03/2022 09:15:00 EDT, Carotid stenosis, right / Left carotid artery occlusion Schedule a flores (more content not included)... [facility] 06-04-2022 History of Present illness Narrative CHIEF COMPLAINT No chief complaint on file. HISTORY OF PRESENT ILLNESS Umberto Ttaum is a 76 year old male who presents here today for 6 month follow-up management. I last saw this patient on 11/30/21. Past Surgeries: Patient had surgery for clogged right and left carotid arteries in 2018. Patient has not met with his outside plant cable engineer since 2018. Hypertension: Patient has been adhering [...] Hyperlipidemia 03/04/2015 PTSD (post-traumatic stress disorder) [place] managing Spondylolisthesis 03/04/2015 Tubular adenoma of colon 2019 PHYSICAL EXAMINATION Ht 177.8 cm (5' 10 [...] artery Comment: Patient has not seen his outside plant cable engineer since 2018. Plan: CONSULT TO VASCULAR SURGERY Requested Prescriptions No prescriptions requested or ordered in this encounter RTO: 6 months Scribe Attestation: By signing my name below, IMohan, attest that this documentation has been prepared under the direction and in the presence of Kaushal Carrion M.D. Electronically Signed: Juanita Christina. June [...] 2022 10:58 AM documented in this encounter [facility] 12-21-2021 Miscellaneous Notes Patient here for appointment to be seen for his left tricep injury. Patient is scheduled for an appointment tomorrow for left tricep injury but in patient's chart he was referred by Dr. Carrion for his hip. Is he being seen for his tricep or his hip? Left message for patient to call office. documented in this encounter [facility] 12-01-2021 Miscellaneous Notes 1st attempt, sent MC message as patient has not yet read message from doctor. Ortho consult placed. Please help schedule Isabelle Carrion MD documented in this encounter [facility] 11-30-2021 Note HNO ID: [id number] Author: RT Alfredo(Shmuel) Service: Radiology Author Type: Technologist Type: Progress Notes Filed: 11/30/2021 10:17 AM Note Text: Radiology Service Progress Note PATIENT NAME: Umberto Tatum DATE OF SERVICE: November 30, 2021 TIME: [...] RT Alfredo(Shmuel) November 30, 2021 10:17 AM [facility] 11-30-2021 History of Present illness Narrative Radiology Service Progress Note PATIENT NAME: Umberto Tatum DATE OF SERVICE: November 30, 2021 TIME: [...] 2021 10:17 AM documented in this encounter [facility] 11-30-2021 History of Present illness Narrative CHIEF COMPLAINT Patient presents with: Physical HISTORY OF PRESENT ILLNESS Umberto Tatum is a 76 year old male who [...] the direction and in the presence of Kaushal Carrion M.D. Electronically Signed: Juanita Francis. November 30, 2021 7:46 AM Provider Attestation: Isabelle Palacios MD, personally [...] 2021 10:33 AM documented in this encounter [facility] 10-25-2021 History of Present illness Narrative Pt scheduled. Care Gap Reviewed: Follow-up appointment Phone call placed to patient. Pt identified by name and : YES, via phone Outreach Outcome/Action: Spoke to patient or caregiver: Patient will return the call or ask for return call If patient deferred or declined to schedule appointment, please indicate the reason(s): Other Chao Chi Spoke with pt, he would like a follow up appt scheduled with PCP for next month . Please assist with scheduling. documented in this encounter [facility] 07-24-2021 Miscellaneous Notes Received 08/23/2021 from [facility]. Placed in provider's inbox for review. Route to [place] for scanning EGD 07/04/2021 Diagnosis Hiatal Hernia [...] Richelle Martinez . documented in this encounter [facility] 03-04-2015 History of Past i llness Narrative Problem Noted Date Resolved Date Carotid arterial disease 03/04/2015 020 documented as of this encounter (statuses as of 07/24/2021) [address]-2015 History of Past illness Narrative* Problem Noted Date Resolved Date Carotid arterial disease 03/04/2015 020 documented as of this encounter (statuses as of 10/25/2021) [address] History of Past illness Narrative* Problem Noted Date Resolved Date Carotid arterial disease 03/04/2015 020 documented as of this encounter (statuses as of 11/30/2021) [address]2015 History of Past illness Narrative* Problem Noted Date Resolved Date Carotid arterial disease 03/04/2015 020 documented as of this encounter (statuses as of 12/01/2021) [address]2015 History of Past illness Narrative* Problem Noted Date Resolved Date Carotid arterial disease 03/04/2015 020 documented as of this encounter (statuses as of 12/01/2021) [address] History of Past illness Narrative* Problem Noted Date Resolved Date Carotid arterial disease 03/04/2015 020 documented as of this encounter (statuses as of 12/21/2021) [address] History of Past illness Narrative* Problem Noted Date Resolved Date Carotid arterial disease 03/04/2015 020 documented as of this encounter (statuses as of 05/25/2022) [address] History of Past illness Narrative* Problem Noted Date Resolved Date Carotid arterial disease 03/04/2015 020 documented as of this encounter (statuses as of 06/04/2022) [address] History of Past illness Narrative* Problem Noted Date Diagnosed Date Resolved Date Carotid arterial disease 03/04/2015 documented as of this encounter (statuses as of 11/14/2022) [place] [address] History of Past illness Narrative* Problem Noted Date Diagnosed Date Resolved Date Carotid arterial disease 03/04/2015 documented as of this encounter (statuses as of 11/15/2022) [address] History of Past illness Narrative* Problem Noted Date Diagnosed Date Resolved Date Carotid arterial disease 03/04/2015 documented as of this encounter (statuses as of 11/17/2022) [address] History of Past illness Narrative* Problem Noted Date Diagnosed Date Resolved Date Carotid arterial disease 03/04/2015 documented as of this encounter (statuses as of 11/26/2022) [address] History of Past illness Narrative* Problem Noted Date Diagnosed Date Resolved Date Carotid arterial disease 03/04/2015 documented as of this encounter (statuses as of 11/27/2022) [address] History of Past illness Narrative* Problem Noted Date Diagnosed Date Resolved Date Carotid arterial disease 03/04/2015 documented as of this encounter (statuses as of 05/16/2023) [address] History of Past illness Narrative* Problem Noted Date Diagnosed Date Resolved Date Carotid arterial disease 03/04/2015 documented as of this encounter (statuses as of 05/23/2023) [address] History of Past illness Narrative* Problem Noted Date Diagnosed Date Resolved Date Carotid arterial disease 03/04/2015 documented as of this encounter (statuses as of 05/24/2023) [address] History of Past illness Narrative* Problem Noted Date Diagnosed Date Resolved Date Carotid arterial disease 03/04/2015 documented as of this encounter (statuses as of 06/13/2023) [address] History of Past illness Narrative* Problem Noted Date Diagnosed Date Resolved Date Carotid arterial disease 03/04/2015 documented as of this encounter (statuses as of 07/24/2023) [address] History of Past illness Narrative* Problem Noted Date Diagnosed Date Resolved Date Carotid arterial disease 03/04/2015 documented as of this encounter (statuses as of 07/26/2023) [facility] Diagnosis Type 2 diabetes mellitus [...] region and thigh documented in this encounter [facility] Diagnosis Primary osteoarthritis of right hip Primary localized osteoarthrosis, pelvic region and thigh documented in this encounter [facility] note* Diagnosis Osteoarthritis of right hip, unspecified osteoarthritis type- Primary documented in this encounter [facility] note* Diagnosis Type 2 diabetes mellitus well controlled (HCC) documented in this encounter [facility] note* Diagnosis Type 2 diabetes mellitus well controlled (HCC)- Primary Essential hypertension Unspecified essential hypertension Stenosis of right carotid artery Occlusion and stenosis of carotid artery without mention of cerebral infarction documented in this encounter [facility] note* Diagnosis Other hyperlipidemia- Primary Type 2 diabetes mellitus well controlled (HCC) documented in this encounter [facility] note* Diagnosis Type 2 diabetes mellitus well [...] 30-34.9 Obesity, unspecified documented in this encounter [facility] note* Diagnosis TIA (transient ischemic attack) Unspecified transient cerebral ischemia Stenosis of left carotid artery Occlusion and stenosis of carotid artery without mention of cerebral infarction Folliculitis Other specified disease of hair and hair follicles documented in this encounter [facility] note* Diagnosis Hospital discharge follow-up- Primary 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 [facility] Diagnosis Lumbar stenosis with neurogenic claudication- Primary documented in this encounter [facility] note* Diagnosis Right hip pain- Primary Pain in joint, pelvic region and thigh Lumbar stenosis with neurogenic claudication documented in this encounter [facility] note* Diagnosis Type 2 diabetes mellitus well controlled (HCC) documented in this encounter [facility] note* Diagnosis Type 2 diabetes mellitus with hyperglycemia, without long-term current use of insulin (HCC) Other hyperlipidemia documented in this encounter [facility] note* Diagnosis Medicare annual wellness visit, subsequent- Primary Routine general medical examination at a health care facility Screening for depression BPH with urinary obstruction Hypertrophy of prostate with urinary obstruction and other lower urinary tract symptoms (LUTS) Type 2 diabetes mellitus well controlled (HCC) S/P hip replacement, right documented in this encounter [facility] for referral (narrative)* Diagnostic Procedure Only (Routine) - Closed Specialty Diagnoses / Procedures Referred By Carito klein Referred To Contact XR IMAGING Diagnoses Primary osteoarthritis of right hip Procedures XR HIP BILATERAL 5V PEL/AP/LAT EACH HIP RADEX HIPS BILATERAL WITH PELVIS MINIMUM 5 VIEWS Isabelle Carrion MD [address] [place] [address] Xr Imaging Referral ID Status Reason Start Date Expiration Date V isits Requested Visits Authorized [id number] Closed Auto-Generate d Referral 11/30/2021 12/30/2022 1 1 [facility] for referral (narrative)* Diagnostic Procedure Only (Routine) - Closed Specialty Diagnoses / Procedures Referred By Chikisac t Referred To Contact XR IMAGING Diagnoses Primary osteoarthritis of right hip Procedures XR HIP BILATERAL 5V PEL/AP/LAT EACH HIP RADEX HIPS BILATERAL WITH PELVIS MINIMUM 5 VIEWS Isabelle Carrion MD [address] [place] [address] Xr Imaging Referral ID Status Reason Start Date Expiration Date V isits Requested Visits Authorized [id number] Closed Auto-Generate d Referral 11/30/2021 12/30/2022 1 1 [facility] for referral (narrative)* Consultation (Routine) - Pending Review Specialty Diagnoses / Procedures Referred By Contac t Referred To Contact Orthopedic Surgery Diagnoses Right hip pain Bety Parra PA-C [address] [place] [address] Wayne Gamboa MD [address] [place] [address] Referral ID Status Reason Start Date Expiration Date Visits Requested Visits Authorized [id number] Pending Review Specialty Services Required 04/30/2023 04/29/2024 1 1 [facility] for visit Narrative* Diagnostic Procedure Only (Routine) - Closed Specialty Diagnoses / Procedures Referred By Carito klein Referred To Contact XR IMAGING Diagnoses Primary osteoarthritis of right hip Procedures XR HIP BILATERAL 5V PEL/AP/LAT EACH HIP RADEX HIPS BILATERAL WITH PELVIS MINIMUM 5 VIEWS Isabelle Carrion MD [address] [place] [address] [place] [address] Xr Imaging Referral ID Status Reason Start Date Expiration Date V isits Requested Visits Authorized [id number] Closed Auto-Generate d Referral 11/30/2021 12/30/2022 1 1 [facility] Summary Purpose Family History No Family History Records FoundNo Family History Records FoundNo Family History Records FoundNo Family History Records FoundNo Family History Records FoundNo Family History Records FoundNo Family History Records Found Advance Directives No Advanced Directives Records FoundDocuments on File Type Date Recorded 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 Advance Directive(s) 01/11/2017 10:03 AM Reason for Referral Specialty Diagnoses / Procedures Referred By Contac t Referred To Contact Orthopedics Diagnoses Osteoarthritis of right hip, unspecified osteoarthritis type Procedures CONSULT TO ORTHOPAEDICS OFFICE/OUTPATIENT [facility] 60-74 MINUTES Isabelle Carrion MD [address] [place] [address] [place] [id number] Referral ID Status Reason Start Date Expiration Date Visits Requested Visits Authorized [id number] Authorized PCP Requested Referral 12/01/2021 12/01/2022 1 1 Specialty Diagnoses / Procedures Referred By Contac t Referred To Contact Vascular Surgery Diagnoses Stenosis of right carotid artery Procedures CONSULT TO VASCULAR SURGERY Isabelle Carrion MD [address] [place] [address] [place] Bonilla [address] [place] [address] Referral ID Status Reason Start Date Expiration Date Visits Requested Visits Authorized [id number] Ref Not Required PCP Requested Referral 06/04/2022 06/04/2023 1 1 Specialty Diagnoses / Procedures Referred By Contac t Referred To Contact Cardiology Diagnoses PVC (premature ventricular contraction) Procedures CONSULT TO CARDIOLOGY OFFICE/OUTPATIENT [facility] 60-74 MINUTES Isabelle Carrion MD [address] [place] [address] Referral ID Status Reason Start Date Expiration Date Visits Requested Visits Authorized [id number] Authorized PCP Requested Referral 11/26/2022 11/26/2023 1 1 Specialty Diagnoses / Procedures Referred By Contac t Referred [facility] Contact [facility] Diagnoses PVC (premature ventricular contraction) Procedures ECG COMPLETE ECG ROUTINE ECG W/LEAST 12 LDS W/I&R Isabelle Carrion MD [address] [place] [address] [facility] [place] [address] [place] [address] Referral ID Status Reason Start Date Expiration Date Visits Requested Visits Authorized [id number] Pending Review Auto-Generat ed Referral 11/26/2022 11/26/2023 1 1 Specialty Diagnoses / Procedures Referred By Contac t Referred To Contact Vascular Surgery Diagnoses TIA (transient ischemic attack) Stenosis of left carotid artery Procedures CONSULT TO VASCULAR SURGERY OFFICE/OUTPATIENT [facility] 60-74 MINUTES Isabelle Carrion MD [address] [place] [address] Referral ID Status Reason Start Date Expiration Date Visits Requested Visits Authorized [id number] Authorized PCP Requested Referral 11/26/2022 11/26/2023 1 1 Specialty Diagnoses / Procedures Referred By Contac t Referred To Contact Radiology Diagnoses Lumbar stenosis with neurogenic claudication Procedures MR lumbar spine wo contrast Bety Parra PA-C [address] [place] [address] Referral ID Status Reason Start Date Expiration Date V isits Requested Visits Authorized [id number] Pending Review 04/02/2023 04/01/2024 1 1 Additional Source Comments (unrecognized sect ion and content) No Status Records FoundNo Status Records FoundNo Status Records FoundNo Status Records FoundNo Status Records FoundNo Status Records FoundNo Status Records Found INFORMATION SOURCE (unrecogn ized section and content) DATE CREATED AUTHOR 10/01/2017 [facility] DATE CREATED AUTHOR AUTHOR'S ORGANIZ ATION 05/27/2022 [facility] DATE CREATED AUTHOR AUTHOR'S ORGANIZ ATION 08/09/2022 [facility] DATE CREATED AUTHOR AUTHOR'S ORGANIZ ATION 08/14/2022 [facility] DATE CREATED AUTHOR AUTHOR'S ORGANIZ ATION 01/14/2023 [facility] DATE CREATED AUTHOR AUTHOR'S ORGANIZ ATION 05/01/2023 [facility] DATE CREATED AUTHOR AUTHOR'S ORGANIZ ATION 11/27/2023 [facility] Source Comments (unrecognize d section and content) In the event this informatio n is protected by the Federal Confidentiality of Alcohol and Drug Abuse Patient Records regulations: The Federal rules restrict any use of the information to criminally investigate or prosecute any alcohol or drug abuse patient.[facility] the event this information is protected by the Federal Confidentiality of Alcohol and Drug Abuse Patient Records regulations: The Federal rules restrict any use of the information to criminally investigate or prosecute any alcohol or drug abuse patient.[facility] the event this information is protected by the Federal Confidentiality of Alcohol and Drug Abuse Patient Records regulations: The Federal rules restrict any use of the information to criminally investigate or prosecute any alcohol or drug abuse patient.[facility] the event this information is protected by the Federal Confidentiality of Alcohol and Drug Abuse Patient Records regulations: The Federal rules restrict any use of the information to criminally investigate or prosecute any alcohol or drug abuse patient.[facility] the event this information is protected by the Federal Confidentiality of Alcohol and Drug Abuse Patient Records regulations: The Federal rules restrict any use of the information to criminally investigate or prosecute any alcohol or drug abuse patient.[facility] the event this information is protected by the Federal Confidentiality of Alcohol and Drug Abuse Patient Records regulations: The Federal rules restrict any use of the information to criminally investigate or prosecute any alcohol or drug abuse patient.[facility] HospitalIn the event this information is protected by the Federal Confidentiality of Alcohol and Drug Abuse Patient Records regulations: The Federal rules restrict any use of the information to criminally investigate or prosecute any alcohol or drug abuse patient.[facility] HospitalIn the event this information is protected by the Federal Confidentiality of Alcohol and Drug Abuse Patient Records regulations: The Federal rules restrict any use of the information to criminally investigate or prosecute any alcohol or drug abuse patient.[facility] HospitalIn the event this information is protected by the Federal Confidentiality of Alcohol and Drug Abuse Patient Records regulations: The Federal rules restrict any use of the information to criminally investigate or prosecute any alcohol or drug abuse patient.[facility] HospitalIn the event this information is protected by the Federal Confidentiality of Alcohol and Drug Abuse Patient Records regulations: The Federal rules restrict any use of the information to criminally investigate or prosecute any alcohol or drug abuse patient.[facility] HospitalIn the event this information is protected by the Federal Confidentiality of Alcohol and Drug Abuse Patient Records regulations: The Federal rules restrict any use of the information to criminally investigate or prosecute any alcohol or drug abuse patient.[facility] HospitalIn the event this information is protected by the Federal Confidentiality of Alcohol and Drug Abuse Patient Records regulations: The Federal rules restrict any use of the information to criminally investigate or prosecute any alcohol or drug abuse patient.[facility] HospitalIn the event this information is protected by the Federal Confidentiality of Alcohol and Drug Abuse Patient Records regulations: The Federal rules restrict any use of the information to criminally investigate or prosecute any alcohol or drug abuse patient.[facility] HospitalIn the event this information is protected by the Federal Confidentiality of Alcohol and Drug Abuse Patient Records regulations: The Federal rules restrict any use of the information to criminally investigate or prosecute any alcohol or drug abuse patient.[facility] the event this information is protected by the Federal Confidentiality of Alcohol and Drug Abuse Patient Records regulations: The Federal rules restrict any use of the information to criminally investigate or prosecute any alcohol or drug abuse patient.[facility] HospitalIn the event this information is protected by the Federal Confidentiality of Alcohol and Drug Abuse Patient Records regulations: The Federal rules restrict any use of the information to criminally investigate or prosecute any alcohol or drug abuse patient.[facility] HospitalIn the event this information is protected by the Federal Confidentiality of Alcohol and Drug Abuse Patient Records regulations: The Federal rules restrict any use of the information to criminally investigate or prosecute any alcohol or drug abuse patient.[facility]In the event this information is protected by the Federal Confidentiality of Alcohol and Drug Abuse Patient Records regulations: The Federal rules restrict any use of the information to criminally investigate or prosecute any alcohol or drug abuse patient.[facility] HospitalIn the event this information is protected by the Federal Confidentiality of Alcohol and Drug Abuse Patient Records regulations: The Federal rules restrict any use of the information to criminally investigate or prosecute any alcohol or drug abuse patient.[facility] HospitalIn the event this information is protected by the Federal Confidentiality of Alcohol and Drug Abuse Patient Records regulations: The Federal rules restrict any use of the information to criminally investigate or prosecute any alcohol or drug abuse patient.[facility] HospitalIn the event this information is protected by the Federal Confidentiality of Alcohol and Drug Abuse Patient Records regulations: The Federal rules restrict any use of the information to criminally investigate or prosecute any alcohol or drug abuse patient.[facility] HospitalIn the event this information is protected by the Federal Confidentiality of Alcohol and Drug Abuse Patient Records regulations: The Federal rules restrict any use of the information to criminally investigate or prosecute any alcohol or drug abuse patient.[facility] HospitalIn the event this information is protected by the Federal Confidentiality of Alcohol and Drug Abuse Patient Records regulations: The Federal rules restrict any use of the information to criminally investigate or prosecute any alcohol or drug abuse patient.[facility] HospitalIn the event this information is protected by the Federal Confidentiality of Alcohol and Drug Abuse Patient Records regulations: The Federal rules restrict any use of the information to criminally investigate or prosecute any alcohol or drug abuse patient.[facility] HospitalIn the event this information is protected by the Federal Confidentiality of Alcohol and Drug Abuse Patient Records regulations: The Federal rules restrict any use of the information to criminally investigate or prosecute any alcohol or drug abuse patient.[facility] HospitalIn the event this information is protected by the Federal Confidentiality of Alcohol and Drug Abuse Patient Records regulations: The Federal rules restrict any use of the information to criminally investigate or prosecute any alcohol or drug abuse patient.[facility] HospitalIn the event this information is protected by the Federal Confidentiality of Alcohol and Drug Abuse Patient Records regulations: The Federal rules restrict any use of the information to criminally investigate or prosecute any alcohol or drug abuse patient.[facility] Reason for Visit (unrecogniz ed section and content) Reason Comments Received Outside Medical Records [facility] 07/04/2021 Operative report Reason Comments Physical Reason Comments Chart prep Reason Comments 6 Month Exam Reason Comments Received Outside Medical Records [facility] CTA Head and Neck w/ Contrast 11/13/2022 Reason Comments Received Outside Medical Records [facility] Emergency Department Summary 11/14/2022 Slurred speech,, facial droop difficulty reading Reason Comments Received Outside Medical Records [facility] 11/14/22 Reason Comments Received Outside Medical Records [facility] Department of Emergency Medicine 11/14/2022 Possible Carotid obstruction or dissection Reason Comments F/U 6 Month Reason Comments Medication Problem Reason Comments Follow-up Stroke Specialty Diagnoses / Procedures Referred By Contac t Referred To Contact Neurology Diagnoses Difficulty with speech Deon Marion F, ANALYTICS DIRECTOR-DOOR TECHNICIAN [address] [place] [address] Referral ID Status Reason Start Date Expiration Date V isits Requested Visits Authorized [id number] New Request 11/14/2022 12/09/2023 1 1 Reason Onset Date Comments Appointment Request 02/25/2023 Reason Comments New Patient Patient had a luis ctomy in 2014. He is experiencing back and right leg pain, especially when standing. Reason Comments Follow-up Follow up imaging Reason Comments Received Outside Medical Records [facility] CT bilateral lower extremity with 3-D imaging 05/16/2023 Reason Comments Received Outside Medical Records [facility] Medical Clearance for surgery 06/18/2023 Reason Comments Outside Lab Results Labs, imaging, EKG- [facility] Reason Comments Received Outside Medical Records [facility] 07/07 09/29 Reason Comments Received Outside Medical Records [facility] ED Reason Comments Orders [facility] PT Reason Comments Received Outside Medical Records [facility] ED 07/27/23 Reason Comments Received Outside Medical Records [facility] ER Summary 07/29/2023 Right lower extrem edema Reason Comments Received Outside Medical Records [facility] Reason Comments Medicare Wellness Exam Care Teams (unrecognized sec tion and content) Cyber Workforce Developer And Manager Relationship Specialty Start Date End Date Isabelle Carrion MD [address] [place] [address] [address] [place], [place] [id number] PCP - General Family Practice 02/02/21 Sarah Krishnamurthy DO Primary Staff Physician Cardiology 06/24/18 Cyber Workforce Developer And Manager Relationship Specialty Start Date End Date Isabelle Carrion MD [address] [place] [address] [address] [place], [place] [id number] PCP - General Family Practice 02/02/21 Sarah Krishnamurthy DO Primary Staff Physician Cardiology 06/24/18 Cyber Workforce Developer And Manager Relationship Specialty Start Date End Date Isabelle Carrion MD [address] [place] [address] [address] [place], [place] [phone] PCP - General Family Practice 02/02/21 Sarah Krishnamurthy, DO Primary Staff Physician Cardiology 06/24/18 Cyber Workforce Developer And Manager Relationship Specialty Start Date End Date Isabelle Carrion MD [address] [place] [id number] PCP - General Family Practice 02/02/21 Sarah Krishnamurthy, DO Primary Staff Physician Cardiology 06/24/18 Cyber Workforce Developer And Manager Relationship Specialty Start Date End Date Isabelle Carrion MD [address] [place] [address] PCP - General Family Practice 02/02/21 Sarah Krishnamurthy DO Primary Staff Physician Cardiology 06/24/18 Cyber Workforce Developer And Manager Relationship Specialty Start Date End Date Isabelle Carrion MD [address] [place] [address] PCP - General Family Medicine 02/02/21 Sarah Krishnamurthy DO Primary Staff Physician Cardiology 06/24/18 Cyber Workforce Developer And Manager Relationship Specialty Start Date End Date Isabelle Carrion MD [address] [place] [address] PCP - General Family Medicine 02/02/21 Sarah Krishnamurthy, DO Primary Staff Physician Cardiology 06/24/18 Cyber Workforce Developer And Manager Relationship Specialty Start Date End Date Isabelle Carrion MD [address] [place] [id number] PCP - General Family Medicine 02/02/21 Sarah Krishnamurthy DO Primary Staff Physician Cardiology 06/24/18 Cyber Workforce Developer And Manager Relationship Specialty Start Date End Date Isabelle Carrion MD [address] [facility] [address] [place], [place] [id number] PCP - General Family Medicine 02/02/21 Sarah Krishnamurthy DO Primary Staff Physician Cardiology 06/24/18 Cyber Workforce Developer And Manager Relationship Specialty Start Date End Date Isabelle Carrion MD [address] [facility] [address] [place], [place] [id number] PCP - General Family Medicine 02/02/21 Sarah Krishnamurthy DO Primary Staff Physician Cardiology 06/24/18 Cyber Workforce Developer And Manager Relationship Specialty Start Date End Date Isabelle Carrion MD [address] [facility] [address] [place], [place] [address] PCP - General Family Medicine 02/02/21 Sarah Krishnamurthy DO Primary Staff Physician Cardiology 06/24/18 Cyber Workforce Developer And Manager Relationship Specialty Start Date End Date Kaushal Carrion MD [address] [place], [place] [id number] PCP - General Family Medicine 11/14/22 Cyber Workforce Developer And Manager Relationship Specialty Start Date End Date Isabelle Carrion [address] [facility] [address] [place], [place] [id number] PCP - General Family Medicine 04/02/23 Cyber Workforce Developer And Manager Relationship Specialty Start Date End Date Isabelle Carrion [address] [facility] [address] [place], [place] [id number] PCP - General Family Medicine 04/02/23 Cyber Workforce Developer And Manager Relationship Specialty Start Date End Date Isabelle Carrion MD [address] [facility] [address] [place], [place] [id number] PCP - General Family Medicine 02/02/21 Sarah Krishnamurthy DO Primary Staff Physician Cardiology 06/24/18 Cyber Workforce Developer And Manager Relationship Specialty Start Date End Date Isabelle Carrion MD [address] [facility] [address] [place], [place] [id number] PCP - General Family Medicine 02/02/21 Sarah Krishnamurthy DO Primary Staff Physician Cardiology 06/24/18 Cyber Workforce Developer And Manager Relationship Specialty Start Date End Date Isabelle Carrion MD [address] [facility] [address] [place], [place] [address] PCP - General Family Medicine 02/02/21 Sarah Krishnamurthy DO Primary Staff Physician Cardiology 06/24/18 Cyber Workforce Developer And Manager Relationship Specialty Start Date End Date Isabelle Carrion MD [address] [facility] [address] [place], [place] [id number] PCP - General Family Medicine 02/02/21 Sarah Krishnamurthy DO Primary Staff Physician Cardiology 06/24/18 Cyber Workforce Developer And Manager Relationship Specialty Start Date End Date Isabelle Carrion MD [address] [facility] [address] [place], [place] [id number] PCP - General Family Medicine 02/02/21 Sarah Krishnamurthy DO Primary Staff Physician Cardiology 06/24/18 Cyber Workforce Developer And Manager Relationship Specialty Start Date End Date Isabelle Carrion MD [address] [facility] [address] [place], [place] [id number] PCP - General Family Medicine 02/02/21 Sarah Krishnamurthy DO Primary Staff Physician Cardiology 06/24/18 Cyber Workforce Developer And Manager Relationship Specialty Start Date End Date Isabelle Carrion MD [address] [facility] [address] [place], [place] [id number] PCP - General Family Medicine 02/02/21 Sarah Krishnamurthy DO Primary Staff Physician Cardiology 06/24/18 FOR RECORDS PERTAINING TO PATIENTS WHO ARE [...] BE BASED ON THE PRIMARY CLINICAL RECORDS. [facility] [employer] [facility]. provides no warranty or guarantee of the accuracy or completeness of information in this document.
[2024-02-01] MEDS: Diphth,Pertuss(Acell),Tet Vac 0.5 ML Vial IM (14:43)
[2024-02-01] MEDS: Lidocaine 1% (20 ml mdv) 20 ML Vial 3 ML INFILT (14:43)
--- NOTE | 2024-02-01 15:22 | EDS_ITS ---
HPI <ELMO Steve - Last Filed: 02/01/24 15:27> History of Present Illness Chief Complaint: Laceration Narrative Narrative: 78-year-old male with history of diabetes, presents to the emergency department with complaints of right thumb pain, laceration. Patient was using a table saw and states that his thumb got too close. Patient does have a significant laceration to the distal tip of the left thumb. Nailbed is intact. Unsure of last tetanus vaccination. Denies any difficulty moving the thumb. [facility] <ELMO Steve - Last Filed: 02/01/24 15:27> [facility] Medical History (Updated 02/01/24 @ 15:26 by ELMO Steve) Wears glasses Arthritis Kidney stones High cholesterol Back pain Dietary restriction Gastric reflux Former smoker Shortness of breath on exertion History of stress test History of pain when walking Cardiology follow-up encounter History of irregular heartbeat History of echocardiogram TIA (transient ischemic attack) Osteoarthritis of right hip Carotid disease, bilateral Hyperlipidemia Diabetes Hypertension Home Medications ?Medication ?Instructions ?Recorded ?Last Taken ?Type amlodipine 5 mg tablet 10 mg PO DAILY BP 09/12/18 07/23/23 04:15 History atorvastatin 20 mg tablet 80 mg PO DAILY CHOLESTEROL 09/12/18 07/22/23 History cholecalciferol (vitamin D3) 125 5,000 unit PO DAILY SUPPLEMENT 09/12/18 07/22/23 History mcg (5,000 unit) tablet coenzyme Q10 100 mg capsule (Co 100 mg PO DAILY SUPPLEMENT 09/12/18 07/22/23 History Q-10) magnesium oxide 400 mg PO DAILY SUPPLEMENT 09/12/18 07/22/23 History omega-3 fatty acids-fish oil 684 1 ea PO DAILY SUPPLEMENT 09/12/18 07/22/23 History mg-1,200 mg capsule,delayed release (One-Per-Day Jefferson-3) vitamin B complex 1 ea PO DAILY SUPPLEMENT 09/12/18 07/22/23 History hydrochlorothiazide 25 mg tablet 25 mg PO DAILY BP 11/13/22 07/22/23 History metformin 500 mg tablet 500 mg PO DAILY DIABETIC 11/13/22 07/22/23 History clopidogrel 75 mg tablet 75 mg PO DAILY BLODD THINNER 05/08/23 07/16/23 History losartan 100 mg tablet 100 mg PO DAILY BP 05/08/23 07/23/23 04:15 History omeprazole 20 mg capsule,delayed 20 mg PO DAILY GERD 05/08/23 07/23/23 04:15 History release acetaminophen 500 mg tablet 1,000 mg (2 x 500 mg) PO Q6H PRN 07/24/23 Unknown Rx #100 tabs cephalexin 500 mg capsule 500 mg PO Q8H 5 days #15 caps 02/01/24 Unknown Rx Allergy/AdvReac Type Severity Reaction Status Date / Time Penicillins Allergy Rash Verified 02/01/24 14:03 Family History Mother Ovarian cancer Father Cerebral hemorrhage following injury Grandfather CAD (coronary artery disease) Myocardial infarction Heart disease Lung cancer Grandmother Hypertension Surgical History (Updated 08/06/23 @ 00:01 by Domi Brcok) History of total hip arthroplasty History of carotid endarterectomy History of laminectomy Social History household members: family Smoking Status: Former smoker how long ago did patient quit smoking: Smoked age 14/13-24, smoked up to 1 ppd in service x 4 years. alcohol intake: never substance use type: does not use ROS <ELMO Steve - Last Filed: 02/01/24 15:27> ROS ED ROS Narrative Constitutional: Negative for fever, chills, weight loss, weakness Eyes: Negative for vision loss, vision change, double vision ENT: Negative for any sore throat, ear pain, congestion Cardiovascular: Negative for any chest pain, tightness, palpitations Respiratory: Negative for any cough, sputum production, hemoptysis, dyspnea, dyspnea on exertion, orthopnea Gastrointestinal: Negative for any abdominal pain, nausea, vomiting, diarrhea, constipation, blood in stool, blood in vomit : Negative for any urinary frequency, dysuria, retention, blood in urine Muscle skeletal: Negative for any neck pain, back pain Neurological: Negative for any headache, syncope, dizziness Skin: Negative for any rashes, itching, abrasions. Positive for laceration right thumb Psychiatric: Negative for any depression, anxiety, stress, suicidal ideation, homicidal ideation Hematologic: Negative for any excessive bruising, easy bleeding EXAM <ELMO Steve - Last Filed: 02/01/24 15:27> Physical Exam Narrative Exam Narrative: Vital signs reviewed. Extremities: No peripheral edema. Active full range of motion of all extremities. Patient has obvious trauma to the palmar surface of the right thumb. Patient has a flap-like laceration to the distal palmar thumb, that is pulled downward. The total laceration is roughly 3.5 cm in a upside down U. Patient has full flexion extension. There is no nailbed injury, patient is able to flex and extend against resistance. Bleeding is controlled. Neuro: Cranial nerves II through XII intact, no focal neurological deficits. Skin: Clean dry and intact with no rash, purpura, petechiae, vesicles or pustules. Backs/flank: No CVA tenderness, no midline spinal tenderness, no deformity. Psych: Normal mood and affect. No SI, HI or acute psychosis. Const Vital Signs: 02/01/24 14:03 Temperature 97.8 F Temperature Source Temporal Pulse Rate 112 H Respiratory Rate 18 Blood Pressure 151/76 H Blood Pressure Mean 101 Pulse Ox 96 Oxygen Delivery Method Room Air Positive well nourished and well developed General Appearance ED: well developed MDM <ELMO Steve - Last Filed: 02/01/24 15:27> [facility] Treatment and Re-Evaluation Narrative: Differential diagnosis includes however is not limited to: Thumb laceration, open fracture, foreign body Patient appears generally well, vital signs are stable, patient is nontoxic- appearing. Presenting to the emergency department for right thumb laceration, this is roughly 3.5 cm and upside down U. Sterile gloves, sterile drapes were used. X-rays were obtained of the thumb, this showed no acute fracture. This was interpreted by ER physician. Tetanus vaccination updated. I did perform a digital block with lidocaine. I was able to place 13 simple interrupted sutures of 4-0 Ethilon. Patient tolerated well. Edges approximated nicely. Patient placed in a bacitracin dressing. Will have these removed in 10 to 12 days. He will be placed on 5 days of antibiotics. Instructed to return for any worsening symptoms. Patient happy the plan of care, stable for discharge. This wound was irrigated copiously before closure with 300 cc of normal saline. <Dr. Jesús Galdamez DO - Last Filed: 02/01/24 20:42> [facility] Treatment and Re-Evaluation Narrative: Differential diagnosis includes however is not limited to: Thumb laceration, open fracture, foreign body Patient appears generally well, vital signs are stable, patient is nontoxic- appearing. Presenting to the emergency department for right thumb laceration, this is roughly 3.5 cm and upside down U. Sterile gloves, sterile drapes were used. X-rays were obtained of the thumb, this showed no acute fracture. This was interpreted by ER physician. Tetanus vaccination updated. I did perform a digital block with lidocaine. I was able to place 13 simple interrupted sutures of 4-0 Ethilon. Patient tolerated well. Edges approximated nicely. Patient placed in a bacitracin dressing. Will have these removed in 10 to 12 days. He will be placed on 5 days of antibiotics. Instructed to return for any worsening symptoms. Patient happy the plan of care, stable for discharge. This wound was irrigated copiously before closure with 300 cc of normal saline. ED attending note: I evaluated the patient in conjunction with the ELIZA. I agree with his/her statements and above findings. I have personally performed a face to face assessment of the patient and have reviewed the ELIZA Note. I performed a substantive portion of the visit including all aspects of the following. I personally saw the patient performed chart review, physical exam, reviewed labs, imaging (if obtained), and formulated a treatment and management plan. Patient arrived extremities neurovascular intact. No signs of foreign body or tenderness involvement noted. Will obtain x-ray to rule out fracture dislocation. Will assess patient's tetanus status need for updated immunization. Will repair the patient laceration please see ELIZA note. Will give prophylactic antibiotics. Will give strict return precautions and follow- up instructions. This note was generated with [employer] dictation software. It may contain incorrect words, spelling, and punctuation that were not noted in review of the chart prior to signing. Discharge Plan Triage Chief Complaint: Laceration ED Midlevel Provider: Colten Saunders ED Provider: Jesús Galdamez Dx/Rx/DC Orders Clinical Impression: Laceration of thumb Instructions: ED Laceration Extremity Prescriptions: New cephalexin 500 mg capsule 500 mg PO Q8H 5 Days Qty: 15 0RF No Action omeprazole 20 mg capsule,delayed release(DR/EC) 20 mg PO DAILY clopidogrel 75 mg tablet 75 mg PO DAILY Patient Comments: TAKE 1 TABLET BY MOUTH EVERY DAY STOP 7 DAYS PRIO TO OR losartan 100 mg tablet 100 mg PO DAILY atorvastatin 20 MG tablet 80 mg PO DAILY amlodipine 5 MG tablet 10 mg PO DAILY vitamin B complex 1 EACH tablet 1 ea PO DAILY coenzyme Q10 [Co Q-10] 100 MG capsule 100 mg PO DAILY One-Per-Day Jefferson-3 1 EACH capsule,delayed release(DR/EC) 1 ea PO DAILY cholecalciferol (vitamin D3) 5,000 UNIT tablet 5,000 unit PO DAILY magnesium oxide 400 MG capsule 400 mg PO DAILY hydrochlorothiazide 25 mg tablet 25 mg PO DAILY metformin 500 mg tablet 500 mg PO DAILY acetaminophen [acetaminophen] 500 mg tablet 1,000 mg PO Q6H PRN Qty: 100 0RF Primary Care Provider: Kaushal Saldivar Referrals: Kaushal Saldivar MD [Primary Care Provider] - Activity Restrictions/Additional Instructions: I am putting you on 5 days of antibiotics for precaution. Have the sutures removed in 10 to 12 days. Keep it covered over the next 4 to 5 days. Change the dressings daily. When you take a shower take a normal shower. When you are resting at home, you may leave it open to air. Return for any signs of redness or signs of infection. Print Language: Pashto Disposition Disposition: Home, Self Care Discharge Date/Time: 02/01/24 15:34
== END 2024-02-01 15:34 | disposition home or self-care (01) ==
PROVIDERS: Emergency Provider Emergency Medicine; PCP Family Medicine; Visit Provider Emergency Medicine
DX: S61.011A Laceration without foreign body of right thumb without damage to nail, initial encounter (principal); E11.9 Type 2 diabetes mellitus without complications; Z87.891 Personal history of nicotine dependence; W31.2XXA Contact with powered woodworking and forming machines, initial encounter; Z23 Encounter for immunization; Z86.73 Personal history of transient ischemic attack (TIA), and cerebral infarction without residual deficits
CPT/HCPCS: 73140; 90471; 90715; 99283

== ENCOUNTER 2024-02-04 08:56 | Emergency (ER) | payer MEDICARE, OTHER, SELFPAY ==
[2024-02-04 08:57] VITALS: BP 150/56; PULSE 85; RESP 16; TEMP 36.6; O2SAT 98; BMI 28.4
--- NOTE | 2024-02-04 09:30 | EX.ED.UPPERE ---
HPI History of Present Illness HPI Narrative: Patient presents with bleeding from his right thumb. Patient states he was seen here 3 days ago and had sutures placed in laceration from a table saw. Patient states that he has been using his thumb. Patient states that he noted some persistent bleeding on the dressing. Patient denies any fevers or chills. Patient denies any discharge or drainage. Patient denies any paresthesias or weakness. Patient denies any new injuries. Chief Complaint: Wound Check Informant: patient Occured/Mechanism Comment: Cut with a table saw Onset/Context/Timing Onset: Days (3) Timing: Continuous Location: Right thumb Worsened by: Nothing Relieved by: Nothing Associated Symptoms Associated Symptoms: Negative for Parasthesia, Weakness or Loss of Funtion PFSH [facility] Medical History Wears glasses Arthritis Kidney stones High cholesterol Back pain Dietary restriction Gastric reflux Former smoker Shortness of breath on exertion History of stress test History of pain when walking Cardiology follow-up encounter History of irregular heartbeat History of echocardiogram TIA (transient ischemic attack) Osteoarthritis of right hip Carotid disease, bilateral Hyperlipidemia Diabetes Hypertension Home Medications ?Medication ?Instructions ?Recorded ?Last Taken ?Type amlodipine 5 mg tablet 10 mg PO DAILY BP 09/12/18 07/23/23 04:15 History atorvastatin 20 mg tablet 80 mg PO DAILY CHOLESTEROL 09/12/18 07/22/23 History cholecalciferol (vitamin D3) 125 5,000 unit PO DAILY SUPPLEMENT 09/12/18 07/22/23 History mcg (5,000 unit) tablet coenzyme Q10 100 mg capsule (Co 100 mg PO DAILY SUPPLEMENT 09/12/18 07/22/23 History Q-10) magnesium oxide 400 mg PO DAILY SUPPLEMENT 09/12/18 07/22/23 History omega-3 fatty acids-fish oil 684 1 ea PO DAILY SUPPLEMENT 09/12/18 07/22/23 History mg-1,200 mg capsule,delayed release (One-Per-Day [place]-3) vitamin B complex 1 ea PO DAILY SUPPLEMENT 09/12/18 07/22/23 History hydrochlorothiazide 25 mg tablet 25 mg PO DAILY BP 11/13/22 07/22/23 History metformin 500 mg tablet 500 mg PO DAILY DIABETIC 11/13/22 07/22/23 History clopidogrel 75 mg tablet 75 mg PO DAILY BLODD THINNER 05/08/23 07/16/23 History losartan 100 mg tablet 100 mg PO DAILY BP 05/08/23 07/23/23 04:15 History omeprazole 20 mg capsule,delayed 20 mg PO DAILY GERD 05/08/23 07/23/23 04:15 History release acetaminophen 500 mg tablet 1,000 mg (2 x 500 mg) PO Q6H PRN 07/24/23 Unknown Rx #100 tabs cephalexin 500 mg capsule 500 mg PO Q8H 5 days #15 caps 02/01/24 Unknown Rx Allergy/AdvReac Type Severity Reaction Status Date / Time Penicillins Allergy Rash Verified 02/04/24 08:58 Family History Mother Ovarian cancer Father Cerebral hemorrhage following injury Grandfather CAD (coronary artery disease) Myocardial infarction Heart disease Lung cancer Grandmother Hypertension Surgical History History of total hip arthroplasty History of carotid endarterectomy History of laminectomy Social History household members: family Smoking Status: Former smoker how long ago did patient quit smoking: Smoked age 14/13[birth year]24, smoked up to 1 ppd in service x 4 years. alcohol intake: never substance use type: does not use ROS ROS ED Constitutional Constitutional ED: Denies chills or fever(s) Eyes Eyes: Denies blurry vision or diplopia ENT ENT ED: Denies rhinorrhea or sore throat Cardiovascular Cardiovascular: Denies chest pain or palpitations Respiratory/Chest Respiratory/Chest: Denies cough or dyspnea Gastrointestinal Gastrointestinal: Denies nausea or vomiting Genitourinary Genitourinary ED: Denies dysuria or hematuria Musculoskeletal Musculoskeletal: Denies back pain or neck pain Integumentary Denies abscess or rash Neurologic Neurologic: Denies headache(s) or weakness Allergic/Immunologic Allergic/Immunologic ED: Denies mouth swelling or urticaria EXAM Physical Exam Const Vital Signs: 02/04/24 08:57 Temperature 97.9 F Temperature Source Oral Pulse Rate 85 Respiratory Rate 16 Blood Pressure 150/56 H Blood Pressure Mean 87 Pulse Ox 98 Oxygen Delivery Method Room Air Positive well nourished and well developed General Appearance ED: well developed and NAD HEENT Reports moist mucous membranes Neck full ROM and supple Extremity Extremity Narrative: There is a healing laceration over the palmar aspect of the right thumb. There is minimal bleeding over the proximal portion of the laceration. There is no gapping of the wound margins. There is no erythema or warmth noted. There is no discharge or drainage noted. Sensation was intact to light touch in all digits. Capillary refill was less than 2 seconds in all digits. There is good range of motion of the IP and MP joints. Neuro oriented x3, CN's II-XII intact bilaterally, moves all extremities, no focal motor deficits and no sensory deficits noted Sensorium / Orientation: alert Motor Exam: strength 5/5 throughout Psych mental status grossly normal MDM MDM MDM Narrative Medical decision making narrative: Patient was advised that there may be some persistent bleeding that is normal. Patient was advised that there does not appear to be any infection. Patient was instructed to keep dressing in place. Patient was instructed to follow-up with his primary care physician in 5 to 7 days. Patient understood and was agreeable with the plan. All questions were answered. Discharge Plan Triage Chief Complaint: Wound Check ED Provider: Crow Piedra Dx/Rx/DC Orders Clinical Impression: Encounter for re-check of laceration wound, Laceration of thumb Instructions: ED Post Op Wound Check, Bleeding Prescriptions: No Action omeprazole 20 mg capsule,delayed release(DR/EC) 20 mg PO DAILY clopidogrel 75 mg tablet 75 mg PO DAILY Patient Comments: TAKE 1 TABLET BY MOUTH EVERY DAY STOP 7 DAYS PRIO TO OR losartan 100 mg tablet 100 mg PO DAILY atorvastatin 20 MG tablet 80 mg PO DAILY amlodipine 5 MG tablet 10 mg PO DAILY vitamin B complex 1 EACH tablet 1 ea PO DAILY coenzyme Q10 [Co Q-10] 100 MG capsule 100 mg PO DAILY One-Per-Day [place]-3 1 EACH capsule,delayed release(DR/EC) 1 ea PO DAILY cholecalciferol (vitamin D3) 5,000 UNIT tablet 5,000 unit PO DAILY magnesium oxide 400 MG capsule 400 mg PO DAILY hydrochlorothiazide 25 mg tablet 25 mg PO DAILY metformin 500 mg tablet 500 mg PO DAILY acetaminophen [acetaminophen] 500 mg tablet 1,000 mg PO Q6H PRN Qty: 100 0RF cephalexin 500 mg capsule 500 mg PO Q8H 5 Days Qty: 15 0RF Primary Care Provider: Kaushal Saldivar Referrals: Kaushal Saldivar MD [Primary Care Provider] - 5-7 Days Print Language: [place] Disposition Disposition: Home, Self Care
[2024-02-04 09:46] VITALS: BP 148/75; PULSE 85; RESP 16; TEMP 36.4; O2SAT 98
== END 2024-02-04 09:47 | disposition home or self-care (01) ==
LOC: ED 09:37
PROVIDERS: Emergency Provider Emergency Medicine; PCP Family Medicine; Visit Provider Emergency Medicine
DX: S61.011A Laceration without foreign body of right thumb without damage to nail, initial encounter (principal); E11.9 Type 2 diabetes mellitus without complications; W31.2XXA Contact with powered woodworking and forming machines, initial encounter; Z86.73 Personal history of transient ischemic attack (TIA), and cerebral infarction without residual deficits; Z87.891 Personal history of nicotine dependence
CPT/HCPCS: 99282